=== PATIENT | male | born 1965 | race Caucasian/White ===

== ENCOUNTER → 2017-04-03 09:29 | Outpatient (CLI) | payer OTHER, SELFPAY ==
--- NOTE | 2017-04-03 12:00 | CT_ITS ---
CT abdomen pelvis wo con CLINICAL INDICATION: ITS.REASON: LLQ PAIN ORDERING PHYSICIAN: Antonio Cantu MD PATIENT AGE: 51 years COMPARISON: None TECHNIQUE: Axial images obtained with sagittal and coronal reformats. PROCEDURE: Oral Contrast: Redicat IV Contrast: None . FINDINGS: The nodular opacities are present in the right lower lobe anteriorly nonspecific and may be inflammatory/infectious. Less likely neoplastic but not totally excluded. Follow-up recommended to confirm stability. The liver, gallbladder, spleen, pancreas, adrenal glands, and kidneys have an unremarkable appearance. There is increased soft tissue density along the lateral aspect of the body the stomach with some interspersed contrast in this area. This may likely be related to some adherent food or secretions. A focal mass or focal soft tissue thickening is also considered. Upper endoscopy or air contrast upper GI may be of further value clinically warranted. There is a tiny umbilical hernia containing fat. Unremarkable appendix. No intestinal obstruction or free air. Sparse diverticula are present:. No definite diverticulitis. There is a small area of stranding of the fat in the left lower quadrant anterior to the descending colon. This is without thickening of the adjacent bowel is not associated with a diverticulum and could be due to small area of epiploic appendagitis. No pelvic mass or abnormal fluid collection.. No acute bony anomalies IMPRESSION: 1. Small area of stranding of the fat in the left lower quadrant nonspecific and may be due to small area of epiploic appendagitis. 2. Nodular thickening of the lateral wall of the body the stomach which may be related to retained food or secretions versus true mucosal thickening/soft tissue mass. Air contrast upper GI or upper endoscopy may be of further value. 3. Faint nodular opacities right lower lobe which may be inflammatory/infectious. Follow-up may confirm stability
== END ==
PROVIDERS: Family Provider Family Medicine; PCP Family Medicine; Visit Provider Family Medicine
DX: R10.32 Left lower quadrant pain (principal)
CPT/HCPCS: 74176

== ENCOUNTER → 2017-05-05 15:01 | Outpatient (POV) | payer OTHER, SELFPAY | PROVIDERS: Visit Provider Nurse Practitioner Acute Care | DX: Z00.00 Encounter for general adult medical examination without abnormal findings (principal) ==

== ENCOUNTER 2017-06-16 07:18 | Day surgery (SDC) | payer OTHER, SELFPAY ==
[2017-06-10 13:09] VITALS: BMI 36.8
[2017-06-16] VITALS (7 sets, daily range): BP systolic 111–141; BP diastolic 71–86; PULSE 51–69; RESP 18–20; TEMP 37; O2SAT 97–99
[2017-06-16 07:59] LABS: POC Glucose,Bedside 127 mg/dL (70-110)
--- NOTE | 2017-06-16 09:02 | P.PCN_ITS ---
[facility] Procedure Note Procedure Note:: Upper Endoscopy Procedure Report: Esophagogastroduodenoscopy with cold biopsies and TTS balloon dilation Endoscopost: Guillermo Torres II, MD Referring Physician: Antonio Cantu MD Date of Procedure: June 16, 2017 Equipment: Olympus GIF 180 standard upper endoscope Sedation: MAC sedation Indications: Mr. Ortega is a 52-year-old gentleman who is here for diagnostic panendoscopy. The patient does have some left lower quadrant abdominal pain. He reports occasional heartburn and moderate dysphagia to solids (meats). He had a CAT scan of the abdomen which showed some stranding in the left lower quadrant and possible epiploic appendagitis. There was also some nodular thickening of the lateral wall of the body of the stomach possibly related to some retained food. He reports some bloating and belching. He has had a 20-30 pound intentional weight loss because of diabetes. He has some irregular bowel function and may not have a bowel movement for 3-4 days. He reports no melena or hematochezia. He has no family history of colon cancer. Procedure: Prior to the procedure, a history and physical exam was performed, and patient' s medications and allergies were reviewed. The risks, benefits and alternatives of the sedation and procedure were discussed with the patient. All questions were answered and informed consent was obtained. The patient was brought to the procedure room. Patient identification and proposed procedure were verified by the physician and the nurse. The patient was placed in a left lateral decubitus position and the scope was passed under direct vision. Throughout the procedure, the patient's blood pressure, pulse, and oxygen saturations were monitored continuously. The upper GI endoscopy was accomplished without difficulty. The patient tolerated the procedure well. Findings: The scope was passed directly into the upper esophagus and advanced to the third portion of the duodenum. The post bulbar duodenum and duodenal bulb were normal with normal mucosa and conniventes. The scope was withdrawn through a normal duodenal bulb and pylorus into the stomach. There was some mild linear erythema of the antrum. There was some erosive gastritis of the body and fundus. Upon retroflexion there was no hiatal hernia. 2 biopsies were taken in the antrum and along the lesser curvature for histology to rule out gastritis and/or H pylori. The scope was then withdrawn into the esophagus. There was a Schatzki's ring this dilated and fractured by esophageal dilation to 60 Italian/20 mm with a TTS hydrostatic balloon. There was no evidence of reflux esophagitis or Adams's. The remainder of the esophageal mucosa was normal. Impression: 1. Schatzki's ring dilated to 20 mm 2. Linear reactive gastritis/erosive gastritis Plan: The patient should have some clinical improvement with dilation. I will place the patient on omeprazole for 3 months. I will proceed with colonoscopy. I will follow up the biopsies.
--- NOTE | 2017-06-16 09:19 | HMH.PROC ---
[facility] Procedure Note Procedure Note:: Colonoscopy Procedure Report: Colonoscopy with cold snare polypectomy Endoscopist: Guillermo Torres II, MD Referring physician: Antonio Cantu MD Date of Procedure: June 16, 2017 Equipment: Olympus 180 variable stiffness pediatric colonoscope Sedation: MAC sedation Indication: Mr. Ortega is a 52-year-old gentleman who is here for diagnostic panendoscopy. The patient does have some left lower quadrant abdominal pain. He reports occasional heartburn and moderate dysphagia to solids (meats). He had a CAT scan of the abdomen which showed some stranding in the left lower quadrant and possible epiploic appendagitis. There was also some nodular thickening of the lateral wall of the body of the stomach possibly related to some retained food. He reports some bloating and belching. He has had a 20-30 pound intentional weight loss because of diabetes. He has some irregular bowel function and may not have a bowel movement for 3-4 days. He reports no melena or hematochezia. He has no family history of colon cancer. Procedure: Prior to the procedure, a history and physical exam was performed, and patient's medications and allergies were reviewed. The risks, benefits and alternatives of the sedation and procedure were discussed with the patient. All questions were answered and informed consent was obtained. The patient was brought to the procedure room. Patient identification and proposed procedure were verified by the physician and the nurse. The patient was placed in a left lateral decubitus position and the scope was passed under direct vision. Throughout the procedure, the patient's blood pressure, pulse, and oxygen saturations were monitored continuously. The colonoscopy was accomplished without difficulty. The patient tolerated the procedure well. Findings: On digital rectal examination there was normal rectal tone. There were no external hemorrhoids. There was mild to moderate prostate firmness with some increased firmness in the left lower lateral lobe of the prostate. The colonoscope was introduced through the anal canal to the rectum and advanced to the cecum. The ileocecal valve and appendiceal orifice were identified. The scope was advanced a short distance into the ileum which appeared grossly normal. The scope was then withdrawn into the colon. The cecum, ascending and transverse colon and mucosa were grossly normal. There were scattered diverticuli throughout the descending and sigmoid colon (LEFT colon). There was a 6 mm polyp in the descending colon removed via cold snare polypectomy. The remaining sigmoid and rectum were normal. Upon retroflexion within the rectum there were grade 1 internal hemorrhoids. Impression: 1. Descending colon polyp 2. Left-sided diverticulosis 3. Grade 1 internal hemorrhoids 4. Firm prostate with mild asymmetry left lobe Plan: I will recommend fiber bowel regimen on a maintenance basis. I will follow up the polyp histology and recommend repeat screening/surveillance colonoscopy in 5 years if the polyp is adenomatous. I do feel that the patient recently had spastic diverticular disease versus diverticulitis and possibly epiploic appendagitis. We will discuss additional dietary measures and treatment.
--- NOTE | 2017-06-16 09:22 | P.PCN_ITS ---
[facility] Procedure Note Procedure Note:: Colonoscopy Procedure Report: Colonoscopy with cold snare polypectomy Endoscopist: Guillermo Torres II, MD Referring physician: Antonio Cantu MD Date of Procedure: June 16, 2017 Equipment: Olympus 180 variable stiffness pediatric colonoscope Sedation: MAC sedation Indication: Mr. Ortega is a 52-year-old gentleman who is here for diagnostic panendoscopy. The patient does have some left lower quadrant abdominal pain. He reports occasional heartburn and moderate dysphagia to solids (meats). He had a CAT scan of the abdomen which showed some stranding in the left lower quadrant and possible epiploic appendagitis. There was also some nodular thickening of the lateral wall of the body of the stomach possibly related to some retained food. He reports some bloating and belching. He has had a 20-30 pound intentional weight loss because of diabetes. He has some irregular bowel function and may not have a bowel movement for 3-4 days. He reports no melena or hematochezia. He has no family history of colon cancer. Procedure: Prior to the procedure, a history and physical exam was performed, and patient' s medications and allergies were reviewed. The risks, benefits and alternatives of the sedation and procedure were discussed with the patient. All questions were answered and informed consent was obtained. The patient was brought to the procedure room. Patient identification and proposed procedure were verified by the physician and the nurse. The patient was placed in a left lateral decubitus position and the scope was passed under direct vision. Throughout the procedure, the patient's blood pressure, pulse, and oxygen saturations were monitored continuously. The colonoscopy was accomplished without difficulty. The patient tolerated the procedure well. Findings: On digital rectal examination there was normal rectal tone. There were no external hemorrhoids. There was mild to moderate prostate firmness with some increased firmness in the left lower lateral lobe of the prostate. The colonoscope was introduced through the anal canal to the rectum and advanced to the cecum. The ileocecal valve and appendiceal orifice were identified. The scope was advanced a short distance into the ileum which appeared grossly normal. The scope was then withdrawn into the colon. The cecum , ascending and transverse colon and mucosa were grossly normal. There were scattered diverticuli throughout the descending and sigmoid colon (LEFT colon). There was a 6 mm polyp in the descending colon removed via cold snare polypectomy. The remaining sigmoid and rectum were normal. Upon retroflexion within the rectum there were grade 1 internal hemorrhoids. Impression: 1. Descending colon polyp 2. Left-sided diverticulosis 3. Grade 1 internal hemorrhoids 4. Firm prostate with mild asymmetry left lobe Plan: I will recommend fiber bowel regimen on a maintenance basis. I will follow up the polyp histology and recommend repeat screening/ surveillance colonoscopy in 5 years if the polyp is adenomatous. I do feel that the patient recently had spastic diverticular disease versus diverticulitis and possibly epiploic appendagitis. We will discuss additional dietary measures and treatment.
--- NOTE | 2017-06-16 15:34 | HMH.ANESCL ---
[facility] Anesthesia Checklist - Patient Identification Patient Identification: Arm Band - Structural Data Admitted From: Home Planned Operative Procedure/s: egd/colonoscopy Consent for Planned Operative Procedure(s) Verified: Yes Verified Documents: Surgical Consent, History and Physical - NPO Status Verified Time NPO: 00:00 - Additional verifications Anesthesia Reactions: No - Airway Assessment C-Spine Mobility Assessed: Yes (mp2) TMJ Mobility Assessed: Yes Dentition: Dentures-good fit - Neurological Assessment Level of Consciousness: Awake, Alert - Anesthesia Plan Anesthesia Risk discussed: Yes Anesthesia Plan: Verified ASA Class: II Anesthesia Type: MAC [facility] Anesthesia HX I have reviewed the patient's past medical history: Yes Medical History: Reports:: Diabetes Mellitus Type 2 (on med), Hypertension Denies:: Diabetes Mellitus Type 1, Internal Pacemaker, Lung Disease, Seizures Other Surgeries: Yes: Thyroidectomy. No: Pacemaker
== END 2017-06-16 10:22 | disposition home or self-care (01) ==
LOC: OUTP 07:19
PROVIDERS: Family Provider Family Medicine; PCP Family Medicine; Visit Provider Internal Medicine Gastroenterology
PROC: 0DJ08ZZ Inspection of Upper Intestinal Tract, Via Natural or Artificial Opening Endoscopic (ICD-10-PCS; CPT 43235; principal; 2017-06-16 08:30)
DX: K22.2 Esophageal obstruction (principal); K29.60 Other gastritis without bleeding; K63.5 Polyp of colon; K57.30 Diverticulosis of large intestine without perforation or abscess without bleeding; K64.0 First degree hemorrhoids
CPT/HCPCS: 43239; 43249; 45385; 82962; C1726

== ENCOUNTER → 2017-11-01 07:52 | Outpatient (CLI) | payer OTHER, SELFPAY ==
[2017-11-01 08:59] LABS: Hemoglobin A1C 6.8 % (0.0-7.0)
[2017-11-01 12:18] LABS: Alanine Aminotransferase 33 U/L (12-78); Albumin Level 4.2 gm/dL (3.4-5.0); Albumin/Globulin Ratio 1.3 (1.1-1.8); Alkaline Phosphatase 75 U/L (46-116); Anion Gap 5.8 mEq/L (5-15); Aspartate Amino Transferase 15 U/L (15-37); Bilirubin,Total 0.6 mg/dL (0.2-1.0); Blood Urea Nitrogen 12 mg/dL (7-18); Calcium 9.7 mg/dL (8.5-10.1); Carbon Dioxide 35 mmol/L (21.0-32.0); Chloride 101 mmol/L (98-107); Chol/HDL Ratio 5.5 (1-3.5); Cholesterol 153 mg/dL (140-200); Creatinine,Serum 1.04 mg/dL (0.70-1.30); Estimated Glomerular Filt Rate 75 ml/min (>60); GFR (African American) 90 ML/MIN (>60); Globulin 3.2 gm/dl (1.3-3.2); Glucose 175 mg/dL (74-106); HDL Cholesterol 28 mg/dL (27-67); LDL Cholesterol 70 mg/dL (0-130); Potassium 4.8 mmoL/L (3.5-5.1); Prostate Specific Ag Screen 0.6 ng/mL (0.0-4.0); Sodium 137 mmol/L (136-145); Thyroid Stimulating Hormone 2.35 uIU/ml (0.358-3.740); Total Protein,Serum 7.4 gm/dL (6.4-8.2); Triglycerides 274 mg/dL (30-200); VLDL Cholesterol 55 mg/dL (0-40)
[2017-11-03 05:31] LABS: Vitamin B12 309 pg/mL (232-1245)
[2017-11-04 16:04] LABS: Vitamin D 25 Hydroxy 27.9 ng/mL (30.0-100.0)
== END ==
PROVIDERS: Visit Provider Physician Assistant
DX: E53.8 Deficiency of other specified B group vitamins (principal); E78.5 Hyperlipidemia, unspecified; E03.9 Hypothyroidism, unspecified; E11.65 Type 2 diabetes mellitus with hyperglycemia; E55.9 Vitamin D deficiency, unspecified; I10 Essential (primary) hypertension; Z12.5 Encounter for screening for malignant neoplasm of prostate
CPT/HCPCS: 36415; 80053; 80061; 82607; 82652; 83036; 84443; G0103

== ENCOUNTER 2018-06-03 11:50 | Inpatient (IN) ==
[2018-06-03 13:43] LABS: Basophils % 0.2 % (0.1-2.0); Eosinophils # 0.2 K/mm3 (0.0-0.4); Eosinophils % 0.7 % (0.1-12.0); Hematocrit 50.2 % (42.0-52.0); Hemoglobin 17.1 g/dL (14.1-18.0); Lymphocytes # 0.4 K/mm3 (0.7-4.5); Lymphocytes % 1.5 % (10-50); Mean Corpuscular HGB Conc 34.1 g/dL (31.8-35.4); Mean Corpuscular Hemoglobin 30.9 pg (27.0-31.2); Mean Corpuscular Volume 90.6 fl (80-94); Monocytes % 3.9 % (1.7-9.3); Neutrophils # 23.9 K/mm3 (1.8-7.8); Neutrophils % 93.7 % (37.0-80.0); Platelet Count 332 K/mm3 (142-424); Red Blood Count 5.54 M/mm3 (4.60-6.20); Red Cell Distribution Width 12.8 % (11.5-17.5); White Blood Count 25.5 K/mm3 (4.8-10.8)
[2018-06-03 14:02] LABS: Albumin Level 4.1 gm/dL (3.4-5.0); Albumin/Globulin Ratio 1.1 (1.1-1.8); Anion Gap 21.2 mEq/L (5-15); Bilirubin,Total 0.9 mg/dL (0.2-1.0); Calcium 8.9 mg/dL (8.5-10.1); Globulin 3.8 gm/dl (1.3-3.2); Potassium 3.2 mmoL/L (3.5-5.1); Total Protein,Serum 7.9 gm/dL (6.4-8.2)
[2018-06-03 14:21] LABS: Lymphocytes % 2 % (10-50); Monocytes % 2 % (2-9); Neutrophils % 93 % (42-76); RBC Morphology Normal; Total Cells Counted 100
--- NOTE | 2018-06-03 15:56 | Progress Note ---
Internal Medicine - PN: Subj *Date: 06/03/18 *Time: 15:53 Interval history: Mr. Ortega is a 52-year-old male who presented to the office [facility] today after week of not feeling well. He states he has been fatigued and had body aches and chills for the past week but no documented fever. He states last night he ate dinner and this morning he began having vomiting and diarrhea. He denies any abdominal pain but states he has had 6 episodes of both vomiting and diarrhea today. He has been unable to keep down solids or liquids. He was evaluated in the office and his white blood cell count was 34,000. He was therefore admitted to the hospital for further evaluation and treatment. Exam Vital signs and Labs for Last 24 Hours: Temp Pulse Resp BP Pulse Ox 97.9 F 120 H 18 143/104 H 99 06/03/18 12:22 06/03/18 12:22 06/03/18 12:22 06/03/18 12:22 06/03/18 12:22 Laboratory Results - last 24 hr 06/03/18 13:20: WBC 25.5 H*, RBC 5.54, Hgb 17.1, Hct 50.2, MCV 90.6, MCH 30.9, MCHC 34.1, RDW 12.8, Plt Count 332, Neut % (Auto) 93.7 H, Lymph % (Auto) 1.5 L, Orange % (Auto) 3.9, Eos % (Auto) 0.7, Baso % (Auto) 0.2, Neut # (Auto) 23.9 H, Lymph # (Auto) 0.4 L, Orange # (Auto) 1.0, Eos # (Auto) 0.2, Baso # (Auto) 0.0, Total Counted 100, Neutrophils % (Manual) 93 H, Band Neutrophils % 3.0, Lymphocytes % (Manual) 2 L, Monocytes % (Manual) 2, Platelet Estimate Normal, RBC Morphology Normal 06/03/18 13:20: Sodium 137, Potassium 3.2 L, Chloride 94 L, Carbon Dioxide 25, Anion Gap 21.2 H, BUN 20 H, Creatinine 1.22, Estimated Creat Clear 83, Estimated GFR 62, Est GFR ( Amer) 75, Glucose 298 H, Calcium 8.9, Total Bilirubin 0.9, AST 35, ALT 52, Alkaline Phosphatase 89, Total Protein 7.9, Albumin 4.1, Globulin 3.8 H, Albumin/Globulin Ratio 1.1 06/03/18 13:20: Hemoglobin A1c 8.6 H I & O for Last 24 hours: Intake & Output 06/01/18 06/02/18 06/03/18 06/04/18 11:59 11:59 11:59 11:59 Intake Total 0 / 0 Balance 0 / 0 Weight 184 lb 1 oz - Constitutional Comments: Does not appear to feel well - *Routine HEENT Exam Head: Present: normocephalic, atraumatic Eye: Present: EOMI, PERRL ENT: Present: mucous membranes dry - *Routine Neck Exam Present: supple. Absent: lymphadenopathy - *Routine Respiratory Exam Present: CTA bilaterally - *Routine Cardiovascular Exam Present: RRR - *Routine Abdominal Exam Present: soft, normoactive bowel sounds. Absent: tenderness - *Routine Extremities Exam Absent: cyanosis, clubbing, edema - *Routine Skin Exam Present: warm. Absent: rash - *Routine Neurological Exam Present: alert, oriented X3 Assessment and Plan (1) Gastroenteritis Current visit: Yes Status: Acute Category: Medical Code(s): K52.9 - Noninfective gastroenteritis and colitis, unspecified (2) Leukocytosis Current visit: Yes Status: Acute Category: Medical Code(s): D72.829 - Elevated white blood cell count, unspecified (3) Dehydration Current visit: Yes Status: Acute Category: Medical Code(s): E86.0 - Dehydration (4) Hypokalemia Current visit: Yes Status: Acute Category: Medical Code(s): E87.6 - Hypokalemia (5) Type 2 diabetes mellitus Current visit: Yes Status: Chronic Category: Medical Code(s): E11.9 - Type 2 diabetes mellitus without complications (6) Hypertension Current visit: Yes Status: Chronic Category: Medical Code(s): I10 - Essential (primary) hypertension - Assessment and plan all Dx Assessment and Plan for all problems:: Patient was admitted and started on IV fluids, Invanz, and anti-medics. A CBC with manual differential was ordered. His white blood cell count was slightly lower than it was in the office and the differential look normal. A PCR diarrhea panel was ordered as was a KUB. The KUB was normal. Still awaiting PCR panel as well as blood cultures. His potassium was low and he was started on potassium supplementation. See H&P sent from the office.
--- NOTE | 2018-06-03 18:34 | Progress Note ---
Internal Medicine - PN: Subj *Date: 06/03/18 *Time: 18:32 Interval history: He feels much better already. He has been able to keep liquids down. He has not vomited nor has he had diarrhea since he was admitted. KUB and upright abdomen was basically negative negative, possible enteritis. Exam Vital signs and Labs for Last 24 Hours: Temp Pulse Resp BP Pulse Ox 98.8 F 112 H 16 117/78 98 06/03/18 16:00 06/03/18 16:00 06/03/18 16:00 06/03/18 16:00 06/03/18 16:00 Laboratory Results - last 24 hr 06/03/18 13:20: WBC 25.5 H*, RBC 5.54, Hgb 17.1, Hct 50.2, MCV 90.6, MCH 30.9, MCHC 34.1, RDW 12.8, Plt Count 332, Neut % (Auto) 93.7 H, Lymph % (Auto) 1.5 L, D[place] % (Auto) 3.9, Eos % (Auto) 0.7, Baso % (Auto) 0.2, Neut # (Auto) 23.9 H, Lymph # (Auto) 0.4 L, [place] # (Auto) 1.0, Eos # (Auto) 0.2, Baso # (Auto) 0.0, Total Counted 100, Neutrophils % (Manual) 93 H, Band Neutrophils % 3.0, Lymphocytes % (Manual) 2 L, Monocytes % (Manual) 2, Platelet Estimate Normal, RBC Morphology Normal 06/03/18 13:20: Sodium 137, Potassium 3.2 L, Chloride 94 L, Carbon Dioxide 25, Anion Gap 21.2 H, BUN 20 H, Creatinine 1.22, Estimated Creat Clear 83, Estimated GFR 62, Est GFR ( Amer) 75, Glucose 298 H, Calcium 8.9, Total Bilirubin 0.9, AST 35, ALT 52, Alkaline Phosphatase 89, Total Protein 7.9, Albumin 4.1, Globulin 3.8 H, Albumin/Globulin Ratio 1.1 06/03/18 13:20: Hemoglobin A1c 8.6 H 06/03/18 13:20: TSH 0.74 D I & O for Last 24 hours: Intake & Output 06/01/18 06/02/18 06/03/18 06/04/18 11:59 11:59 11:59 11:59 Intake Total 0 / 0 Balance 0 / 0 Weight 184 lb 1 oz - Constitutional no acute distress Comments: He looks much better. His color is better. His skin turgor has improved already. - *Routine Cardiovascular Exam Present: RRR - *Routine Abdominal Exam Present: soft. Absent: tenderness Assessment and Plan (1) Gastroenteritis Current visit: Yes Status: Acute Category: Medical Code(s): K52.9 - Noninfective gastroenteritis and colitis, unspecified (2) Leukocytosis Current visit: Yes Status: Acute Category: Medical Code(s): D72.829 - Elevated white blood cell count, unspecified (3) Dehydration Current visit: Yes Status: Acute Category: Medical Code(s): E86.0 - Dehydration (4) Hypokalemia Current visit: Yes Status: Acute Category: Medical Code(s): E87.6 - Hypokalemia (5) Type 2 diabetes mellitus Current visit: Yes Status: Chronic Category: Medical Code(s): E11.9 - Type 2 diabetes mellitus without complications (6) Hypertension Current visit: Yes Status: Chronic Category: Medical Code(s): I10 - Essent ial (primary) hypertension - Assessment and plan all Dx Assessment and Plan for all problems:: Continue present regimen.
[2018-06-04 07:37] LABS: Basophils % 0.3 % (0.1-2.0); Eosinophils % 0.5 % (0.1-12.0); Lymphocytes % 11.8 % (10-50); Mean Corpuscular HGB Conc 34.3 g/dL (31.8-35.4); Mean Corpuscular Hemoglobin 31.2 pg (27.0-31.2); Mean Corpuscular Volume 90.8 fl (80-94); Mean Platelet Volume 7.2 fl (7.4-10.4); Monocytes # 0.6 K/mm3 (0.1-1.0); Neutrophils # 7.1 K/mm3 (1.8-7.8); Neutrophils % 80.4 % (37.0-80.0); Platelet Count 243 K/mm3 (142-424); Red Blood Count 4.51 M/mm3 (4.60-6.20); Red Cell Distribution Width 12.8 % (11.5-17.5); White Blood Count 8.8 K/mm3 (4.8-10.8)
--- NOTE | 2018-06-04 07:40 | Pharmacy Consult Notes ---
[facility] Pharmacy VTE Monitoring - Patient Demographics Admission date: 06/03/18 Report Date: 06/04/18 Time: 07:40 Allergies/Adverse Reactions: Patient Allergies No Known Allergies Allergy (Verified 06/10/17 13:03) Height: 1.85 m Weight: 83.489 kg Patient Problems: Current Active Problems Gastroenteritis (Acute) Leukocytosis (Acute) Dehydration (Acute) Hypokalemia (Acute) Type 2 diabetes mellitus (Chronic) Hypertension (Chronic) - VTE Risk Labs: VTE Related Lab Results Hgb 17.1 g/dL (14.1-18.0) 06/03/18 13:20 Hct 50.2 % (42.0-52.0) 06/03/18 13:20 Plt Count 332 K/mm3 (142-424) 06/03/18 13:20 BUN 20 mg/dL (7-18) H 06/03/18 13:20 Creatinine 1.22 mg/dL (0.70-1.30) 06/03/18 13:20 Estimated Creat Clear 83 mL/min (50-200) 06/03/18 13:20 Was VTE Risk Assessment Performed: Yes VTE Score: 1 VTE Risk Level: Very Low Risk - Prophylaxis VTE Prophylaxis Ordered?: Yes Types of VTE Prophylaxis: TEDS Knee High Location of Applied Device: Bilateral Lower Extremeties - VTE Diagnosis Confirmed Treatment or plan recommended: Continue Current Treatment
[2018-06-04 07:51] LABS: Albumin Level 2.9 gm/dL (3.4-5.0); Anion Gap 12.7 mEq/L (5-15); Bilirubin,Total 0.7 mg/dL (0.2-1.0); Total Protein,Serum 5.9 gm/dL (6.4-8.2)
[2018-06-04 07:58] LABS: Hemoglobin 14.2 g/dL (14.1-18.0)
[2018-06-04 08:04] LABS: Potassium 2.7 mmoL/L (3.5-5.1)
--- NOTE | 2018-06-04 08:37 | Progress Note ---
Internal Medicine - PN: Subj *Date: 06/04/18 *Time: 08:36 Interval history: Patient states he is feeling a little bit better today. His nausea, vomiting, and diarrhea have resolved. He denies any pain. His only complaint is of being tired. His potassium is low this morning but his white blood cell count has normalized. Exam Vital signs and Labs for Last 24 Hours: Temp Pulse Resp BP Pulse Ox 98.4 F 90 18 112/81 100 06/04/18 08:00 06/04/18 08:00 06/04/18 08:00 06/04/18 08:00 06/04/18 08:00 Laboratory Results - last 24 hr 06/03/18 13:20: WBC 25.5 H*, RBC 5.54, Hgb 17.1, Hct 50.2, MCV 90.6, MCH 30.9, MCHC 34.1, RDW 12.8, Plt Count 332, Neut % (Auto) 93.7 H, Lymph % (Auto) 1.5 L, Hardy % (Auto) 3.9, Eos % (Auto) 0.7, Baso % (Auto) 0.2, Neut # (Auto) 23.9 H, Lymph # (Auto) 0.4 L, Hardy # (Auto) 1.0, Eos # (Auto) 0.2, Baso # (Auto) 0.0, Total Counted 100, Neutrophils % (Manual) 93 H, Band Neutrophils % 3.0, Lymphocytes % (Manual) 2 L, Monocytes % (Manual) 2, Platelet Estimate Normal, RBC Morphology Normal 06/03/18 13:20: Sodium 137, Potassium 3.2 L, Chloride 94 L, Carbon Dioxide 25, Anion Gap 21.2 H, BUN 20 H, Creatinine 1.22, Estimated Creat Clear 83, Estimated GFR 62, Est GFR ( Amer) 75, Glucose 298 H, Calcium 8.9, Total Bilirubin 0.9, AST 35, ALT 52, Alkaline Phosphatase 89, Total Protein 7.9, Albumin 4.1, Globulin 3.8 H, Albumin/Globulin Ratio 1.1 06/03/18 13:20: Hemoglobin A1c 8.6 H 06/03/18 13:20: TSH 0.74 D 06/03/18 20:09: POC Glucose 253 H 06/04/18 05:54: POC Glucose 209 H 06/04/18 06:43: WBC 8.8 D, RBC 4.51 L, Hgb 14.2 D, Hct 41.0 L, MCV 90.8, MCH 31.2, MCHC 34.3, RDW 12.8, Plt Count 243 D, MPV 7.2 L, Neut % (Auto) 80.4 H, Lymph % (Auto) 11.8, Hardy % (Auto) 7.0, Eos % (Auto) 0.5, Baso % (Auto) 0.3, Neut # (Auto) 7.1, Lymph # (Auto) 1.0, Hardy # (Auto) 0.6, Eos # (Auto) 0.0, Baso # (Auto) 0.0 06/04/18 06:43: Sodium 135 L, Potassium 2.7 L*, Chloride 97 L, Carbon Dioxide 28, Anion Gap 12.7, BUN 15, Creatinine 0.84 D, Estimated Creat Clear 120, Estimated GFR 96, Est GFR ( Amer) 116 D, Glucose 211 H D, Total Bilirubin 0.7, AST 26 D, ALT 40, Alkaline Phosphatase 58, Total Protein 5.9 L D , Albumin 2.9 L D, Globulin 3.0, Albumin/Globulin Ratio 1.0 L I & O for Last 24 hours: Intake & Output 06/01/18 06/02/18 06/03/18 06/04/18 11:59 11:59 11:59 11:59 Intake Total 1410 / 1410 Balance 1410 / 1410 Weight 184 lb 1 oz - Constitutional no acute distress - *Routine Respiratory Exam Present: CTA bilaterally - *Routine Cardiovascular Exam Present: RRR - *Routine Abdominal Exam Present: soft, normoactive bowel sounds. Absent: tenderness - *Routine Extremities Exam Absent: cyanosis, clubbing, edema Assessment and Plan (1) Gastroenteritis Current visit: Yes Status: Acute Category: Medical Code(s): K52.9 - Noninfective gastroenteritis and colitis, unspecified (2) Leukocytosis Current visit: Yes Status: Acute Category: Medical Code(s): D72.829 - Elevated white blood cell count, unspecified (3) Dehydration Current visit: Yes Status: Acute Category: Medical Code(s): E86.0 - Dehydration (4) Hypokalemia Current visit: Yes Status: Acute Category: Medical Code(s): E87.6 - Hypokalemia (5) Type 2 diabetes mellitus Current visit: Yes Status: Chronic Category: Medical Code(s): E11.9 - Type 2 diabetes mellitus without complications (6) Hypertension Current visit: Yes Status: Chronic Category: Medical Code(s): I10 - Essential (primary) hypertension - Assessment and plan all Dx Assessment and Plan for all problems:: Potassium is low this morning. We will continue oral supplementation and give a run of 20 mEq of potassium today.
[2018-06-04 08:44] LABS: Calcium 7.3 mg/dL (8.5-10.1)
[2018-06-04 14:25] LABS: Anion Gap 12.2 mEq/L (5-15); Calcium 7.2 mg/dL (8.5-10.1); Potassium 3.2 mmoL/L (3.5-5.1)
[2018-06-05 07:32] LABS: Basophils % 0.4 % (0.1-2.0); Eosinophils # 0.1 K/mm3 (0.0-0.4); Eosinophils % 1.7 % (0.1-12.0); Hematocrit 39.1 % (42.0-52.0); Hemoglobin 13.2 g/dL (14.1-18.0); Lymphocytes # 1.3 K/mm3 (0.7-4.5); Lymphocytes % 19.6 % (10-50); Mean Corpuscular HGB Conc 33.7 g/dL (31.8-35.4); Mean Corpuscular Hemoglobin 31.6 pg (27.0-31.2); Mean Corpuscular Volume 93.7 fl (80-94); Mean Platelet Volume 7.2 fl (7.4-10.4); Monocytes # 0.6 K/mm3 (0.1-1.0); Neutrophils # 4.8 K/mm3 (1.8-7.8); Neutrophils % 70.3 % (37.0-80.0); Platelet Count 227 K/mm3 (142-424); Red Blood Count 4.17 M/mm3 (4.60-6.20); White Blood Count 6.8 K/mm3 (4.8-10.8)
[2018-06-05 07:38] LABS: Anion Gap 12.4 mEq/L (5-15); Calcium 7.4 mg/dL (8.5-10.1); Potassium 3.4 mmoL/L (3.5-5.1)
--- NOTE | 2018-06-05 08:24 | Progress Note ---
<Starr Fulton - Last Filed: 06/05/18 08:23> Internal Medicine - PN: Subj *Date: 06/05/18 *Time: 08:23 Interval history: Patient states he is feeling better today. He is tolerating a diet. He has had no further vomiting but continues with some diarrhea. He was able to rest last night and wants to go home today. Exam Vital signs and Labs for Last 24 Hours: Temp Pulse Resp BP Pulse Ox 97.7 F 60 17 136/80 97 06/05/18 04:00 06/05/18 04:00 06/05/18 04:00 06/05/18 04:00 06/05/18 07:45 Laboratory Results - last 24 hr 06/04/18 06:43: Calcium 7.3 L D 06/04/18 11:06: POC Glucose 202 H 06/04/18 13:40: Stl Aeromonas (PCR) Not detected, Stl C. cayetanensis PCR Not detected, Stool Rotavirus (PCR) Not detected, Stl Adenov F 40/41 PCR Not detected, Stool Astrovirus (PCR) Not detected, Stool Campylobacter PCR Not detected, Stl C.difficile Tox PCR Not detected, Stool Cryptosporidium PCR Not detected, Stl E.coli Shiga Tox PCR Not detected, Stool E coli O157 PCR Not detected, Stl Enterotoxigenic E PCR Not detected, Stool EPEC (PCR) Not detected, Stool EAEC (PCR) Not detected, Stl E. histolytica PCR Not detected, Stool Giardia Lamblia PCR Not detected, Stool Salmonella PCR Not detected, Stool Sapovirus (PCR) Not detected, Stl P. shigelloides PCR Not detected, Stl Shigella/EIEC PCR Not detected, St Y.enterocolitica PCR Not detected, Stool Vibrio (PCR) Not detected, Stl Vibrio cholerae PCR Not detected, Stl Norovirus GI/GII PCR Detected A 06/04/18 14:05: Sodium 138, Potassium 3.2 L, Chloride 101, Carbon Dioxide 28, Anion Gap 12.2, BUN 11 D, Creatinine 0.94, Estimated Creat Clear 107, Estimated GFR 84, Est GFR ( Amer) 102, Glucose 179 H, Calcium 7.2 L 06/04/18 17:11: POC Glucose 155 H 06/04/18 20:31: POC Glucose 187 H 06/05/18 05:44: POC Glucose 173 H 06/05/18 06:46: WBC 6.8, RBC 4.17 L, Hgb 13.2 L, Hct 39.1 L, MCV 93.7, MCH 31.6 H, MCHC 33.7, RDW 13.0, Plt Count 227, MPV 7.2 L, Neut % (Auto) 70.3, Lymph % (Auto) 19.6, Haywood % (Auto) 8.0, Eos % (Auto) 1.7, Baso % (Auto) 0.4, Neut # (Auto) 4.8, Lymph # (Auto) 1.3, Haywood # (Auto) 0.6, Eos # (Auto) 0.1, Baso # (Auto) 0.0 06/05/18 06:46: Sodium 139, Potassium 3.4 L, Chloride 105, Carbon Dioxide 25, Anion Gap 12.4, BUN 9, Creatinine 0.76, Estimated Creat Clear 133, Estimated GFR 107, Est GFR ( Amer) 130 D, Glucose 164 H, Calcium 7.4 L I & O for Last 24 hours: Intake & Output 06/02/18 06/03/18 06/04/18 06/05/18 11:59 11:59 11:59 11:59 Intake Total 1410 / 1410 840 / 840 Output Total 200 / 200 Balance 1410 / 1410 640 / 640 Weight 184 lb 1 oz - Constitutional no acute distress - *Routine Respiratory Exam Present: CTA bilaterally - *Routine Cardiovascular Exam Present: RRR - *Routine Abdominal Exam Present: soft, normoactive bowel sounds. Absent: tenderness - *Routine Extremities Exam Absent: cyanosis, clubbing, edema Assessment and Plan (1) Norovirus Current visit: Yes Status: Acute Category: Medical Code(s): A08.11 - Acute gastroenteropathy due to [place] agent (2) Gastroenteritis Current visit: Yes Status: Acute Category: Medical Code(s): K52.9 - Noninfective gastroenteritis and colitis, unspecified (3) Leukocytosis Current visit: Yes Status: Acute Category: Medical Code(s): D72.829 - Elevated white blood cell count, unspecified (4) Dehydration Current visit: Yes Status: Acute Category: Medical Code(s): E86.0 - Dehydration (5) Hypokalemia Current visit: Yes Status: Acute Category: Medical Code(s): E87.6 - Hypokalemia (6) Type 2 diabetes mellitus Current visit: Yes Status: Chronic Category: Medical Code(s): E11.9 - Type 2 diabetes mellitus without complications (7) Hypertension Current visit: Yes Status: Chronic Category: Medical Code(s): I10 - Essential (primary) hypertension - Assessment and plan all Dx Assessment and Plan for all problems:: Patient's diarrhea panel came back positive for nororvirus. His symptoms have improved as has his potassium. He stable to be discharged home today. <Modesto Catalan - Last Filed: 06/05/18 08:37> Exam Vital signs and Labs for Last 24 Hours: Temp Pulse Resp BP Pulse Ox 98.1 F 74 16 123/84 97 06/05/18 08:00 06/05/18 08:00 06/05/18 08:00 06/05/18 08:00 06/05/18 08:00 Laboratory Results - last 24 hr 06/04/18 06:43: Calcium 7.3 L D 06/04/18 11:06: POC Glucose 202 H 06/04/18 13:40: Stl Aeromonas (PCR) Not detected, Stl C. cayetanensis PCR Not detected, Stool Rotavirus (PCR) Not detected, Stl Adenov F 40/41 PCR Not detected, Stool Astrovirus (PCR) Not detected, Stool Campylobacter PCR Not detected, Stl C.difficile Tox PCR Not detected, Stool Cryptosporidium PCR Not detected, Stl E.coli Shiga Tox PCR Not detected, Stool E coli O157 PCR Not detected, Stl Enterotoxigenic E PCR Not detected, Stool EPEC (PCR) Not detected, Stool EAEC (PCR) Not detected, Stl E. histolytica PCR Not detected, Stool Gi ardia Lamblia PCR Not detected, Stool Salmonella PCR Not detected, Stool Sapovirus (PCR) Not detected, Stl P. shigelloides PCR Not detected, Stl Shigella/EIEC PCR Not detected, St Y.enterocolitica PCR Not detected, Stool Vibrio (PCR) Not detected, Stl Vibrio cholerae PCR Not detected, Stl Norovirus GI/GII PCR Detected A 06/04/18 14:05: Sodium 138, Potassium 3.2 L, Chloride 101, Carbon Dioxide 28, Anion Gap 12.2, BUN 11 D, Creatinine 0.94, Estimated Creat Clear 107, Estimated GFR 84, Est GFR ( Amer) 102, Glucose 179 H, Calcium 7.2 L 06/04/18 17:11: POC Glucose 155 H 06/04/18 20:31: POC Glucose 187 H 06/05/18 05:44: POC Glucose 173 H 06/05/18 06:46: WBC 6.8, RBC 4.17 L, Hgb 13.2 L, Hct 39.1 L, MCV 93.7, MCH 31.6 H, MCHC 33.7, RDW 13.0, Plt Count 227, MPV 7.2 L, Neut % (Auto) 70.3, Lymph % (Auto) 19.6, Haywood % (Auto) 8.0, Eos % (Auto) 1.7, Baso % (Auto) 0.4, Neut # (Auto) 4.8, Lymph # (Auto) 1.3, Haywood # (Auto) 0.6, Eos # (Auto) 0.1, Baso # (Auto) 0.0 06/05/18 06:46: Sodium 139, Potassium 3.4 L, Chloride 105, Carbon Dioxide 25, Anion Gap 12.4, BUN 9, Creatinine 0.76, Estimated Creat Clear 133, Estimated GFR 107, Est GFR ( Amer) 130 D, Glucose 164 H, Calcium 7.4 L I & O for Last 24 hours: Intake & Output 06/02/18 06/03/18 06/04/18 06/05/18 11:59 11:59 11:59 11:59 Intake Total 1410 / 1410 1560 / 1560 Output Total 200 / 200 Balance 1410 / 1410 1360 / 1360 Weight 184 lb 1 oz Assessment and Plan (1) Norovirus Current visit: Yes Status: Acute Category: Medical Code(s): A08.11 - Acute gastroenteropathy due to [place] agent (2) Gastroenteritis Current visit: Yes Status: Acute Category: Medical Code(s): K52.9 - Noninfective gastroenteritis and colitis, unspecified (3) Leukocytosis Current visit: Yes Status: Acute Category: Medical Code(s): D72.829 - Elevated white blood cell count, unspecified (4) Dehydration Current visit: Yes Status: Acute Category: Medical Code(s): E86.0 - Dehydration (5) Hypokalemia Current visit: Yes Status: Acute Category: Medical Code(s): E87.6 - Hypokalemia (6) Type 2 diabetes mellitus Current visit: Yes Status: Chronic Category: Medical Code(s): E11.9 - Type 2 diabetes mellitus without complications (7) Hypertension Current visit: Yes Status: Chronic Category: Medical Code(s): I10 - Essential (primary) hypertension - Assessment and plan all Dx Assessment and Plan for all problems:: Saw patient, agree with above note.
--- NOTE | 2018-06-07 22:30 | Discharge Summary ---
General - General Admission date:: 06/03/18 Discharge date: 06/05/18 HPI HPI: Mr. Ortega is a 52-year-old male who presented to the [facility] today after week of not feeling well. He states he has been fatigued and had body aches and chills for the past week but no documented fever. He states last night he ate dinner and this morning he began having vomiting and diarrhea. He denies any abdominal pain but states he has had 6 episodes of both vomiting and diarrhea today. He has been unable to keep down solids or liquids. He was evaluated in the office and his white blood cell count was 34,000. He was therefore admitted to the hospital for further evaluation and treatment. Hospital Course Hospital Course: The patient was admitted and started on IV fluids, Invanz, and anti-emetics. A CBC with manual differential was ordered as was a PCR diarrhea panel and a KUB. The patient's KUB was normal. His potassium was low, therefore he was started on potassium supplementation. The patient's vomiting subsided and his white blood cell count normalized. His potassium remained low, therefore he was given a run of potassium. His diarrhea panel came back positive for Norovirus. He began feeling much better and was able to tolerate a diet. He had no further vomiting but did continue with some diarrhea. He was able to rest and was anxious to go home. His potassium improved and he was stable to be discharged home and will follow-up in the office. Objective Vital signs: Temp Pulse Resp BP Pulse Ox 98.1 F 74 16 123/84 97 06/05/18 08:00 06/05/18 08:00 06/05/18 08:00 06/05/18 08:00 06/05/18 08:00 Narrative: - Constitutional Comments: Does not appear to feel well - *Routine HEENT Exam Head: Present: normocephalic, atraumatic Eye: Present: EOMI, PERRL ENT: Present: mucous membranes dry - *Routine Neck Exam Present: supple. Absent: lymphadenopathy - *Routine Respiratory Exam Present: CTA bilaterally - *Routine Cardiovascular Exam Present: RRR - *Routine Abdominal Exam Present: soft, normoactive bowel sounds. Absent: tenderness - *Routine Extremities Exam Absent: cyanosis, clubbing, edema - *Routine Skin Exam Present: warm. Absent: rash - *Routine Neurological Exam Present: alert, oriented X3 Results Labs on day of discharge: Preliminary micro results at discharge 06/03/18 13:20 Blood Culture - Preliminary Blood NO GROWTH AFTER 48 HOURS 06/03/18 13:20 Blood Culture - Preliminary Blood NO GROWTH AFTER 48 HOURS DS: Diagnosis - Discharge Diagnosis (1) Norovirus Status: Acute (2) Gastroenteritis Status: Acute (3) Leukocytosis Status: Acute (4) Dehydration Status: Acute (5) Hypokalemia Status: Acute (6) Type 2 diabetes mellitus Status: Chronic (7) Hypertension Status: Chronic Discharge Plan - Patient Discharge Instructions ACTIVITY: Continue current activity (RTW on 06/08/18) DIET: continue same diet Patient Instructions: Norovirus Infection, DI for Dehydration -- Adult, DI for Hypokalemia - Follow up Plan Follow up with: Starr Fulton PA [Physician Behavioral Medical Director] - 06/11/18 Disposition: Home, Self-Usp Medications: Home Medications Medication Instructions Recorded Confirmed Type Aspirin [Aspirin 81mg EC Tab] 81 mg PO DAILY 06/10/17 06/03/18 History Chlorthalidone 25 mg PO DAILY 06/10/17 06/04/18 History Levothyroxine Sodium 75 mcg PO DAILY 06/10/17 06/04/18 History [Levothyroxine 75mcg (0.075mg) Tab] Lisinopril [Lisinopril 5mg Tablet] 5 mg PO DAILY 06/10/17 06/04/18 History Metformin HCl [Glucophage 500mg 500 mg PO DAILY 06/10/17 06/04/18 History Tablet] Potassium Chloride [Klor-con 20 20 meq PO DAILY 06/10/17 06/04/18 History mEq tablet] Icosapent Ethyl [Vascepa] 2 g PO BID 06/04/18 06/04/18 History Prescriptions/Medication Reconciliation: Continue Levothyroxine Sodium [Levothyroxine 75mcg (0.075mg) Tab] 75 mcg PO DAILY Metformin HCl [Glucophage 500mg Tablet] 500 mg PO DAILY Lisinopril [Lisinopril 5mg Tablet] 5 mg PO DAILY Chlorthalidone 25 mg PO DAILY Icosapent Ethyl [Vascepa] 2 g PO BID Potassium Chloride [Klor-con 20 mEq tablet] 20 meq PO DAILY Aspirin [Aspirin 81mg EC Tab] 81 mg PO DAILY
== END 2018-06-05 10:01 | disposition home or self-care (01) | DRG 392 ==
LOC: 2ND → OBSVTOIN 12:09
PROVIDERS: ADMIT Family Medicine; ATTEND Family Medicine
CPT/HCPCS: 36415; 74000; 74018; 74019; 74020; 80048; 80053; 82962; 83036; 84443; 85007; 85014; 85018; 85025; 85048; 85049; 87040; 87507; J1335

== ENCOUNTER → 2019-10-09 08:14 | Outpatient (CLI) | payer OTHER, SELFPAY ==
[2019-10-09 08:48] LABS: Hemoglobin A1C 7.9 % (4.0-6.0)
[2019-10-09 08:50] LABS: Creatinine,Urine Random 240 mg/dL (Not Estab.)
[2019-10-09 08:52] LABS: Microalbumin/Creatinine Ratio 4.1
[2019-10-09 09:06] LABS: Chloride 100 mmol/L (98-107); Potassium 3.7 mmoL/L (3.5-5.1); Sodium 138 mmol/L (136-145)
[2019-10-09 09:08] LABS: Alanine Aminotransferase 38 U/L (12-78); Aspartate Amino Transferase 34 U/L (17-59); Blood Urea Nitrogen 12 mg/dl (9-20); Estimated Glomerular Filt Rate 100 ml/min (>60); GFR (African American) 121 ML/MIN (>60)
[2019-10-09 09:09] LABS: Albumin Level 4.5 g/dl (3.5-5.0); Albumin/Globulin Ratio 1.8 (1.1-1.8); Alkaline Phosphatase 67 U/L (38-126); Anion Gap 11.7 mEq/L (5-15); Bilirubin,Total 0.6 mg/dl (0.2-1.3); Calcium 9.4 mg/dl (8.4-10.2); Carbon Dioxide 30 mmol/L (22.0-30.0); Cholesterol 157 mg/dl (140-200); Globulin 2.5 g/dL (1.3-3.2); Glucose 199 mg/dl (74-100); Triglycerides 230 mg/dl (30-150); VLDL Cholesterol 46 mg/dL (0-40)
[2019-10-09 09:10] LABS: Chol/HDL Ratio 4.9 (1-3.5); HDL Cholesterol 32 mg/dl (40-60)
[2019-10-09 09:20] LABS: Direct LDL Cholesterol 88.41 mg/dL (100-129)
[2019-10-09 09:39] LABS: Thyroid Stimulating Hormone 1.37 uIU/mL (0.465-4.68)
[2019-10-09 12:50] LABS: 25-OH Vitamin D, Total 43.9 ng/mL (30-100)
[2019-10-11 19:38] LABS: Vitamin B12 667 pg/mL (232-1245)
== END ==
PROVIDERS: Visit Provider Physician Assistant
DX: E03.9 Hypothyroidism, unspecified (principal); E11.9 Type 2 diabetes mellitus without complications; E53.8 Deficiency of other specified B group vitamins; E55.9 Vitamin D deficiency, unspecified; I10 Essential (primary) hypertension; E78.5 Hyperlipidemia, unspecified; Z79.84 Long term (current) use of oral hypoglycemic drugs
CPT/HCPCS: 36415; 80053; 80061; 82043; 82306; 82570; 82607; 83036; 84439; 84443

== ENCOUNTER 2020-04-14 19:38 | Emergency (ER) | payer OTHER, SELFPAY ==
[2020-04-14 19:45] VITALS: BP 129/82; PULSE 83; RESP 19; TEMP 36.6; O2SAT 98; BMI 25.7
--- NOTE | 2020-04-14 19:56 | HMH.EDUTC ---
[facility] [place] Disposition Clinical Impression: Exposure to COVID-19 virus Disposition: Home, Self-Care Condition on Discharge: Good Instructions: Preventing the Spread of Coronavirus Discharge Instructions Additional Instructions: You have been tested for COVID19. Please isolate yourself as if you are positive until test results received. Referrals: Brent Cantu MD [Primary Care Provider] - Time of Disposition: 19:58 Medical Decision Making - Adi Inquiry Pt receiving controlled substance: No Vital Signs: 04/14/20 19:45 Temperature 97.8 F Temperature Source Oral Pulse Rate [Right Brachial] 83 Respiratory Rate 19 Blood Pressure [Right Arm] 129/82 Blood Pressure Mean [Right Arm] 97 Blood Pressure Source [Right Arm] Automatic Cuff Blood Pressure Position [Right Arm] Sitting 02 Sat by Pulse Oximetry 98 Oxygen Delivery Method Room Air Orders (Tests/Meds): ORDERS Category Date Time Status Covid-19 Nasal PCR ([facility]) Routine Lab 04/14/20 19:48 Received [facility] [place] HPI - General Stated complaint: Wants Covid test,H/A weakness Time Seen by Provider: 04/14/20 19:56 Mode of Arrival: Ambulatory Source of Information: Patient Limitations: No Limitations Description of Symptoms (Recalled from Triage Doc. by RN): COVID TEST D/T EXPOSURE. DENIES SYMPTOMS HEENT Symptoms (Recalled from RN notes): No Resp Symptoms (Recalled from RN notes): No Skin Symptoms (Recalled from RN notes): No MS Symptoms (Recalled from RN notes): No Functional Status (Recalled from RN notes): WNL - History of Present Illness Provider Complaint: Headache, malaise X 2 days. Possible work exposure to COVID19. No fever. No loss of taste or smell. Onset (ago): day(s) (2) Location: head Relieving factors: none Exacerbating factors: none Associated symptoms: denies other symptoms Treatments prior to arrival: none - Related Data Home Medications Medication Instructions Recorded Confirmed Aspirin [Aspirin 81mg EC Tab] 81 mg PO DAILY 06/10/17 06/03/18 Chlorthalidone 25 mg PO DAILY 06/10/17 06/04/18 Levothyroxine Sodium 75 mcg PO DAILY 06/10/17 06/04/18 [Levothyroxine 75mcg (0.075mg) Tab] Metformin HCl [Glucophage 500mg 500 mg PO DAILY 06/10/17 06/04/18 Tablet] Potassium Chloride [Klor-con 20 20 meq PO DAILY 06/10/17 06/04/18 mEq tablet] lisinopriL [Lisinopril 5mg 5 mg PO DAILY 06/10/17 06/04/18 Tablet] Icosapent Ethyl [Vascepa] 2 g PO BID 06/04/18 06/04/18 Allergies Allergy/AdvReac Type Severity Reaction Status Date / Time No Known Allergies Allergy Verified 06/10/17 13:03 - Worker's Comp Is this a Worker's Comp case?: No [facility] History - Hepatitis A Screen Drug use history?: No High risk sexual behaviors?: No History of sexually transmitted infection?: No Currently employed?: No Childcare worker?: No Do you have indoor plumbing?: Yes Do you have electricity?: Yes Attestation statement:: This patient has been screened for Hepatitis A risk factors. I have reviewed the patient's past medical history: Yes Medical History: Reports:: Diabetes Mellitus Type 2 (on med), Hypertension Denies:: Cancer, Diabetes Mellitus Type 1, Internal Pacemaker, Lung Disease, MRSA, Seizures Other Surgeries: Yes: Thyroidectomy. No: Pacemaker Amputation: No Fractures: No - Social History Smoking Status: Current every day smoker Tobacco Type: cigarettes # Packs/Day (cigarettes): 1 Alcohol Intake: never Occupational Status: employed Housing: house Household Members: spouse, children Family Hx:: Unable to obtain ROS Obtained: Yes All systems reviewed & no additional complaints - Constitutional Constitutional: Reports headache(s), Reports malaise Physical Exam - General General appearance: alert, in no apparent distress - Head Head exam: atraumatic, normocephalic, normal inspection - Eye Eye exam: Present: normal appearance, PERRL, EOMI - ENT ENT exam: Present: normal exam, normal oropharynx, m
[2020-04-14 20:02] VITALS: BP 129/82; PULSE 83; RESP 19; TEMP 36.6; O2SAT 98
== END 2020-04-14 20:05 | disposition home or self-care (01) ==
PROVIDERS: Emergency Provider Physician Assistant; PCP Family Medicine
DX: Z20.822 Contact with and (suspected) exposure to COVID-19 (principal); R51.9 Headache, unspecified; I10 Essential (primary) hypertension; E11.9 Type 2 diabetes mellitus without complications; Z79.899 Other long term (current) drug therapy; F17.210 Nicotine dependence, cigarettes, uncomplicated
CPT/HCPCS: 99202; G0463; U0003

== ENCOUNTER 2021-02-19 16:41 | Emergency (ER) | payer OTHER, SELFPAY ==
--- NOTE | 2021-02-19 17:25 | XR_ITS ---
PROCEDURE INFORMATION: Exam: XR Left Foot Exam date and time: 02/19/2021 5:25 PM Age: 55 years old Clinical indication: Injury or trauma; Other: Crush; Blunt trauma; Left; Injury date: 02/19/21; Injury details: Log fell on foot TECHNIQUE: Imaging protocol: XR Left foot. Views: 3 or more views. COMPARISON: No relevant prior studies available. FINDINGS: Bones/joints: No fracture. No malalignment. Soft tissues: Normal. IMPRESSION: No acute findings.
[2021-02-19 17:26] VITALS: BP 179/116; PULSE 75; RESP 18; TEMP 36.7; O2SAT 99; BMI 25.0
--- NOTE | 2021-02-19 18:02 | HMH.EDUTC ---
[facility] [place] Clinical Impression: Contusion of left foot Qualifiers: Encounter type: initial encounter Qualified Code(s): S90.32XA - Contusion of left foot, initial encounter Crushing injury of left foot Qualifiers: Encounter type: initial encounter Qualified Code(s): S97.82XA - Crushing injury of left foot, initial encounter Disposition: Home, Self-Care Condition on Discharge: Good Instructions: DI for Foot Pain, DI for Crush Injury Additional Instructions: Rest the extremity, apply ice for 15 minutes as tolerated three or four times per day, Wear the nithin wrap for compression, Elevate the extremity as tolerated while you are resting. Take ibuprofen for pain. Follow up with Dr. Llanes (podiatry). Sometimes there can be fractures that don't show up well on the first set of x-rays. So, you should follow up if you continue to have symptoms. I put in a referral but you need to call her office and schedule an appointment. Follow up with your regular doctor. GO TO THE ER FOR ANY WORSENING SYMPTOMS Referrals: Brent Cantu MD [Primary Care Provider] - Juliette Llanes DPM [Staff Physician] - Forms: Work/School Release Time of Disposition: 18:22 Medical Decision Making - Medical Records Medical records reviewed: No: I reviewed the patient's medical records. - Adi Inquiry Pt receiving controlled substance: No Vital Signs: 02/19/21 17:26 02/19/21 18:27 Temperature 98.1 F 98.1 F Temperature Source Oral Pulse Rate 77 Pulse Rate [Left] 75 Respiratory Rate 18 18 Blood Pressure 154/97 H Blood Pressure [Right Arm] 179/116 H Blood Pressure Mean [Right Arm] 137 02 Sat by Pulse Oximetry 99 [facility] [place] - General Stated complaint: AO 02/19@1000 dropped log on L foot Time Seen by Provider: 02/19/21 18:02 Mode of Arrival: Ambulatory Source of Information: Patient Limitations: No Limitations Description of Symptoms (Recalled from Triage Doc. by RN): pt dropped a log on his L foot around 1000. c/o L foot pain. HEENT Symptoms (Recalled from RN notes): No Resp Symptoms (Recalled from RN notes): No Skin Symptoms (Recalled from RN notes): No MS Symptoms (Recalled from RN notes): Yes (L foot pain) Functional Status (Recalled from RN notes): wnl - History of Present Illness Provider Complaint: He states that at around 1000 this morning he dropped a large piece of a log that he was chopping for fire wood on his left foot. He states that since then he has had had left pain. His pain is worse with walking and bearing weight on the foot. He is a diabetic. - Related Data Home Medications Medication Instructions Recorded Confirmed Aspirin [Aspirin 81mg EC Tab] 81 mg PO DAILY 06/10/17 06/03/18 Chlorthalidone 25 mg PO DAILY 06/10/17 06/04/18 Levothyroxine Sodium 75 mcg PO DAILY 06/10/17 06/04/18 [Levothyroxine 75mcg (0.075mg) Tab] Metformin HCl [Glucophage 500mg 500 mg PO DAILY 06/10/17 06/04/18 Tablet] Potassium Chloride [Klor-con 20 20 meq PO DAILY 06/10/17 06/04/18 mEq tablet] lisinopriL [Lisinopril 5mg 5 mg PO DAILY 06/10/17 06/04/18 Tablet] Icosapent Ethyl [Vascepa] 2 g PO BID 06/04/18 06/04/18 Allergies Allergy/AdvReac Type Severity Reaction Status Date / Time No Known Allergies Allergy Verified 06/10/17 13:03 - Worker's Comp Is this a Worker's Comp case?: No [facility] History - Hepatitis A Screen Drug use history?: No High risk sexual behaviors?: No History of sexually transmitted infection?: No Currently employed?: No Childcare worker?: No Do you have indoor plumbing?: Yes Do you have electricity?: Yes Attestation statement:: This patient has been screened for Hepatitis A risk factors. I have reviewed the patient's past medical history: Yes Medical History: Reports:: Diabetes Mellitus Type 2 (on med), Hypertension Denies:: Cancer, Diabetes Mellitus Type 1, Internal Pacemaker, Lung Disease, MRSA, Seizures Other Surgeries: Yes: Thyroidectomy. No:
[2021-02-19 18:27] VITALS: BP 154/97; PULSE 77; RESP 18; TEMP 36.7
== END 2021-02-19 18:30 | disposition home or self-care (01) ==
PROVIDERS: Emergency Provider Nurse Practitioner Family; PCP Family Medicine
DX: S90.32XA Contusion of left foot, initial encounter (principal); S97.82XA Crushing injury of left foot, initial encounter; W22.8XXA Striking against or struck by other objects, initial encounter; Y92.017 Garden or yard in single-family (private) house as the place of occurrence of the external cause; E11.9 Type 2 diabetes mellitus without complications; I10 Essential (primary) hypertension; F17.210 Nicotine dependence, cigarettes, uncomplicated
CPT/HCPCS: 73630; 99202; G0463

== ENCOUNTER → 2021-02-23 08:34 | Outpatient (CLI) | payer OTHER, SELFPAY ==
[2021-02-23 09:30] LABS: Hemoglobin A1C 8.1 % (4.0-6.0)
[2021-02-23 10:37] LABS: Alanine Aminotransferase 16 U/L (12-78); Albumin Level 4.3 g/dl (3.5-5.0); Albumin/Globulin Ratio 1.8 (1.1-1.8); Alkaline Phosphatase 67 U/L (38-126); Anion Gap 8.5 mEq/L (5-15); Aspartate Amino Transferase 28 U/L (17-59); Bilirubin,Total 0.6 mg/dl (0.2-1.3); Blood Urea Nitrogen 9 mg/dl (9-20); Calcium 9.4 mg/dl (8.4-10.2); Carbon Dioxide 30 mmol/L (22.0-30.0); Chloride 104 mmol/L (98-107); Chol/HDL Ratio 4.6 (1-3.5); Cholesterol 142 mg/dl (140-200); Estimated Glomerular Filt Rate 100 ml/min (>60); GFR (African American) 121 ML/MIN (>60); Globulin 2.4 g/dL (1.3-3.2); Glucose 176 mg/dl (74-100); HDL Cholesterol 31 mg/dl (40-60); Potassium 4.5 mmoL/L (3.5-5.1); Sodium 138 mmol/L (136-145); Total Protein,Serum 6.7 g/dl (6.3-8.2); Triglycerides 220 mg/dl (30-150); VLDL Cholesterol 44 mg/dL (0-40)
[2021-02-23 10:48] LABS: Direct LDL Cholesterol 81.16 mg/dL (100-129)
[2021-02-23 10:49] LABS: Free T4 (Free Thyroxine) 1.21 ng/dl (0.78-2.19)
[2021-02-23 10:53] LABS: 25-OH Vitamin D, Total 42.5 ng/mL (30-100)
[2021-02-23 11:09] LABS: Thyroid Stimulating Hormone 2.95 uIU/mL (0.465-4.68)
[2021-02-23 11:28] LABS: Vitamin B12 659 pg/mL (239-931)
== END ==
PROVIDERS: Visit Provider Physician Assistant
DX: I10 Essential (primary) hypertension (principal); E78.5 Hyperlipidemia, unspecified; E53.8 Deficiency of other specified B group vitamins; E55.9 Vitamin D deficiency, unspecified; E03.9 Hypothyroidism, unspecified; E11.65 Type 2 diabetes mellitus with hyperglycemia; Z79.84 Long term (current) use of oral hypoglycemic drugs
CPT/HCPCS: 36415; 80053; 80061; 82306; 82607; 83036; 84439; 84443

== ENCOUNTER → 2021-06-09 09:05 | Outpatient (CLI) | payer OTHER, SELFPAY ==
[2021-06-09 10:33] LABS: Hemoglobin A1C 7.1 % (4.0-6.0)
[2021-06-09 11:18] LABS: Alanine Aminotransferase 42 U/L (12-78); Albumin Level 4.7 g/dl (3.5-5.0); Albumin/Globulin Ratio 1.8 (1.1-1.8); Alkaline Phosphatase 78 U/L (38-126); Anion Gap 13.3 mEq/L (5-15); Aspartate Amino Transferase 37 U/L (17-59); Bilirubin,Total 0.6 mg/dl (0.2-1.3); Blood Urea Nitrogen 10 mg/dl (9-20); Calcium 9.7 mg/dl (8.4-10.2); Carbon Dioxide 31 mmol/L (22.0-30.0); Chloride 99 mmol/L (98-107); Chol/HDL Ratio 5.4 (1-3.5); Cholesterol 190 mg/dl (140-200); Estimated Glomerular Filt Rate 87 ml/min (>60); GFR (African American) 106 ML/MIN (>60); Globulin 2.6 g/dL (1.3-3.2); Glucose 150 mg/dl (74-100); HDL Cholesterol 35 mg/dl (40-60); Potassium 4.3 mmoL/L (3.5-5.1); Sodium 139 mmol/L (136-145); Total Protein,Serum 7.3 g/dl (6.3-8.2); Triglycerides 271 mg/dl (30-150); VLDL Cholesterol 54 mg/dL (0-40)
[2021-06-09 11:34] LABS: Free T4 (Free Thyroxine) 1.28 ng/dl (0.78-2.19)
[2021-06-09 11:48] LABS: Thyroid Stimulating Hormone 1.22 uIU/mL (0.465-4.68)
== END ==
PROVIDERS: PCP Family Medicine; Referring Provider Physician Assistant; Visit Provider Family Medicine
DX: E11.65 Type 2 diabetes mellitus with hyperglycemia (principal); E78.5 Hyperlipidemia, unspecified; E03.9 Hypothyroidism, unspecified; E55.9 Vitamin D deficiency, unspecified
CPT/HCPCS: 36415; 80053; 80061; 82306; 83036; 84439; 84443

== ENCOUNTER → 2021-10-17 08:51 | Outpatient (CLI) | payer OTHER, SELFPAY ==
[2021-10-17 09:57] LABS: Alanine Aminotransferase 31 U/L (12-78); Albumin Level 4.2 g/dl (3.5-5.0); Albumin/Globulin Ratio 1.8 (1.1-1.8); Alkaline Phosphatase 79 U/L (38-126); Anion Gap 8.7 mEq/L (5-15); Aspartate Amino Transferase 33 U/L (17-59); Bilirubin,Total 0.3 mg/dl (0.2-1.3); Blood Urea Nitrogen 11 mg/dl (9-20); Calcium 9.4 mg/dl (8.4-10.2); Carbon Dioxide 28 mmol/L (22.0-30.0); Chloride 104 mmol/L (98-107); Chol/HDL Ratio 5.4 (1-3.5); Cholesterol 166 mg/dl (140-200); Estimated Glomerular Filt Rate 116 ml/min (>60); GFR (African American) 141 ML/MIN (>60); Globulin 2.3 g/dL (1.3-3.2); Glucose 203 mg/dl (74-100); HDL Cholesterol 31 mg/dl (40-60); Potassium 3.7 mmoL/L (3.5-5.1); Sodium 137 mmol/L (136-145); Total Protein,Serum 6.5 g/dl (6.3-8.2); Triglycerides 175 mg/dl (30-150); VLDL Cholesterol 35 mg/dL (0-40)
[2021-10-17 10:09] LABS: Direct LDL Cholesterol 96.44 mg/dL (100-129)
[2021-10-17 15:51] LABS: Hemoglobin A1C 7.2 % (4.0-6.0)
== END ==
PROVIDERS: PCP Physician Assistant; Visit Provider Physician Assistant
DX: I10 Essential (primary) hypertension (principal); E78.5 Hyperlipidemia, unspecified; E11.65 Type 2 diabetes mellitus with hyperglycemia; Z79.84 Long term (current) use of oral hypoglycemic drugs
CPT/HCPCS: 36415; 80053; 80061; 83036

== ENCOUNTER → 2022-03-30 08:14 | Outpatient (CLI) | payer OTHER, SELFPAY ==
[2022-03-30 09:00] LABS: Erythrocyte Sedimentation Rate 5 mm/hr (0-20)
[2022-03-30 09:51] LABS: Alanine Aminotransferase 29 U/L (12-78); Albumin Level 4.7 g/dl (3.5-5.0); Albumin/Globulin Ratio 1.9 (1.1-1.8); Alkaline Phosphatase 89 U/L (38-126); Anion Gap 11.9 mEq/L (5-15); Aspartate Amino Transferase 30 U/L (17-59); Bilirubin,Total 0.6 mg/dl (0.2-1.3); Blood Urea Nitrogen 10 mg/dl (9-20); Calcium 9.3 mg/dl (8.4-10.2); Carbon Dioxide 29 mmol/L (22.0-30.0); Chloride 102 mmol/L (98-107); Chol/HDL Ratio 5.4 (1-3.5); Cholesterol 172 mg/dl (140-200); Estimated Glomerular Filt Rate 87 ml/min (>60); GFR (African American) 105 ML/MIN (>60); Globulin 2.5 g/dL (1.3-3.2); Glucose 175 mg/dl (74-100); HDL Cholesterol 32 mg/dl (40-60); Potassium 3.9 mmoL/L (3.5-5.1); Sodium 139 mmol/L (136-145); Total Protein,Serum 7.2 g/dl (6.3-8.2); Triglycerides 273 mg/dl (30-150); Uric Acid 5.6 mg/dl (3.5-8.5); VLDL Cholesterol 55 mg/dL (0-40)
[2022-03-30 10:02] LABS: Direct LDL Cholesterol 91.31 mg/dL (100-129)
[2022-03-30 10:09] LABS: Free T4 (Free Thyroxine) 1.31 ng/dl (0.78-2.19)
[2022-03-30 10:23] LABS: Prostate Specific Ag Screen 0.8 ng/ml (0.0-4.0); Thyroid Stimulating Hormone 1.43 uIU/mL (0.465-4.68)
[2022-03-30 10:36] LABS: Creatinine,Urine Random 134 mg/dL (Not Estab.); Microalbumin/Creatinine Ratio 4.5
[2022-03-30 10:42] LABS: Vitamin B12 857 pg/mL (239-931)
[2022-03-30 11:05] LABS: Hemoglobin A1C 7.9 % (4.0-6.0)
[2022-03-31 11:33] LABS: RA Latex Turbid. <10.0 IU/mL (<14.0)
[2022-04-03 23:46] LABS: Antinuclear Antibodies, IFA POSITIVE
== END ==
LOC: LAB 08:14
PROVIDERS: PCP Family Medicine; Visit Provider Physician Assistant
DX: E11.65 Type 2 diabetes mellitus with hyperglycemia (principal); E53.8 Deficiency of other specified B group vitamins; E55.9 Vitamin D deficiency, unspecified; E03.9 Hypothyroidism, unspecified; E78.5 Hyperlipidemia, unspecified; M25.50 Pain in unspecified joint; Z12.5 Encounter for screening for malignant neoplasm of prostate; Z79.84 Long term (current) use of oral hypoglycemic drugs
CPT/HCPCS: 36415; 80053; 80061; 82043; 82306; 82570; 82607; 83036; 84439; 84443; 84550; 85651; 86038; 86431; G0103

== ENCOUNTER 2022-05-05 07:57 | Emergency (ER) | payer OTHER, SELFPAY ==
[2022-05-05 08:06] VITALS: BP 135/101; PULSE 87; RESP 18; TEMP 36.8; O2SAT 99; BMI 24.4
[2022-05-05 08:13] LABS: Influenza A, PCR Not Detected (NotDetected); Influenza B, PCR Not Detected (NotDetected)
--- NOTE | 2022-05-05 08:20 | HMH.EDGENADL ---
Discharge Plan Disposition Patient Disposition: Home, Self-Care Condition: Good Prescriptions Prescriptions: New Paxlovid (EUA) 300 mg (150 mg x 2)-100 mg tablets,dose pack See Rx Instructions .Route .COMPLEX Qty: 30 0RF Rx Instructions: take TWO 150 mg tablets of nirmatrelvir with ONE 100 mg tablet of ritonavir twice daily for 5 days No Action metformin 500 MG tablet 500 mg PO DAILY Label Comments: chlorthalidone 50 MG tablet 25 mg PO DAILY Label Comments: levothyroxine 75 MCG tablet 75 mcg PO DAILY potassium chloride 20 MEQ tablet,ER particles/crystals 20 meq PO DAILY lisinopril 5 MG tablet 5 mg PO DAILY Label Comments: aspirin 81 MG tablet,delayed release (DR/EC) 81 mg PO DAILY icosapent ethyl [Vascepa] 1 G capsule 2 g PO BID Rx Instructions: needs a refill Referrals Follow up/Referrals: Brent Cantu MD [Primary Care Provider] - See instructions Activity Restrictions/Add. Instructions Additional Instructions/Restrictions: Paxlovid as prescribed. Tylenol or ibuprofen for pain and fever. ADDITIONAL INSTRUCTIONS FOR COVID-19: Rest, drink plenty of fluids. Tylenol or Ibuprofen for fever and/or aches and pains. Monitor your symptoms. IF YOU HAVE AN EMERGENCY WARNING SIGN (INCLUDING TROUBLE BREATHING), SEEK EMERGENCY MEDICAL CARE IMMEDIATELY. COVID-19 Isolation: People with COVID-19 should isolate for 5 days. Then if they are asymptomatic (no symptoms) or their symptoms are resolving (without fever for 24 hours), follow that by 5 days of wearing a mask when around others to minimize the risk of infecting people you encounter. If you test positive for COVID-19 and never develop symptoms, day 0 is the day of your positive viral test (based on the date you were tested) and day 1 is the first full day after your positive test. If you develop symptoms after testing positive, your 5-day isolation period must start over. Day 0 is your first day of symptoms. Day 1 is the first full day after your symptoms developed. What to do: Stay in a separate room from other household members, if possible. Use a separate bathroom, if possible. Avoid contact with other members of the household and pets. Don?t share personal household items, like cups, towels, and utensils. Wear a mask when around other people if able. Clinical Impressions Clinical Impression: COVID-19 virus infection Stand Alone Forms Stand Alone Forms: Work/School Release Instructions Patient Instructions: DI for COVID-19 (Suspected or Confirmed ) Discharge ED Provider: Ortiz Yañez General Adult HPI General Chief complaint: Fever Stated complaint: Fever,Headache,Congestion, Wants covid tested Time Seen by Provider: 05/05/22 08:14 Mode of Arrival: Ambulatory Source of Information: Patient Limitations: No Limitations Description of Symptoms (Recalled from ER Triage Doc. by RN): Presents with fever (100.2 yesterday) and low-grade this morning with general malaise and body aches. History of Present Illness HPI narrative: Patient states that yesterday he began running a fever and having headache and body aches. Slight sinus congestion. No significant cough. Throat feels a little scratchy, but not sore. No earache. He says his had a fever 2 days ago and came to the hospital here and had a COVID test that was inconclusive, therefore he wants to be tested. His had a negative flu test. He says he has had COVID once before a couple of years ago and this feels similar. Related Data Home Medications Medication Instructions Recorded Confirmed aspirin 81 mg tablet,delayed 81 mg PO DAILY [facility] 06/10/17 06/03/18 release chlorthalidone 50 mg tablet 25 mg PO DAILY Fluid 06/10/17 06/04/18 levothyroxine 75 mcg tablet 75 mcg PO DAILY thyroid 06/10/17 06/04/18 lisinopril 5 mg tablet 5 mg PO DAILY Hypertension 06/10/17 06/04/18 manuela
[2022-05-05 08:52] LABS: Coronavirus 19, PCR Detected (NotDetected)
[2022-05-05 09:06] VITALS: BP 128/85; PULSE 76; RESP 16; TEMP 36.8; O2SAT 98
== END 2022-05-05 09:09 | disposition home or self-care (01) ==
PROVIDERS: Emergency Provider Emergency Medicine; PCP Family Medicine
DX: U07.1 COVID-19 (principal); F17.210 Nicotine dependence, cigarettes, uncomplicated
CPT/HCPCS: 99283; 99284; C9803; U0003; U0005

== ENCOUNTER → 2022-09-21 08:13 | Outpatient (CLI) | payer OTHER, SELFPAY ==
[2022-09-21 08:55] LABS: Hemoglobin A1C 6.2 % (4.0-6.0)
[2022-09-21 08:56] LABS: Alanine Aminotransferase 29 U/L (12-78); Albumin Level 4.4 g/dl (3.5-5.0); Albumin/Globulin Ratio 1.8 (1.1-1.8); Alkaline Phosphatase 86 U/L (38-126); Anion Gap 13.7 mEq/L (5-15); Aspartate Amino Transferase 31 U/L (17-59); Bilirubin,Total 0.5 mg/dl (0.2-1.3); Blood Urea Nitrogen 15 mg/dl (9-20); Carbon Dioxide 31 mmol/L (22.0-30.0); Chloride 98 mmol/L (98-107); Chol/HDL Ratio 3.7 (1-3.5); Cholesterol 119 mg/dl (140-200); Estimated Glomerular Filt Rate 99 ml/min (>60); GFR (African American) 120 ML/MIN (>60); Globulin 2.4 g/dL (1.3-3.2); Glucose 159 mg/dl (74-100); HDL Cholesterol 32 mg/dl (40-60); Potassium 3.7 mmoL/L (3.5-5.1); Sodium 139 mmol/L (136-145); Total Protein,Serum 6.8 g/dl (6.3-8.2); Triglycerides 112 mg/dl (30-150); VLDL Cholesterol 22 mg/dL (0-40)
[2022-09-21 09:07] LABS: Direct LDL Cholesterol 74.04 mg/dL (100-129)
[2022-09-21 09:12] LABS: Free T4 (Free Thyroxine) 1.15 ng/dl (0.78-2.19)
[2022-09-21 09:13] LABS: 25-OH Vitamin D, Total 72.3 ng/mL (30-100)
[2022-09-21 09:27] LABS: Thyroid Stimulating Hormone 1.06 uIU/mL (0.465-4.68)
[2022-09-21 09:46] LABS: Vitamin B12 847 pg/mL (239-931)
== END ==
PROVIDERS: PCP Physician Assistant; Visit Provider Family Medicine
DX: E11.65 Type 2 diabetes mellitus with hyperglycemia (principal); E78.5 Hyperlipidemia, unspecified; E53.8 Deficiency of other specified B group vitamins; E55.9 Vitamin D deficiency, unspecified; E03.9 Hypothyroidism, unspecified
CPT/HCPCS: 36415; 80053; 80061; 82306; 82607; 83036; 84439; 84443

== ENCOUNTER → 2022-12-14 09:23 | Outpatient (CLI) | payer OTHER, SELFPAY ==
[2022-12-14 10:54] LABS: Hemoglobin A1C 6.3 % (4.0-6.0)
[2022-12-14 10:56] LABS: Alanine Aminotransferase 26 U/L (12-78); Albumin Level 4.6 g/dl (3.5-5.0); Albumin/Globulin Ratio 1.7 (1.1-1.8); Alkaline Phosphatase 72 U/L (38-126); Anion Gap 11.7 mEq/L (5-15); Aspartate Amino Transferase 29 U/L (17-59); Bilirubin,Total 1.1 mg/dl (0.2-1.3); Blood Urea Nitrogen 13 mg/dl (9-20); Calcium 9.8 mg/dl (8.4-10.2); Carbon Dioxide 33 mmol/L (22.0-30.0); Chloride 98 mmol/L (98-107); Chol/HDL Ratio 5.6 (1-3.5); Cholesterol 158 mg/dl (140-200); Estimated Glomerular Filt Rate 87 ml/min (>60); GFR (African American) 105 ML/MIN (>60); Globulin 2.7 g/dL (1.3-3.2); Glucose 133 mg/dl (74-100); HDL Cholesterol 28 mg/dl (40-60); Potassium 3.7 mmoL/L (3.5-5.1); Sodium 139 mmol/L (136-145); Total Protein,Serum 7.3 g/dl (6.3-8.2); Triglycerides 146 mg/dl (30-150); VLDL Cholesterol 29 mg/dL (0-40)
[2022-12-14 11:13] LABS: Free T4 (Free Thyroxine) 1.49 ng/dl (0.78-2.19)
[2022-12-14 11:15] LABS: 25-OH Vitamin D, Total 73.1 ng/mL (30-100)
[2022-12-14 11:27] LABS: Thyroid Stimulating Hormone 0.72 uIU/mL (0.465-4.68)
[2022-12-14 11:46] LABS: Vitamin B12 975 pg/mL (239-931)
== END ==
PROVIDERS: Family Medicine; PCP Physician Assistant; Visit Provider Physician Assistant
DX: E03.9 Hypothyroidism, unspecified (principal); E55.9 Vitamin D deficiency, unspecified; E53.8 Deficiency of other specified B group vitamins; E78.5 Hyperlipidemia, unspecified; E11.65 Type 2 diabetes mellitus with hyperglycemia; Z79.84 Long term (current) use of oral hypoglycemic drugs
CPT/HCPCS: 36415; 80053; 80061; 82306; 82607; 83036; 84439; 84443

== ENCOUNTER 2023-05-12 08:00 | Emergency (ER) | payer BC, OTHER, SELFPAY ==
[2023-05-12 08:10] VITALS: BP 148/96; PULSE 72; RESP 21; TEMP 37.1; O2SAT 99; BMI 26.1
--- NOTE | 2023-05-12 08:20 | ED_ITS ---
Discharge Plan Disposition Patient Disposition: Home, Self-Care Condition: Good Prescriptions Prescriptions: New azithromycin [Zithromax] 250 mg tablet 250 mg PO UD DOSE PK Qty: 6 0RF Rx Instructions: Take two (2) tablets today, then one (1) tablet days #2 thru #5 benzonatate [benzonatate] 100 mg capsule 100 mg PO TIDP PRN (Reason: Cough) Qty: 30 0RF ondansetron 4 mg Tablet,Disintegrating 4 mg PO Q8H PRN (Reason: Nausea) Qty: 8 0RF No Action chlorthalidone 50 mg tablet 50 mg PO DAILY levothyroxine 75 mcg tablet 75 mcg PO DAILY lisinopril 5 mg tablet 5 mg PO DAILY Trulicity 1.5 mg/0.5 mL pen injector 1.5 mg SQ WEEKLY Referrals Follow up/Referrals: Starr Fulton PA [Primary Care Provider] - See instructions Activity Restrictions/Add. Instructions Additional Instructions/Restrictions: Drink plenty of fluids. Take tylenol or ibuprofen for pain or fever. Take the medications as directed. Follow up with your regular doctor. GO TO THE ER FOR ANY WORSENING SYMPTOMS Clinical Impressions Clinical Impression: Acute viral syndrome, Bronchitis Stand Alone Forms Stand Alone Forms: Work/School Release Instructions Patient Instructions: DI for Viral Syndrome Discharge ED Provider: Teodoro Curran [facility] General Stated complaint: fever, cough, [place], body aches, chest congestion Mode of Arrival: Ambulatory Source of Information: Patient Limitations: No Limitations Time Seen by Provider: 05/12/23 08:20 Description of Symptoms (Recalled from Triage Doc. by RN): PATIENT C/O FEVER, CHILLS, DRY COUGH AND BODY ACHES THAT STARTED YESTERDAY HEENT Symptoms (Recalled from RN notes): No Resp Symptoms (Recalled from RN notes): Yes Skin Symptoms (Recalled from RN notes): No MS Symptoms (Recalled from RN notes): No Functional Status (Recalled from RN notes): WNL History of Present Illness Provider Complaint: He states that since yesterday he has had fever, chills, chest congestion, malaise, and nausea. Related Data Home Medications Medication Instructions Recorded Confirmed chlorthalidone 50 mg tablet 50 mg PO DAILY 05/12/23 05/12/23 dulaglutide 1.5 mg/0.5 mL 1.5 mg SQ WEEKLY 05/12/23 05/12/23 subcutaneous pen injector (Trulicity) levothyroxine 75 mcg tablet 75 mcg PO DAILY 05/12/23 05/12/23 lisinopril 5 mg tablet 5 mg PO DAILY 05/12/23 05/12/23 Previous Rx's Medication Instructions Recorded azithromycin 250 mg tablet 250 mg PO UD DOSE PK #6 tabs 05/12/23 (Zithromax) benzonatate 100 mg capsule 100 mg PO TIDP PRN Cough #30 caps 05/12/23 ondansetron 4 mg disintegrating 4 mg PO Q8H PRN Nausea #8 tabs 05/12/23 tablet Allergies Allergy/AdvReac Type Severity Reaction Status Date / Time No Known Allergies Allergy Verified 06/10/17 13:03 Worker's Comp Is this a Worker's Comp case?: [facility] Disclaimer: The information contained in this section may have been updated after the patient was seen, as this information can be updated by other users. Medical History (Updated 05/12/23 @ 08:48 by Teodoro Curran APRN) Diabetes mellitus, type 2 Hypertension Social History Smoking Status: Current every day smoker tobacco type: cigarettes packs per day: 1 second hand exposure: Yes alcohol intake: never current occupational status: employed Travel in the last 8 weeks: None household members: spouse and children housing: house current occupational exposures/hazards: No caffeine: Yes ROS Obtained: Yes All systems reviewed & no additional complaints except as documented Constitutional Constitutional: Reports chills and Reports fever(s) Eyes Eyes: Denies eye discharge ENT Ears, Nose, Mouth, and Throat: Reports as per HPI Cardiovascular Cardiovascular: Denies chest pain Respiratory Respiratory: Denies chest congestion and Reports cough Gastrointestinal Gastrointestingal: Reports nausea; Denies abdominal pain, constipation, cramping, diarrhea or vomiting Musculoskeletal Musculoskeletal: Denies arthralgias Integumentary/Breasts Skin/Breast: Denies rash Neurologic Neurologic: Denies paresthesias Physical Exam General General appearance: alert and in no apparent distress Eye Eye exam: Present normal appearance, PERRL and EOMI ENT ENT exam: Present mucous membranes moist and normal external ear exam Expanded ENT Exam External ear exam: Present normal external inspection TM/Canal exam: Bilateral TM: erythema and bulging Nose exam: Absent sinus tenderness Nasal speculum exam: Bilateral: normal Mouth exam: Present normal external inspection; Absent drooling Teeth exam: Present normal inspection Throat exam: Present tonsillar erythema and tonsillomegaly Neck Neck exam: Present normal inspection, full ROM and trachea midline; Absent tenderness, lymphadenopathy or thyromegaly Chest Chest inspection: Present normal inspection and symmetric chest wall rise; Absent tenderness or rash Respiratory Respiratory exam: Present normal lung sounds bilaterally; Absent respiratory distress, wheezes, stridor or accessory muscle use Cardiovascular Cardiovascular exam: Present regular rate, normal rhythm and normal heart sounds Abdominal Exam Abdominal exam: Present soft; Absent distention, tenderness, guarding, rebound or rigidity Extremities Exam Extremities exam: Present normal inspection, full ROM and normal capillary refill; Absent tenderness or calf tenderness Back Exam Back exam: Present normal inspection and full ROM; Absent tenderness Neurological Exam Neurological exam: Present alert and oriented X3 Psychiatric Psychiatric exam: Present normal affect and normal mood Skin Skin exam: Present warm, dry, intact and normal color Lymphatic Lymphatic Findings: no adenopathy Medical Decision Making Medical Records Medical records reviewed: No I reviewed the patient's medical records. Adi Inquiry Pt receiving controlled substance: No Vital Signs: 05/12/23 08:10 Temperature 98.8 F Temperature Source Oral Pulse Rate [Left Brachial] 72 Respiratory Rate 21 Blood Pressure [Left Arm] 148/96 H Blood Pressure Mean [Left Arm] 113 Blood Pressure Source [Left Arm] Automatic Cuff Blood Pressure Position [Left Arm] Sitting 02 Sat by Pulse Oximetry 99 Lab Data Lab results reviewed: Yes I reviewed the patient's lab results.
[2023-05-12 08:30] LABS: UTC Influenza A Antigen Negative (Negative)
[2023-05-12 08:31] LABS: UTC Influenza B Antigen Negative (Negative)
[2023-05-12 08:45] VITALS: BP 148/96; PULSE 72; RESP 21; TEMP 37.1; O2SAT 99
[2023-05-12 11:58] LABS: Coronavirus 19, PCR Not Detected (NotDetected); Influenza B, PCR Not Detected (NotDetected)
[2023-05-12 13:06] LABS: Influenza A, PCR Detected (NotDetected)
== END 2023-05-12 08:55 | disposition home or self-care (01) ==
PROVIDERS: Emergency Provider Nurse Practitioner Family; PCP Physician Assistant
DX: J10.1 Influenza due to other identified influenza virus with other respiratory manifestations (principal); R50.9 Fever, unspecified; J20.9 Acute bronchitis, unspecified; R11.0 Nausea; R05.9 Cough, unspecified; F17.210 Nicotine dependence, cigarettes, uncomplicated; E11.9 Type 2 diabetes mellitus without complications; I10 Essential (primary) hypertension; Z79.85 Long-term (current) use of injectable non-insulin antidiabetic drugs
CPT/HCPCS: 87636; 87804; 99212; 99214; G0463

== ENCOUNTER 2023-05-14 06:19 | Outpatient (CLI) | payer BC, OTHER, SELFPAY ==
--- NOTE | 2023-05-14 | CT_ITS ---
FINAL REPORT TECHNIQUE: Thin section axial CT images with coronal and sagittal reformats were performed through the neck. This study was performed with techniques to keep radiation doses as low as reasonably achievable (ALARA). Individualized dose reduction techniques using automated exposure control or adjustment of mA and/or kV according to the patient''s size were employed. 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 There are small scattered lymph nodes throughout the cervical regions bilaterally. Salivary glands are normal. Larynx is unremarkable. Moderate vascular calcifications are seen at the carotid bifurcations bilaterally. There is moderate disc space narrowing at C5-6. There is endplate hypertrophy. There is high-grade bilateral neuroforaminal narrowing at C5-6. Remaining levels are unremarkable. IMPRESSION: No acute process. Degenerative changes most pronounced at C5-6. Reviewed, Interpreted and Dictated by Tony Byrd MD Transcribed by Radha Lancaster Authenticated and [facility]
== END 2023-05-14 23:59 ==
LOC: RAD 06:19
PROVIDERS: PCP Physician Assistant; Visit Provider Physician Assistant
DX: R22.1 Localized swelling, mass and lump, neck (principal)
CPT/HCPCS: 70490

== ENCOUNTER 2023-05-29 16:06 | Outpatient (CLI) | payer BC, OTHER, SELFPAY ==
--- NOTE | 2023-05-29 16:12 | XR_ITS ---
PROCEDURE INFORMATION: Exam: XR Lumbosacral Spine Exam date and time: 05/29/2023 4:18 PM Age: 57 years old Clinical indication: Pain; Lumbago with sciatica; Right; Additional info: [place] sciatica, RT side TECHNIQUE: Imaging protocol: Radiologic exam of the lumbosacral spine. Views: 4 or 5 views. COMPARISON: 1. TALLOW PUMPER/O MRI-L-SPINE W/O 06/13/2016 2:[address] abdomen pelvis wo con 04/03/2017 12:31 PM FINDINGS: Bones/joints: No acute fracture. Normal alignment. Lumbar vertebral body heights are maintained. Mild chronic anterior wedging of T11 which does not appear significantly changed. Mild multilevel disc space narrowing. Facet arthropathy at L5-S1. Soft tissues: Unremarkable. Vasculature: Calcified aortic atherosclerosis. IMPRESSION: Degenerative changes as above with no acute abnormality.
== END 2023-05-29 23:59 ==
LOC: RAD 16:08
PROVIDERS: PCP Physician Assistant; Visit Provider Physician Assistant
DX: M54.41 Lumbago with sciatica, right side (principal)
CPT/HCPCS: 72110

== ENCOUNTER 2023-06-20 17:09 | Outpatient (CLI) | payer BC, OTHER, SELFPAY ==
--- NOTE | 2023-06-20 17:11 | MR_ITS ---
PROCEDURE INFORMATION: Exam: MR Lumbar Spine Without Contrast Exam date and time: 06/20/2023 5:03 PM Age: 58 years old Clinical indication: Low back pain; Additional info: Lumbago with sciatica TECHNIQUE: Imaging protocol: Magnetic resonance imaging of the lumbar spine without contrast. COMPARISON: CR XR LUMBAR SPINE MIN 4V 05/29/2023 4:18 PM FINDINGS: Bones/joints: There is preservation of vertebral alignment. There is preservation of vertebral body heights. No marrow replacing process. Spinal cord: Conus medullaris and cauda equina nerve roots are unremarkable L1-L2: No significant disc bulge or herniation. No severe spinal canal stenosis. No significant neural foraminal narrowing. L2-L3: No significant disc bulge or herniation. No severe spinal canal stenosis. No significant neural foraminal narrowing. L3-L4: No significant disc bulge or herniation. No severe spinal canal stenosis. No significant neural foraminal narrowing. L4-L5: No significant disc bulge or herniation. No severe spinal canal stenosis. No significant neural foraminal narrowing. L5-S1: No significant disc bulge or herniation. No severe spinal canal stenosis. No significant neural foraminal narrowing. Soft tissues: Unremarkable. IMPRESSION: No evidence of significant spinal canal stenosis or neural foraminal narrowing at any level.
== END 2023-06-20 23:59 ==
LOC: RAD 17:09
PROVIDERS: PCP Physician Assistant; Visit Provider Physician Assistant
DX: M54.41 Lumbago with sciatica, right side (principal); R29.898 Other symptoms and signs involving the musculoskeletal system
CPT/HCPCS: 72148; 76376

== ENCOUNTER 2023-06-25 15:45 | Outpatient (CLI) | payer BC, OTHER, SELFPAY ==
--- NOTE | 2023-06-25 15:50 | XR_ITS ---
PROCEDURE INFORMATION: Exam: XR Thoracic Spine Exam date and time: 06/25/2023 4:08 PM Age: 58 years old Clinical indication: Pain in thoracic spine; Patient HX: Chronic back pain; Additional info: Mid back pain TECHNIQUE: Imaging protocol: Radiologic exam of the thoracic spine. Views: 3 views. COMPARISON: MR LUMBAR SPINE WO CON 06/20/2023 5:03 PM FINDINGS: Bones/joints: Thoracic spondylosis with multilevel disc degeneration. Soft tissues: Unremarkable. IMPRESSION: No evidence of acute osseous injury.
== END 2023-06-25 23:59 ==
LOC: RAD 15:46
PROVIDERS: PCP Physician Assistant; Visit Provider Physician Assistant
DX: M54.6 Pain in thoracic spine (principal)
CPT/HCPCS: 72072

== ENCOUNTER 2023-07-05 08:17 | Outpatient (CLI) | payer BC, OTHER, SELFPAY ==
[2023-07-05 10:08] LABS: Alanine Aminotransferase 28 U/L (12-78); Albumin Level 4.3 g/dl (3.5-5.0); Albumin/Globulin Ratio 1.9 (1.1-1.8); Alkaline Phosphatase 78 U/L (38-126); Anion Gap 9.9 mEq/L (5-15); Aspartate Amino Transferase 29 U/L (17-59); Bilirubin,Total 0.6 mg/dl (0.2-1.3); Blood Urea Nitrogen 16 mg/dl (9-20); Calcium 9.7 mg/dl (8.4-10.2); Carbon Dioxide 30 mmol/L (22.0-30.0); Chloride 103 mmol/L (98-107); Chol/HDL Ratio 5.7 (1-3.5); Cholesterol 160 mg/dl (140-200); Estimated Glomerular Filt Rate 86 ml/min (>60); GFR (African American) 105 ML/MIN (>60); Globulin 2.3 g/dL (1.3-3.2); Glucose 173 mg/dl (74-100); HDL Cholesterol 28 mg/dl (40-60); Potassium 3.9 mmoL/L (3.5-5.1); Sodium 139 mmol/L (136-145); Total Protein,Serum 6.6 g/dl (6.3-8.2); Triglycerides 186 mg/dl (30-150); VLDL Cholesterol 37 mg/dL (0-40)
[2023-07-05 10:19] LABS: Direct LDL Cholesterol 87.33 mg/dL (100-129)
[2023-07-05 10:27] LABS: 25-OH Vitamin D, Total 35.4 ng/mL (30-100)
[2023-07-05 10:39] LABS: Prostate Specific Ag Screen 0.7 ng/ml (0.0-4.0)
[2023-07-05 10:58] LABS: Vitamin B12 860 pg/mL (239-931)
== END 2023-07-05 23:59 | disposition home or self-care (01) ==
LOC: LAB 08:18
PROVIDERS: PCP Physician Assistant; Visit Provider Family Medicine
DX: E78.5 Hyperlipidemia, unspecified (principal); Z12.5 Encounter for screening for malignant neoplasm of prostate; E11.65 Type 2 diabetes mellitus with hyperglycemia; E53.8 Deficiency of other specified B group vitamins; E55.9 Vitamin D deficiency, unspecified; E03.9 Hypothyroidism, unspecified; Z79.899 Other long term (current) drug therapy
CPT/HCPCS: 36415; 80053; 80061; 82306; 82607; 83036; 84439; 84443; G0103

== ENCOUNTER 2023-08-13 13:54 | Emergency (ER) | payer BC, OTHER, SELFPAY ==
[2023-08-13 14:05] VITALS: BP 128/89; PULSE 75; RESP 18; TEMP 36.9; O2SAT 100; BMI 24.4
--- NOTE | 2023-08-13 14:06 | EXP.UTC ---
Discharge Plan Disposition Patient Disposition: Home, Self-Care Condition: Good Prescriptions Prescriptions: New azithromycin [Zithromax] 250 mg tablet 250 mg PO UD DOSE PK Qty: 6 0RF Rx Instructions: Take two (2) tablets today, then one (1) tablet days #2 thru #5 prednisone 20 mg tablet 20 mg PO BID 3 Days Qty: 6 0RF benzonatate 100 mg capsule 100 mg PO TIDP PRN (Reason: Cough) Qty: 30 0RF No Action chlorthalidone 50 mg tablet 50 mg PO DAILY levothyroxine 75 mcg tablet 75 mcg PO DAILY lisinopril 5 mg tablet 5 mg PO DAILY Trulicity 1.5 mg/0.5 mL pen injector 1.5 mg SQ WEEKLY Referrals Follow up/Referrals: Starr Fulton PA [Primary Care Provider] - See instructions Activity Restrictions/Add. Instructions Additional Instructions/Restrictions: Drink plenty of fluids. Take tylenol or ibuprofen for pain or fever. Take the medications as directed. Follow up with your regular doctor. GO TO THE ER FOR ANY WORSENING SYMPTOMS Clinical Impressions Clinical Impression: Acute viral syndrome, Pharyngitis Stand Alone Forms Stand Alone Forms: Work/School Release Instructions Patient Instructions: Sore Throat, DI for Pharyngitis/Tonsillopharyngitis -- Adult Discharge ED Provider: Teodoro Curran [facility] General Stated complaint: body aches, cough, sore throat, headache Time Seen by Provider: 08/13/23 14:05 History of Present Illness Provider Complaint: He states that since yesterday he has had low grade fever, chills, malaise, sinus congestion, and fatigue. Related Data Home Medications Medication Instructions Recorded Confirmed chlorthalidone 50 mg tablet 50 mg PO DAILY 05/12/23 08/13/23 dulaglutide 1.5 mg/0.5 mL 1.5 mg SQ WEEKLY 05/12/23 08/13/23 subcutaneous pen injector (Trulicity) levothyroxine 75 mcg tablet 75 mcg PO DAILY 05/12/23 08/13/23 lisinopril 5 mg tablet 5 mg PO DAILY 05/12/23 08/13/23 Previous Rx's Medication Instructions Recorded azithromycin 250 mg tablet 250 mg PO UD DOSE PK #6 tabs 08/13/23 (Zithromax) benzonatate 100 mg capsule 100 mg PO TIDP PRN Cough #30 caps 08/13/23 prednisone 20 mg tablet 20 mg PO BID 3 days #6 tabs 08/13/23 Allergies Allergy/AdvReac Type Severity Reaction Status Date / Time No Known Allergies Allergy Verified 06/10/17 13:03 [facility] Disclaimer: The information contained in this section may have been updated after the patient was seen, as this information can be updated by other users. Medical History (Updated 08/13/23 @ 14:47 by Teodoro Curran APRN) Diabetes mellitus, type 2 Hypertension Social History Smoking Status: Current every day smoker tobacco type: cigarettes packs per day: 1 second hand exposure: Yes alcohol intake: never current occupational status: employed Travel in the last 8 weeks: None household members: spouse and children housing: house current occupational exposures/hazards: No caffeine: Yes ROS Obtained: Yes All systems reviewed & no additional complaints except as documented Constitutional Constitutional: Reports chills and Reports fever(s) Eyes Eyes: Denies eye discharge ENT Ears, Nose, Mouth, and Throat: Reports as per HPI Cardiovascular Cardiovascular: Denies chest pain Respiratory Respiratory: Denies chest congestion and Reports cough Gastrointestinal Gastrointestingal: Reports nausea; Denies abdominal pain, constipation, cramping, diarrhea or vomiting Musculoskeletal Musculoskeletal: Denies arthralgias Integumentary/Breasts Skin/Breast: Denies rash Neurologic Neurologic: Denies paresthesias Physical Exam General General appearance: alert and in no apparent distress Eye Eye exam: Present normal appearance, PERRL and EOMI ENT ENT exam: Present mucous membranes moist and normal external ear exam Expanded ENT Exam External ear exam: Present normal external inspection TM/Canal exam: Bilateral TM: erythema and bulging Nose exam: Absent sinus tenderness Nasal speculum exam: Bilateral: normal Mouth exam: Present normal external inspection; Absent drooling Teeth exam: Present normal inspection Throat exam: Present tonsillar erythema and tonsillomegaly Neck Neck exam: Present normal inspection, full ROM and trachea midline; Absent tenderness, lymphadenopathy or thyromegaly Chest Chest inspection: Present normal inspection and symmetric chest wall rise; Absent tenderness or rash Respiratory Respiratory exam: Present normal lung sounds bilaterally; Absent respiratory distress, wheezes, stridor or accessory muscle use Cardiovascular Cardiovascular exam: Present regular rate, normal rhythm and normal heart sounds Abdominal Exam Abdominal exam: Present soft; Absent distention, tenderness, guarding, rebound or rigidity Extremities Exam Extremities exam: Present normal inspection, full ROM and normal capillary refill; Absent tenderness or calf tenderness Back Exam Back exam: Present normal inspection and full ROM; Absent tenderness Neurological Exam Neurological exam: Present alert and oriented X3 Psychiatric Psychiatric exam: Present normal affect and normal mood Skin Skin exam: Present warm, dry, intact and normal color Lymphatic Lymphatic Findings: no adenopathy Medical Decision Making Medical Records Medical records reviewed: No I reviewed the patient's medical records. Adi Inquiry Pt receiving controlled substance: No Lab Data Lab results reviewed: Yes I reviewed the patient's lab results.
[2023-08-13 14:23] LABS: UTC Strep Screen (Rapid) Negative (Negative)
[2023-08-13 14:24] LABS: UTC Influenza A Antigen Negative (Negative); UTC Influenza B Antigen Negative (Negative)
[2023-08-13 14:52] VITALS: BP 128/89; PULSE 75; RESP 18; TEMP 36.9; O2SAT 100
[2023-08-13 14:56] LABS: Influenza A, PCR Not Detected (NotDetected); Influenza B, PCR Not Detected (NotDetected)
[2023-08-13 15:24] LABS: Coronavirus 19, PCR Detected (NotDetected)
== END 2023-08-13 14:52 | disposition home or self-care (01) ==
PROVIDERS: Emergency Provider Nurse Practitioner Family; PCP Physician Assistant
DX: B34.9 Viral infection, unspecified (principal); J02.9 Acute pharyngitis, unspecified; R51.9 Headache, unspecified; R05.9 Cough, unspecified; R50.9 Fever, unspecified; R53.81 Other malaise; R09.81 Nasal congestion; R53.83 Other fatigue; E11.9 Type 2 diabetes mellitus without complications; I10 Essential (primary) hypertension; F17.210 Nicotine dependence, cigarettes, uncomplicated
CPT/HCPCS: 87636; 87804; 87880; 99212; 99214; G0463

== ENCOUNTER 2023-12-13 09:25 | Outpatient (CLI) | payer BC, OTHER, SELFPAY ==
[2023-12-13 10:11] LABS: Basophils # 0.1 K/mm3 (0-0.2); Basophils % 0.6 % (0.1-2.0); Eosinophils # 0.2 K/mm3 (0.0-0.4); Eosinophils % 2.3 % (0.1-12.0); Hematocrit 49.7 % (42.0-52.0); Hemoglobin 16.2 g/dL (14.1-18.0); Lymphocytes # 1.9 K/mm3 (0.7-4.5); Lymphocytes % 20.7 % (10-50); Mean Corpuscular HGB Conc 32.7 g/dL (31.8-35.4); Mean Corpuscular Hemoglobin 32.1 pg (27.0-31.2); Mean Corpuscular Volume 98.2 fl (80-94); Mean Platelet Volume 6.9 fl (7.4-10.4); Monocytes # 0.6 K/mm3 (0.1-1.0); Monocytes % 6.5 % (1.7-9.3); Neutrophils # 6.3 K/mm3 (1.8-7.8); Neutrophils % 69.8 % (37.0-80.0); Platelet Count 319 K/mm3 (142-424); Red Blood Count 5.06 M/mm3 (4.60-6.20); Red Cell Distribution Width 12.8 % (11.5-17.5)
[2023-12-13 10:38] LABS: Alanine Aminotransferase 29 U/L (12-78); Albumin Level 4.6 g/dl (3.5-5.0); Albumin/Globulin Ratio 1.9 (1.1-1.8); Alkaline Phosphatase 59 U/L (38-126); Anion Gap 6.6 mEq/L (5-15); Aspartate Amino Transferase 37 U/L (17-59); Bilirubin,Total 0.9 mg/dl (0.2-1.3); Blood Urea Nitrogen 15 mg/dl (9-20); Calcium 9.7 mg/dl (8.4-10.2); Carbon Dioxide 33 mmol/L (22.0-30.0); Chloride 102 mmol/L (98-107); Chol/HDL Ratio 4.8 (1-3.5); Cholesterol 160 mg/dl (140-200); Estimated Glomerular Filt Rate 86 ml/min (>60); GFR (African American) 105 ML/MIN (>60); Globulin 2.4 g/dL (1.3-3.2); Glucose 118 mg/dl (74-100); HDL Cholesterol 33 mg/dl (40-60); Potassium 3.6 mmoL/L (3.5-5.1); Sodium 138 mmol/L (136-145); Triglycerides 159 mg/dl (30-150); VLDL Cholesterol 32 mg/dL (0-40)
[2023-12-13 10:49] LABS: Direct LDL Cholesterol 94.03 mg/dL (100-129)
[2023-12-13 10:52] LABS: Free T4 (Free Thyroxine) 1.16 ng/dl (0.78-2.19)
[2023-12-13 11:28] LABS: Vitamin B12 586 pg/mL (239-931)
[2023-12-13 13:12] LABS: Hemoglobin A1C 6.3 % (4.0-6.0)
== END 2023-12-13 23:59 | disposition home or self-care (01) ==
LOC: LAB 09:27
PROVIDERS: PCP Physician Assistant; Visit Provider Physician Assistant
DX: E78.5 Hyperlipidemia, unspecified (principal); E53.8 Deficiency of other specified B group vitamins; I10 Essential (primary) hypertension; E11.65 Type 2 diabetes mellitus with hyperglycemia; E55.9 Vitamin D deficiency, unspecified; E03.9 Hypothyroidism, unspecified
CPT/HCPCS: 36415; 80050; 80053; 80061; 82306; 82607; 83036; 84439; 84443; 85025

== ENCOUNTER 2023-12-24 13:22 | Outpatient (CLI) | payer BC, OTHER, SELFPAY ==
--- NOTE | 2023-12-24 13:24 | CT_ITS ---
FINAL REPORT TECHNIQUE: Axial images were obtained from the lung apex to the mid abdomen by computed tomography. This study was performed with techniques to keep radiation doses as low as reasonably achievable (ALARA). Individualized dose reduction techniques using automated exposure control or adjustment of mA and/or kV according to the patient's size were employed. CLINICAL HISTORY: SCREENING 1.5 ppd x 45 years FINDINGS: CHEST CT LOW DOSE CTDI vol (mGy): 2.90 DLP (mGy-cm): 101.34 There is no axillary adenopathy. There is no hilar or mediastinal adenopathy. The heart is normal in size. There is no pericardial or pleural effusion. Lung window images demonstrate no suspicious infiltrate or nodule. There is a calcified granuloma in the posterior right upper lobe. Limited images of the upper abdomen are unremarkable. IMPRESSION: Lung RADS category 1. Recommend 12 month follow-up low-dose chest CT. Reviewed, Interpreted and Dictated by Tony Byrd MD Transcribed by Elisabeth Floyd Authenticated and [facility]
== END 2023-12-24 23:59 | disposition home or self-care (01) ==
LOC: RAD 13:22
PROVIDERS: PCP Physician Assistant; Visit Provider Physician Assistant
DX: F17.210 Nicotine dependence, cigarettes, uncomplicated (principal)
CPT/HCPCS: 71271

== ENCOUNTER 2024-07-24 08:27 | Outpatient (CLI) | payer BC, OTHER, SELFPAY ==
[2024-07-24 09:24] LABS: Basophils # 0.1 K/mm3 (0-0.2); Basophils % 0.6 % (0.1-2.0); Eosinophils # 0.3 Kmm3 (0.0-0.4); Eosinophils % 3.1 % (0.1-12.0); Hematocrit 43.7 % (42.0-52.0); Lymphocytes # 1.7 K/mm3 (0.7-4.5); Lymphocytes % 19.6 % (10-50); Mean Corpuscular HGB Conc 34.3 g/dL (31.8-35.4); Mean Corpuscular Hemoglobin 32.1 pg (27.0-31.2); Mean Corpuscular Volume 93.6 fl (80-94); Mean Platelet Volume 9.1 fl (7.4-10.4); Monocytes # 0.7 K/mm3 (0.1-1.0); Monocytes % 7.8 % (1.7-9.3); Neutrophils # 5.8 K/mm3 (1.8-7.8); Neutrophils % 68.7 % (37.0-80.0); Nucleated Red Blood Cells # 0 10^3/uL; Nucleated Red Blood Cells % 0 %; Platelet Count 273 K/mm3 (142-424); Red Blood Count 4.67 M/mm3 (4.60-6.20); Red Cell Distribution Width 12.7 % (11.5-17.5); Red Cell Distribution Width-SD 43.8 fL; White Blood Count 8.5 K/mm3 (4.8-10.8)
[2024-07-24 09:50] LABS: Albumin Level 4.3 g/dl (3.5-5.0); Chloride 106 mmol/L (98-107); Potassium 3.8 mmoL/L (3.5-5.1); Sodium 139 mmol/L (136-145)
[2024-07-24 09:53] LABS: Alanine Aminotransferase 22 U/L (12-78); Albumin/Globulin Ratio 2.2 (1.1-1.8); Alkaline Phosphatase 61 U/L (38-126); Anion Gap 8.8 mEq/L (5-15); Aspartate Amino Transferase 26 U/L (17-59); Bilirubin,Total 0.6 mg/dl (0.2-1.3); Blood Urea Nitrogen 17 mg/dl (9-20); Calcium 9.1 mg/dl (8.4-10.2); Carbon Dioxide 28 mmol/L (22.0-30.0); Cholesterol 140 mg/dl (140-200); Estimated Glomerular Filt Rate 86 ml/min (>60); GFR (African American) 104 ML/MIN (>60); Glucose 108 mg/dl (74-100); Total Protein,Serum 6.3 g/dl (6.3-8.2); Triglycerides 57 mg/dl (30-150); VLDL Cholesterol 11 mg/dL (0-40)
[2024-07-24 09:54] LABS: HDL Cholesterol 47 mg/dl (40-60)
[2024-07-24 10:05] LABS: Direct LDL Cholesterol 68.85 mg/dL (100-129)
[2024-07-24 10:06] LABS: 25-OH Vitamin D, Total 50.5 ng/mL (30-100)
[2024-07-24 10:19] LABS: Thyroid Stimulating Hormone 0.96 uIU/mL (0.465-4.68)
[2024-07-24 10:38] LABS: Hemoglobin A1C 5.2 % (4.0-6.0)
== END 2024-07-24 23:59 | disposition home or self-care (01) ==
LOC: LAB 08:28
PROVIDERS: PCP Physician Assistant; Visit Provider Physician Assistant
DX: E78.5 Hyperlipidemia, unspecified (principal); I10 Essential (primary) hypertension; E55.9 Vitamin D deficiency, unspecified; E03.9 Hypothyroidism, unspecified; E11.65 Type 2 diabetes mellitus with hyperglycemia; F17.210 Nicotine dependence, cigarettes, uncomplicated
CPT/HCPCS: 36415; 80053; 80061; 82306; 83036; 84443; 85025

== ENCOUNTER 2024-09-17 07:02 | Outpatient (CLI) | payer BC, OTHER, SELFPAY ==
--- OUTSIDE RECORDS SUMMARY | 2024-03-03 09:15 | XMS_ITS ---
Author Organization [facility] Address [address] [facility] 36 [facility] [address] [place] [id number] Care Team Providers Care High Lift Driver Name Role Phone Geoffrey Cantu Primary Care Provider Starr Fulton Unavailable [phone] Allergies No Known Allergies REASON FOR VISIT [...] Provider Diagnosis [facility] [address] [facility] [address] [place] [phone] 03/03/2024 Starr Coxrich Essential hypertensi on I10 and Symptomatic hypotension [...] * ELVIA WHEELER TOMDOB:1965 (59 yo M)Acc No.[id number]:03/03/2024 Progress Notes Patient: ELVIA REYNOLDS Provider: STEFFANY Little :1965 A ge:58 Y S ex:Male Date:03/03/2024 Address:[address] [place] [address] OF [place], [id number] Pcp:Geoffrey Cantu Subjective: * Chief Complaints: * [...] * Hospitalization/Major Diagno stic Procedure: H ypertension, Dizziness-[facility] 08/27/08-08/31/08, Shoulder- [facility] ER 10/2014, RT Shoulder Pain/Low Potassium Level- [facility] 09/19/2016, Norovirus- [facility] 05/2018. * Family History: F ather: [...] * Images: Billing Information: * Visit Code: 99709 Office Visit, Est Pt., Level 3. * Procedure Codes: * Electronic signature of STEFFANY Conklin on 09/17/2024 at 07:05 AM EDT Sign off status: Pending * Provider: STEFFANY Little Date: 1 05/04/2023 Generated for Printi ng/Fawillyg/eTransmitting on: 0 09/17/2024 07:05 AM EDT History and Physical Notes * [...]
--- OUTSIDE RECORDS SUMMARY | 2024-08-18 11:15 | XMS_ITS ---
Author Organization [facility] Address [address] [place] [id number] Care Team Providers Care Tax Accounting Manager Name Role Phone Geoffrey Cantu Primary Care Provider KennyStarr villanueva Unavailable [phone] Allergies No Known Allergies REASON FOR VISIT BP checkup Medications Medication SIG (Take, Route, Frequency, Duration) Notes Start Date End Date Status Mounjaro 2.5 MG/0.5ML 2.5 mg Subcutaneou s once a week Active Dexcom G7 Sensor - as directed E11.65 05/03/2024 Active Dexcom G7 Shellfish Shucker - USE DIRECTED Active Chlorthalidone 25 MG [...] 08/18/2024 Encounters Encounter Location Date Provider Diagnosis [facility] [address] [facility] [address] [place] [phone] 08/18/2024 Starr Fulton Essential hypertensi on I10 [...] left as well. Will get another CT. Pending Test Test Name Order Date CT Scan : Neck, soft tissue, without con trast 08/18/2024 Next Appt Details Follow Up: via phone to repo rt test results, Reason: Progress Notes * ELVIA WHEELER TOMDOB:1965 (59 yo M)Acc No.[id number]:08/18/2024 Progress Notes Patient: ELVIA REYNOLDS Provider: STEFFANY Little :1965 A ge:59 Y S ex:Male Date:08/18/2024 Address:[address] [place] [address] [place], [id number] Pcp:Geoffrey Cantu Subjective: * Chief Complaints: * [...] * Hospitalization/Major Diagno stic Procedure: H ypertension, Dizziness-[facility] 08/27/08-08/31/08, Shoulder- [facility] ER 10/2014, RT Shoulder Pain/Low Potassium Level- [facility] 09/19/2016, Norovirus- [facility] 05/2018. * Family History: F [...] Notes to Pharmacist: , Taking Dexcom G7 Shellfish Shucker - Device USE DIRECTED , Taking Levothyroxine [...] Temp: 97.6, BP: 124/80, HR: 77, Nurse: mmiraj, Ht: 73, BMI:19.81. * Examination: G eneral [...] Scan : Neck, soft tissue, without contrast Notes: Pt had an enlarged node on [...] * Images: Billing Information: * Visit Code: 03136 Office Visit, Est Pt., Level 4. * Procedure Codes: G8950 PREHTN/HTN BP DOC INDCD F/U DOC. G8752 MOST RECENT SYSTOLIC BP < 140MM HG. G8754 MOST RECENT DIASTOLIC BP < 90MM HG. 3044F HG A1C LEVEL LT 7.0%. * Electronic signature of STEFFANY Conklin on 09/17/2024 at 07:05 AM EDT Sign off status: Pending * Provider: STEFFANY Little Date: 0 08/18/2024 Generated for Selena barone/Jarod/eTransmitting on: 0 09/17/2024 07:05 AM EDT History [...]
--- OUTSIDE RECORDS SUMMARY | 2024-09-17 07:05 | XMS_ITS | Patient Health Record ---
Author Organization [facility] Address [address] [place] [id number] Care Team Providers Care Wastewater Manager Name Role Phone Geoffrey Cantu Primary Care Provider [phone] KennyStarr villanueva Unavailable [phone] Allergies No Known Allergies Results Component Value Reference Range Notes H-CBC Reviewed date:12/17/2023 09:04:19 AM Interpretation:mcv 98, [...] 0.2 0.0-0.4 K/mm3 BA# 0.1 0-0.2 K/mm3 H-Lipid Panel Reviewed date:12/17/2023 09:04:19 AM Interpretation:trigs [...] AGRATIO 1.9 1.1-1.8 ALP 59 38-126 U/L H-VITAMIN B12 Reviewed date:12/17/2023 09:04:20 AM Interpretation:Normal Performing Lab: Notes/Report: VITB12 586 239-931 pg/mL H-CBC Reviewed date:08/05/2024 09:43:55 AM Interpretation: Normal Performing Lab: Notes/Report: WBC 8.5 4.8-10.8 K/mm3 RBC 4.67 4.60-6.20 M/mm3 HGB 15.0 14.1-18.0 g/dL HCT 43.7 42.0-52.0 % MCV 93.6 80-94 fl MCH 32.1 27.0-31.2 pg MCHC 34.3 31.8-35.4 g/dL RDW-SD 43.8 RDW 12.7 11.5-17.5 % PLT 273 142-424 K/mm3 MPV 9.1 7.4-10.4 fl NE% 68.7 37.0-80.0 % LY% 19.6 10-50 % MO% 7.8 1.7-9.3 % EO% 3.1 0.1-12.0 % BA% 0.6 0.1-2.0 % NRBC% 0 NE# 5.8 1.8-7.8 K/mm3 LY# 1.7 0.7-4.5 K/mm3 MO# 0.7 0.1-1.0 K/mm3 EO# 0.3 0.0-0.4 Kmm3 BA# 0.1 0-0.2 K/mm3 NRBC# 0 H-TSH Reviewed date:12/17/2023 09:04:19 AM Interpretation:Normal Performing Lab: Notes/Report: TSH 1.40 0.465-4.68 uIU/mL H-VITAMIN D Reviewed date:12/17/2023 09:04:19 AM Interpretation:49 Performing Lab: Notes/Report: TVITD 49.0 30-100 ng/mL Deficient <20 ng/mL Insufficient 20-30 ng/mL Sufficient 30-100 ng/mL Potential Toxicity >100 ng/mL H-Glycohemoglobin A1C Reviewed date:12/17/2023 09:04:20 AM Interpretation:6.3 Performing Lab: Notes/Report: HGBA1C 6.3 4.0-6.0 % < 6% Non-Diabetic Level < 7% Controlled Diabetic Level > 8% Poorly Controlled Diabetic Level H-T4 free Reviewed date:12/17/2023 09:04:20 AM Interpretation:Normal Performing Lab: Notes/Report: T4F 1.16 0.78-2.19 ng/dl H-TSH Reviewed date:08/05/2024 09:43:55 AM Interpretation:0.96 Performing Lab: Notes/Report: TSH 0.96 0.465-4.68 uIU/mL H-CMP Reviewed date:08/05/2024 09:43:55 AM Interpretation:Glu 108, A/G 2.2 Performing Lab: Notes/Report: NA 139 136-145 mmol/L K 3.8 3.5-5.1 mmoL/L CL 106 98-107 mmol/L CO2 28 22.0-30.0 mmol/L GAP 8.8 5-15 mEq/L BUN 17 9-20 mg/dl CREATT 0.90 0.66-1.25 mg/dl GFRAA 104 >60 ML/MIN EGFR 86 >60 ml/min GLU 108 74-100 mg/dl CA 9.1 8.4-10.2 mg/dl BILIT 0.6 0.2-1.3 mg/dl AST 26 17-59 U/L ALT 22 12-78 U/L TP 6.3 6.3-8.2 g/dl ALB 4.3 3.5-5.0 g/dl GLOB 2.0 1.3-3.2 g/dL AGRATIO 2.2 1.1-1.8 ALP 61 38-126 U/L H-Glycohemoglobin A1C Reviewed date:08/05/2024 09:43:55 AM Interpretation:5.2 Performing Lab: Notes/Report: HGBA1C 5.2 4.0-6.0 % < 6% Non-Diabetic Level < 7% Controlled Diabetic Level > 8% Poorly Controlled Diabetic Level H-TSH Reviewed date:08/26/2024 11:25:44 AM Interpretation:see duplicate order Performing Lab: Notes/Report: see duplicate order H-CBC Reviewed date:08/26/2024 11:25:56 AM Interpretation:see duplicate order Performing Lab: Notes/Report: see duplicate order H-Lipid Panel Reviewed date:08/26/2024 11:26:09 AM Interpretation:see duplicate order Performing Lab: Notes/Report: see duplicate order H-CMP Reviewed date:08/26/2024 11:26:23 AM Interpretation:see duplicate order Performing Lab: Notes/Report: see duplicate order H-Lipid Panel Reviewed date:08/05/2024 09:43:55 AM Interpretation:DLDL 68.85 Performing Lab: Notes/Report: Patient Fasting? Y TRIG 57 30-150 mg/dl CHOL 140 140-200 mg/dl DLDL 68.85 100-129 mg/dL VLDL 11 0-40 mg/dL HDL 47 40-60 mg/dl CHLHDL 3.0 1-3.5 H-VITAMIN D Reviewed date:08/05/2024 09:43:55 AM Interpretation: Normal Performing Lab: Notes/Report: TVITD 50.5 30-100 ng/mL Deficient <20 ng/mL Insufficient 20-30 ng/mL Sufficient 30-100 ng/mL Potential Toxicity >100 ng/mL H-Glycohemoglobin A1C Reviewed date:08/26/2024 11:26:35 AM Interpretation:see duplicate order Performing Lab: Notes/Report: see duplicate order H-Vitamin D 1,25 Reviewed date:08/26/2024 11:26:49 AM Interpretation:see duplicate order Performing Lab: Notes/Report: see duplicate order CT SCAN : CHEST, LUNG CANCER SCREENING LOW DOSE Reviewed date:12/25/2023 08:21:42 AM Interpretation: Performing Lab: Notes/Report: Medications Medication SIG (Take, Route, Frequency, Duration) Notes Start Date End Date Status Mounjaro 2.5 MG/0.5ML 2.5 mg Subcutaneou s once a week Active Dexcom G7 Sensor - as directed E11.65 05/03/2024 Active Dexcom G7 Kettle Operator Head - USE DIRECTED Active Levothyroxine Sodium 75 MCG 1 tablet in the morning on an empty stomach Orally Once a day; Duration: 90 days Active Vitamin D3 50 MCG (1999 UT) 1 tab(s) ora lly once a day 12/03/2018 Active Chlorthalidone 25 MG 1 tablet in the mor pippa with food Orally once daily; Duration: 90 days Active Cephalexin 500 MG 1 tablet Orally Two times a day; Duration: 10 day(s) 01/22/2024 Active Lisinopril 5 MG 1 tablet Orally Once a day; Duration: 90 days Active Meloxicam 15 MG 1 tablet Orally Once a day; Duration: 90 days Active Immunizations Vaccine Route Administration Date Status Comme nts Tetanus Tdap-Adacel (over 7yrs) IM Intramuscular 05/24/2020 Administered COVID 19 Moderna Unknown 03/31/2020 Administered COVID 19 Moderna Unknown 05/02/2020 Administered Problems Problem Type SNOMED Code ICD Code Onset Dates Problem Status W/U Status Risk Notes Problem Essential hypertension (22032580) Essential (primary) hypertension (I10) Active confirmed Problem Vitamin D deficiency (40767481) Vitamin D deficiency (E55.9) Active confirmed Problem Essential hypertension (12138442) Essential hypertension (I10) Active confirmed Problem Vitamin B12 deficiency (non anemic) (32982440) Vitamin B 12 deficiency (E53.8) Active confirmed Problem Sciatica (89574458) Lumbago with sciatica, right side (M54.41) Active confirmed Problem Chronic pain (89498983) Other chronic pain (G89.29) Active confirmed Problem Disorder of prostate (99176056) Benign prostatic disease (N42.9) Active confirmed Problem Acquired hypothyroidism (864608189) Acquired hypothyroidism (E03.9) Active confirmed Problem Hyperlipidaemia (04305072) Hyperlipidemia, unspecified hyperlipidemia type (E78.5) Active confirmed Problem Hyperglycemia due to type 2 diabetes mellitus (187359794397953) Type 2 diabetes mellitus with hyperglycemia, without long-term current use of insulin (E11.65) Active confirmed Problem Tobacco use (999899390) Tobacco use disorder (F17.200) Active confirmed Vital Signs Heart Rate 77 /min 08/18/2024 Blood pressure diastolic 80 mm Hg 08/18/2024 Height 73 in 08/18/2024 Blood pressure systolic 124 mm Hg 08/18/2024 Weight 150.2 lbs 08/18/2024 BMI 19.81 kg/m2 08/18/2024 Encounters Encounter Location Date Provider [facility] [address] [place] [id number] 12/10/2023 Starr Fulton Type 2 diabetes ericka itus with hyperglycemia, without long-term current use of insulin E11.65 ; Essential hypertension I10 ; Hyperlipidemia, unspecified hyperlipidemia type E78.5 ; Acquired hypothyroidism E03.9 ; Vitamin D deficiency E55.9 ; Vitamin B 12 deficiency E53.8 and Tobacco use disorder F17.200 [facility] 36 [facility] [address] [place], [place] [id number] 01/22/2024 Starr Fulton Infection of toenail L03.039 [facility] [address] [place], [place] [id number] 03/03/2024 Starr Fulton Essential hypertensi on I10 and Symptomatic hypotension I95.9 [facility] [address] [place], [place] [id number] 08/18/2024 Starr Fulton Essential hypertensi on I10 ; Type 2 diabetes mellitus with hyperglycemia, without long-term current use of insulin E11.65 ; Vitamin D deficiency E55.9 ; Vitamin B 12 deficiency E53.8 ; Hyperlipidemia, unspecified hyperlipidemia type E78.5 ; Acquired hypothyroidism E03.9 ; Polyarthralgia M25.50 ; Cervical lymphadenopathy R59.0 and Body mass index (BMI) of 19.0 to 19.9 in adult Z68.1 [facility] [address] [place], [place] [id number] 12/17/2023 Starr Fulton [facility] [address] [facility] [address] [place], [place] [id number] 12/18/2023 Geoffrey Cantu [facility] [address] [facility] [address] [place], [place] [id number] 12/25/2023 Starrjessenia Fulton [facility] [address] [facility] [address] [place], [place] [id number] 01/27/2024 Geoffrey Cantu Type 2 diabetes ericka itus with hyperglycemia, without long-term current use of insulin E11.65 [facility] [address] [facility] [address] [place], [place] [id number] 01/28/2024 Geoffrey Cantu [facility] [address] [facility] [address] [place], [place] [id number] 03/12/2024 Geoffrey Cantu [facility] [address] [facility] [address] [place], [place] [id number] 04/23/2024 Geoffrey Cantu Type 2 diabetes ericka itus with hyperglycemia, without long-term current use of insulin E11.65 [facility] [address] [facility] [address] [place], [place] [id number] 06/30/2024 Starr Fulton Essential hypertensi on I10 ; Type 2 diabetes mellitus with hyperglycemia, without long-term current use of insulin E11.65 ; Hyperlipidemia, unspecified hyperlipidemia type E78.5 ; Vitamin B 12 deficiency E53.8 ; Vitamin D deficiency E55.9 and Acquired hypothyroidism E03.9 [facility] [address] [facility] [address] [place], [place] [id number] 07/02/2024 Geoffrey Cantu [facility] [address] [place], [place] [id number] 08/05/2024 Starr Fulton [facility] [address] [facility] [address] [place], [place] [id number] 08/11/2024 Geoffrey Cantu Assessments Encounter Date Diagnosis (ICD Code) Assessment Notes Treatment Notes Treatment Clinical Notes Section Notes 03/03/2024 Essential hypertension (ICD-10 - I10) Patient has lost weight. Will stop the chlorthalidone and monitor BP for the next week and call with readings. 03/03/2024 Symptomatic hypotension (ICD-10 - I95.9) 01/27/2024 Type 2 diabetes mellitus with hyperglycemia, without long-term current use of insulin (ICD-10 - E11.65) 01/22/2024 Infection of toenail (ICD-10 - L03.039) Will keep clean and covered when out. Can leave dressing off when at home. 12/10/2023 Essential hypertension (ICD-10 - I10) 12/10/2023 Type 2 diabetes mellitus with hyperglycemia, without long-term current use of insulin (ICD-10 - E11.65) He will get his labs done at the hospital lab. May be able to switch to mounjaro as he is not tolerating the trulicity very well. 08/18/2024 Essential hypertension (ICD-10 - I10) 06/30/2024 Essential hypertension (ICD-10 - I10) 04/23/2024 Type 2 diabetes mellitus with hyperglycemia, without long-term current use of insulin (ICD-10 - E11.65) 06/30/2024 Type 2 diabetes mellitus with hyperglycemia, without long-term current use of insulin (ICD-10 - E11.65) 08/18/2024 Type 2 diabetes mellitus with hyperglycemia, without long-term current use of insulin (ICD-10 - E11.65) 12/10/2023 Hyperlipidemia, unspecified hyperlipidemia type (ICD-10 - E78.5) 12/10/2023 Acquired hypothyroidism (ICD-10 - E03.9) 08/18/2024 Vitamin D deficiency (ICD-10 - E55.9) 06/30/2024 Hyperlipidemia, unspecified hyperlipidemia type (ICD-10 - E78.5) 06/30/2024 Vitamin B 12 deficiency (ICD-10 - E53.8) 08/18/2024 Vitamin B 12 deficiency (ICD-10 - E53.8) 12/10/2023 Vitamin D deficiency (ICD-10 - E55.9) 12/10/2023 Vitamin B 12 deficiency (ICD-10 - E53.8) 08/18/2024 Hyperlipidemia, unspecified hyperlipidemia type (ICD-10 - E78.5) 06/30/2024 Vitamin D deficiency (ICD-10 - E55.9) 06/30/2024 Acquired hypothyroidism (ICD-10 - E03.9) 08/18/2024 Acquired hypothyroidism (ICD-10 - E03.9) 12/10/2023 Tobacco use disorder (ICD-10 - F17.200) 08/18/2024 Polyarthralgia (ICD-10 - M25.50) 08/18/2024 Cervical lymphadenopathy (ICD-10 - R59.0) Pt had an enlarged node on the right previously and had a CT soft tissue of the neck done. He now has an enlarged node on the left as well. Will get another CT. 08/18/2024 Body mass index (BMI) of 19.0 to 19.9 in adult (ICD-10 - Z68.1) 12/10/2023 Other Plan Of Treatment Pending Test Test Name Order Date CT Scan : Neck, soft tissue, without con trast 08/18/2024 H-TSH 05/09/2023 H-VITAMIN D 05/09/2023 H-VITB12 05/09/2023 H-Lipid Panel 05/09/2023 H-CMP 05/09/2023 H-Glycohemoglobin A1C 05/09/2023 H-T4 free 05/09/2023 H-PSA 05/09/2023 Insurance Providers Payer Name Payer Address Payer Phone Subscriber Number Group Number Insured Name Patient Relationship to Insured Coverage Start Date Coverage End Date [employer] [address] [place] [address] [id number] ELVIA WHEELER Self - patient is the insured [facility] [address] [address] [place] [address] [phone] [id number] ELVIA WHEELER Self - patient is the insured Medical (General) History Medical History History ICD Code Hypothyroidism Hypertension Staph aureus external otitis, Rx Septra Normal CT abdomen including adrenals and kidneys, 08/24/2008 Surgical History Surgery Date(Month/Year) Partial Thyroidectomy 1989 LT Ear Hospitalization History Reason Date(Month/Year) Norovirus- [facility] 05/2018 RT Shoulder Pain/Low Potassium [facility]- [facility] 09/19/2016 Shoulder- [facility] ER 10/2014 Hypertension, Dizziness-[facility] 08/27/08-12/30
--- NOTE | 2024-09-17 07:09 | CT_ITS ---
FINAL REPORT TECHNIQUE: Thin section axial CT images with coronal and sagittal reformats were performed through the neck. This study was performed with techniques to keep radiation doses as low as reasonably achievable (ALARA). Individualized dose reduction techniques using automated exposure control or adjustment of mA and/or kV according to the patient's size were employed. CLINICAL HISTORY: CERVICAL LYMPHADENOPATHY COMPARISON: 05/14/2023 FINDINGS: CT NECK SOFT TISSUES WITHOUT CONTRAST: The overall examination without the use of intravenous contrast. The parotid glands are normal in appearance. There is asymmetry in the size of the submandibular glands, the right larger than the left, also seen on the prior CT examination. No discrete mass is noted in the submandibular glands. This may be a developmental variant or potentially atrophy of the left submandibular gland. No abnormal adenopathy is identified. 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 The left thyroid gland is small and somewhat inhomogeneous, also unchanged. IMPRESSION: 1. No enlarged lymph nodes are identified. 2. Asymmetric size of the submandibular glands as described above, the right larger than the left, stable since the prior exam, considered benign. Reviewed, Interpreted and Dictated by Brent Swift MD Transcribed by Adriana Wood Authenticated and [facility]
== END 2024-09-17 23:59 | disposition home or self-care (01) ==
LOC: RAD 07:03
PROVIDERS: PCP Physician Assistant; Visit Provider Physician Assistant
DX: R93.89 Abnormal findings on diagnostic imaging of other specified body structures (principal); R59.0 Localized enlarged lymph nodes
CPT/HCPCS: 70490

== ENCOUNTER 2024-12-09 14:19 | Emergency (ER) | payer BC, OTHER, SELFPAY ==
--- NOTE | 2024-12-09 14:16 | XR_ITS ---
FINAL REPORT CLINICAL HISTORY: Fall trauma, right arm pain COMPARISON: None FINDINGS: 3 views of the right shoulder show no evidence of acute displaced fracture or dislocation of the visualized bony architecture. The joint spaces appear normal. IMPRESSION: Unremarkable exam. Reviewed, Interpreted and Dictated by Brent Swift MD Transcribed by Kianna Khan Authenticated and [facility]
--- NOTE | 2024-12-09 14:17 | XR_ITS ---
FINAL REPORT CLINICAL HISTORY: Trauma, fall COMPARISON: None FINDINGS: A single frontal view of the chest was obtained. No acute pulmonary opacity is present. There is no evidence of effusion. Known right sided pneumothorax seen on recent chest CT is not evident due to supine positioning. Mediastinum is unremarkable. Heart size is normal. IMPRESSION: Right sided pneumothorax as seen on recent CT chest. Reviewed, Interpreted and Dictated by Brent Swift MD Transcribed by Kianna Khan Authenticated and [facility]
--- NOTE | 2024-12-09 14:17 | CT_ITS ---
FINAL REPORT TECHNIQUE: Axial CT with contrast with 3-D MIP reconstruction This study was performed with techniques to keep radiation doses as low as reasonably achievable, (ALARA). Individualized dose reduction techniques using automated exposure control or adjustment of mA and/or kV according to the patient''s size were employed. CLINICAL HISTORY: rt sided chest wall pain; fall COMPARISON: CT low-dose 12/24/2023 FINDINGS: There are multiple right proximal rib fractures, approximately 6 through 12. There is a moderate, approximately 25%, right pneumothorax without a tension component. No sternal fracture seen. No evidence of mediastinal hemorrhage. No evidence of acute aortic injury. Mild dependent atelectasis is seen in the right lower lobe. The left lung is clear. There is no significant pleural effusion. There is no significant pericardial effusion. No mediastinal or hilar adenopathy is present. IMPRESSION: Moderate, approximately 25% right pneumothorax without tension component. Multiple proximal right rib fractures. Reviewed, Interpreted and Dictated by Brent Swift MD Transcribed by Kianna Khan Authenticated and [facility]
--- NOTE | 2024-12-09 14:17 | XR_ITS ---
FINAL REPORT CLINICAL HISTORY: Trauma, fall COMPARISON: None FINDINGS: SINGLE VIEW PELVIS: A single view of the pelvis was obtained. There is no acute fracture or dislocation. There are mild degenerative changes of the SI and hip joints. IMPRESSION: No acute bony abnormality. Reviewed, Interpreted and Dictated by Brent Swift MD Transcribed by Kianna Khan Authenticated and [facility]
--- NOTE | 2024-12-09 14:17 | CT_ITS ---
FINAL REPORT TECHNIQUE: Thin section axial CT with sagittal reconstruction without contrast This study was performed with techniques to keep radiation doses as low as reasonably achievable, (ALARA). Individualized dose reduction techniques using automated exposure control or adjustment of mA and/or kV according to the patient's size were employed. CLINICAL HISTORY: fall from ladder, trauma COMPARISON: None FINDINGS: CT CERVICAL SPINE: No fracture is seen. Alignment is normal. No obvious bony spinal canal stenosis is present. Moderate diffuse degenerative changes are present. IMPRESSION: 1. Moderate diffuse degenerative changes present. 2. No acute bony abnormality is identified. Reviewed, Interpreted and Dictated by Brent Swift MD Transcribed by Adriana Wood Authenticated and [facility]
--- NOTE | 2024-12-09 14:18 | CT_ITS ---
FINAL REPORT TECHNIQUE: Noncontrast exam This study was performed with techniques to keep radiation doses as low as reasonably achievable, (ALARA). Individualized dose reduction techniques using automated exposure control or adjustment of mA and/or kV according to the patient's size were employed. CLINICAL HISTORY: fall, head trauma COMPARISON: None FINDINGS: CT HEAD: No abnormal density is seen. Ventricles are normal. There is no hemorrhage. No mass effect is seen. Bone windows show no evidence of fracture. IMPRESSION: No acute findings Reviewed, Interpreted and Dictated by Brent Swift MD Transcribed by Adriana Wood Authenticated and . [facility]
--- NOTE | 2024-12-09 14:18 | CT_ITS ---
FINAL REPORT CLINICAL HISTORY: 10 foot fall trauma COMPARISON: None FINDINGS: CT LUMBAR SPINE TECHNIQUE: Thin section axial CT with sagittal and coronal reconstructions This study was performed with techniques to keep radiation doses as low as reasonably achievable, (ALARA). Individualized dose reduction techniques using automated exposure control or adjustment of mA and/or kV according to the patient''s size were employed. FINDINGS: No fracture is present. Alignment is normal. No bony canal stenosis is seen. Mild diffuse degenerative changes are present. IMPRESSION: Negative CT evaluation of the lumbar spine for acute bony injury. This study was performed using automated techniques to achieve radiation exposure as low as reasonably achievable Reviewed, Interpreted and Dictated by Brent Swift MD Transcribed by Adriana Wood Authenticated and [facility]
--- NOTE | 2024-12-09 14:18 | CT_ITS ---
FINAL REPORT CLINICAL HISTORY: 10 foot fall off ladder COMPARISON: None FINDINGS: CT THORACIC SPINE TECHNIQUE: Thin section axial CT with sagittal and coronal reconstructions This study was performed with techniques to keep radiation doses as low as reasonably achievable, (ALARA). Individualized dose reduction techniques using automated exposure control or adjustment of mA and/or kV according to the patient's size were employed. FINDINGS: There are multiple right proximal rib fractures, involving approximately the 6th through 12th ribs. There is a right transverse process fracture at the T9 level. Alignment is normal. No bony canal stenosis is seen. No significant disc abnormalities. IMPRESSION: 1. Multiple right proximal rib fractures, involving approximately T6-T12 ribs. 2. There is a fracture of the transverse process of T9 on the right side. 3. No thoracic compression fractures are noted. Reviewed, Interpreted and Dictated by Brent Swift MD Transcribed by Adriana Wood Authenticated and [facility]
[2024-12-09 14:19] VITALS: BP 122/78; PULSE 84; RESP 20; TEMP 37.1; O2SAT 96
--- NOTE | 2024-12-09 14:19 | XR_ITS ---
FINAL REPORT CLINICAL HISTORY: Fall/trauma COMPARISON: None FINDINGS: Two views of the right humerus show no evidence of an acute, displaced fracture or dislocation of the visualized bony architecture. The joint spaces appear normal. IMPRESSION: Unremarkable exam. Reviewed, Interpreted and Dictated by Brent Swift MD Transcribed by Kianna Khan Authenticated and [facility]
--- NOTE | 2024-12-09 14:19 | CT_ITS ---
FINAL REPORT TECHNIQUE: IV contrast enhanced exam This study was performed with techniques to keep radiation doses as low as reasonably achievable, (ALARA). Individualized dose reduction techniques using automated exposure control or adjustment of mA and/or kV according to the patient''s size were employed. CLINICAL HISTORY: Fall/trauma COMPARISON: None FINDINGS: Abdomen: The gallbladder is moderately distended. Solid abdominal organs are unremarkable. No bowel obstruction is present. There is no free air. No fluid collection is seen. There is no adenopathy. Pelvis: The appendix is not visualized. No bowel wall thickening is present. There is no free fluid. No pelvic mass is seen. IMPRESSION: No acute findings. Reviewed, Interpreted and Dictated by Brent Swift MD Transcribed by Kianna Khan Authenticated and [facility]
--- NOTE | 2024-12-09 14:21 | HMH.EDGENADL ---
Discharge Plan Disposition Patient Disposition: Xfer Other Condition: Fair Prescriptions Prescriptions: No Action azithromycin [Zithromax] 250 mg tablet 250 mg PO UD DOSE PK Qty: 6 0RF Rx Instructions: Take two (2) tablets today, then one (1) tablet days #2 thru #5 prednisone 20 mg tablet 20 mg PO BID 3 Days Qty: 6 0RF benzonatate 100 mg capsule 100 mg PO TIDP PRN (Reason: Cough) Qty: 30 0RF chlorthalidone 50 mg tablet 50 mg PO DAILY levothyroxine 75 mcg tablet 75 mcg PO DAILY lisinopril 5 mg tablet 5 mg PO DAILY Trulicity 1.5 mg/0.5 mL pen injector 1.5 mg SQ WEEKLY Referrals Follow up/Referrals: Starr Fulton PA [Primary Care Provider, Medical] - See instructions Clinical Impressions Clinical Impression: Traumatic fracture of ribs of right side with pneumothorax, Fall Stand Alone Forms Stand Alone Forms: Transfer Record - ED Print Language Print Language: [place] Discharge ED Provider: Brando Moulton General Adult HPI <STEFFANY Salas - Last Filed: 12/09/24 15:21> General Stated complaint: fall Time Seen by Provider: 12/09/24 14:21 Mode of Arrival: EMS Source of Information: Patient, EMS and Medical Record Limitations: No Limitations History of Present Illness HPI narrative: 59-year-old male presents to the emergency department via EMS as an advanced trauma alert, obtained from patient, he does have some retrograde amnesia about the event, and EMS, per EMS report, patient was found down by , unknown time down, around a 2-hour timeframe of patient being considered down, patient was apparently working on around a 9 to 10 foot ladder, he does not member following up, found him on the ground, he complains of right sided pain especially in the chest wall right arm/shoulder pain, admits to LOC, again does not remember the event, currently at this time GCS of 15, he denies any fever or chills, denies any shortness of breath, denies any abdominal pain, denies any neck pain, mid back pain, or lower back pain, denies any other upper or lower extremity injury, does have several abrasions noted over his right shoulder, posterior scalp, as well as bilateral lower extremities, patient moves extremities command, no numbness or tingling, no saddle anesthesia, no urinary bladder or bowel dysfunction, patient has any nausea or vomiting, has no other acute complaints, other past medical history upon chart review shows no anticoagulant use, T2DM, hypothyroidism, hypertension. Initial triage vitals are unremarkable, patient was given 50 mcg of IV fentanyl prior to arrival, as well as IV NS. Please note that above description of symptoms, in this electronic medical record under categorization of recalled from ER triage doctor by RN are reflective of an initial nursing assessment, however, is not reflective of my full history and physical exam that was personally taken and clarified. Consequentially, this preceding description of symptoms, which may include the patient's categorized chief complaint in the EMR, do not reflect my personal clinical impression, and the ultimate description of history of present illness and patient stated complaints should be deferred to this section of the note. Unless stated otherwise or congruent with this section of the note, additional signs, symptoms, or incongruence should be interpreted as inaccurate with my clinical impression. Onset (ago): hour(s) Related Data Home Medications ?Medication ?Instructions ?Recorded ?Confirmed chlorthalidone 50 mg tablet 50 mg PO DAILY 05/12/23 08/13/23 dulaglutide 1.5 mg/0.5 mL 1.5 mg SQ WEEKLY 05/12/23 08/13/23 subcutaneous pen injector (Trulicity) levothyroxine 75 mcg tablet 75 mcg PO DAILY 05/12/23 08/13/23 lisinopril 5 mg tablet 5 mg PO DAILY 05/12/23 08/13/23 Previous Rx's ?Medication ?Instructions ?Recorded azithromycin 250 mg tablet 250 mg PO UD DOSE PK #6 tabs 08/13/23 (Zithromax) benzonatate 100 mg capsule 100 mg PO TIDP PRN Cough #30 caps 08/13/23 prednisone 20 mg tablet 20 mg PO BID 3 days #6 tabs 08/13/23 Allergies Allergy/AdvReac Type Severity Reaction Status Date / Time No Known Allergies Allergy Verified 06/10/17 13:03 [facility] <STEFFANY Salas - Last Filed: 12/09/24 15:21> [facility] Disclaimer: The information contained in this section may have been updated after the patient was seen, as this information can be updated by other users. Medical History (Updated 12/09/24 @ 15:21 by STEFFANY Salas) Diabetes mellitus, type 2 Hypertension Social History Smoking Status: Current every day smoker tobacco type: cigarettes packs per day: 1 second hand exposure: Yes alcohol intake: never current occupational status: employed Travel in the last 8 weeks?: None household members: spouse and children housing: house current occupational exposures/hazards: No caffeine: Yes Have you lived/traveled outside [place] in past 30 days?: No Contact w/someone who lives/traveled outside US past 30 days?: No Exposure to someone with infectious disease in past 14 days?: No Do you have a fever (greater than 100.4 F or 38 C)?: No Have you tested positive for COVID-19?: No Exposed to someone with COVID-19 in past 14 days?: No Do you have a sore throat?: No Do you have a cough?: No Do you have any weakness?: No Do you have any diarrhea?: No Are you experiencing any unusual bleeding?: No Do you have any muscle aches/pain?: No Do you have any abdominal pain?: No Are you experiencing loss of taste or smell?: No Other Medical History Have you received the Flu Vaccine for this season: No Have you received the Pneumonia Vaccine: No <STEFFANY Salas - Last Filed: 12/09/24 15:21> ROS Obtained: Yes All systems reviewed & no additional complaints except as documented Physical Exam <STEFFANY Salas - Last Filed: 12/09/24 15:21> General General appearance: alert and in no apparent distress Head Head exam: atraumatic, normocephalic and other (Superficial abrasions noted to the patient's posterior scalp, no active bleeding,) Eye Eye exam: Present PERRL and EOMI ENT ENT exam: Present mucous membranes moist Neck Neck exam: Present normal inspection Chest Chest inspection: Present normal inspection, symmetric chest wall rise, tenderness and other (There is moderate pain palpation over the chest wall on the right side, no obvious hematoma, no obvious acute deformity of the chest wall) Respiratory Respiratory exam: Present normal lung sounds bilaterally and other (Minimal diminished lung sounds on the right, otherwise no rales no rhonchi no wheezing); Absent respiratory distress Cardiovascular Cardiovascular exam: Present regular rate and normal rhythm Abdominal Exam Abdominal exam: Present soft; Absent tenderness, guarding, rebound, rigidity or trauma Extremities Exam Extremities exam: Present normal inspection, full ROM, tenderness and other (Minimal tenderness to palpation over the right shoulder, and right chest wall, otherwise neurovascular intact pelvis is stable to AP lateral compression) Back Exam Back exam: Present normal inspection and full ROM; Absent tenderness, muscle spasm, paraspinal tenderness or vertebral tenderness Neurological Exam Neurological exam: Present alert, oriented X3 and other (Moves extremities to command, no gross sensation deficit,) Psychiatric Psychiatric exam: Present normal affect Skin Skin exam: Present warm, dry and other (Abrasions noted on the bilateral lower extremities, abrasio noted over the right shoulder. ) Medical Decision Making <STEFFANY Salas - Last Filed: 12/09/24 15:21> Medical Records Medical records reviewed: Yes I reviewed the patient's medical records. Screening: Per USPSTF and CDC recommendations, given the prevalence of disease in our region, it is our hospital?s policy to screen for HIV and viral Hepatitis for all patients aged 18 and over and those with ongoing risk factors. Adi Inquiry Pt receiving controlled substance: Yes Adi was queried for this patient: No Reason not queried -: Emergent pt cond-no time Risks and benefits of using a controlled substance: were discussed with pt by me Vital Signs: 12/09/24 14:19 12/09/24 14:49 Temperature 98.7 F Temperature Source Oral Pulse Rate 75 Pulse Rate [Left Radial] 84 Respiratory Rate 20 Blood Pressure 129/80 Blood Pressure [Right Arm] 122/78 Blood Pressure Mean [Right Arm] 92 02 Sat by Pulse Oximetry 96 96 Oxygen Delivery Method Room Air Lab Data Lab results reviewed: Yes I reviewed the patient's lab results. Lab Results 12/09/24 14:54: WBC 21.3 H*, RBC 3.99 L, Hgb 13.0 L, Hct 37.6 L, MCV 94.2 H, MCH 32.6 H, MCHC 34.6, RDW 12.7, Plt Count 251, MPV 9.3, Neut % (Auto) 87.9 H, Lymph % (Auto) 4.2 L, Love % (Auto) 6.7, Eos % (Auto) 0.1, Baso % (Auto) 0.2, Neut # (Auto) 18.7 H, Lymph # (Auto) 0.9, Love # (Auto) 1.4 H, Eos # (Auto) 0.0, Baso # (Auto) 0.1, PT 11.9, INR 1.08 12/09/24 14:54 Orders (Tests/Meds): ED MEDICATIONS Discontinued Medications Generic Name Dose Route Start Last Admin Trade Name Andre PRN Reason Stop Dose Admin Iopamidol 75 ml 12/09/24 14:34 12/09/24 14:35 Iopamidol-370 (76%);100ml Bottle IV 12/09/24 14:35 75 ml ONCE ONE Administration Sodium Chloride 50 ml 12/09/24 14:34 12/09/24 14:35 0.9 % Sodium Chloride 50 Ml Vial IV 12/09/24 14:35 50 ml ONCE ONE Administration Sodium Chloride 10 ml 12/09/24 14:34 12/09/24 14:35 Sodium Chloride 0.9% 10ml Syr (Rad Only) IV 12/09/24 14:35 10 ml ONCE ONE Administration ORDERS Category Date Time Status Type and Screen Stat BBK 12/09/24 14:[address] abdomen pelvis w con Stat Cat Scan 12/09/24 14:[address] cervical spine wo con Stat Cat Scan 12/09/24 14:[address] chest w con Stat Cat Scan 12/09/24 14:[address] head/brain wo con Stat Cat Scan 12/09/24 14:[address] lumbar spine wo con Stat Cat Scan 12/09/24 14:[address] thoracic spine wo con Stat Cat Scan 12/09/24 14:18 Taken POCUS Point of Care (ER Only) Stat Exams 12/09/24 14:19 Completed Pelvis XR 1-2 views [XR pelvis 1-2V] Stat Exams 12/09/24 14:17 Taken XR chest portable Stat Exams 12/09/24 14:17 Taken XR humerus RT Stat Exams 12/09/24 14:19 Taken XR shoulder RT min 2V Stat Exams 12/09/24 14:16 Taken CK [Creatine Kinase] Stat Lab 12/09/24 14:54 Received Complete Blood Count Auto Diff Stat Lab 12/09/24 14:54 Completed Comprehensive Metabolic Panel Stat Lab 12/09/24 14:54 Received Drug Screen,Urine Stat Lab 12/09/24 14:24 Ordered Ethanol [Ethyl Alcohol] Stat Lab 12/09/24 14:54 Received NT Pro Brain Natriuretic Pep. Stat Lab 12/09/24 14:54 Received PT INR [Prothrombin Time INR] Stat Lab 12/09/24 14:54 Completed Troponin I Q3H Lab 12/09/24 17:30 Ordered Troponin I Q3H Lab 12/09/24 20:30 Ordered Troponin I Stat Lab 12/09/24 14:54 Received Uric Acid Stat Lab 12/09/24 14:54 Received Urinalysis and Microscopic Stat Lab 12/09/24 14:24 Ordered Medical Decision Narrative: 59-year-old male presents to the emergency department as a trauma from a fall from a 9 to 10 foot ladder, positive LOC, unknown time down approximately window, differential diagnose include but not limited to, cardiac arrhythmia, electrolyte disturbance, acute SDH, traumatic SAH, cervical spine fracture, soft tissue contusion, abrasion, rib fractures, pneumothorax, other intrathoracic trauma, intra-abdominal trauma, T-spine fracture, L-spine fracture, back sprain/strain, rhabdomyolysis among others. I discussed this patient's case with the attending physician Dr. Moulton he along with myself perform bedside FAST exam. Will obtain basic laboratory studies, EKG, type and screen, chest x-ray, pelvic x-ray, right shoulder x-ray right humerus x-ray, will obtain CT without contrast of the CTL spine, CT chest with contrast, CT head without contrast, CT abdomen pelvis with contrast for further evaluation/characterization. Obtain coags troponin and proBNP, CK level, ethyl alcohol, UA, uric acid level, UDS. Limited EFAST ultrasound Indication: [Blunt trauma Views: [LUQ, RUQ, Pelvis, Limited Cardiac, Limited Thoracic] Interpretation: Peritoneal Free Fluid: [absent] Pericardial effusion: [absent] Right thoracic free Fluid: [absent] Left thoracic Free Fluid: [absent] Right lung pneumothorax: [absent] Left Lung pneumothorax: [absent] Impression: [negative] EFAST ultrasound Images [were saved] to permanent archive The study [was] technically adequate CPT 21864-53 (limited cardiac) 71277-55 (limited abdominal) 15812-31 (chest) This study was performed by me, and I personally interpreted all images/videos. Based on my clinical judgement, these images were [adequate/inadequate] and [did/did not] necessitate further imaging. CBC is notable for leukocytosis of 21.3, hemoglobin hematocrit are stable at 13/37.6 effectively MCV is 94.2, otherwise unremarkable CBC leukocytosis could be reactive in the setting of trauma. I discussed this patient's case with Shilpa Crowley APRN transfer clinician at [facility] at approximately 3:13 PM, she is in agreement with the current treatment plan/transfer plan for pneumothorax polytrauma, with multiple rib fractures posteriorly on the right side, Dr. Baires is the transferring physician. Patient stable for transfer at this time. I discussed need for transfer with the patient family the bedside patient and family are in agreement with current treatment plan/transfer plan. <Brando Moulton MD - Last Filed: 12/09/24 15:36> Vital Signs: 12/09/24 14:19 12/09/24 14:49 Temperature 98.7 F Temperature Source Oral Pulse Rate 75 Pulse Rate [Left Radial] 84 Respiratory Rate 20 Blood Pressure 129/80 Blood Pressure [Right Arm] 122/78 Blood Pressure Mean [Right Arm] 92 02 Sat by Pulse Oximetry 96 96 Oxygen Delivery Method Room Air Lab Data Lab Results 12/09/24 14:54: WBC 21.3 H*, RBC 3.99 L, Hgb 13.0 L, Hct 37.6 L, MCV 94.2 H, MCH 32.6 H, MCHC 34.6, RDW 12.7, Plt Count 251, MPV 9.3, Neut % (Auto) 87.9 H, Lymph % (Auto) 4.2 L, Love % (Auto) 6.7, Eos % (Auto) 0.1, Baso % (Auto) 0.2, Neut # (Auto) 18.7 H, Lymph # (Auto) 0.9, Love # (Auto) 1.4 H, Eos # (Auto) 0.0, Baso # (Auto) 0.1, PT 11.9, INR 1.08 Orders (Tests/Meds): ED MEDICATIONS Discontinued Medications Generic Name Dose Route Start Last Admin Trade Name Freq PRN Reason Stop Dose Admin Iopamidol 75 ml 12/09/24 14:34 12/09/24 14:35 Iopamidol-370 (76%);100ml Bottle IV 12/09/24 14:35 75 ml ONCE ONE Administration Sodium Chloride 50 ml 12/09/24 14:34 12/09/24 14:35 0.9 % Sodium Chloride 50 Ml Vial IV 12/09/24 14:35 50 ml ONCE ONE Administration Sodium Chloride 10 ml 12/09/24 14:34 12/09/24 14:35 Sodium Chloride 0.9% 10ml Syr (Rad Only) IV 12/09/24 14:35 10 ml ONCE ONE Administration ORDERS Category Date Time Status Type and Screen Stat BBK 12/09/24 14:[address] abdomen pelvis w con Stat Cat Scan 12/09/24 14:[address] cervical spine wo con Stat Cat Scan 12/09/24 14:[address] chest w con Stat Cat Scan 12/09/24 14:[address] head/brain wo con Stat Cat Scan 12/09/24 14:[address] lumbar spine wo con Stat Cat Scan 12/09/24 14:[address] thoracic spine wo con Stat Cat Scan 12/09/24 14:18 Taken POCUS Point of Care (ER Only) Stat Exams 12/09/24 14:19 Completed Pelvis XR 1-2 views [XR pelvis 1-2V] Stat Exams 12/09/24 14:17 Taken XR chest portable Stat Exams 12/09/24 14:17 Taken XR humerus RT Stat Exams 12/09/24 14:19 Taken XR shoulder RT min 2V Stat Exams 12/09/24 14:16 Taken CK [Creatine Kinase] Stat Lab 12/09/24 14:54 Received Complete Blood Count Auto Diff Stat Lab 12/09/24 14:54 Completed Comprehensive Metabolic Panel Stat Lab 12/09/24 14:54 Received Drug Screen,Urine Stat Lab 12/09/24 14:24 Ordered Ethanol [Ethyl Alcohol] Stat Lab 12/09/24 14:54 Received NT Pro Brain Natriuretic Pep. Stat Lab 12/09/24 14:54 Received PT INR [Prothrombin Time INR] Stat Lab 12/09/24 14:54 Completed Troponin I Q3H Lab 12/09/24 17:30 Ordered Troponin I Q3H Lab 12/09/24 20:30 Ordered Troponin I Stat Lab 12/09/24 14:54 Received Uric Acid Stat Lab 12/09/24 14:54 Received Urinalysis and Microscopic Stat Lab 12/09/24 14:24 Ordered ECG Data Tracing #1: Independently interpreted by me rate is 69, rhythm is regular, axis normal, no ST elevation in anatomical contiguous leads, QTc 414 Medical Decision Narrative: 59-year-old male presents to the emergency department as a trauma from a fall from a 9 to 10 foot ladder, positive LOC, unknown time down approximately window, differential diagnose include but not limited to, cardiac arrhythmia, electrolyte disturbance, acute SDH, traumatic SAH, cervical spine fracture, soft tissue contusion, abrasion, rib fractures, pneumothorax, other intrathoracic trauma, intra-abdominal trauma, T-spine fracture, L-spine fracture, back sprain/strain, rhabdomyolysis among others. I discussed this patient's case with the attending physician Dr. Moulton he along with myself perform bedside FAST exam. Will obtain basic laboratory studies, EKG, type and screen, chest x-ray, pelvic x-ray, right shoulder x-ray right humerus x-ray, will obtain CT without contrast of the CTL spine, CT chest with contrast, CT head without contrast, CT abdomen pelvis with contrast for further evaluation/characterization. Obtain coags troponin and proBNP, CK level, ethyl alcohol, UA, uric acid level, UDS. Limited EFAST ultrasound Indication: [Blunt trauma Views: [LUQ, RUQ, Pelvis, Limited Cardiac, Limited Thoracic] Interpretation: Peritoneal Free Fluid: [absent] Pericardial effusion: [absent] Right thoracic free Fluid: [absent] Left thoracic Free Fluid: [absent] Right lung pneumothorax: [absent] Left Lung pneumothorax: [absent] Impression: [negative] EFAST ultrasound Images [were saved] to permanent archive The study [was] technically adequate CPT 18913-19 (limited cardiac) 37721-02 (limited abdominal) 16127-56 (chest) This study was performed by me, and I personally interpreted all images/videos. Based on my clinical judgement, these images were [adequate/inadequate] and [did/did not] necessitate further imaging. CBC is notable for leukocytosis of 21.3, hemoglobin hematocrit are stable at 13/37.6 effectively MCV is 94.2, otherwise unremarkable CBC leukocytosis could be reactive in the setting of trauma. I discussed this patient's case with Shilpa Crowley APRN transfer clinician at [facility] at approximately 3:13 PM, she is in agreement with the current treatment plan/transfer plan for pneumothorax polytrauma, with multiple rib fractures posteriorly on the right side, Dr. Baires is the transferring physician. Patient stable for transfer at this time. I discussed need for transfer with the patient family the bedside patient and family are in agreement with current treatment plan/transfer plan. Brando Moulton: I was consulted by the KIRSTEN, and we discussed the complexity of the problems being addressed. I approved the treatment and management plan for this patient's care in the emergency department, thus performing a substantive portion of the medical decision making. Patient has small to moderate pneumothorax on the right with posterior rib fractures on my informal interpretation. Patient's hemodynamics are acceptable and no increasing oxygen requirement no large pneumothorax that would require emergent decompression at this time we will defer. Interestingly E-FAST was negative upon arrival it may be that the right lung views were obtained with the pleural space was not interrupted with pneumothorax. Patient may transfer to higher level care at this time for continued evaluation. Critical Care <STEFFANY Salas - Last Filed: 12/09/24 15:21> Critical Care Time Critical Care Time: Yes Attestation: On 12/09/24, the high probability of a clinically significant, sudden or life threatening deterioration of the following system(s) required my full and direct attention, intervention and personal management. The time I documented below is in addition to time spent performing reported procedures but includes the following listed in this critical care notation. Total Time Total Critical Care Time: 30
[2024-12-09] MEDS: SODIUM CHLORIDE 0.9% 10ML SYR (RAD ONLY) 10 ML IV (14:35)
[2024-12-09] MEDS: 0.9 % SODIUM CHLORIDE 50 ML VIAL IV (14:35)
[2024-12-09] MEDS: IOPAMIDOL-370 (76%);100ML BOTTLE 75 ML IV (14:35)
[2024-12-09 14:49] VITALS: BP 129/80; PULSE 75; O2SAT 96
--- NOTE | 2024-12-09 14:54 | ECG_ITS ---
APPROVED REPORT Exam: Resting ECG HR:69 bpm ECG Measurements Heart Rate 69 AXES MS 169 P 74 QRSd 93 QRS 66 QT 395 T 72 QTc 414 Conclusion SINUS RHYTHM NORMAL ECG Electronically signed by : FABIO ALEXANDRA, 12/12/2024 08:35:23
--- NOTE | 2024-12-09 14:54 | PC.NURSE ---
called [facility] for transfer, [facility] will call back to speak with Herminio when they have provider available
[2024-12-09 14:57] VITALS: BMI 23.7
[2024-12-09 14:59] VITALS: BP 129/81; PULSE 75; RESP 21; O2SAT 99
[2024-12-09 15:00] VITALS: BP 127/77; PULSE 68; RESP 21; O2SAT 99
[2024-12-09 15:06] LABS: Hematocrit 37.6 % (42.0-52.0); Hemoglobin 13.0 g/dL (14.1-18.0); Immature Granulocytes % 0.9 %; Mean Corpuscular HGB Conc 34.6 g/dL (31.8-35.4); Mean Corpuscular Hemoglobin 32.6 pg (27.0-31.2); Mean Corpuscular Volume 94.2 fl (80-94); Nucleated Red Blood Cells % 0 %; Platelet Count 251 K/mm3 (142-424); Red Blood Count 3.99 M/mm3 (4.60-6.20); Red Cell Distribution Width-SD 44.1 fL; White Blood Count 21.3 K/mm3 (4.8-10.8)
--- NOTE | 2024-12-09 15:13 | PC.NURSE ---
Contacted [employer] for a transfer flight to for poly-trauma, the closest was [id number] of 33 mins ETA, we then had them check [employer] for an ETA of 28 min and they are on pad standby.
--- NOTE | 2024-12-09 15:14 | PC.NURSE ---
ajit sommers on phone with
--- NOTE | 2024-12-09 15:16 | PC.NURSE ---
[facility] ED to ED transfer Dr. Baires the accepting.
[2024-12-09 15:23] LABS: INR 1.08 (0.9-1.1); Prothrombin Time 11.9 seconds (10.1-12.5)
--- NOTE | 2024-12-09 15:26 | PC.NURSE ---
report called to brigid at ER
[2024-12-09 15:30] VITALS: BP 131/89; PULSE 68; RESP 21; O2SAT 99
[2024-12-09 15:30] LABS: Alanine Aminotransferase 32 U/L (12-78); Albumin Level 4.0 g/dl (3.5-5.0); Albumin/Globulin Ratio 1.8 (1.1-1.8); Alkaline Phosphatase 57 U/L (38-126); Anion Gap 9.1 mEq/L (5-15); Aspartate Amino Transferase 48 U/L (17-59); Bilirubin,Total 0.6 mg/dl (0.2-1.3); Blood Urea Nitrogen 17 mg/dl (9-20); Calcium 8.7 mg/dl (8.4-10.2); Carbon Dioxide 28 mmol/L (22.0-30.0); Chloride 100 mmol/L (98-107); Creatine Kinase 232 U/L (55-170); Creatinine Clearance Estimated 110 mL/min (50-200); Creatinine,Serum 0.80 mg/dl (0.66-1.25); Estimated Glomerular Filt Rate 99 ml/min (>60); GFR (African American) 119 ML/MIN (>60); Globulin 2.2 g/dL (1.3-3.2); Glucose 111 mg/dl (74-100); Potassium 3.1 mmoL/L (3.5-5.1); Sodium 134 mmol/L (136-145); Total Protein,Serum 6.2 g/dl (6.3-8.2)
[2024-12-09 15:31] LABS: Uric Acid 5.0 mg/dl (3.5-8.5)
[2024-12-09 15:39] LABS: NT Pro Brain Natriuretic Pep. 37.8 pg/mL (0-125)
[2024-12-09 15:43] LABS: Troponin I < 0.01 ng/ml (0.00-0.034)
[2024-12-09] MEDS: ONDANSETRON 4MG/2ML VIAL 4 MG IV (15:55)
[2024-12-09] MEDS: FENTANYL 100MCG/2ML VIAL 50 MCG IV (15:55)
[2024-12-09 16:20] VITALS: BP 131/89; PULSE 68; RESP 19; TEMP 36.7; O2SAT 99
== END 2024-12-09 16:21 | disposition other institution (70) ==
PROVIDERS: Physician Assistant; Emergency Provider Emergency Medicine; PCP Physician Assistant
DX: S27.0XXA Traumatic pneumothorax, initial encounter (principal); S22.41XA Multiple fractures of ribs, right side, initial encounter for closed fracture; S06.0X9A Concussion with loss of consciousness of unspecified duration, initial encounter; E87.6 Hypokalemia; D72.829 Elevated white blood cell count, unspecified; R07.89 Other chest pain; I10 Essential (primary) hypertension; E11.9 Type 2 diabetes mellitus without complications; W11.XXXA Fall on and from ladder, initial encounter; F17.210 Nicotine dependence, cigarettes, uncomplicated
CPT/HCPCS: 70450; 71045; 71260; 72125; 72128; 72131; 72170; 73030; 73060; 74177; 80053; 80320; 82550; 83880; 84484; 84550; 85025; 85610; 86850; 93005; 96374; 96375; 99285; 99291; G0390; J2405; J3010; Q9967

== ENCOUNTER 2025-01-07 08:51 | Outpatient (CLI) | payer BC, OTHER, SELFPAY ==
--- OUTSIDE RECORDS SUMMARY | 2023-12-10 12:30 | XMS_ITS ---
Author Organization [facility] Address [address] [place] [id number] Care Team Providers Care Soup Mixer Name Role Phone Geoffrey Cantu Primary Care Provider Starr Fulton Unavailable [phone] Allergies No Known Allergies Results Component Value Reference Range Notes H-TSH Reviewed date:12/17/2023 09:04:19 AM Interpretation:Normal Performing Lab: Notes/Report: TSH 1.40 0.465-4.68 uIU/mL H-CBC Reviewed date:12/17/2023 09:04:19 AM Interpretation:mcv 98, mch 32, mpv 6.9 Performing Lab: Notes/Report: WBC 9.0 4.8-10.8 K/mm3 RBC 5.06 4.60-6.20 M/mm3 HGB 16.2 14.1-18.0 g/dL HCT 49.7 42.0-52.0 % MCV 98.2 80-94 fl MCH 32.1 27.0-31.2 pg MCHC 32.7 31.8-35.4 g/dL RDW 12.8 11.5-17.5 % PLT 319 142-424 K/mm3 MPV 6.9 7.4-10.4 fl NE% 69.8 37.0-80.0 % LY% 20.7 10-50 % MO% 6.5 1.7-9.3 % EO% 2.3 0.1-12.0 % BA% 0.6 0.1-2.0 % NE# 6.3 1.8-7.8 K/mm3 LY# 1.9 0.7-4.5 K/mm3 MO# 0.6 0.1-1.0 K/mm3 EO# 0.2 0.0-0.4 K/mm3 BA# 0.1 0-0.2 K/mm3 H-VITAMIN D Reviewed date:12/17/2023 09:04:19 AM Interpretation:49 Performing Lab: Notes/Report: TVITD 49.0 30-100 ng/mL Deficient <20 ng/mL Insufficient 20-30 ng/mL Sufficient 30-100 ng/mL Potential Toxicity >100 ng/mL H-Lipid Panel Reviewed date:12/17/2023 09:04:19 AM Interpretation:trigs 159, dldl 94, hdl 33, chol/hdl 4.8 Performing Lab: Notes/Report: Patient Fasting? Y TRIG 159 30-150 mg/dl CHOL 160 140-200 mg/dl DLDL 94.03 100-129 mg/dL VLDL 32 0-40 mg/dL HDL 33 40-60 mg/dl CHLHDL 4.8 1-3.5 H-CMP Reviewed date:12/17/2023 09:04:20 AM Interpretation:co2- 33, gluc 118, a/g 1.9 Performing Lab: Notes/Report: NA 138 136-145 mmol/L K 3.6 3.5-5.1 mmoL/L CL 102 98-107 mmol/L CO2 33 22.0-30.0 mmol/L GAP 6.6 5-15 mEq/L BUN 15 9-20 mg/dl CREATT 0.90 0.66-1.25 mg/dl GFRAA 105 >60 ML/MIN EGFR 86 >60 ml/min GLU 118 74-100 mg/dl CA 9.7 8.4-10.2 mg/dl BILIT 0.9 0.2-1.3 mg/dl AST 37 17-59 U/L ALT 29 12-78 U/L TP 7.0 6.3-8.2 g/dl ALB 4.6 3.5-5.0 g/dl GLOB 2.4 1.3-3.2 g/dL AGRATIO 1.9 1.1-1.8 ALP 59 38-126 U/L H-Glycohemoglobin A1C Reviewed date:12/17/2023 09:04:20 AM Interpretation:6.3 Performing Lab: Notes/Report: HGBA1C 6.3 4.0-6.0 % < 6% Non-Diabetic Level < 7% Controlled Diabetic Level > 8% Poorly Controlled Diabetic Level H-VITAMIN B12 Reviewed date:12/17/2023 09:04:20 AM Interpretation:Normal Performing Lab: Notes/Report: VITB12 586 239-931 pg/mL H-T4 free Reviewed date:12/17/2023 09:04:20 AM Interpretation:Normal Performing Lab: Notes/Report: T4F 1.16 0.78-2.19 ng/dl CT SCAN : CHEST, LUNG CANCER SCREENING LOW DOSE Reviewed date:12/25/2023 08:21:42 AM Interpretation: Performing Lab: Notes/Report: REASON FOR VISIT wants referrals Medications Medication SIG (Take, Route, Frequency, Duration) Notes Start Date End Date Status Chlorthalidone 50 MG 1/2 tab orally once a day; Duration: 90 days Active Levothyroxine Sodium 75 MCG 1 tablet in the morning on an empty stomach Orally Once a day; Duration: 90 days Active Trulicity 3 MG/0.5ML 3mg Subcutaneous on ce a week Active Meloxicam 15 MG TAKE ONE TABLET BY M OUTH ONCE A DAY Active FreeStyle Monica 3 Plus Sensor - as directed 12/10/2023 Active Lisinopril 5 MG 1 tablet Orally Once a day; Duration: 90 days Active Vitamin D3 50 MCG (1999) 1 tab(s) ora lly once a day 12/03/2018 Active Problems Problem Type SNOMED Code ICD Code Onset Dates Problem Status W/U Status Risk Notes Problem Tobacco use (156309402) Tobacco use disorder (F17.200) Active confirmed Vital Signs Blood pressure systolic 150 mm Hg 12/10/19 24 Blood pressure diastolic 86 mm Hg 024 Heart Rate 74 /min 12/10/2023 Height 73 in 12/10/2023 Weight 178.8 lbs 12/10/2023 BMI 23.59 kg/m2 12/10/2023 Encounters Encounter Location Date Provider Diagnosis [facility] [address] [place], [place] [address], [place] [id number] 12/10/2023 Starr Fulton Type 2 diabetes ericka itus with hyperglycemia, without long-term current use of insulin E11.65 ; Essential hypertension I10 ; Hyperlipidemia, unspecified hyperlipidemia type E78.5 ; Acquired hypothyroidism E03.9 ; Vitamin D deficiency E55.9 ; Vitamin B 12 deficiency E53.8 and Tobacco use disorder F17.200 Assessments Encounter Date Diagnosis (ICD Code) Assessment Notes Treatment Notes Treatment Clinical Notes Section Notes 12/10/2023 Type 2 diabetes mellitus with hyperglycemia, without long-term current use of insulin (ICD-10 - E11.65) He will get his labs done at the hospital lab. May be able to switch to mounjaro as he is not tolerating the trulicity very well. 12/10/2023 Essential hypertension (ICD-10 - I10) 12/10/2023 Hyperlipidemia, unspecified hyperlipidemia type (ICD-10 - E78.5) 12/10/2023 Acquired hypothyroidism (ICD-10 - E03.9) 12/10/2023 Vitamin D deficiency (ICD-10 - E55.9) 12/10/2023 Vitamin B 12 deficiency (ICD-10 - E53.8) 12/10/2023 Tobacco use disorder (ICD-10 - F17.200) 12/10/2023 Other Plan Of Treatment Medication Medication Name Sig Start Date Stop Date Notes FreeStyle Monica 3 Plus Sensor - as directed 12/10/2023 Treatment Notes Assessment Notes Type 2 diabetes mellitus wit h hyperglycemia, without long-term current use of insulin He will get his labs done at the [facility] lab. May be able to switch to mounjaro as he is not tolerating the trulicity very well. Next Appt Details Follow Up: via phone to repo rt test results, Reason: Provider Name:Starr lockhart, 01/21/2025 09:15:00 AM, [address] [facility], [address], [place], [place], [id number], Progress Notes * ELVIA WHEELER TOMDOB:1965 (59 yo M)Acc No.[id number]:12/10/2023 Progress Notes Patient: Lindsey OWENS ELVIA ELIZABETH Provider: STEFFANY Little :1965 A ge:58 Y S ex:Male Date:12/10/2023 Address:[address] [place] [address] [place], [id number] Pcp:Geoffrey Cantu Subjective: * Chief Complaints: * 1 . Wants referrals. * HPI: C ardiology: 58 year old male presents with c/o Blood Pressure Elevated P t here to f/u on hypertension, states he is doing well and does not have any concerns. E ndocrinology: c/o Recent Blood Sugars P t here to f/u on DM 2, states that he would like to talk about taking Trulicity due to it making him sick. H PI: c/o Patient is here today for P t requesting order for lung scan due to never having one. * ROS: D ERMATOLOGY: no R justen. n o H юлия. G ASTROENTEROLOGY: no N ausea. n o V omiting. n o D iarrhea.? U ROLOGY: no D ifficulty urinating. n o B lood in urine. * Medical History: H ypothyroidism, Hypertension, Staph aureus external otitis, Rx Septra, Normal CT abdomen including adrenals and kidneys, 08/24/2008. * Surgical History: P artial Thyroidectomy 1989, LT Ear . * Hospitalization/Major Diagno stic Procedure: H ypertension, Dizziness-[facility] 08/27/08-08/31/08, Shoulder- [facility] ER 10/2014, RT Shoulder Pain/Low Potassium Level- [facility] 09/19/2016, Norovirus- [facility] 05/2018. * Family History: F ather: alive, rheumatoid arthritis, hypertension, diabetes. M other: alive. 2 son(s) - healthy. . * Social History: C URRENT TOBACCO USE S moking Status: Patient does smoke, packs per day: 1.5. C affeine: yes, frequency:. Marital Status: . Past smoking status: yes, PPD: 1.5 , years: since age of 13 yrs.,determination:. Alcohol: Type: , Frequency: ,Years: , Determination:. * Medications: T aking Vitamin D3 50 MCG (2000 UT) Tablet 1 tab(s) orally once a day , Taking Lisinopril 5 MG Tablet 1 tablet Orally Once a day , Taking Chlorthalidone 50 MG Tablet 1/2 tab orally once a day , Taking Levothyroxine Sodium 75 MCG Tablet 1 tablet in the morning on an empty stomach Orally Once a day , Taking Trulicity 3 MG/0.5ML Solution Pen-injector 3mg Subcutaneous once a week , Taking Meloxicam 15 MG Tablet TAKE ONE TABLET BY MOUTH ONCE A DAY , Discontinued Medrol 4 MG Tablet Therapy Pack as directed orally daily , Medication List reviewed and reconciled with the patient * Allergies: N .K.D.A. Objective: * Vitals: W t:178.8, Temp:98.0, BP:150/86, HR:74, Nurse:megha, Ht: 73, Repeat BP:138/80, BMI:23.59. * Examination: G eneral Examination: General Appearance: N AD. H EENT: u nremarkable.?Oral cavity: n o lesions, mucosa moist and WNL, no erythema. N lawrence: s upple, no lymphadenopathy. C hest: n ormal shape and expansion. H eart: R SR. L ungs: c lear to auscultation. A bdomen: bowel sounds present, soft and nontender, no organomegaly or masses, no guarding or rigidity. N eurologic Exam: I ntact, gait normal. S kin: n ormal, no rash. P eripheral pulses: n ormal (2+) bilaterally. E xtremities: n o leg edema. Assessment: * Assessment: 1. T ype 2 diabetes mellitus with hyperglycemia, without long-term current use of insulin - E11.65 (Primary) 2 . E ssential hypertension - I10 3 . H yperlipidemia, unspecified hyperlipidemia type - E78.5 4 . A cquired hypothyroidism - E03.9 5 . V itamin D deficiency - E55.9 6 . V itamin B 12 deficiency - E53.8 7 . T obacco use disorder - F17.200 Plan: * Treatment: Value Reference Range N A 138 136-145 - mmol/L * K 3.6 3.5-5.1 - mmoL/L * C L 102 98-107 - mmol/L * C O2 33 H 22.0-30.0 - mmol/L * G AP 6.6 5-15 - mEq/L * B UN 15 9-20 - mg/dl * C REATT 0.90 0.66-1.25 - mg/dl * G FRAA 105 >60 - ML/MIN * E GFR 86 >60 - ml/min * G SUNITA 118 H 74-100 - mg/dl * C A 9.7 8.4-10.2 - mg/dl * B ILIT 0.9 0.2-1.3 - mg/dl * A ST 37 17-59 - U/L * A LT 29 12-78 - U/L * T P 7.0 6.3-8.2 - g/dl * A LB 4.6 3.5-5.0 - g/dl * G LOB 2.4 1.3-3.2 - g/dL * A GRATIO 1.9 H 1.1-1.8 - * A LP 59 38-126 - U/L * Starr Fulton 12/17/2023 9: 04:02 AM > see TE ?LAB: H-Glycohemoglobin A1C (Collection Date & Time - 12/13/2023 09:31 AM)? 6.3* Value Reference Range H GBA1C 6.3 H 4.0-6.0 - % * Starr Fulton 12/17/2023 9: 04:02 AM > see TE Notes: He will get his labs done at the hospital lab. May be able to switch to mounjaro as he is not tolerating the trulicity very well.??2.?Essential hypertension?LAB: H-CBC (Collection Date & Time - 12/13/2023 09:31 AM)?mcv 98, mch 32, mpv 6.9* Value Reference Range W BC 9.0 4.8-10.8 - K/mm3 * R BC 5.06 4.60-6.20 - M/mm3 * H GB 16.2 14.1-18.0 - g/dL * H CT 49.7 42.0-52.0 - % * M CV 98.2 H 80-94 - fl * M CH 32.1 H 27.0-31.2 - pg * M CHC 32.7 31.8-35.4 - g/dL * R DW 12.8 11.5-17.5 - % * P LT 319 142-424 - K/mm3 * M PV 6.9 L 7.4-10.4 - fl * N E% 69.8 37.0-80.0 - % * L Y% 20.7 10-50 - % * M O% 6.5 1.7-9.3 - % * E O% 2.3 0.1-12.0 - % * B A% 0.6 0.1-2.0 - % * N E# 6.3 1.8-7.8 - K/mm3 * L Y# 1.9 0.7-4.5 - K/mm3 * M O# 0.6 0.1-1.0 - K/mm3 * E O# 0.2 0.0-0.4 - K/mm3 * B A# 0.1 0-0.2 - K/mm3 * Starr Fulton 12/17/2023 9: 04:02 AM > see TE 3.?Hyperlipidemia, unspecified hyperlipidemia type?LAB: H-Lipid Panel (Collection Date & Time - 12/13/2023 09:31 AM)?trigs 159, dldl 94, hdl 33, chol/hdl 4.8* Value Reference Range T RIG 159 H 30-150 - mg/dl * C HOL 160 140-200 - mg/dl * D LDL 94.03 L 100-129 - mg/dL * V LDL 32 0-40 - mg/dL * H DL 33 L 40-60 - mg/dl * C HLHDL 4.8 H 1-3.5 - * Starr Fulton 12/17/2023 9: 04:02 AM > see TE 4.?Acquired hypothyroidism?LAB: H-TSH (Collection Date & Time - 12/13/2023 09:31 AM)?Normal* Value Reference Range T SH 1.40 0.465-4.68 - uIU/mL * Starr Fulton 12/17/2023 9: 04:02 AM > see TE ?LAB: H-T4 free (Collection Date & Time - 12/13/2023 09:31 AM)?Normal* Value Reference Range T 4F 1.16 0.78-2.19 - ng/dl * Starr Fulton 12/17/2023 9: 04:02 AM > see TE 5.?Vitamin D deficiency?LAB: H-VITAMIN D (Collection Date & Time - 12/13/2023 09:31 AM)?49* Value Reference Range T VITD 49.0 30-100 - ng/mL * DonaldoStarr Maame 12/17/2023 9: 04:02 AM > see TE 6.?Vitamin B 12 deficiency?LAB: H-VITAMIN B12 (Collection Date & Time - 12/13/2023 09:31 AM)?Normal* Value Reference Range V ITB12 586 239-931 - pg/mL * DonaldoStarr Isabel 12/17/2023 9: 04:02 AM > see TE 7.?Tobacco use disorder?Imaging: CT SCAN : CHEST, LUNG CANCER SCREENING LOW DOSE (Performed Date - 12/24/2023)* Karie Tariq 12/11/2023 9:02: 42 AM > auth#[id number]; valid 12/11/2023-01/09/2024; CPT code 26432; faxed to KyraKitjessenia Isabel 12/25/2023 8:21:37 AM > see TE * Follow Up: v ia phone to report test results * Images: Billing Information: * Visit Code: 24501 Office Visit, Est Pt., Level 4. * Procedure Codes: * Electronic signature of STEFFANY Conklin on 01/07/2025 at 08:55 AM EDT Sign off status: Pending * Provider: STEFFANY Little Date: 0 12/10/2023 Generated for Selena barone/Jarod/eTransmitting on: 1 08:55 AM EDT History and Physical Notes * HPI (History of Present Illness) Category Sub-Category Detail Notes Category Not es Endocrinology Recent Blood Sugars Pt here to f /u on DM 2, states that he would like to talk about taking Trulicity due to it making him sick Cardiology Blood Pressure Elevated Pt here to f/u on hypertension, states he is doing well and does not have any concerns HPI Patient is here today for Pt req uesting order for lung scan due to never having one Examination Category Sub-Category Detail Notes Category Not es General Examination HEENT: unremarkable Heart: RSR Lungs: clear to auscultatio n Abdomen: bowel sounds present , soft and nontender, no organomegaly or masses, no guarding or rigidity Extremities: no leg edema General Appearance: NAD Skin: normal, no rash Neurologic Exam: Intact, gait normal Neck: supple, no lymphaden opathy Oral cavity: no lesions, mucosa m oist and WNL, no erythema Peripheral pulses: normal (2+) bilatera lly Chest: normal shape and exp ansion
--- OUTSIDE RECORDS SUMMARY | 2024-01-22 06:00 | XMS_ITS ---
Author Organization [facility] Address [address] [place] [id number] Care Team Providers Care Hair Clipper Power Name Role Phone Geoffrey Cantu Primary Care Provider Starr Fulton Unavailable [phone] Allergies No Known Allergies REASON FOR VISIT issues with right foot, toe nail has came off Medications Medication SIG (Take, Route, Frequency, Duration) Notes Start Date End Date Status Levothyroxine Sodium 75 MCG 1 tablet in the morning on an empty stomach Orally Once a day; Duration: 90 days Active Mounjaro 2.5 MG/0.5ML 2.5 mg Subcutaneou s once a week 12/17/2023 Active Cephalexin 500 MG 1 tablet Orally Two times a day; Duration: 10 day(s) 01/22/2024 Active FreeStyle Monica 3 Plus Sensor - as directed 12/10/2023 Active Meloxicam 15 MG TAKE ONE TABLET BY M OUTH ONCE A DAY Active Vitamin D3 50 MCG (1999) 1 tab(s) ora lly once a day 12/03/2018 Active Chlorthalidone 50 MG 1/2 tab orally once a day; Duration: 90 days Active Lisinopril 5 MG 1 tablet Orally Once a day; Duration: 90 days Active Vital Signs Blood pressure systolic 120 mm Hg 01/22/20 24 Blood pressure diastolic 70 mm Hg 024 Heart Rate 60 /min 01/22/2024 Height 73 in 01/22/2024 Weight 168.8 lbs 01/22/2024 BMI 22.27 kg/m2 01/22/2024 Encounters Encounter Location Date Provider Diagnosis [facility] [address] [facility] [address] [facility] [address] [place] [phone] 01/22/2024 Starrjessenia Fulton Infection of toenail L03.039 Assessments Encounter Date Diagnosis (ICD Code) Assessment Notes Treatment Notes Treatment Clinical Notes Section Notes 01/22/2024 Infection of toenail (ICD-10 - L03.039) Will keep clean and covered when out. Can leave dressing off when at home. Plan Of Treatment Medication Medication Name Sig Start Date Stop Date Notes Cephalexin 500 MG 1 tablet Orally Two times a day; Duration: 10 day(s) 01/22/2024 Treatment Notes Assessment Notes Infection of toenail Will keep clean and covered when out. Can leave dressing off when at home. Next Appt Details Follow Up: prn, Reason: Provider Name:Starr do, 01/21/2025 09:15:00 AM, [address] [facility] [address] [facility], [address], [place], [phone], Progress Notes * ELVIA WHEELER TOMDOB:1965 (59 yo M)Acc No.[id number]:01/22/2024 Progress Notes Patient: Lindsey GUZMANLEONEL ELVIA ELIZABETH Provider: STEFFANY Little :1965 A ge:58 Y S ex:Male Date:01/22/2024 Address:[address] [place] [address] [place], [id number] Pcp:Geoffrey Cantu Subjective: * Chief Complaints: * 1 . Issues with right foot, toe nail has came off. * HPI: A nkle/Foot: Denies : Pain. D enies : Swelling. Pt is here today with c/o issues with the right foot, and sts that his right toenail fell off. He is diabetic so he would like it checked out. * ROS: D ERMATOLOGY: no R justen. [...] * Hospitalization/Major Diagno stic Procedure: H ypertension, Dizziness-[facility] 08/27/08-08/31/08, Shoulder- [facility] ER 10/2014, RT Shoulder Pain/Low Potassium Level- [facility] 09/19/2016, Norovirus- [facility] 05/2018. * Family History: F ather: [...] stomach Orally Once a day , Taking FreeStyle Monica 3 Plus Sensor - Miscellaneous as directed , Taking Mounjaro 2.5 MG/0.5ML Solution Pen-injector 2.5 mg Subcutaneous once a week , Taking Meloxicam 15 MG Tablet TAKE ONE TABLET BY MOUTH ONCE A DAY , Medication List reviewed and reconciled with the patient * Allergies: N .K.D.A. Objective: * Vitals: W t:168.8, Temp:98.6, BP:120/70, HR:60, O2 Sat:99% on RA, Nurse:ROMY, Ht: 73, BMI:22.27. * Examination: G eneral Examination: General Appearance: N AD. C hest: n ormal shape and expansion. H eart: R SR. L ungs: c lear to auscultation. S kin: right 2nd toenail has come off and there is some erythema along the nail bed, it is mildly tender, the skin was cleaned with peroxide and antibiotic ointment and a bandaid were applied. Assessment: * Assessment: 1. I nfection of toenail - L03.039 (Primary) Plan: * Treatment: * Procedure Codes: 9 4760 PULSE OX * Follow Up: p rn * Images: Billing Information: * Visit Code: 39728 Office Visit, Est Pt., Level 3. * Procedure Codes: 94122 PULSE OX. * Electronic signature of STEFFANY Conklin on 01/07/2025 at 08:56 AM EDT Sign off status: Pending * Provider: STEFFANY Little Date: Generated for Selena barone/Jarod/Mik on: 08:56 AM EDT History and Physical Notes * HPI (History of Present Illness) Category Sub-Category Detail Notes Category Not es Ankle/Foot Pain Pt is here toda y with c/o issues with the right foot, and sts that his right toenail fell off. He is diabetic so he would like it checked out. Swelling Examination Category Sub-Category Detail Notes Category Not es General Examination Heart: RSR Lungs: clear to auscultatio n General Appearance: NAD Skin: right 2nd toenail don s come off and there is some erythema along the nail bed, it is mildly tender, the skin was cleaned with peroxide and antibiotic ointment and a bandaid were applied Chest: normal shape and exp ansion
--- OUTSIDE RECORDS SUMMARY | 2024-03-03 09:15 | XMS_ITS ---
Author Organization [facility] Address [address] [facility] [address] [place] [id number] Care Team Providers Care Storm Sash Maker Name Role Phone Geoffrey Cantu Primary Care Provider Starr Fulton Unavailable [phone] Allergies No Known Allergies REASON FOR VISIT [...] a day Active Vitamin D3 50 MCG (1999) 1 tab(s) orally once a day 12/03/2018 A ctive Vital Signs Blood pressure systolic 132 mm Hg 03/03/20 24 Blood pressure diastolic 78 mm Hg 024 Heart Rate 47 /min 03/03/2024 Height 73 in 03/03/2024 Weight 164.4 lbs 03/03/2024 BMI 21.69 kg/m2 03/03/2024 Encounters Encounter Location Date Provider Diagnosis [facility] [address] [facility] [address] [place] [phone] 03/03/2024 Starr Fulton Essential hypertensi on I10 [...] via phone to repo rt progress, Reason: Provider Name:Starr Maame Kennymary do, 01/21/2025 09:15:00 AM, [address] [facility] [address] [facility], [address] , [place], [place], [phone], Progress Notes * ELVIA WHEELER TOMDOB:1965 (59 yo M)Acc No.[id number]:03/03/2024 Progress Notes Patient: Lindsey ELVIA OWENS ELIZABETH Provider: STEFFANY Little :1965 A ge:58 Y S ex:Male Date:03/03/2024 Address:[address] [place] [address] [place], [id number] Pcp:Geoffrey Cantu Subjective: * Chief Complaints: * [...] * Hospitalization/Major Diagno stic Procedure: H ypertension, Dizziness-[facility] 08/27/08-08/31/08, Shoulder- [facility] ER 10/2014, RT Shoulder [facility]- [facility] 09/19/2016, Norovirus- [facility] 05/2018. * Family History: F ather: [...] * Images: Billing Information: * Visit Code: 30288 Office Visit, Est Pt., Level 3. * Procedure Codes: * Electronic signature of STEFFANY Conklin on 01/07/2025 at 08:56 AM EDT Sign off status: Pending * Provider: STEFFANY Little Date: 05/04/2023 Generated for Selena barone/Jarod/eTransmitting on: 1 08:56 AM EDT History and Physical Notes [...]
--- OUTSIDE RECORDS SUMMARY | 2024-08-18 11:15 | XMS_ITS ---
Author Organization [facility] Address [address] [place] [id number] Care Team Providers Care Crane Crew Supervisor Name Role Phone Geoffrey Cantu Primary Care Provider Starr Fulton Unavailable [phone] Allergies No Known Allergies Results Component Value [...] as directed E11.65 05/03/2024 Active Dexcom G7 Complex Care Nurse - USE DIRECTED Active Chlorthalidone 25 MG [...] days Active Vital Signs Blood pressure systolic 124 mm Hg 08/19/19 25 Blood pressure diastolic 80 mm Hg 025 Heart Rate 77 /min 08/18/2024 Height 73 in 08/18/2024 Weight 150.2 lbs 08/18/2024 BMI 19.81 kg/m2 08/18/2024 Encounters Encounter Location Date Provider Diagnosis [facility] [address] [facility] [address] [place] [phone] 08/18/2024 Starr Fulton Essential hypertensi on I10 [...] repo rt test results, Reason: Provider Name:Starr do, 01/21/2025 09:15:00 AM, [address], [place], [place], [id number], Progress Notes * BARChantelle ELVIA TOMDOB:1965 (59 yo M)Acc No.[id number]:08/18/2024 Progress Notes Patient: ELVIA REYNOLDS Provider: STEFFANY Little :1965 A ge:59 Y S ex:Male Date:08/18/2024 Address:[address] [place] [address] [place], [id number] Pcp:Geoffrey Cantu Subjective: * Chief Complaints: * [...] * Hospitalization/Major Diagno stic Procedure: H ypertension, Dizziness-[facility] 08/27/08-08/31/08, Shoulder- [facility] ER 10/2014, RT Shoulder Pain/Low Potassium Level- [facility] 09/19/2016, [facility] 05/2018. * Family History: F ather: alive, [...] Miscellaneous as directed , Notes to Pharmacist: E11.65, Taking Dexcom G7 Complex Care Nurse - Device USE DIRECTED , Taking Levothyroxine [...] * Images: Billing Information: * Visit Code: 95560 Office Visit, Est Pt., Level 4. * Procedure Codes: G8950 PREHTN/HTN BP DOC INDCD F/U DOC. G8752 MOST RECENT SYSTOLIC BP < 140MM HG. G8754 MOST RECENT DIASTOLIC BP < 90MM HG. 3044F HG A1C LEVEL LT 7.0%. * Electronic signature of STEFFANY Conklin on 01/07/2025 at 08:57 AM EDT Sign off status: Pending * Provider: STEFFANY Little Date: 0 08/18/2024 Generated for Printi ng/Faxing/eTransmitting on: 1 08:57 AM EDT History and Physical Notes * [...]
--- OUTSIDE RECORDS SUMMARY | 2024-12-09 06:53 | XMS_ITS ---
Author Organization [facility] Address [facility] 36 [facility] [address] [place] [id number] Care Team Providers Care Rock Cutter Name Role Phone Geoffrey Cantu Primary Care Provider Starr Fulton [phone] REASON FOR VISIT Lab Order Encounters Encounter Location Date Provider Diagnosis [place] [facility] 36 [facility] [address] [place] [id number] 12/09/2024 Starr Fulton Essential hypertensi on I10 ; Type 2 diabetes mellitus with hyperglycemia, without long-term current use of insulin E11.65 ; Hyperlipidemia, unspecified hyperlipidemia type E78.5 and Vitamin D deficiency E55.9 Assessments Encounter Date Diagnosis (ICD Code) Assessment Notes Treatment Notes Treatment Clinical Notes Section Notes 12/09/2024 Essential hypertension (ICD-10 - I10) 12/09/2024 Type 2 diabetes mellitus with hyperglycemia, without long-term current use of insulin (ICD-10 - E11.65) 12/09/2024 Hyperlipidemia, unspecified hyperlipidemia type (ICD-10 - E78.5) 12/09/2024 Vitamin D deficiency (ICD-10 - E55.9) Plan Of Treatment Pending Test Test Name Order Date H-CBC 12/09/2024 H-VITAMIN D 12/09/2024 H-Lipid Panel 12/09/2024 H-CMP 12/09/2024 H-Glycohemoglobin A1C 12/09/2024 Next Appt Details Provider Name:Starr do, 01/21/2025 09:15:00 AM, [address] [facility], [address], [place], [phone], Progress Notes * ELVIA WHEELER TOMDOB:1965 (59 yo M)Acc No.[id number]:12/09/2024 Patient: ELVIA REYNOLDS :1965 A ge:59 Y S ex:Male Address:[address] [place] [address] [place] [address] Subjective: * Chief Complaints: * L ab Order * Medical History: * Surgical History: * Hospitalization/Major Diagno stic Procedure: * Medications: Objective: * Vitals: * Physical Examination: Assessment: * Assessment: 1. E ssential hypertension - I10 2 . T ype 2 diabetes mellitus with hyperglycemia, without long-term current use of insulin - E11.65 3 . H yperlipidemia, unspecified hyperlipidemia type - E78.5 4 . V itamin D deficiency - E55.9 ? Plan: * Treatment: 2. T ype 2 diabetes mellitus with hyperglycemia, without long-term current use of insulin L AB: H-Glycohemoglobin A1C 3. H yperlipidemia, unspecified hyperlipidemia type L AB: H-Lipid Panel 4. V itamin D deficiency L AB: H-VITAMIN D * Procedure Codes: * true * Date: Generated for Selena barone/Jarod/eTangelicasmitting on: 1 08:57 AM EDT
--- OUTSIDE RECORDS SUMMARY | 2024-12-09 16:40 | XMS_ITS | Encounter Summary ---
Author Organization [facility] Address [address] [id number] Care Team Providers Care Sas Analyst Name Role Phone Starr Fulton Primary Care Provider [phone] Reason for Referral * Consultation (Routine) - Closed Specialty Diagnoses / Procedures Referred By Shiv queen Referred To Contact Trauma Surgery / General Surgery Diagnoses Traumatic pneumothorax, initial encounter Closed fracture of multiple ribs of right side, initial encounter Bridgette Jamison PA [address] [address] Phone: tel: fax: [facility] [address], [address] [place] [address] Phone: tel: fax: Referral ID Status Reason Start Date Expiration Date V isits Requested Visits Authorized [id number] Closed Specialty Services Required 12/15/2024 06/16/2026 1 1 Scheduling Instructions CXR to evaluate post-pneumothorax, CT, and R 6-12 ribs Reason for Visit * Reason Comments Fall * Auth/Cert (Routine) Specialty Diagnoses / Procedures Referred By Contac t Referred To Contact Diagnoses Fall from ladder, initial encounter 10ft Fall: Rib Fx and Pneumo Lara Stewart MD [id number] [place] [address] Phone: tel: fax: [facility] [address] [place] [address] Phone: tel: Referral ID Status Reason Start Date Expiration Date Visits Re quested Visits Authorized [id number] 1 1 Encounter Details Date Type Department Care Team (Latest Contact Info) Description 12/09/2024 4:40 PM EDT - 12/15/2024 3:06 PM EDT Hospital Encounter MG MEYER 9 T2 UNI [address] [place] [address] Rea Ludwig MD [address] [place] [address] Jesse Cervantes DO [address] [place] [address] Lara Stewart MD [address] [address] Karina Rodriguez MD [address] [address] Hayden Brown MD [address] [address] Mynor Crews MD [address] [address] Fall, initial encounter (Primary Dx); [...] any time in the past 12 m [facility], were you homeless or living in a senior care (including now)? No 12/14/2024 [facility] Utilities Answer Date Recorded In the past [...] post-pneumothorax, CT, and R 6-12 ribs; [address] [place] [place] [facility] First Floor, Wing [address] [address], #[phone]. Questions or Concerns and Appointments If there are questions or concerns after discharge from the hospital, please call [phone] and ask for Blue Surgery Nurse. Working hours are Friday - Friday 8:00 AM to 4:00 PM. After hours, weekends and holidays please call [phone] and ask for the resident recreation therapy aides teacher for Blue Surgery. For appointments please call [phone]. Medication requests should be made between the hours of 9:00 AM to 3:00 PM Friday thru Friday. Please note that based upon recent changes to [place] law related to prescribing opioid pain medications, [...] tablet by mouth daily before breakfast. lidocaine (Lidoderm) 5 % patch Apply 2 patches topically 1 (one) time each day at the same time over 12 hours. Remove & discard patch within 12 hours or as directed by . 60 patch 12/16/2024 lisinopril 5 MG tablet Take 1 tablet [...] for 7 days. 28 tablet 12/15/2024 5 meclizine (Antivert) 25 MG tablet Take [...] note were not included. 798 Narcan Nasal Bim: Rescue Guide for Opioid Overdose Step 1 [...] for use in the nose. * Emma [facility] - Laura Tierney - 12/15/2024 2:18 PM [...] controlled substances: ? Drug Enforcement Agency (IGNACIO): http://www.deadiversion.Yotomooj.gov/drug_disposal/takeback/index.htm ? National Association of Drug Diversion Investigators (NADDI): http://rxdrugdropbox.org/ ? [place] Office of Drug Control Policy: http://odcp.ne.gov/Prescription+Drug+Drop+Box+Sites.htm Are there concerns about or ? ? [...] or purple What is a CARRI report? [employer] is a system that tracks prescriptions of controlled substances in [place]. The CARRI report tells your doctor if you have been prescribed controlled substances in the past. Doctors must get a CARRI report before prescribing controlled substances. What can I do if the information in my CARRI report is wrong? You or your doctor may contact the dispenser who reported the information to [employer]. If the dispenser agrees that the information should be changed, he or she can fix the CARRI report. However, the dispenser may certify that the report is correct. If that is the case, you or your doctor may then call the [place] Drug Enforcement and Professional Practices Branch at .This will start an investigation of the error. * Emma [facility] - Laura Tierney - 12/15/2024 2:17 PM EDT Images from the original note were not included. 14804 Back Fracture (Compression Fracture) Your spine stretches [...] cancer Last Reviewed Date: 2023 00:00:00 ?? 6207-5023 [employer]. All rights reserved. This information is not intended as a substitute for professional medical care. Always follow your healthcare professional's instructions. * [facility] - Laura Tierney - 12/15/2024 2:11 PM EDT Images from the original note were not included. 46593 Rib Fracture (Broken Rib) Your ribs are [...] blood Last Reviewed Date: 2023 00:00:00 ?? 7403-1819 [employer]. All rights reserved. This information is not intended as a substitute for professional medical care. Always follow your healthcare professional's instructions. * [facility] - 12/15/2024 2:11 PM EDT Images from the original note were not included. [id number] Traumatic (Blunt Trauma) Pneumothorax Pneumothorax occurs when [...] to do so. ? You may use tiba-zrq-jgowzbm pain medicine to control pain, unless another [...] cough Last Reviewed Date: 2024 00:00:00 ?? 2769-8768 [employer]. All rights reserved. This information is not intended as a substitute for professional medical care. Always follow your healthcare professional's instructions. * Emma [facility] - Laura Tierney - 12/15/2024 2:10 PM EDT Images from the original note were not included. 34221 Preventing Falls: Staying Active Staying active is [...] visit a senior center. ? Go to muslim services. ? Plan a potSwipeGoodk or game of cards. ? Garden with [...] clubs, or even at a place of spiritism. This may work best if you' ve never exercised in the past or if you need company to get motivated. But you can exercise on your own if you prefer. Try an exercise video or walk in the park. Last Reviewed Date: 2024 00:00:00 ?? 4019-3892 [employer]. All rights reserved. This information is not intended as a substitute for professional medical care. Always follow your healthcare professional's instructions. * Emma [facility] - Laura Tierney - 12/15/2024 2:10 PM EDT Images from the original note were not included. 206706ov After a Fall You have had a [...] red.) Last Reviewed Date: 2024 00:00:00 ?? 4567-4234 [employer]. All rights reserved. This information is not intended as a substitute for professional medical care. Always follow your healthcare professional's instructions. * Emma [facility] - Laura Tierney - 12/15/2024 2:09 PM EDT Images from the original note were not included. 48066 Ladder Safety on the Job Falls happen [...] out. Last Reviewed Date: 2023 00:00:00 ?? 0499-6000 [employer]. All rights reserved. This information is not [...] [place] [address] / [place] [address] Referring provider name and address: Richard Yang PA [address] [place] [address] Chief Concern, Brief History of Present Illness, [...] No further questions or concerns per patient director blood bank. At the time of discharge the patient [...] post-pneumothorax, CT, and R 6-12 ribs; [address] [place] [place] [facility] First Floor, Wing [address] [address], #[phone]. Questions or Concerns and Appointments If there are questions or concerns after discharge from the hospital, please call [phone] and ask for Blue Surgery Nurse. Working hours are Friday - Friday 8:00 AM to 4:00 PM. After hours, weekends and holidays please call [phone] and ask for the resident recreation therapy aides teacher for Blue Surgery. For appointments please call [phone]. Medication requests should be made between the hours of 9:00 AM to 3:00 PM Friday thru Friday. Please note that based upon recent changes to [place] law related to prescribing opioid pain medications, [...] Your Medications These medications were sent to [facility] - [place], [place] - [address]. [address] SportsPLA[facility]ENTER[facility] A., [address] [id number] acetaminophen 500 MG tablet gabapentin 100 MG [...] 12/24/2024 9:30 AM GENERAL SURGERY KIRSTEN TRAUMA [facility] Pertinent Physical Exam At Time of [...] or Manage Pain Flowsheets (Taken 12/10/20242343 by Alexandria, Krizzana C, RN) Sensory Stimulation Regulation: quiet [...] Prevent or Manage Pain Flowsheets (Taken 12/10/2024 3344 by Nyasia Mcgraw RN) Sensory Stimulation Regulation: [...] Note Yossi Riddle 59 y.o. male CSN: [id number] Admission: 12/09/2024 4:40 PM Primary Problem: Fall from ladder, initial encounter Welding Machine Operator Arc reviewed chart and spoke with patient to complete this Initial Case Management Assessment. PCP: Starr Fulton PA in [place], [place] Preferred pharmacy is [facility] in [place] Emergency Contact: Extended Emergency Contact Information Primary Emergency Contact: brandan riddle Mobile Relation: Spouse Preferred language: Mauritian Stores Laborer needed? No Insurance: Primary Visit Coverage Payer Plan Sponsor Code Group Number Group Name GEOVANNA DWYER [facility] [id number] Primary Visit Coverage Subscriber Subscriber ID Subscriber Name Subscriber SSN Subscriber Address [id number] Yossi Riddle Jr [phone] [facility] [place] [address] Patient information: Primary Caregiver: Self Support System: Immediate family (Patient lives with spouse Brandan who can assist patient if needed and with transportation, but patient was independent in ADLs SENIOR ACCOUNTING MANAGER and drives self.) Daily Living Activities: Living Arrangements: Family (Patient lives with spouse Brandan who can assist patient if needed andwith transportation, but patient was independent in ADLs SENIOR ACCOUNTING MANAGER and drives self.) Type of Residence: Private residence, Multi Level (Back: 2 ARTURO Front: 5 ARTURO) [address] [facility] [address] [place] [facility] [address] Current DME: Equipment Currently Used at Home: none Anticipated Discharge Date: tbd Patient's Discharge Goal: Assistance Available at Discharge: Family Discharge Transport: Family Follow Up Transport: Family Home Health / Home Infusion / Outpatient Dialysis Services: None Living Will/Advance Directive/Power of Store Cashier /Guardian: None Advance Directive: Patient does not have advance directive Information Provided on Healthcare Directives: No Pre-existing DNR/DNI Order: No Patient Requests Assistance: No Additional Comments: Patient lives with spouse Brandan who can assist patient if needed and with transportation, but patient was independent in ADLs SENIOR ACCOUNTING MANAGER and drives self. Patient currently has a [...] on file Utilities: Not At Risk (12/14/2024) [facility] Utilities Threatened with loss of utilities: No [...] - 12/13/2024 2:32 PM EDT 12/13/24 Yossi Ryakathleen HPI Yossi Riddle is a 59 y/o [...] ladder, initial encounter Present on Admission: Yes [facility] Tertiary 12/11 Traumatic pneumothorax Present on [...] in Care Family/Caregiver Present: Yes Family/Caregiver: Spouse Stores Laborer: Not Applicable Presentation Oxygen Therapy: None (Room [...] admission Level of Mobility: Ambulatory- community Mobility [place]: Independent gait without device History of Falls: [...] movement. Bed Mobility Exam: Rolling/Turning Level of [place]: Contact guard Physical/Nonphysical Assist: Verbal Cues, Nonverbal cues (demo/gestures), Moderate cues, Additionalassist utilized for safety Assistive Device: Bed rails Bed Mobility Exam: Scooting/Bridging Level of [place]: Contact guard Physical/Nonphysical Assist: Verbal Cues, Nonverbal cues (demo/gestures) Bed Mobility Exam: Supine to Sit Level of [place]: Contact guard Physical/Nonphysical Assist: HOB elevated, Verbal Cues, Nonverbal cues (demo/gestures), Additional assist utilized for safety Transfers Transfer Interventions: Pt completed sit <> stand transfers with CGA and cues for RW management during transfer. Pt paused at 50% upright during sit to stand transfer and required cues to finish movement. Transfer Exam: Sit to stand Level of [place]: Contact guard Physical/Nonphysical Assist: Verbal Cues, Nonverbal cues (demo/gestures), 1 person + 1 person to manage equipment Assistive Device: Walker, rolling Transfer Exam: Stand to Sit Level of [place]: Contact guard Physical/Nonphysical Assist: Verbal Cues, Nonverbal [...] Please see specific sectionsfor details. Standardized Assessments [facility] 6-Clicks Mobility Assessment Difficulty patient has [...] 3-5 steps with a railing?: A little [facility] 6-Clicks Mobility Assessment Total : 18 [...] in Care Family/Caregiver Present: Yes Family/Caregiver: Spouse Stores Laborer: Not Applicable Presentation Oxygen Therapy: None (Room [...] admission Level of Mobility: Ambulatory- community Mobility [place]: Independent gait without device History of Falls: [...] Mobility Bed Mobility Exam: Rolling/Turning Level of [place]: Contact guard Physical/Nonphysical Assist: Verbal Cues, Nonverbal cues (demo/gestures), Moderate cues, Additionalassist utilized for safety Bed Mobility Exam: Scooting/Bridging Level of [place]: Contact guard Physical/Nonphysical Assist: Verbal Cues, Nonverbal cues (demo/gestures) Bed Mobility Exam: Supine to Sit Level of [place]: Contact guard Physical/Nonphysical Assist: HOB elevated, Verbal Cues, Nonverbal cues (demo/gestures), Additional assist utilized for safety Transfers Transfer Exam: Sit to stand Level of [place]: Contact guard Physical/Nonphysical Assist: Verbal Cues, Nonverbal cues (demo/gestures), 1 person + 1 person to manage equipment Assistive Device: Walker, rolling Transfer Exam: Stand to Sit Level of [place]: Contact guard Physical/Nonphysical Assist: Verbal Cues, Nonverbal [...] during functional mobility, but self-corrected. Standardized Assessments [facility] 6-Click Daily Activities Help from Other: Don/Doff Regular Lower Body Clothings: Little Help From Other: Bathing: None Help From Other: Toileting: Little Help From Other: Don/Doff Upper Body Clothings: None Help From Other: Grooming: None Help From Other: Eating Meals: None [facility] 6 Click - Daily Activities Score: [...] PO diet, noN/V, abd pain. Last BM SENIOR ACCOUNTING MANAGER. Mobilizing as able. Pain well controlled. Chest [...] damage and pain Alternatives discussed: No treatment [place] protocol: Immediately prior to procedure, a time [...] No further questions or concerns per patient director blood bank. At the time of discharge the patient [...] post-pneumothorax, CT, and R 6-12 ribs; [address] [place] [place] [facility] First Floor, [address] [address], #[phone]. Questions or Concerns and Appointments If there are questions or concerns after discharge from the hospital, please call [phone] and ask for Blue Surgery Nurse. Working hours are Friday - Friday 8:00 AM to 4:00 PM. After hours, weekends and holidays please call [phone] and ask for the resident recreation therapy aides teacher for Blue Surgery. For appointments please call [phone]. Medication requests should be made between the hours of 9:00 AM to 3:00 PM Friday thru Friday. Please note that based upon recent changes to [place] law related to prescribing opioid pain medications, [...] PO diet, noN/V, abd pain. Last BM SENIOR ACCOUNTING MANAGER. Mobilizing as able. Pain well controlled. Full [...] Past Medical History: Diagnosis Date Diabetes mellitus ([facility]) Hypertension Hypothyroid Past Surgical History: Surgical History[1] [...] Consult to Trauma Mental Health Professional or Supply Specialist 6-9 = Psychiatry Consult Relevant review of [...] 12/10/20242343) Pain Management Interventions: medication (see MAR) ywmvib-vmf-[id number] dosing utilized Intervention: Provide Person-Centered Care Flowsheets [...] 2344) Pain Management Interventions: medication (see MAR) jnlqlq-vso-mnrqn dosing utilized Intervention: Prevent or Manage Pain [...] 1138) Pain Management Interventions: medication (see MAR) jougmx-ztn-uvpmn dosing utilized Intervention: Provide Person-Centered Care Flowsheets [...] 1138) Pain Management Interventions: medication (see MAR) zuepvv-uoa-qkvpp dosing utilized Intervention: Prevent or Manage Pain [...] Date: 12/09/24 Arrival Time: 4:40pm Referring Hospital: [facility] Injury Date: 12/09/24 Injury Time: 2pm Transport [...] Basic Metabolic Panel Once Final result YUNIMONIEOLElmer [facility] 12/10/24 034 Phosphorus Once Final result YUNIGRUPO [facility] 12/10/24 034 Magnesium Once Final result ARVIN [facility] 12/10/24345 Protime-INR Once Final result ARVIN [facility] 12/10/24345 Do Not Give Nicotine Replacement Until discontinued Acknowledged [facility]IN [facility] 12/10/24345 XR Chest 1 View One time imaging Final result AR[facility]IN [facility] 12/10/24 034 Notify Provider Until discontinued Acknowledged ARVIN [facility] 12/10/24 034 Vital Signs Until discontinued Comments: Every 1Hr x4, Then Every 4hrs Thereafter. Acknowledged ARVIN [facility] 12/10/24345 Intake and Output - Strict Per unit protocol Acknowledged ARVIN [facility] 12/10/24345 Insert peripheral IV Once Placed in And Linked Group Completed [facility]IN [facility] 12/10/24345 Saline lock IV Once Placed in And Linked Group Completed [facility]IN [facility] 12/10/24 034 Admit to inpatient Once Completed ARVIN [facility] 12/10/24345 Full code Continuous Acknowledged ARVIN [facility] 12/10/24345 Adult diet Diet texture: Regular; Carbohydrate restriction: Consistent Carb 2 (80 gm max/meal) Diet effective now Acknowledged AR[facility]IN [facility] 12/10/24 034 Mobility Orders Until discontinued Acknowledged ARVIN [facility] 12/10/24 034 Continuous Pulse Oximetry Until discontinued [...] None Disposition Admit Admitting/Attending Physician: LARA STEWART [[id number]] Provider Care Team: SGT FLOOR 2 [[id number]] [...] None Disposition Admit Admitting/Attending Physician: LARA STEWART [[id number]] Provider Care Team: SGT FLOOR 2 [213] [...] 10:10 PM EDT Traumatic pneumothorax, initial encounter [place] PERQ DRAINAGE PLEURA INSERT CATH W/O IMAGING [...] 12/14/2024 5:28 PM EDT [facility] Helicopter Officer ID Ivy Beard 025 5:28 PM EDT [facility] Device ID [id number] 12/14/2024 5:28 PM EDT [facility] Specimen Type POC Capillary 12/14/2024 5:28 PM EDT [facility] Blood Capillary blood specimen / Unknown 12/14/2024 5:26 PM EDT 12/14/2024 5:28 PM EDT Mynor Crews MD LAB POINT OF CARE TEST DOCKED DEVICE UNSOLICITED RESULTS Final Result [facility] [address] [place] [address] * (ABNORMAL) POCT glucose meter (12/14/2024 11:34 AM EDT) [facility] POCT Glucose 231(H) 74 - 99 mg/dL [...] 12/14/2024 11:35 AM EDT [facility] Helicopter Officer ID Ivy Beard 025 11:35 AM EDT [facility] Device ID [id number] 12/14/2024 11:35 AM EDT [facility] Specimen Type POC Capillary 12/14/2024 11:35 AM EDT [facility] Blood Capillary blood specimen / Unknown 12/14/2024 11:34 AM EDT 12/14/2024 11:35 AM EDT Mynor Crews MD LAB POINT OF CARE TEST DOCKED DEVICE UNSOLICITED RESULTS Final Result Performing Organization Address [facility] de Phone Number HEALTHCARE LAB [address] [place] [address] * POCT glucose meter (12/14/2024 8:11 AM EDT) [facility] Signature POCT Glucose 97 74 - 99 [...] Comment 12/14/2024 8:13 AM EDT [facility] Helicopter Officer ID Alejandra Reynolds 025 8:13 AM EDT [facility]ARE [facility] Device ID [id number] 12/14/2024 8:13 AM EDT [facility] Specimen Type POC Capillary 12/14/2024 8:13 AM EDT [facility] Blood Capillary blood specimen / Unknown 12/14/2024 8:11 AM EDT 12/14/2024 8:13 AM EDT Mynor Crews MD LAB POINT OF CARE TEST DOCKED DEVICE UNSOLICITED RESULTS Final Result Performing Organization Address City/[facility] Co de Phone Number [facility] [address] [place] [address] * XR Chest 1 View (12/14/2024 3:21 [...] Denys Graham MD on 12/14/2024 9:08 AM [facility] XR PROCEDURES Final Resul t * (ABNORMAL) POCT glucose meter (12/13/2024 8:56 PM EDT) POCT Glucose 109(H) 74 - 99 mg/dL 12/13/2024 8:58 PM EDT [facility] Comment:Accuracy of a glucos e result [...] 12/13/2024 8:58 PM EDT [facility] Helicopter Officer ID Amor Stewart 025 8:58 PM EDT [facility]ALTH[facility]ARE [facility] Device ID [id number] 12/13/2024 8:58 PM EDT [facility] Specimen Type POC Capillary 12/13/2024 8:58 PM EDT [facility] Blood Capillary blood specimen / Unknown 12/13/2024 8:56 PM EDT 12/13/2024 8:58 PM EDT us Mynor Crews MD LAB POINT OF CARE TEST DOCKED DEVICE UNSOLICITED RESULTS Final Result Performing Organization Address City/[facility] Co de Phone Number [facility] [address] [place] [address] * (ABNORMAL) POCT glucose meter (12/13/2024 5:35 PM EDT) [facility] POCT Glucose 104(H) 74 - 99 mg/dL [...] Comment 12/13/2024 5:37 PM EDT [facility] Helicopter Officer ID Mirian Garrett 12/13/2024 5:37 PM EDT [facility]ALTH[facility]ARE LAB Device ID [id number] 12/13/2024 5:37 PM EDT [facility] Specimen Type POC Capillary 12/13/2024 5:37 PM EDT [facility] Blood Capillary blood specimen / Unknown 12/13/2024 5:35 PM EDT 12/13/2024 5:37 PM EDT us Hayden Brown MD LAB POINT OF CARE TEST DOCKED DEVICE UNSOLICITED RESULTS Final Result Performing Organization Address City/[facility]/ZIP Co de Phone Number [facility] [address] [place] [address] * XR Chest 1 View (12/13/2024 4:11 [...] - 99 mg/dL 12/13/2024 11:50 AM EDT [facility] Comment:Accuracy of a glucos e result [...] Comment 12/13/2024 11:50 AM EDT [facility] Helicopter Officer ID Mirian Garrett 12/13/2024 11:50 AM EDT [facility] Device ID [id number] 12/13/2024 11:50 AM EDT [facility] Specimen Type POC Capillary 12/13/2024 11:50 AM EDT [facility] Blood Capillary blood specimen / Unknown 12/13/2024 11:48 AM EDT 12/13/2024 11:50 AM EDT us Hayden Brown MD LAB POINT OF CARE TEST DOCKED DEVICE UNSOLICITED RESULTS Final Result Performing Organization Address [facility] de Phone Number [facility]ARE [facility] [address] [place] [address] * POCT glucose meter (12/13/2024 8:48 AM EDT) [facility] POCT Glucose 99 74 - 99 mg/dL [...] Comment 12/13/2024 8:50 AM EDT [facility] Helicopter Officer ID Mirian Garrett 12/13/2024 8:50 AM EDT [facility] Device ID [id number] 12/13/2024 8:50 AM EDT [facility] Specimen Type POC Capillary 12/13/2024 8:50 AM EDT [facility] Blood Capillary blood specimen / Unknown 12/13/2024 8:48 AM EDT 12/13/2024 8:50 AM EDT us Hayden Brown MD LAB POINT OF CARE TEST DOCKED DEVICE UNSOLICITED RESULTS Final Result Performing Organization Address City/[facility]/ZIP Co de Phone Number [facility] [address] [place] [address] * Hemoglobin A1c (12/13/2024 3:02 AM EDT) Hemoglobin A1c 5.5 <5.7 % 12/13/2024 9:35 PM EDT [facility] Blood Venous blood specimen / Unknown Venipuncture / Unknown 12/13/2024 3:02 AM EDT 12/13/2024 3:10 AM EDT Narrative [facility] - 12/13/2024 9:35 PM EDT HA1C Interpretive Data: Diagnosis of Diabetes: Diabetic > or = 6.5% Pre-diabetic 5.7 to 6.4% Non-diabetic < or = 5.6% Glycemic Targets for Type I and Type II Diabetics: Non- Adults <7.0% Adults <6.0% Children and Adolescents <7.5% Source: [place] [employer]. Standards of medical care in diabetes,2017. Diabetes Care.2017:40 (suppl 1):S1-S135. us Maddison JETER LAB BLOOD ORDERABLES Final Re sult [facility] [address] [place] [address] * Light Green Top (12/13/2024 3:02 AM EDT) Pathologist [facility] Extra Hold for add-ons 12/13/2024 8:02 AM EDT [facility] Comment:Auto resulted. Blood Venous blood specimen / Unknown 12/13/2024 3:02 AM EDT 12/13/2024 5:02 AM EDT us Karina Rodriguez MD LAB BLOOD ORDERABLES Final Result [facility] [address] [place] [address] * (ABNORMAL) CBC W/O Differential (12/13/2024 3:02 AM EDT) WBC Count 12.54(H) 3.70 - 10.30 10*3/uL LAB HEMATOLOGY METHOD 12/13/2024 3:19 AM EDT [facility] RBC Count 3.87(L) 4.60 - 6.10 10*6/uL LAB HEMATOLOGY METHOD 12/13/2024 3:19 AM EDT [facility] HGB 12.7(L) 13.7 - 17.5 g/dL LAB HEMATOLOGY METHOD 12/13/2024 3:19 AM EDT [facility] HCT 37.0(L) 40.0 - 51.0 % LAB HEMATOLOGY METHOD 12/13/2024 3:19 AM EDT [facility] Platelet Count 221 155 - 369 10*3/uL LAB HEMATOLOGY METHOD 12/13/2024 3:19 AM EDT [facility] MCV 96 79 - 98 fL LAB HEMATOLOGY METHOD 12/13/2024 3:19 AM EDT [facility] MCH 32.8(H) 26.0 - 32.0 pg LAB HEMATOLOGY METHOD 12/13/2024 3:19 AM EDT [facility] MCHC 34.3 30.7 - 35.5 g/dL LAB HEMATOLOGY METHOD 12/13/2024 3:19 AM EDT [facility] RDW 12.6 11.5 - 14.5 % LAB HEMATOLOGY METHOD 12/13/2024 3:19 AM EDT [facility] MPV 9.4 8.8 - 12.5 fL LAB HEMATOLOGY METHOD 12/13/2024 3:19 AM EDT [facility] nRBC 0.0 <=0.0 per 100 WBCs LAB HEMATOLOGY METHOD 12/13/2024 3:19 AM EDT [facility] Blood Venous blood specimen / Unknown Venipuncture / Unknown 12/13/2024 3:02 AM EDT 12/13/2024 3:10 AM EDT us Ruben Goldberg APRN LAB BLOOD ORDERABLES Final Result [facility] [address] [place] [address] * XR Chest 1 View (12/13/2024 2:25 [...] on 12/13/2024 11:09 AM us Ruben Goldberg CUSTOMER CARE MANAGER IMG XR PROCEDURES Final Re sult * (ABNORMAL) POCT glucose meter (12/12/2024 8:32 PM EDT) [facility] POCT Glucose 143(H) 74 - 99 mg/dL [...] Comment 12/12/2024 8:34 PM EDT [facility]ALTH[facility]ARE LAB Helicopter Officer ID Cecilia Zazueta 12/12/2024 8:34 PM EDT HEALTHCARE LAB Device ID [id number] 12/12/2024 8:34 PM EDT [facility]ARE [facility] Specimen Type POC Capillary 12/12/2024 8:34 PM EDT [facility] Blood Capillary blood specimen / Unknown 12/12/2024 8:32 PM EDT 12/12/2024 8:34 PM EDT Karina Rodriguez MD LAB POINT OF CARE TEST DOCKED DEVICE UNSOLICITED RESULTS Final Result Performing Organization Address City/State/[facility] Co de Phone Number [facility] [address] [place] [address] * (ABNORMAL) POCT glucose meter (12/12/2024 5:15 PM EDT) [facility] POCT Glucose 128(H) 74 - 99 mg/dL [...] 12/12/2024 5:17 PM EDT [facility] Helicopter Officer ID Alejandra Odonnell 12/12/2024 5:17 PM EDT [facility] Device ID [id number] 12/12/2024 5:17 PM EDT [facility] Specimen Type POC Capillary 12/12/2024 5:17 PM EDT [facility] Blood Capillary blood specimen / Unknown 12/12/2024 5:15 PM EDT 12/12/2024 5:17 PM EDT Karina Rodriguez MD LAB POINT OF CARE TEST DOCKED DEVICE UNSOLICITED RESULTS Final Result Performing Organization Address City/[facility] Co de Phone Number [facility] [address] [place] [address] * POCT glucose meter (12/12/2024 11:32 AM [...] Comment 12/12/2024 11:50 AM EDT [facility]ALTH[facility]ARE LAB Helicopter Officer ID Kenyetta Johnson 11:50 AM EDT HEALTHCARE LAB Device ID [id number] 12/12/2024 11:50 AM EDT [facility] Specimen Type POC Capillary 12/12/2024 11:50 AM EDT [facility] Blood Capillary blood specimen / Unknown 12/12/2024 11:32 AM EDT 12/12/2024 11:50 AM EDT Karina Rodriguez MD LAB POINT OF CARE TEST DOCKED DEVICE UNSOLICITED RESULTS Final Result Performing Organization Address City/[facility] Co de Phone Number [facility] [address] [place] [address] * (ABNORMAL) POCT glucose meter (12/12/2024 8:13 [...] Comment 12/12/2024 8:15 AM EDT [facility]ARE LAB Helicopter Officer ID Kenyetta Johnson 8:15 AM EDT HEALTHCARE LAB Device ID [id number] 12/12/2024 8:15 AM EDT [facility]ALTH[facility]ARE LAB Specimen Type POC Capillary 12/12/2024 8:15 AM EDT [facility] Blood Capillary blood specimen / Unknown 12/12/2024 8:13 AM EDT 12/12/2024 8:15 AM EDT Karina Rodriguez MD LAB POINT OF CARE TEST DOCKED DEVICE UNSOLICITED RESULTS Final Result Performing Organization Address City/State/[facility] de Phone Number [facility] [address] [place] [address] * XR Chest 1 View (12/11/2024 10:27 [...] JETER IMG XR PROCEDURES Final Result * [place] PERQ DRAINAGE PLEURA INSERT CATH W/O IMAGING, [...] damage and pain Alternatives discussed: No treatment [place] protocol: Immediately prior to procedure, a time [...] Comment 12/11/2024 5:15 PM EDT [facility]ALTHCARE LAB Helicopter Officer ID Kenyetta Johnson 5:15 PM EDT HEALTHCARE LAB Device ID [id number] 12/11/2024 5:15 PM EDT [facility]ALTH[facility]ARE LAB Specimen Type POC Capillary 12/11/2024 5:15 PM EDT [facility] Blood Capillary blood specimen / Unknown 12/11/2024 5:13 PM EDT 12/11/2024 5:15 PM EDT Karina Rodriguez MD LAB POINT OF CARE TEST DOCKED DEVICE UNSOLICITED RESULTS Final Result [facility] [address] [place] [address] * CT Chest wo IV Contrast (12/11/2024 [...] on 12/11/2024 4:06 PM us Ruben Goldberg CUSTOMER CARE MANAGER IMG CT PROCEDURES Final Re sult * [...] Comment 12/11/2024 12:01 PM EDT [facility]ALTH[facility]ARE LAB Helicopter Officer ID Kenyetta Johnson 12:01 PM EDT HEALTHCARE LAB Device ID [id number] 12/11/2024 12:01 PM EDT [facility] Specimen Type POC Capillary 12/11/2024 12:01 PM EDT [facility] Blood Capillary blood specimen / Unknown 12/11/2024 11:35 AM EDT 12/11/2024 12:01 PM EDT Karina Rodriguez MD LAB POINT OF CARE TEST DOCKED DEVICE UNSOLICITED RESULTS Final Result [facility] [address] [place] [address] * POCT glucose meter (12/11/2024 7:44 AM EDT) [facility] POCT Glucose 93 74 - 99 mg/dL [...] Comment 12/11/2024 7:51 AM EDT HEALTHCARE LAB Helicopter Officer ID Kenyetta Johnson 7:51 AM EDT HEALTHCARE LAB Device ID [id number] 12/11/2024 7:51 AM EDT [facility] Specimen Type POC Capillary 12/11/2024 7:51 AM EDT [facility] Blood Capillary blood specimen / Unknown 12/11/2024 7:44 AM EDT 12/11/2024 7:51 AM EDT Karina Rodriguez MD LAB POINT OF CARE TEST DOCKED DEVICE UNSOLICITED RESULTS Final Result Performing Organization Address City/[facility]/ZIP Co de Phone Number [facility] [address] [place] [address] * Magnesium, Plasma (12/11/2024 1:59 AM EDT) [facility] Magnesium, Plasma 2.2 1.9 - 2.4 mg/dL 12/11/2024 4:20 AM EDT [facility] Blood Venous blood specimen / Unknown Venipuncture / Unknown 12/11/2024 1:59 AM EDT 12/11/2024 2:06 AM EDT us Ruben Goldberg APRN LAB BLOOD ORDERABLES Final Result [facility] [address] [place] [address] * Phosphorus, Plasma (12/11/2024 1:59 AM EDT) [facility] Phosphorus, Plasma 2.9 2.5 - 4.5 mg/dL 12/11/2024 4:20 AM EDT [facility] Blood Venous blood specimen / Unknown Venipuncture / Unknown 12/11/2024 1:59 AM EDT 12/11/2024 2:06 AM EDT us Ruben Rosa Goldberg CUSTOMER CARE MANAGER LAB BLOOD ORDERABLES Final Result [facility] [address] [place] [address] * (ABNORMAL) CBC W/O Differential (12/11/2024 1:59 AM EDT) WBC Count 9.57 3.70 - 10.30 10*3/uL LAB HEMATOLOGY METHOD 12/11/2024 2:14 AM EDT [facility] RBC Count 3.59(L) 4.60 - 6.10 10*6/uL LAB HEMATOLOGY METHOD 12/11/2024 2:14 AM EDT [facility] HGB 11.9(L) 13.7 - 17.5 g/dL LAB HEMATOLOGY METHOD 12/11/2024 2:14 AM EDT [facility] HCT 34.5(L) 40.0 - 51.0 % LAB HEMATOLOGY METHOD 12/11/2024 2:14 AM EDT [facility] Platelet Count 195 155 - 369 10*3/uL LAB HEMATOLOGY METHOD 12/11/2024 2:14 AM EDT [facility] MCV 96 79 - 98 fL LAB HEMATOLOGY METHOD 12/11/2024 2:14 AM EDT [facility] MCH 33.1(H) 26.0 - 32.0 pg LAB HEMATOLOGY METHOD 12/11/2024 2:14 AM EDT [facility] MCHC 34.5 30.7 - 35.5 g/dL LAB HEMATOLOGY METHOD 12/11/2024 2:14 AM EDT [facility] RDW 12.9 11.5 - 14.5 % LAB HEMATOLOGY METHOD 12/11/2024 2:14 AM EDT [facility] MPV 9.3 8.8 - 12.5 fL LAB HEMATOLOGY METHOD 12/11/2024 2:14 AM EDT [facility] nRBC 0.0 <=0.0 per 100 WBCs LAB HEMATOLOGY METHOD 12/11/2024 2:14 AM EDT [facility] Blood Venous blood specimen / Unknown Venipuncture / Unknown 12/11/2024 1:59 AM EDT 12/11/2024 2:06 AM EDT us Ruben Goldberg APRN LAB BLOOD ORDERABLES Final Result [facility] [address] [place] [address] * (ABNORMAL) Basic Metabolic Panel, Plasma (12/11/2024 1:59 AM EDT) Glucose, Plasma 90 74 - 99 mg/dL 12/11/2024 4:20 AM EDT [facility] BUN, Plasma 19 8 - 23 mg/dL 12/11/2024 4:20 AM EDT [facility] Creatinine, Plasma 0.80 0.70 - 1.20 mg/dL 12/11/2024 4:20 AM EDT [facility] BUN/Creatinine Ratio 24 12/11/2024 4:20 AM EDT [facility] Sodium, Plasma 142 136 - 145 mmol/L 12/11/2024 4:20 AM EDT [facility] Potassium, Plasma 3.7 3.6 - 4.9 mmol/L 12/11/2024 4:20 AM EDT [facility] Chloride, Plasma 106 97 - 107 mmol/L 12/11/2024 4:20 AM EDT [facility] CO2, Plasma 25 22 - 29 mmol/L 12/11/2024 4:20 AM EDT [facility] Anion Gap 11 6 - 16 mmol/L 12/11/2024 4:20 AM EDT [facility] Total Calcium, Plasma 8.6(L) 8.9 - 10.2 mg/dL 12/11/2024 4:20 AM EDT [facility] eGFRcr 101.3 mL/min/1.7 3m*2 12/11/2024 4:20 AM EDT [facility] Comment:Reported eGFRcr in m L/min/1.73m2 is based the CKD-EPI 2020 equation that does not use a race coefficient. Blood Venous blood specimen / Unknown Venipuncture / Unknown 12/11/2024 1:59 AM EDT 12/11/2024 2:06 AM EDT Ruben Goldberg APRN LAB BLOOD ORDERABLES Final Result [facility] [address] [place] [address] * XR Chest 1 View (12/11/2024 12:45 [...] POCT glucose meter (12/10/2024 8:01 PM EDT) [facility] POCT Glucose 137(H) 74 - 99 mg/dL [...] Comment 12/10/2024 8:03 PM EDT HEALTHCARE LAB Helicopter Officer ID Yoanna Greenfield 12/10/2024 8:03 PM EDT HEALTHCARE LAB Device ID [id number] 12/10/2024 8:03 PM EDT [facility]ARE LAB Specimen Type POC Capillary 12/10/2024 8:03 PM EDT [facility] Blood Capillary blood specimen / Unknown 12/10/2024 8:01 PM EDT 12/10/2024 8:03 PM EDT Lara Stewart MD LAB POINT OF CARE TE ST DOCKED DEVICE UNSOLICITED RESULTS Final Result Performing Organization Address City/State/[facility] Co de Phone Number [facility]ALTHCARE LAB [address] [place] [address] * (ABNORMAL) POCT glucose meter (12/10/2024 5:01 PM EDT) [facility] POCT Glucose 115(H) 74 - 99 mg/dL [...] 12/10/2024 5:03 PM EDT [facility] Helicopter Officer ID Viral Sampson 12/10/2024 5:03 PM EDT HEALTHCARE LAB Device ID [id number] 12/10/2024 5:03 PM EDT [facility]ALTH[facility]ARE LAB Specimen Type POC Capillary 12/10/2024 5:03 PM EDT [facility] Blood Capillary blood specimen / Unknown 12/10/2024 5:01 PM EDT 12/10/2024 5:03 PM EDT Lara Stewart MD LAB POINT OF CARE TE ST DOCKED DEVICE UNSOLICITED RESULTS Final Result [facility] [address] [place] [address] * (ABNORMAL) POCT glucose meter (12/10/2024 12:19 [...] Comment 12/10/2024 12:20 PM EDT HEALTHCARE LAB Helicopter Officer ID Viral Sampson 12/10/2024 12:20 PM EDT [facility] Device ID [id number] 12/10/2024 12:20 PM EDT [facility]ALTH[facility]ARE LAB Specimen Type POC Capillary 12/10/2024 12:20 PM EDT [facility] Blood Capillary blood specimen / Unknown 12/10/2024 12:19 PM EDT 12/10/2024 12:20 PM EDT us Lara Stewart MD LAB POINT OF CARE TE ST DOCKED DEVICE UNSOLICITED RESULTS Final Result [facility] [address] [place] [address] * (ABNORMAL) POCT glucose meter (12/10/2024 8:32 [...] Comment 12/10/2024 8:33 AM EDT [facility]ALTH[facility]ARE LAB Helicopter Officer ID Viral Sampson 12/10/2024 8:33 AM EDT HEALTHCARE LAB Device ID [id number] 12/10/2024 8:33 AM EDT [facility]ALTH[facility]ARE LAB Specimen Type POC Capillary 12/10/2024 8:33 AM EDT [facility] Blood Capillary blood specimen / Unknown 12/10/2024 8:32 AM EDT 12/10/2024 8:33 AM EDT Lara Stewart MD LAB POINT OF CARE TE ST DOCKED DEVICE UNSOLICITED RESULTS Final Result Performing Organization Address City/State/[facility] Co de Phone Number [facility]ARE LAB [address] [place] [address] * XR Chest 1 View (12/10/2024 5:34 [...] - 14.3 sec 12/10/2024 4:30 AM EDT [facility] INR 1.1 0.9 - 1.1 12/10/2024 4:30 AM EDT [facility] Blood Venous blood specimen / Unknown Venipuncture / Unknown 12/10/2024 4:12 AM EDT 12/10/2024 4:17 AM EDT Narrative [facility] - 12/10/2024 4:30 AM EDT OPTIMAL INR RANGES FOR PATIENT ON ORAL ANTICOAGULANT THERAPY Prevention of venous thromboembolism INR 2.0 to 3.0 In patients with heart disease: Atrial fibrillation INR 2.0 to 3.0 Valvular heart disease INR 2.0 to 3.0 Tissue heart valves INR 2.0 to 3.0 Mechanical prosthetic valves INR 2.5 to 3.5 Prevention of recurrent OR INR 2.5 to 3.5 us Lara Stewart MD LAB BLOOD ORDERABLES Final Resul t Performing Organization Address [facility] Co de Phone Number [facility] [address] [place] [address] * (ABNORMAL) Magnesium (12/10/2024 4:12 AM EDT) Magnesium, Plasma 1.8(L) 1.9 - 2.4 mg/dL 12/10/2024 5:06 AM EDT [facility] Blood Venous blood specimen / Unknown Venipuncture / Unknown 12/10/2024 4:12 AM EDT 12/10/2024 4:37 AM EDT us Lara Stewart MD LAB BLOOD ORDERABLES Final Resul t Performing Organization Address [facility] de Phone Number [facility] [address] [place] [address] * Phosphorus (12/10/2024 4:12 AM EDT) Phosphorus, Plasma 3.4 2.5 - 4.5 mg/dL 12/10/2024 5:06 AM EDT [facility] Blood Venous blood specimen / Unknown Venipuncture / Unknown 12/10/2024 4:12 AM EDT 12/10/2024 4:37 AM EDT us Lara Stewart MD LAB BLOOD ORDERABLES Final Resul t Performing Organization Address City/[facility] Co de Phone Number [facility] [address] [place] [address] * (ABNORMAL) Basic Metabolic Panel (12/10/2024 4:12 AM EDT) Glucose, Plasma 110(H) 74 - 99 mg/dL 12/10/2024 5:06 AM EDT [facility] BUN, Plasma 15 8 - 23 mg/dL 12/10/2024 5:06 AM EDT [facility] Creatinine, Plasma 0.74 0.70 - 1.20 mg/dL 12/10/2024 5:06 AM EDT [facility] BUN/Creatinine Ratio 20 12/10/2024 5:06 AM EDT [facility] Sodium, Plasma 138 136 - 145 mmol/L 12/10/2024 5:06 AM EDT [facility] Potassium, Plasma 3.4(L) 3.6 - 4.9 mmol/L 12/10/2024 5:06 AM EDT [facility] Chloride, Plasma 101 97 - 107 mmol/L 12/10/2024 5:06 AM EDT [facility] CO2, Plasma 25 22 - 29 mmol/L 12/10/2024 5:06 AM EDT [facility] Anion Gap 12 6 - 16 mmol/L 12/10/2024 5:06 AM EDT [facility] Total Calcium, Plasma 8.6(L) 8.9 - 10.2 mg/dL 12/10/2024 5:06 AM EDT [facility] eGFRcr 103.7 mL/min/1.7 3m*2 12/10/2024 5:06 AM EDT [facility] Comment:Reported eGFRcr in m L/min/1.73m2 is based the CKD-EPI 2020 equation that does not use a race coefficient. Blood Venous blood specimen / Unknown Venipuncture / Unknown 12/10/2024 4:12 AM EDT 12/10/2024 4:37 AM EDT us Lara Stewart MD LAB BLOOD ORDERABLES Final Resul t [facility] [address] [place] [address] * (ABNORMAL) CBC (12/10/2024 4:12 AM EDT) WBC Count 11.06(H) 3.70 - 10.30 10*3/uL LAB HEMATOLOGY METHOD 12/10/2024 4:19 AM EDT [facility] RBC Count 3.92(L) 4.60 - 6.10 10*6/uL LAB HEMATOLOGY METHOD 12/10/2024 4:19 AM EDT [facility] HGB 12.9(L) 13.7 - 17.5 g/dL LAB HEMATOLOGY METHOD 12/10/2024 4:19 AM EDT [facility] HCT 36.2(L) 40.0 - 51.0 % LAB HEMATOLOGY METHOD 12/10/2024 4:19 AM EDT [facility] Platelet Count 233 155 - 369 10*3/uL LAB HEMATOLOGY METHOD 12/10/2024 4:19 AM EDT [facility] MCV 92 79 - 98 fL LAB HEMATOLOGY METHOD 12/10/2024 4:19 AM EDT [facility] MCH 32.9(H) 26.0 - 32.0 pg LAB HEMATOLOGY METHOD 12/10/2024 4:19 AM EDT [facility] MCHC 35.6(H) 30.7 - 35.5 g/dL LAB HEMATOLOGY METHOD 12/10/2024 4:19 AM EDT [facility] RDW 12.9 11.5 - 14.5 % LAB HEMATOLOGY METHOD 12/10/2024 4:19 AM EDT [facility] MPV 8.8 8.8 - 12.5 fL LAB HEMATOLOGY METHOD 12/10/2024 4:19 AM EDT [facility] nRBC 0.0 <=0.0 per 100 WBCs LAB HEMATOLOGY METHOD 12/10/2024 4:19 AM EDT [facility] Blood Venous blood specimen / Unknown Venipuncture / Unknown 12/10/2024 4:12 AM EDT 12/10/2024 4:17 AM EDT us Lara Stewart MD LAB BLOOD ORDERABLES Final Resul t [facility] [address] [place] [address] * POCT glucose meter (12/09/2024 10:37 PM EDT) [facility] POCT Glucose 84 74 - 99 mg/dL 12/09/2024 10:39 PM EDT [facility] Comment:Accuracy of a glucos e result [...] Comment 12/09/2024 10:39 PM EDT HEALTHCARE LAB Helicopter Officer ID Alfredo Jaeger 12/10/19 10:39 PM EDT HEALTHCARE LAB Device ID [id number] 12/09/2024 10:39 PM EDT [facility]ALTH[facility]ARE LAB Specimen Type POC Capillary 12/09/2024 10:39 PM EDT [facility] Blood Capillary blood specimen / Unknown 12/09/2024 10:37 PM EDT 12/09/2024 10:39 PM EDT Rea Ludwig MD LAB POINT OF CARE TE ST DOCKED DEVICE UNSOLICITED RESULTS Final Result Performing Organization Address City/[facility] Co de Phone Number [facility] [address] [place] [address] * Troponin T, High Sensitivity, 2 Hour, Plasma (12/09/2024 8:25 PM EDT) Troponin T, High Sensitivity, 2 Hour 13 <19 ng/L 12/09/2024 8:48 PM EDT [facility] Blood Venous blood specimen / Unknown Venipuncture / Unknown 12/09/2024 8:25 PM EDT 12/09/2024 8:27 PM EDT Rea Ludwig MD LAB BLOOD ORDERABLES Final Res ult Performing Organization Address City/[facility]/ZIP Co de Phone Number [facility] [address] [place] [address] * XR Chest 1 View (12/09/2024 8:02 [...] 1/2 Differentiation (12/09/2024 6:12 PM EDT) Pathologist [facility] HIV 1 & 2 Antibody/Antigen Screen Non Reactive Non Reactive 12/09/2024 7:08 PM EDT [facility] Comment:Screening for HIV 1 & 2 antibodies, and P24 antigen is NONREACTIVE. No confirmatory testing is required. Blood Venous blood specimen / Unknown Venipuncture / Unknown 12/09/2024 6:12 PM EDT 12/09/2024 6:25 PM EDT Rea Ludwig MD LAB BLOOD ORDERABLES Final Res ult Performing Organization Address City/[facility] Co de Phone Number [facility] [address] [place] [address] * Hepatitis C Antibody - ED (12/09/2024 6:12 PM EDT) Hepatitis C Antibody Negative Negative 12/09/2024 7:05 PM EDT [facility] Blood Venous blood specimen / Unknown Venipuncture / Unknown 12/09/2024 6:12 PM EDT 12/09/2024 6:25 PM EDT Rea Ludwig MD LAB BLOOD ORDERABLES Final Res ult Performing Organization Address [facility] Co de Phone Number [facility] [address] [place] [address] * Troponin now and 120 min (12/09/2024 6:12 PM EDT) Troponin T, High Sensitivity, 0 Hour 14 <19 ng/L 12/09/2024 6:41 PM EDT [facility] Blood Venous blood specimen / Unknown Venipuncture / Unknown 12/09/2024 6:12 PM EDT 12/09/2024 6:15 PM EDT Rea Ludwig MD LAB BLOOD ORDERABLES Final Res ult Performing Organization Address City/[facility] Co de Phone Number [facility] [address] [place] [address] * Anti Xa Level Unfractionated Heparin (12/09/2024 6:12 PM EDT) Anti Xa Level Unfractionated Heparin <0.11 <1.00 IU/mL 12/09/2024 6:50 PM EDT [facility] Blood Venous blood specimen / Unknown Venipuncture / Unknown 12/09/2024 6:12 PM EDT 12/09/2024 6:15 PM EDT Narrative [facility] - 12/09/2024 6:50 PM EDT Therapeutic Range: UFH Full Dose and ACS/OR protocols*: 0.30 - 0.70 IU/mL UFH Low Dose protocol*: 0.25 - 0.50 IU/mL UFH prophylaxis: Not established us Rea Ludwig MD LAB BLOOD ORDERABLES Final Res ult Performing Organization Address [facility]/ZIP Co de Phone Number [facility] [address] [place] [address] * (ABNORMAL) PT-INR (12/09/2024 6:12 PM EDT) Prothrombin Time 14.4(H) 12.0 - 14.3 sec 12/09/2024 6:49 PM EDT [facility] INR 1.1 0.9 - 1.1 12/09/2024 6:49 PM EDT [facility] Blood Venous blood specimen / Unknown Venipuncture / Unknown 12/09/2024 6:12 PM EDT 12/09/2024 6:15 PM EDT Narrative [facility] - 12/09/2024 6:49 PM EDT OPTIMAL INR RANGES FOR PATIENT ON ORAL ANTICOAGULANT THERAPY Prevention of venous thromboembolism INR 2.0 to 3.0 In patients with heart disease: Atrial fibrillation INR 2.0 to 3.0 Valvular heart disease INR 2.0 to 3.0 Tissue heart valves INR 2.0 to 3.0 Mechanical prosthetic valves INR 2.5 to 3.5 Prevention of recurrent OR INR 2.5 to 3.5 us Rea Ludwig MD LAB BLOOD ORDERABLES [place] [address] * (ABNORMAL) CBC w/diff (12/09/2024 6:12 PM EDT) WBC Count 20.12(H) 3.70 - 10.30 10*3/uL LAB HEMATOLOGY METHOD 12/09/2024 6:17 PM EDT [facility] RBC Count 4.15(L) 4.60 - 6.10 10*6/uL LAB HEMATOLOGY METHOD 12/09/2024 6:17 PM EDT [facility] HGB 13.7 13.7 - 17.5 g/dL LAB HEMATOLOGY METHOD 12/09/2024 6:17 PM EDT [facility] HCT 38.3(L) 40.0 - 51.0 % LAB HEMATOLOGY METHOD 12/09/2024 6:17 PM EDT [facility] Platelet Count 235 155 - 369 10*3/uL LAB HEMATOLOGY METHOD 12/09/2024 6:17 PM EDT [facility] MCV 92 79 - 98 fL LAB HEMATOLOGY METHOD 12/09/2024 6:17 PM EDT [facility] MCH 33.0(H) 26.0 - 32.0 pg LAB HEMATOLOGY METHOD 12/09/2024 6:17 PM EDT [facility] MCHC 35.8(H) 30.7 - 35.5 g/dL LAB HEMATOLOGY METHOD 12/09/2024 6:17 PM EDT [facility] RDW 12.8 11.5 - 14.5 % LAB HEMATOLOGY METHOD 12/09/2024 6:17 PM EDT [facility] MPV 9.1 8.8 - 12.5 fL LAB HEMATOLOGY METHOD 12/09/2024 6:17 PM EDT [facility] nRBC 0.0 <=0.0 per 100 WBCs LAB HEMATOLOGY METHOD 12/09/2024 6:17 PM EDT [facility] LAB Differential Type Automated LAB HEMATOLOGY METHOD 12/09/2024 6:17 PM EDT [facility] Neutrophils % 87 % LAB HEMATOLOGY METHOD 12/09/2024 6:17 PM EDT [facility] Lymphocytes % 6 % LAB HEMATOLOGY METHOD 12/09/2024 6:17 PM EDT [facility] Monocytes % 6 % LAB HEMATOLOGY METHOD 12/09/2024 6:17 PM EDT [facility] Eosinophils % 0 % LAB HEMATOLOGY METHOD 12/09/2024 6:17 PM EDT [facility] Basophils % 0 % LAB HEMATOLOGY METHOD 12/09/2024 6:17 PM EDT [facility] Immature Granulocytes % 1 % LAB HEMATOLOGY METHOD 12/09/2024 6:17 PM EDT [facility] Neutrophils Absolute 17.62(H) 1.60 - 6.10 10*3/uL LAB HEMATOLOGY METHOD 12/09/2024 6:17 PM EDT [facility] Lymphocytes Absolute 1.15(L) 1.20 - 3.90 10*3/uL LAB HEMATOLOGY METHOD 12/09/2024 6:17 PM EDT [facility] Monocytes Absolute 1.20(H) 0.30 - 0.90 10*3/uL LAB HEMATOLOGY METHOD 12/09/2024 6:17 PM EDT [facility] Eosinophils Absolute 0.01 0.00 - 0.50 10*3/uL LAB HEMATOLOGY METHOD 12/09/2024 6:17 PM EDT [facility] Basophils Absolute 0.04 0.00 - 0.10 10*3/uL LAB HEMATOLOGY METHOD 12/09/2024 6:17 PM EDT [facility] Immature Granulocytes Absolute 0.10(H) 0.00 - 0.06 10*3/uL LAB HEMATOLOGY METHOD 12/09/2024 6:17 PM EDT [facility] Blood Venous blood specimen / Unknown Venipuncture / Unknown 12/09/2024 6:12 PM EDT 12/09/2024 6:15 PM EDT Narrative [facility] - 12/09/2024 6:17 PM EDT Therapeutic decision making should be based on absolute values, rather than percentages. us Rea Ludwig MD LAB BLOOD ORDERABLES Final Res ult [facility] [address] [place] [address] * CMP (12/09/2024 6:12 PM EDT) Glucose, Plasma 80 74 - 99 mg/dL 12/09/2024 6:41 PM EDT [facility] BUN, Plasma 16 8 - 23 mg/dL 12/09/2024 6:41 PM EDT [facility] Creatinine, Plasma 0.81 0.70 - 1.20 mg/dL 12/09/2024 6:41 PM EDT [facility] BUN/Creatinine Ratio 20 12/09/2024 6:41 PM EDT [facility] Sodium, Plasma 139 136 - 145 mmol/L 12/09/2024 6:41 PM EDT [facility] Potassium, Plasma 3.7 3.6 - 4.9 mmol/L 12/09/2024 6:41 PM EDT [facility] Chloride, Plasma 102 97 - 107 mmol/L 12/09/2024 6:41 PM EDT [facility] CO2, Plasma 23 22 - 29 mmol/L 12/09/2024 6:41 PM EDT [facility] Anion Gap 14 6 - 16 mmol/L 12/09/2024 6:41 PM EDT [facility] Total Calcium, Plasma 9.1 8.9 - 10.2 mg/dL 12/09/2024 6:41 PM EDT [facility] Total Protein 6.4 6.3 - 7.9 g/dL 12/09/2024 6:41 PM EDT [facility] Albumin, Plasma 4.4 3.5 - 5.2 g/dL 12/09/2024 6:41 PM EDT [facility] AST, Plasma 36 10 - 50 U/L 12/09/2024 6:41 PM EDT [facility] ALT, Plasma 30 10 - 50 U/L 12/09/2024 6:41 PM EDT [facility] Alkaline Phosphatase, Plasma 61 40 - 115 U/L 12/09/2024 6:41 PM EDT [facility] Total Bilirubin, Plasma 0.6 0.2 - 1.1 mg/dL 12/09/2024 6:41 PM EDT [facility] eGFRcr 100.9 mL/min/1.7 3m*2 12/09/2024 6:41 PM EDT [facility] Comment:Reported eGFRcr in m L/min/1.73m2 is based the CKD-EPI 2020 equation that does not use a race coefficient. Blood Venous blood specimen / Unknown Venipuncture / Unknown 12/09/2024 6:12 PM EDT 12/09/2024 6:15 PM EDT us Rea Ludwig MD LAB BLOOD ORDERABLES Final Res ult [facility] [address] [place] [address] documented in this encounter Visit Diagnoses Diagnosis [...] Order parameters not met)1213 (Given - Provider: Siomara Licona RN)1754 (Not Given - Provider: Siomara [...] 0350 (Canceled Entry - Provider: Dorota Faust, HALEIGH)1721 (Given - Provider: Adonay Padgett RN) 0341 [...] documented as of this encounter Care Teams Sas Analyst Relationship Specialty Start Date End Date Starr Fulton PA [address] [place] [address] [address] [place] [address] PCP - General 12/09/24 documented as of this encounter
--- OUTSIDE RECORDS SUMMARY | 2024-12-24 08:35 | XMS_ITS | Encounter Summary ---
Author Organization Healthcare Address [address] [place] [address] Care Team Providers Care Computer Networker Name Role Phone Starr Fulton Primary Care Provider Encounter Details Date Type Department Care Team (Latest Contact Info) Description 12/24/2024 8:35 AM EDT - 12/24/2024 11:59 PM EDT Hospital Encounter [facility] Rad[facility] [address], [address] [place] [address] Traumatic pneumothorax, initial encounter; Closed fracture of [...] any time in the past 12 m [facility], were you homeless or living in a care home (including now)? No 12/14/2024 [facility] Utilities Answer Date Recorded In [...] does not drink 12/24/2024 9:00 AM EDT [place], Kim R Q3: How often do you [...] as directed by MD. 60 patch 12/16/2024 lisinopril 5 MG tablet Take 1 tablet by mouth daily. meloxicam (Mobic) 15 MG tablet Take 1 tablet by mouth daily. methocarbamol (Robaxin) 500 MG tablet Take 1 tablet by mouth every 8 hours. 42 tablet 12/15/2024 Mounjaro 2.5 MG/0.5ML solution auto-injector solution pen-injector Inject 0.5 mL under the skin 1 time per week. meclizine (Antivert) 25 MG tablet Take 1 tablet by mouth 3 times a day as needed for dizziness for up to 14 days. 42 tablet 12/15/2024 5 documented as of this encounter Plan of [...] documented as of this encounter Care Teams Computer Networker Relationship Specialty Start Date End Date Starr Fulton PA [facility] [address] [place] [address] PCP - General 12/09/24 documented as of this encounter
--- OUTSIDE RECORDS SUMMARY | 2024-12-24 09:30 | XMS_ITS | Encounter Summary ---
Author Organization [facility] Address [address] [place] [address] Care Team Providers Care Health And Safety Representative Name Role Phone Starr Fulton Primary Care Provider [phone] Reason for Visit * Reason Comments Follow-up * Consultation (Routine) - Closed Specialty Diagnoses / Procedures Referred By Contac t Referred To Contact Trauma Surgery / General Surgery Diagnoses Traumatic pneumothorax, initial encounter Closed fracture of multiple ribs of right side, initial encounter Bridgette Jamison PA [address] [address] Phone: tel: fax: [facility] General Surgery [address], [address] [place] [address] Phone: tel: fax: Referral ID Status Reason Start Date Expiration Date V isits Requested Visits Authorized [id number] Closed Specialty Services Required 12/15/2024 06/16/2026 1 1 Encounter Details Date Type Department Care Team (Latest Contact Info) Description 12/24/2024 9:30 AM EDT Office Visit [facility] General Surgery [address], [address] [place] [address] Lisette Mo PA [address] [facility] [place] [address] Fall from ladder, subsequent encounter (Primary Dx); Traumatic pneumothorax, subsequent encounter; Closed fracture of multiple ribs with routine healing, unspecified laterality, subsequent encounter; Closed fracture of spinous process of thoracic vertebra with routine healing, subsequent encounter; Concussion with unknown loss of consciousness status, subsequent encounter Social History Tobacco Use Types Packs/Day Years Used Date Smoking Tobacco: Former Cigarettes Passive Smoke Exposure: Never Smokeless Tobacco: Never Tobacco Cessation:Counseling Given: Not Answered Alcohol Use Standard Drinks/Week Comments Never 0 [...] a care home (including now)? No 12/14/2024 [facility] Utilities Answer Date Recorded In the past 12 months has [employer] electric, gas, oil, or water company threatened to shut off services in your home? No 12/14/2024 Sex and Gender Information Value Date Recorded Sex Assigned at Not on file Legal Sex Male 2:49 PM EDT Gender Identity Not on file Sexual Orientation Not on file documented as of this encounter Last Filed Vital Signs Vital Sign Reading Time Taken Comments Blood Pressure 126/77 12/24/2024 9:00 AM EDT Pulse 54 12/24/2024 9:00 AM EDT Temperature 36.4 C (97.5 F) 12/24/2024 9:00 AM EDT Respiratory Rate 16 12/24/2024 9:00 AM EDT Oxygen Saturation 98% 12/24/2024 9:00 AM EDT Inhaled Oxygen Concentration - - Weight 67.9 kg (149 lb 9.6 oz) 12/24/2024 9:00 A M EDT Height 185.4 cm (6' 1 ) 12/24/2024 9:00 AM EDT Body Mass Index 19.74 12/24/2024 9:00 AM EDT documented in this encounter Functional Status * AUDIT-C Score Answer Date of Assessment Author 0 12/24/2024 9:00 AM EDT Kim Montelongo * Question Answer Date of Assessment Author Q1: How often do you have a drink containing alcohol? Never 12/24/2024 9:00 AM EDT Chloe Brewster Q2: How many drinks containing alcohol do you have on a typical day when you are drinking? Patient does not drink 12/24/2024 9:00 AM EDT Kim Brewster Q3: How often do you have six or more drinks on one occasion? Never 12/24/2024 9:00 AM EDT Chloe Brewster documented as of this encounter Miscellaneous Notes * Progress Notes - Lisette Mo PA - 12/24/2024 9:30 AM EDT 12/24/24 Yossi Ortega Dear Starr Fulton PA, HPI Yossi Ortega is a 59 y.o. year old male who presents today for follow up post hospitalization; he was discharged form the trauma service on 12/15. Patient suffered a fall from a 10ft ladder on 12/10, sustaining the following injuries: R rib 6-12 fxs, T9 tp fx, R pneumothorax, multiple abrasions. Chest tube was placed on 12/11 and subsequently pulled 12/14 with a stable post pull CXR and appropriate O2 sats on RA. During today's visit patient expressed that he is overall doing well, states he has no rib pain, cough, chest pain or shortness of breath. Patient admits to mild intermittent back pain,discussed with patient the location of his rib fractures and T9 fracture which could be contributing to this pain. Reports he is pulling 2500 daily on IS, encouraged to maintain daily use of IS. Patient states that he has occasional drainage from CT site, denies fevers, chills, tenderness, erythemaor warmth. CT site looks bruised but healing well, one suture removed during clinic visit. Discussed with patient his discharge precautions, no lifting >10lbs for 2 more weeks, and avoid altitude c hanges for 4 more weeks, patient and family in understanding. Review of Systems Relevant review of systems was obtained as able and is negative unless stated above in HPI. Past Medical History Past Medical History[1] Reviewed as documented above Past Surgical History Surgical History[2] Reviewed and not pertinent Social History reports that he has quit smoking. His smoking use included cigarettes. He has never been exposed totobacco smoke. He has never used smokeless tobacco. He reports that he does not drink alcohol and does not use drugs. Reviewed and not pertinent Family History Family History[3] Reviewed and not pertinent Current Medications Current Medications[4] Vitals Vitals: 12/24/24 0900 BP: 126/77 Pulse: 54 Resp: 16 Temp: 36.4 ??C (97.5 ??F) SpO2: 98% Physical Exam Physical Exam Constitutional: General: He is not in acute distress. Appearance: Normal appearance. He is not ill-appearing. Cardiovascular: Rate and Rhythm: Normal rate and regular rhythm. Pulses: Normal pulses. Heart sounds: Normal heart sounds. No murmur heard. No gallop. Pulmonary: Effort: Pulmonary effort is normal. No respiratory distress. Breath sounds: Normal breath sounds. No wheezing. Chest: Chest wall: No tenderness. Abdominal: General: Abdomen is flat. There is no distension. Palpations: Abdomen is soft. Tenderness: There is no abdominal tenderness. There is no guarding. Musculoskeletal: General: Normal range of motion. Cervical back: Normal range of motion. Skin: General: Skin is warm and dry. Findings: Bruising present. Comments: Bruising over CT site. Neurological: Mental Status: He is alert and oriented to person, place, and time. Mental status is at baseline. Psychiatric: Mood and Affect: Mood normal. Behavior: Behavior normal. Thought Content: Thought content normal. BMI: Body mass index is 19.74 kg/m??. Imaging I personally and independently reviewed the Diagnostic XR images available at today's visit which showed: Interval resolution of small right apical pneumothorax, a small right pleural effusion, and interval improvement of right basilar atelectasis. Assessment and Plan 1. Fall from ladder, subsequent encounter 2. Traumatic pneumothorax, subsequent encounter 3. Closed fracture of multiple ribs with routine healing, unspecified laterality, subsequent encounter 4. Closed fracture of spinous process of thoracic vertebra with routine healing, subsequent encounter 5. Concussion with unknown loss of consciousness status, subsequent encounter - No lifting >10lbs or lifting overhead for 2 more weeks. Avoid plane travel and scuba diving x 2-4 weeks. - Concussion signs and symptoms: headache, confusion, lack of coordination, memory loss, n/v, dizziness, ringing in ears, sleepiness and excessive fatigue. Decrease visual stimuli and allow brain to rest. Avoid contact activities for the next month. Do not drive if having symptoms of concussion - No follow up with trauma service needed - Do not hesitate to return to emergency department if concerns for severe/sudden headache, vision loss, severe dizziness or feelings of passing out, focal deficits, altered mental status, shortness of breath, chest pain. No follow-ups on file. STEFFANY Trivedi [1] Past Medical History: Diagnosis Date Diabetes mellitus Hypertension Hypothyroid [2] Past Surgical History: Procedure Laterality Date THYROIDECTOMY [3] History reviewed. No pertinent family history. [4] Current Outpatient Medications Medication Sig Dispense Refill acetaminophen (Tylenol) 500 MG tablet Take 2 tablets by mouth every 6 hours for 7 days. 56 tablet 0 chlorthalidone (Hygroton) 25 MG tablet Take 1 tablet by mouth daily. gabapentin (Neurontin) 100 MG capsule Take 2 capsules by mouth 3 times a day for 3 days, THEN 1 capsule 3 times a day for 3 days, THEN 1 capsule 2 times a day for 3 days. 33 capsule 0 levothyroxine (Synthroid, Levoxyl) 75 MCG tablet Take 1 tablet by mouth daily before breakfast. lisinopril 5 MG tablet Take 1 tablet by mouth daily. meclizine (Antivert) 25 MG tablet Take 1 tablet by mouth 3 times a day as needed for dizziness for up to 14 days. 42 tablet 0 meloxicam (Mobic) 15 MG tablet Take 1 tablet by mouth daily. Mounjaro 2.5 MG/0.5ML solution auto-injector solution pen-injector Inject 0.5 mL under the skin 1 time per week. oxyCODONE (Roxicodone) 5 MG immediate release tablet Take 1 tablet by mouth every 6 hours as neededfor severe pain for up to 3 days. 12 tablet 0 lidocaine (Lidoderm) 5 % patch Apply 2 patches topically 1 (one) time each day at the same time over 12 hours. Remove & discard patch within 12 hours or as directed by MD. (Patient not taking: Reported on 12/24/2024) 60 patch 0 methocarbamol (Robaxin) 500 MG tablet Take 1 tablet by mouth every 8 hours. (Patient not taking: Reported on 12/24/2024) 42 tablet 0 No current facility-administered medications for this visit. documented in this encounter Plan of Treatment Not on file documented as of this encounter Visit Diagnoses Diagnosis Fall from ladder, subsequent encounter- Primary Traumatic pneumothorax, subsequent encounter Closed fracture of multiple ribs with routine healing, unspecified laterality, subsequent encounter Closed fracture of spinous process of thoracic vertebra with routine healing, subsequent encounter Concussion with unknown loss of consciousness status, subsequent encounter documented in this encounter Additional Health Concerns Assessment Noted Time A Body Mass Index follow-up plan has been documented for the patient 12/24/2024 9:42 AM EDT documented as of this encounter Care Teams Health And Safety Representative Relationship Specialty Start Date End Date Starr Fulton PA [address] [place] [address] PCP - General 12/09/24 documented as of this encounter
--- OUTSIDE RECORDS SUMMARY | 2024-12-31 12:00 | XMS_ITS ---
Author Organization [facility] Address [address] [place] [id number] Care Team Providers Care Credit Risk Review Officer Name Role Phone Geoffrey Cantu Primary Care Provider Starr Fulton Unavailable [phone] Allergies No Known Allergies REASON FOR VISIT [...] as directed E11.65 05/03/2024 Active Dexcom G7 Production Supv - USE DIRECTED Active Chlorthalidone 25 MG [...] W/U Status Risk Notes Problem Postconcussion syndrome (94379472) Post concussive syndrome (F07.81) Active confirmed Vital Signs Blood pressure systolic 130 mm Hg 01/01/20 Blood pressure diastolic 80 mm Hg 025 Heart Rate 66 /min 12/31/2024 Height 73 in 12/31/2024 Weight 153.8 lbs 12/31/2024 BMI 20.29 kg/m2 12/31/2024 Encounters Encounter Location Date Provider Diagnosis [facility] [address] [place] [id number] 12/31/2024 Starr Fulton Pneumothorax, right J93.9 ; [...] week ago. He was released by . 12/31/2024 Post concussive syndrome (ICD-10 - F07.81) [...] Appt Details Follow Up: 3 Weeks, Reason: Provider Name:Starr Maame Cal ernestina, 01/21/2025 09:15:00 AM, [address], [place], [id number], Progress Notes * ELVIA WHEELER TOMDOB:1965 (59 yo M)Acc No.[id number]:12/31/2024 Progress Notes Patient: Lindsey ELVIA OWENS Provider: STEFFANY Little :1965 A ge:59 Y S ex:Male Date:12/31/2024 Address:[address] [place] [address] [id number] Pcp:Geoffrey Cantu Subjective: * Chief Complaints: * 1 . [facility] f/u. * HPI: H PI: 59 year old male presents with c/o Here for follow up on: P t is here today to f/u from . Pt states he was at on 12/09. See pts docs. Pt states he was there because he fell off a ladder. H e broke 6 ribs, one vertebrae, and ended [...] * Hospitalization/Major Diagno stic Procedure: H ypertension, Dizziness-[facility] 08/27/08-08/31/08, Shoulder- [facility] ER 10/2014, RT Shoulder Pain/Low Potassium Level- [facility] 09/19/2016, Norovirus- [facility] 05/2018. * Family History: F [...] Notes to Pharmacist: E11.65, Taking Dexcom G7 Production Supv - Device USE DIRECTED , Taking Chlorthalidone [...] rest until dizziness and headaches resolve. * Follow Up: 3 Weeks * Images: Billing Information: * Visit Code: 87836 Office Visit, Est Pt., Level 4. * Procedure Codes: * Electronic signature of STEFFANY Conklin on 01/07/2025 at 08:54 AM EDT Sign off status: Pending * Provider: STEFFANY Little Date: Generated for Jci lizabeth/Jarod/eTransmitting on: 08:54 AM EDT History and Physical Notes * [...]
--- OUTSIDE RECORDS SUMMARY | 2025-01-07 08:55 | XMS_ITS | Encounter Summary ---
Author Organization Healthcare Address [address] [place] [address] Care Team Providers Care Weight Reducing Technician Name Role Phone Starr Fulton Primary Care Provider [phone] Encounter Details Date Type Department Care Team (Late st Contact Info) Description 12/09/2024 Orders Only External Location [address] [place] [address] Richard Yang PA [address] [place] [address] Social History Tobacco Use Types Packs/Day Years Used Date Smoking Tobacco: Never Assessed Humiliation, Afraid, Rape, and Kick questionnair e [...] by your partner or ex-partner? No 12/14/2024 Hunger Vital Sign Answer Date Recorded Within [...] any time in the past 12 m [facility], were you homeless or living in a assisted (including now)? No 12/14/2024 [facility] Utilities Answer Date Recorded In the [...] as of this encounter Functional Status * Calculated C-SSRS Risk Score (Lifetime/Recent) Answer Date of Assessment Author No Risk Indicated 12/13/2024 8:00 AM EDSiomara Morris RN * Question Answer Date of Assessment Author 1. Wish to be (Past 1 Month) No 025 8:00 AM EDT Siomara Licona RN 2. Non-Specific Active Suici mendy Thoughts (Past 1 Month) No 12/13/2024 8:00 AM EDAlice Morris RN 6. Suicidal Behavior (Lifetime) No 8:00 AM EDSiomara Morris RN documented as of this encounter Plan of Treatment Not on file documented as of this encounter Procedures Procedure Name Priority Date/Time Associated Diagnosis Comments CT NEURO OUTSIDE IMAGES 12/09/2024 2:24 PM EDT documented in this encounter Results * CT NEURO OUTSIDE IMAGES (12/09/2024 2:24 PM EDT) Anatomical Region Laterality Modality Computed Tomogra phy 12/09/2024 2:24 PM EDT Richard JETER IMCharmaine CT PROCEDURES Edited Resul t - Final documented in this encounter Visit Diagnoses Not on filedocumented in this encounter Additional Health Concerns Assessment Noted Time A Body Mass Index follow-up plan has been documented for the patient 12/15/2024 2:19 PM EDT documented as of this encounter Care Teams Weight Reducing Technician Relationship Specialty Start Date End Date Starr Fulton PA [address] [place] [address] [address] [place] [address] PCP - General 12/09/24 documented as of this encounter
--- OUTSIDE RECORDS SUMMARY | 2025-01-07 08:55 | XMS_ITS | Encounter Summary ---
Author Organization Healthcare Address [address] [place] [address] Care Team Providers Care Motor Checker Name Role Phone Starr Fulton Primary Care Provider [phone] Encounter Details Date Type Department Care Team (Late st Contact Info) Description 12/09/2024 Orders Only External Location [address] [place] [address] Richard Yang PA [address] [place] [address] Social History Tobacco Use Types [...] any time in the past 12 m [facility], were you homeless or living in a custodial (including now)? No 12/14/2024 [facility] Utilities Answer Date Recorded In the [...] (Past 1 Month) No 12/13/2024 8:00 AM Alice Wolfe RN 6. Suicidal Behavior (Lifetime) No 8:00 AM EDSiomara Morris RN documented as of this encounter Plan of Treatment Not on file documented as of this encounter Procedures Procedure Name Priority Date/Time Associated Diagnosis Comments CT NEURO OUTSIDE IMAGES 12/09/2024 2:26 PM EDT documented in this encounter Results * CT NEURO OUTSIDE IMAGES (12/09/2024 2:26 PM EDT) Anatomical Region Laterality Modality Computed Tomogra phy 12/09/2024 2:26 PM EDT Richard JETER IMCharmaine CT PROCEDURES Edited Resul t - Final documented in this encounter Visit Diagnoses Not on filedocumented in this encounter Additional Health Concerns Assessment Noted Time A Body Mass Index follow-up plan has been documented for the patient 12/15/2024 2:19 PM EDT documented as of this encounter Care Teams Motor Checker Relationship Specialty Start Date End Date Starr Fulton PA [address] [place] [address] [address] [place] [address] PCP - General 12/09/24 documented as of this encounter
--- OUTSIDE RECORDS SUMMARY | 2025-01-07 08:55 | XMS_ITS | Encounter Summary ---
Author Organization Healthcare Address [address] [place] [address] Care Team Providers Care Bait Digger Name Role Phone Starr Fulton Primary Care Provider [phone] Encounter Details Date Type Department Care Team (Latest Contact Info) Description 12/10/2024 Travel Social History Tobacco Use Types Packs/Day Years Used Date Smoking Tobacco: Never Assessed Sex and Gender Information Value Date Recorded Sex Assigned at Not on file Legal Sex Male 2:49 PM EDT Gender Identity Not on file Sexual Orientation Not on file documented as of this encounter Plan of Treatment Not on file documented as of this encounter Visit Diagnoses Not on filedocumented in this encounter Additional Health Concerns Assessment Noted Time A Body Mass Index follow-up plan has been documented for the patient 12/15/2024 2:19 PM EDT documented as of this encounter Care Teams Bait Digger Relationship Specialty Start Date End Date Starr Fulton PA [facility] [address] [place] [address] PCP - General 12/09/24 documented as of this encounter
--- OUTSIDE RECORDS SUMMARY | 2025-01-07 08:55 | XMS_ITS | Encounter Summary ---
Author Organization [facility] Address [address] [place] [address] Care Team Providers Care Carpenter Helper Name Role Phone Starr Fulton Primary Care Provider [phone] Encounter Details Date Type Department Care Team (Latest Contact Info) Description 12/13/2024 Travel Social History Tobacco Use Types Packs/Day Years Used Date Smoking Tobacco: Every Day Cigarettes Alcohol Use Standard Drinks/Week Comments Never 0 [...] any time in the past 12 m [facility], were you homeless or living in a [place] [facility] facility (including now)? No 12/14/2024 [facility] Utilities Answer Date Recorded In the [...] (Past 1 Month) No 025 8:00 AM Siomara Wolfe RN 2. Non-Specific Active Suici mendy Thoughts (Past 1 Month) No 12/13/2024 8:00 AM Alice Wolfe RN 6. Suicidal Behavior (Lifetime) No 8:00 AM Siomara Wolfe RN documented as of this encounter Plan of Treatment Not on file documented as of this encounter Visit Diagnoses Not on filedocumented in this encounter Additional Health Concerns Assessment Noted Time A Body Mass Index follow-up plan has been documented for the patient 12/15/2024 2:19 PM EDT documented as of this encounter Care Teams Carpenter Helper Relationship Specialty Start Date End Date Starr Fulton PA [address] [place] [address] PCP - General 12/09/24 documented as of this encounter
--- OUTSIDE RECORDS SUMMARY | 2025-01-07 08:55 | XMS_ITS | Encounter Summary ---
Author Organization [facility] Address [address] [place] [address] Care Team Providers Care Clerk Cashier Name Role Phone Starr Fulton Primary Care Provider [phone] Encounter Details Date Type Department Care Team (Latest Contact Info) Description 12/11/2024 Travel Social History Tobacco Use Types Packs/Day Years Used Date Smoking Tobacco: Every Day Cigarettes Alcohol Use Standard Drinks/Week Comments Never 0 (1 standard drink = 0.6 oz pur e alcohol) Sex and Gender Information Value Date Recorded Sex Assigned at Not on file Legal Sex Male 2:49 PM EDT Gender Identity Not on file Sexual Orientation Not on file documented as of this encounter Functional Status * Calculated C-SSRS Risk Score (Lifetime/Recent) Answer Date of Assessment Author No Risk Indicated 12/11/2024 8:00 PM EDT Estella Salinas RN * Question Answer Date of Assessment Author 1. Wish to be (Past 1 Month) No 025 8:00 PM EDT Estella Tomas RN 2. Non-Specific Active Suici mendy Thoughts (Past 1 Month) No 12/11/2024 8:00 PM EDT Srikanth Tomas RN 6. Suicidal Behavior (Lifetime) No 8:00 PM EDT Estella Tomas RN documented as of this encounter Plan of Treatment Not on file documented as of this encounter Visit Diagnoses Not on filedocumented in this encounter Additional Health Concerns Assessment Noted Time A Body Mass Index follow-up plan has been documented for the patient 12/15/2024 2:19 PM EDT documented as of this encounter Care Teams Clerk Cashier Relationship Specialty Start Date End Date Starr Fulton PA [address] [place] [address] [place] [address] PCP - General 12/09/24 documented as of this encounter
--- OUTSIDE RECORDS SUMMARY | 2025-01-07 08:55 | XMS_ITS | Encounter Summary ---
Author Organization Healthcare Address [address] [place] [address] Care Team Providers Care Continuous Pickling Line Pickler Helper Name Role Phone Starr Fulton Primary Care Provider [phone] Encounter Details Date Type Department Care Team (Latest Contact Info) Description 12/09/2024 Travel Social History Tobacco Use Types Packs/Day [...] Date of Assessment Author No Risk Indicated 12/09/2024 7:10 PM EDT Isabel Zapata RN * Question Answer Date of Assessment Author 1. Wish to be (Past 1 Month) No 025 7:10 PM EDT Isabel Zapata RN 2. Non-Specific Active Suici mendy Thoughts (Past 1 Month) No 12/09/2024 7:10 PM EDT Анна Zapata RN 6. Suicidal Behavior (Lifetime) No 7:10 PM EDT Isabel Zapata RN documented as of this encounter Plan of Treatment Not on file documented as of this encounter Visit Diagnoses Not on filedocumented in this encounter Additional Health Concerns Assessment Noted Time A Body Mass Index follow-up plan has been documented for the patient 12/15/2024 2:19 PM EDT documented as of this encounter Care Teams Continuous Pickling Line Pickler Helper Relationship Specialty Start Date End Date Starr Fulton PA [address] [place] [address] [place] [address] PCP - General 12/09/24 documented as of this encounter
--- OUTSIDE RECORDS SUMMARY | 2025-01-07 08:55 | XMS_ITS | Patient Health Record ---
Author Organization [facility] Address [address] [place] [id number] Care Team Providers Care Lunch Truck Operator Name Role Phone Geoffrey Cantu Primary Care Provider KennyStarr villanueva Unavailable [phone] Allergies No Known Allergies Results Component Value Reference Range Notes H-Glycohemoglobin A1C Reviewed date:08/05/2024 09:43:55 AM Interpretation:5.2 Performing Lab: Notes/Report: HGBA1C 5.2 4.0-6.0 % < 6% Non-Diabetic Level < 7% Controlled Diabetic Level > 8% Poorly Controlled Diabetic Level H-CMP Reviewed date:08/05/2024 09:43:55 AM Interpretation:Glu 108, [...] AGRATIO 2.2 1.1-1.8 ALP 61 38-126 U/L H-Lipid Panel Reviewed date:08/05/2024 09:43:55 AM Interpretation:DLDL [...] Sufficient 30-100 ng/mL Potential Toxicity >100 ng/mL H-CBC Reviewed date:08/05/2024 09:43:55 AM Interpretation: Normal [...] 0.1 0-0.2 K/mm3 NRBC# 0 H-TSH Reviewed date:08/05/2024 09:43:55 AM Interpretation:0.96 Performing Lab: Notes/Report: TSH 0.96 0.465-4.68 uIU/mL H-TSH Reviewed date:08/26/2024 11:25:44 AM Interpretation:see duplicate order Performing Lab: Notes/Report: see duplicate order H-CBC Reviewed date:08/26/2024 11:25:56 AM Interpretation:see duplicate order Performing Lab: Notes/Report: see duplicate order H-Lipid Panel Reviewed date:08/26/2024 11:26:09 AM Interpretation:see duplicate order Performing Lab: Notes/Report: see duplicate order H-CMP Reviewed date:08/26/2024 11:26:23 AM Interpretation:see duplicate order Performing Lab: Notes/Report: see duplicate order H-Glycohemoglobin A1C Reviewed date:08/26/2024 11:26:35 AM Interpretation:see duplicate order Performing Lab: Notes/Report: see duplicate order H-Vitamin D 1,25 Reviewed date:08/26/2024 11:26:49 AM Interpretation:see duplicate order Performing Lab: Notes/Report: see duplicate order CT Scan : Neck, soft tissue, without contrast Reviewed date:09/20/2024 11:32:54 PM Interpretation: Performing Lab: Notes/Report: Medications Medication SIG [...] 3 Sensor - as directed 12/22/2024 Active Dexcom G7 Sensor - as directed E11.65 05/03/2024 Active Dexcom G7 Insurance Account Specialist - USE DIRECTED Active Chlorthalidone 25 MG 1 tablet in the mor pippa with food Orally once daily; Duration: 90 days Active Lisinopril 5 MG 1 tablet Orally Once a day; Duration: 90 days Active Meclizine HCl 25 MG 1 tab Orally 3 times a day, prn Active Vitamin D3 50 MCG (2000 UT) 1 tab(s) ora lly once a day 12/03/2018 Active Cephalexin 500 MG 1 tablet Orally Two times a day; Duration: 10 day(s) 01/22/2024 Active Immunizations Vaccine Route Administration Date Status Comme nts Tetanus Tdap-Adacel (over 7yrs) IM Intramuscular 05/24/2020 Administered COVID 19 Moderna Unknown 03/31/2020 Administered COVID 19 Moderna Unknown 05/02/2020 Administered Problems Problem Type SNOMED Code ICD Code Onset Dates Problem Status W/U Status Risk Notes Problem Essential hypertension (86889616) Essential (primary) hypertension (I10) Active confirmed Problem Vitamin D deficiency (99553817) Vitamin D deficiency (E55.9) Active confirmed Problem Essential hypertension (38209910) Essential hypertension (I10) Active confirmed Problem Vitamin B12 deficiency (non anemic) (79136589) Vitamin B 12 deficiency (E53.8) Active confirmed Problem Sciatica (75422486) Lumbago with sciatica, right side (M54.41) Active confirmed Problem Chronic pain (42308274) Other chronic pain (G89.29) Active confirmed Problem Disorder of prostate (13980062) Benign prostatic disease (N42.9) Active confirmed Problem Acquired hypothyroidism (989991545) Acquired hypothyroidism (E03.9) Active confirmed Problem Hyperlipidaemia (92635219) Hyperlipidemia, unspecified hyperlipidemia type (E78.5) Active confirmed Problem Hyperglycemia due to type 2 diabetes mellitus (689111014027415) Type 2 diabetes mellitus with hyperglycemia, without long-term current use of insulin (E11.65) Active confirmed Problem Tobacco use (830578227) Tobacco use disorder (F17.200) Active confirmed Problem Postconcussion syndrome (99603188) Post concussive syndrome (F07.81) Active confirmed Vital Signs Heart Rate 66 /min 12/31/2024 Blood pressure diastolic 80 mm Hg 12/31/2024 Height 73 in 12/31/2024 Blood pressure systolic 130 mm Hg 12/31/2024 Weight 153.8 lbs 12/31/2024 BMI 20.29 kg/m2 12/31/2024 Encounters Encounter Location Date Provider Diagnosis [facility] [address] [place], [place] [id number] 01/22/2024 Starr Crowdy Infection of toenail L03.039 [facility] [address] [place], [place] [id number] 03/03/2024 Starr Crowdy Essential hypertensi on I10 and Symptomatic hypotension I95.9 [facility] [address] [place] [id number] 08/18/2024 Starr Crowdy Essential hypertensi on I10 ; Type 2 diabetes mellitus with hyperglycemia, without long-term current use of insulin E11.65 ; Vitamin D deficiency E55.9 ; Vitamin B 12 deficiency E53.8 ; Hyperlipidemia, unspecified hyperlipidemia type E78.5 ; Acquired hypothyroidism E03.9 ; Polyarthralgia M25.50 ; Cervical lymphadenopathy R59.0 and Body mass index (BMI) of 19.0 to 19.9 in adult Z68.1 [facility] [address] [place], [place] [id number] 12/31/2024 Starr Donaldo Pneumothorax, right J93.9 ; Closed fracture of multiple ribs of right side with routine healing, subsequent encounter S22.41XD ; Post concussive syndrome F07.81 and Dizziness R42 [facility] [address] [id number] 01/27/2024 Geoffrey Cantu Type 2 diabetes ericka itus with hyperglycemia, without long-term current use of insulin E11.65 [facility] [address] [id number] 01/28/2024 Geoffrey Cantu [facility] [address] [id number] 03/12/2024 Geoffrey Cantu [facility] [address] [id number] 04/23/2024 Geoffrey Cantu Type 2 diabetes ericka itus with hyperglycemia, without long-term current use of insulin E11.65 [facility] [address] [id number] 06/30/2024 Starr Kennydy Essential hypertensi on I10 ; Type 2 diabetes mellitus with hyperglycemia, without long-term current use of insulin E11.65 ; Hyperlipidemia, unspecified hyperlipidemia type E78.5 ; Vitamin B 12 deficiency E53.8 ; Vitamin D deficiency E55.9 and Acquired hypothyroidism E03.9 [facility] [address] [place], [place] [id number] 07/02/2024 Geoffrey Cantu [facility] [address] [place], [place] [id number] 08/05/2024 Strar Fulton [facility] [address] [place], [place] [id number] 08/11/2024 Geoffrey Cantu [facility] [address] [place], [place] [id number] 09/20/2024 Starr Fulton [facility] [address] [place], [place] [id number] 12/09/2024 Starr Fulton Essential hypertensi on I10 ; Type 2 diabetes mellitus with hyperglycemia, without long-term current use of insulin E11.65 ; Hyperlipidemia, unspecified hyperlipidemia type E78.5 and Vitamin D deficiency E55.9 [facility] [address] [facility] [address] [place], [place] [id number] 12/20/2024 Starr Fulton [facility] [address] [facility] [address] [place], [place] [id number] 12/22/2024 Geoffrey Cantu Assessments Encounter Date Diagnosis (ICD Code) Assessment Notes Treatment Notes Treatment Clinical Notes Section Notes 01/22/2024 Infection of toenail (ICD-10 - L03.039) Will keep clean and covered when out. Can leave dressing off when at home. 01/27/2024 Type 2 diabetes mellitus with hyperglycemia, without long-term current use of insulin (ICD-10 - E11.65) 03/03/2024 Essential hypertension (ICD-10 - I10) Patient has lost weight. Will stop the chlorthalidone and monitor BP for the next week and call with readings. 03/03/2024 Symptomatic hypotension (ICD-10 - I95.9) 04/23/2024 Type 2 diabetes mellitus with hyperglycemia, without long-term current use of insulin (ICD-10 - E11.65) 06/30/2024 Essential hypertension (ICD-10 - I10) 08/18/2024 Essential hypertension (ICD-10 - I10) 12/09/2024 Essential hypertension (ICD-10 - I10) 12/31/2024 Closed fracture of multiple ribs of right side with routine healing, subsequent encounter (ICD-10 - S22.41XD) Will repeat images of the spine and ribs in 3 weeks. His last imaging was 1 week ago. He was released by . 12/31/2024 Pneumothorax, right (ICD-10 - J93.9) 12/31/2024 Post concussive syndrome (ICD-10 - F07.81) Continue mental and physical rest until dizziness and headaches resolve. 12/09/2024 Type 2 diabetes mellitus with hyperglycemia, without long-term current use of insulin (ICD-10 - E11.65) 06/30/2024 Type 2 diabetes mellitus with hyperglycemia, without long-term current use of insulin (ICD-10 - E11.65) 08/18/2024 Type 2 diabetes mellitus with hyperglycemia, without long-term current use of insulin (ICD-10 - E11.65) 06/30/2024 Hyperlipidemia, unspecified hyperlipidemia type (ICD-10 - E78.5) 08/18/2024 Vitamin D deficiency (ICD-10 - E55.9) 12/09/2024 Hyperlipidemia, unspecified hyperlipidemia type (ICD-10 - E78.5) 12/31/2024 Dizziness (ICD-10 - R42) 06/30/2024 Vitamin B 12 deficiency (ICD-10 - E53.8) 12/09/2024 Vitamin D deficiency (ICD-10 - E55.9) 08/18/2024 Vitamin B 12 deficiency (ICD-10 - E53.8) 06/30/2024 Vitamin D deficiency (ICD-10 - E55.9) 08/18/2024 Hyperlipidemia, unspecified hyperlipidemia type (ICD-10 - E78.5) 08/18/2024 Acquired hypothyroidism (ICD-10 - E03.9) 06/30/2024 Acquired hypothyroidism (ICD-10 - E03.9) 08/18/2024 Polyarthralgia [...] adult (ICD-10 - Z68.1) Plan Of Treatment Pending Test Test Name Order Date H-TSH 05/09/2023 H-CBC 12/09/2024 H-VITAMIN D 12/09/2024 H-VITAMIN D 05/09/2023 H-VITB12 05/09/2023 H-Lipid Panel 05/09/2023 H-Lipid Panel 12/09/2024 H-CMP 12/09/2024 H-CMP 05/09/2023 H-Glycohemoglobin A1C 05/09/2023 H-Glycohemoglobin A1C 12/09/2024 H-T4 free 05/09/2023 H-PSA 05/09/2023 Next Appt Details Provider Name:Starr Isabel Kennymary ernestina, 01/21/2025 09:15:00 AM, [address] [facility] [address], [place], [place], [id number], Insurance Providers Payer Name Payer Address Payer Phone Subscriber Number Group Number Insured Name Patient Relationship to Insured Coverage Start Date Coverage End Date [employer] [address] [place] [address] [id number] ELVIA WHEELER Self - patient is the insured [facility] [address] [address] [place] [address] [id number] ELVIA WHEELER Self - patient is the insured Medical (General) History Medical History History ICD Code Hypothyroidism Hypertension Staph aureus external otitis, Rx Septra Normal CT abdomen including adrenals and kidneys, 08/24/2008 Surgical History Surgery Date(Month/Year) Partial Thyroidectomy 1989 LT Ear Hospitalization History Reason Date(Month/Year) Norovirus- [facility] 05/2018 RT Shoulder Pain/Low Potassium Level- [facility] 09/19/2016 Shoulder- [facility] ER 10/2014 Hypertension, Dizziness-[facility] 08/27/08-12/30
--- OUTSIDE RECORDS SUMMARY | 2025-01-07 08:55 | XMS_ITS | Encounter Summary ---
Author Organization Healthcare Address [address] [place] [address] Care Team Providers Care Material Handling Warehouse Supervisor Name Role Phone Starr Fulton Primary Care Provider [phone] Encounter Details Date Type Department Care Team (Late st Contact Info) Description 12/09/2024 Orders Only External Location [address] [place] [address] Richard Yang PA [address] [place] [address] Social History Tobacco Use Types [...] any time in the past 12 m [facility], were you homeless or living in a mcfp (including now)? No 12/14/2024 [facility] Utilities Answer Date Recorded In the [...] Diagnosis Comments CT NEURO OUTSIDE IMAGES 12/09/2024 2:22 PM EDT documented in this encounter Results * CT NEURO OUTSIDE IMAGES (12/09/2024 2:22 PM EDT) Anatomical Region Laterality Modality Computed Tomogra phy 12/09/2024 2:22 PM EDT Richard JETER IMCharmaine CT PROCEDURES Edited Resul t - Final documented in this encounter Visit Diagnoses Not on filedocumented in this encounter Additional Health Concerns Assessment Noted Time A Body Mass Index follow-up plan has been documented for the patient 12/15/2024 2:19 PM EDT documented as of this encounter Care Teams Material Handling Warehouse Supervisor Relationship Specialty Start Date End Date Starr Fulton PA [address] [place] [address] [address] [place] [address] PCP - General 12/09/24 documented as of this encounter
--- OUTSIDE RECORDS SUMMARY | 2025-01-07 08:55 | XMS_ITS | Encounter Summary ---
Author Organization [facility] Address [address] [place] [address] Care Team Providers Care Toy Painter Name Role Phone Starr Fulton Primary Care Provider [phone] Encounter Details Date Type Department Care Team (Latest Contact Info) Description 12/14/2024 Travel Social History Tobacco Use Types Packs/Day [...] any time in the past 12 m [facility], were you homeless or living in a fci (including now)? No 12/14/2024 [facility] Utilities Answer Date Recorded In the past [...] Mi RN documented as of this encounter Plan of Treatment Not on file documented as of this encounter Visit Diagnoses Not on filedocumented in this encounter Additional Health Concerns Assessment Noted Time A Body Mass Index follow-up plan has been documented for the patient 12/15/2024 2:19 PM EDT documented as of this encounter Care Teams Toy Painter Relationship Specialty Start Date End Date Starr Fulton PA [address] [place] [address] PCP - General 12/09/24 documented as of this encounter
--- OUTSIDE RECORDS SUMMARY | 2025-01-07 08:56 | XMS_ITS | Encounter Summary ---
Author Organization Healthcare Address [address] [place] [address] Care Team Providers Care Accounts Payable Lead Name Role Phone Starr Fulton Primary Care Provider [phone] Encounter Details Date Type Department Care Team (Late st Contact Info) Description 12/09/2024 Orders Only External Location [address] [place] [address] Richard Yang PA [address] [place] [address] Social History Tobacco Use Types [...] time in the past 12 m [facility], were you homeless or living in a snf (including now)? No 12/14/2024 [facility] Utilities Answer Date Recorded In the [...] Author No Risk Indicated 12/13/2024 8:00 AM Siomara Wolfe RN * Question Answer Date of Assessment [...] Diagnosis Comments CT NEURO OUTSIDE IMAGES 12/09/2024 2:29 PM EDT documented in this encounter Results * CT NEURO OUTSIDE IMAGES (12/09/2024 2:29 PM EDT) Anatomical Region Laterality Modality Computed Tomogra phy 12/09/2024 2:29 PM EDT Richard JETER IMCharmaine CT PROCEDURES Edited Resul t - Final documented in this encounter Visit Diagnoses Not on filedocumented in this encounter Additional Health Concerns Assessment Noted Time A Body Mass Index follow-up plan has been documented for the patient 12/15/2024 2:19 PM EDT documented as of this encounter Care Teams Accounts Payable Lead Relationship Specialty Start Date End Date Starr Fulton PA [address] [place] [address] [address] [place] [address] PCP - General 12/09/24 documented as of this encounter
--- OUTSIDE RECORDS SUMMARY | 2025-01-07 08:56 | XMS_ITS | Encounter Summary ---
Author Organization Healthcare Address [address] [place] [address] Care Team Providers Care Residential Real Estate Agent Name Role Phone Starr Fulton Primary Care Provider [phone] Encounter Details Date Type Department Care Team (Late st Contact Info) Description 12/09/2024 Orders Only External Location [address] [place] [address] Richard Yang PA [address] [place] [address] Social History Tobacco Use Types [...] any time in the past [address] [facility], were you homeless or living in a penitentiary (including now)? No 12/14/2024 [facility] Utilities [...] Name Priority Date/Time Associated Diagnosis Comments CT THORACIC OUTSIDE IMAGES 12/09/2024 2:33 PM EDT documented in this encounter Results * CT THORACIC OUTSIDE IMAGES (12/09/2024 2:33 PM EDT) Anatomical Region Laterality Modality Computed Tomogra phy 12/09/2024 2:33 PM EDT Richard JETER IMCharmaine CT PROCEDURES Edited Resul t - Final documented in this encounter Visit Diagnoses Not on filedocumented in this encounter Additional Health Concerns Assessment Noted Time A Body Mass Index follow-up plan has been documented for the patient 12/15/2024 2:19 PM EDT documented as of this encounter Care Teams Residential Real Estate Agent Relationship Specialty Start Date End Date Starr Fulton PA [address] [place] [address] [address] [place] [address] PCP - General 12/09/24 documented as of this encounter
--- OUTSIDE RECORDS SUMMARY | 2025-01-07 08:57 | XMS_ITS | Encounter Summary ---
Author Organization Healthcare Address [address] [place] [address] Care Team Providers Care Crepe Sole Scourer Name Role Phone Starr Fulton Primary Care Provider [phone] Encounter Details Date Type Department Care Team (Late st Contact Info) Description 12/09/2024 Orders Only External Location [address] [place] [address] Richard Yang PA [address] [place] [address] Social History Tobacco Use Types [...] any time in the past 12 m [facility], were you homeless or living in a skilled nursing (including now)? No 12/14/2024 [facility] Utilities Answer Date Recorded In the [...] documented as of this encounter Care Teams Crepe Sole Scourer Relationship Specialty Start Date End Date Starr Fulton PA [address] [place] [address] [address] [place] [address] PCP - General 12/09/24 documented as of this encounter
--- OUTSIDE RECORDS SUMMARY | 2025-01-07 08:57 | XMS_ITS | Encounter Summary ---
Author Organization Healthcare Address [address] [place] [address] Care Team Providers Care Store Administrator Name Role Phone Starr Fulton Primary Care Provider [phone] Encounter Details Date Type Department Care Team (Late st Contact Info) Description 12/21/2024 Telephone [facility] [address] [place] [address] Kam Santiago MD [address] [place] [address] Social History Tobacco Use Types Packs/Day Years [...] any time in the past 12 m [facility], were you homeless or living in a half-way (including now)? No 12/14/2024 [facility] Utilities Answer Date Recorded In [...] on file documented as of this encounter Miscellaneous Notes * Telephone Encounter - Miguel Darby - 12/21/2024 9:50 AM EDT REASON FOR CALL: Appt details for 12/24 w/Gen Surg KIRSTEN RESULT: Appt details/remind X-Ray prior to appt - confirmed appt documented in this encounter Plan of Treatment Not on file documented as of this encounter Visit Diagnoses Not on filedocumented in this encounter Additional Health Concerns Assessment Noted Time A Body Mass Index follow-up plan has been documented for the patient 12/15/2024 2:19 PM EDT documented as of this encounter Care Teams Store Administrator Relationship Specialty Start Date End Date Starr Fulton PA [facility] [address] [place] [address] PCP - General 12/09/24 documented as of this encounter
--- OUTSIDE RECORDS SUMMARY | 2025-01-07 08:57 | XMS_ITS | Encounter Summary ---
Author Organization Healthcare Address [address] [place] [address] Care Team Providers Care Mining Captain Name Role Phone Starr Fulton Primary Care Provider [phone] Encounter Details Date Type Department Care Team (Late st Contact Info) Description 12/09/2024 Orders Only External Location [address] [place] [address] Richard Yang PA [address] [place] [place] [address] Social History Tobacco Use Types [...] any time in the past 12 m [facility], were you homeless or living in a fpc (including now)? No 12/14/2024 [facility] Utilities Answer Date Recorded In the past [...] Name Priority Date/Time Associated Diagnosis Comments XR OUTSIDE IMAGES 12/09/2024 2:38 PM EDT documented in this encounter Results * XR OUTSIDE IMAGES (12/09/2024 2:38 PM EDT) Anatomical Region Laterality Modality Radiographic Edith ging 12/09/2024 2:38 PM EDT Richard Trey PA IMG XR PROCEDURES Edited Resul t - Final documented in this encounter Visit Diagnoses Not on filedocumented in this encounter Additional Health Concerns Assessment Noted Time A Body Mass Index follow-up plan has been documented for the patient 12/15/2024 2:19 PM EDT documented as of this encounter Care Teams Mining Captain Relationship Specialty Start Date End Date Starr Fulton PA [facility] [address] [place] [address] PCP - General 12/09/24 documented as of this encounter
--- OUTSIDE RECORDS SUMMARY | 2025-01-07 08:57 | XMS_ITS | Encounter Summary ---
Author Organization Healthcare Address [address] [place] [address] Care Team Providers Care Document Management Technician Name Role Phone Starr Fulton Primary Care Provider [phone] Encounter Details Date Type Department Care Team (Late st Contact Info) Description 12/09/2024 Orders Only External Location [address] [place] [address] Richard Yang PA [address] [place] [address] Social History Tobacco Use Types [...] any time in the past 12 m [facility], were you homeless or living in a prison (including now)? No 12/14/2024 [facility] Utilities Answer Date Recorded In the past [...] Author No Risk Indicated 12/13/2024 8:00 AM EDT Siomara Licona RN * Question Answer Date of Assessment Author 1. Wish to be (Past 1 Month) No 025 8:00 AM EDT Siomara Licona RN 2. Non-Specific Active Suici mendy Thoughts (Past 1 Month) No 12/13/2024 8:00 AM EDAlice Morris RN 6. Suicidal Behavior (Lifetime) No 8:00 AM EDT Siomara Licona RN documented as of this encounter Plan of Treatment Not on file documented as of this encounter Procedures Procedure Name Priority Date/Time Associated Diagnosis Comments XR MSK OUTSIDE IMAGES 12/09/2024 2:38 PM EDT documented in this encounter Results * XR MSK OUTSIDE IMAGES (12/09/2024 2:38 PM EDT) Anatomical Region Laterality Modality Radiographic Edith ging 12/09/2024 2:38 PM EDT Richard JETER IMCharmaine XR PROCEDURES Edited Resul t - Final documented in this encounter Visit Diagnoses Not on filedocumented in this encounter Additional Health Concerns Assessment Noted Time A Body Mass Index follow-up plan has been documented for the patient 12/15/2024 2:19 PM EDT documented as of this encounter Care Teams Document Management Technician Relationship Specialty Start Date End Date Starr Fulton PA [address] [place] [address] [address] [place] [address] PCP - General 12/09/24 documented as of this encounter
--- OUTSIDE RECORDS SUMMARY | 2025-01-07 08:57 | XMS_ITS | Encounter Summary ---
Author Organization Healthcare Address [address] [place] [address] Care Team Providers Care Parts Counter Salesperson Name Role Phone Starr Fulton Primary Care Provider [phone] Encounter Details Date Type Department Care Team (Late st Contact Info) Description 12/09/2024 Orders Only External Location [address] [place] [address] Richard Yang PA [address] [place] [address] Social History Tobacco Use Types [...] any time in the past 12 m [facility], were you homeless or living in a longterm (including now)? No 12/14/2024 [facility] Utilities Answer Date Recorded In the past [...] documented as of this encounter Care Teams Parts Counter Salesperson Relationship Specialty Start Date End Date Starr Fulton PA [address] [place] [address] [address] [place] [address] PCP - General 12/09/24 documented as of this encounter
--- OUTSIDE RECORDS SUMMARY | 2025-01-07 08:57 | XMS_ITS | Encounter Summary ---
Author Organization Healthcare Address [address] [place] [address] Care Team Providers Care Machine Sand Mixer Name Role Phone Starr Fulton Primary Care Provider [phone] Encounter Details Date Type Department Care Team (Late st Contact Info) Description 12/09/2024 Orders Only External Location [address] [place] [address] Richard Yang PA [address] [place] [place] [address] Social History Tobacco Use Types [...] in the past 12 m [facility], were you homeless or living in a fpc (including now)? No 12/14/2024 [facility] Utilities Answer Date Recorded In the [...] documented as of this encounter Care Teams Machine Sand Mixer Relationship Specialty Start Date End Date Starr Fulton PA [address] [place] [address] [address] [place] [address] PCP - General 12/09/24 documented as of this encounter
--- OUTSIDE RECORDS SUMMARY | 2025-01-07 08:57 | XMS_ITS | Encounter Summary ---
Author Organization Healthcare Address [address] [place] [address] Care Team Providers Care Bench Carpenter Name Role Phone Starr Fulton Primary Care Provider [phone] Encounter Details Date Type Department Care Team (Late st Contact Info) Description 12/21/2024 Telephone [facility] [address], [address] [place] [address] Stephy Souza Social History Tobacco Use Types Packs/Day Years [...] any time in the past 12 m [facility], were you homeless or living in a chcf (including now)? No 12/14/2024 [facility] Utilities Answer Date Recorded In the [...] encounter Miscellaneous Notes * Telephone Encounter - Stephy Souza - 12/21/2024 10:38 AM EDT Called and talked with to give her directions to [place]. Clinic parking structure. Requested arrival time of 9 or 9:15, to obtain CXR. verbalized agreement to the plan; documented in this encounter Plan of Treatment Not on file documented as of this encounter Visit Diagnoses Not on filedocumented in this encounter Additional Health Concerns Assessment Noted Time A Body Mass Index follow-up plan has been documented for the patient 12/15/2024 2:19 PM EDT documented as of this encounter Care Teams Bench Carpenter Relationship Specialty Start Date End Date Starr Fulton PA [address] [place] [address] PCP - General 12/09/24 documented as of this encounter
--- OUTSIDE RECORDS SUMMARY | 2025-01-07 08:58 | XMS_ITS | Encounter Summary ---
Author Organization [facility] Address [address] [place] [address] Care Team Providers Care Frame Stylist Name Role Phone Starr Fulton Primary Care Provider [phone] Encounter Details Date Type Department Care Team (Latest Contact Info) Description 12/24/2024 Travel Social History Tobacco Use Types Packs/Day [...] any time in the past 12 m [facility], were you homeless or living in a custodial (including now)? No 12/14/2024 [facility] Utilities Answer Date Recorded In the [...] of Assessment Author 0 12/24/2024 9:00 AM KISHAT Kim Montelongo * Question Answer Date of Assessment Author Q1: How often do you have a drink containing alcohol? Never 12/24/2024 9:00 AM Chloe Ambrosio Q2: How many drinks containing alcohol do you have on a typical day when you are drinking? Patient does not drink 12/24/2024 9:00 AM Kim Ambrosio Q3: How often do you have six or more drinks on one occasion? Never 12/24/2024 9:00 AM Chloe Ambrosio documented as of this encounter Plan of Treatment Not on file documented as of this encounter Visit Diagnoses Not on filedocumented in this encounter Additional Health Concerns Assessment Noted Time A Body Mass Index follow-up plan has been documented for the patient 12/24/2024 9:42 AM EDT documented as of this encounter Care Teams Frame Stylist Relationship Specialty Start Date End Date Starr Fulton PA [address] [place] [address] PCP - General 12/09/24 documented as of this encounter
--- OUTSIDE RECORDS SUMMARY | 2025-01-07 08:58 | XMS_ITS | Encounter Summary ---
Author Organization [facility] Address [address] [place] [address] Care Team Providers Care Jewel Stripper Name Role Phone Starr Fulton Primary Care Provider Encounter Details Date Type Department Care Team (Latest Contact Info) Description 12/15/2024 Travel Social History Tobacco Use Types Packs/Day [...] time in the past 12 m [facility], were you homeless or living in a long term (including now)? No 12/14/2024 [facility] Utilities Answer Date Recorded In the [...] documented as of this encounter Care Teams Jewel Stripper Relationship Specialty Start Date End Date Starr Fulton PA [address] [place] [address] [address] [place] [address] PCP - General 12/09/24 documented as of this encounter
--- OUTSIDE RECORDS SUMMARY | 2025-01-07 08:58 | XMS_ITS | Clinical Summary ---
Author Organization [facility] Address [address] [place] [address] Care Team Providers Care Spool Sander Name Role Phone Starr Fulton Primary Care Provider [phone] Allergies No known active allergies Medications chlorthalidone (Hygroton) 25 MG tablet Take 1 tablet by mouth daily. Active levothyroxine (Synthroid, Levoxyl) 75 MCG tablet Take 1 tablet by mouth daily before breakfast. Active lisinopril 5 MG tablet Take 1 tablet by mouth daily. Active meloxicam (Mobic) 15 MG tablet Take 1 tablet by mouth daily. Active Mounjaro 2.5 MG/0.5ML solution auto-injector solution pen-injector Inject 0.5 mL under the skin 1 time per week. Active lidocaine (Lidoderm) 5 % patch Apply 2 patches topically 1 (one) time each day at the same time over 12 hours. Remove & discard patch within 12 hours or as directed by . 60 patch 12/17/19 25 025 Active Additional Information Patient not taking.Reported on 12/24/2024 methocarbamol (Robaxin) 500 MG tablet Take 1 tablet by mouth every 8 hours. 42 tablet 12/16/19 25 Active Additional Information Patient not taking.Reported on 12/24/2024 gabapentin (Neurontin) 100 MG capsule Take 2 capsules by mouth 3 times a day for 3 days, THEN 1 capsule 3 times a day for 3 days, THEN 1 capsule 2 times a day for 3 days. 33 capsule 12/16/19 25 Active acetaminophen (Tylenol) 500 MG tablet Take 2 tablets by mouth every 6 hours for 7 days. 56 tablet 12/16/19 25 025 ibuprofen 600 MG tablet Take 1 tablet by mouth every 6 hours for 7 days. 28 tablet 12/16/19 25 025 Additional Information Patient not taking.Reported on 12/24/2024 meclizine (Antivert) 25 MG tablet Take 1 tablet by mouth 3 times a day as needed for dizziness for up to 14 days. 42 tablet 12/16/19 25 025 ondansetron ODT (Zofran-ODT) 4 MG disintegrating tablet Dissolve 1 tablet on the tongue every 6 hours as needed for nausea or vomiting for up to 5 days. 20 tablet 12/16/19 25 025 Additional Information Patient not taking.Reported on 12/24/2024 polyethylene glycol (Miralax) 17 g packet Take 17 g by mouth daily for 5 days. 5 packet 12/17/19 25 025 Additional Information Patient not taking.Reported on 12/24/2024 senna-docusate (Rose-Colace) 8.6-50 MG tablet Take 1 tablet by mouth 2 times a day for 5 days. 10 tablet 12/16/19 25 025 Additional Information Patient not taking.Reported on 12/24/2024 oxyCODONE (Roxicodone) 5 MG immediate release tablet Take 1 tablet by mouth every 6 hours as needed for severe pain for up to 3 days. 12 tablet 12/16/19 25 025 Active Problems Problem Noted Date Diagnosed Date Fall from [facility], initial encounter 12/10/2024 Assessment & Plan (12/14/2024 2:43 PM EDT): t2 Tertiary 12/11 Assessment & Plan (12/13/2024 2:33 PM EDT): Sgt2 Tertiary 12/11 Assessment & Plan (12/12/2024 4:31 PM EDT): Sgt2 Tertiary 12/11 Assessment & Plan (12/11/2024 12:21 PM EDT): Sgt2 Tertiary 12/11 Assessment & Plan (12/10/2024 10:58 AM EDT): Sgt admit tertiary Traumatic pneumothorax 12/10/2024 Assessment & Plan (12/14/2024 2:43 PM EDT): Currently stable, no chest tube at this time O2 as needed, pulmonary hygiene, IS, PAP/PEP therapy/ breathing treatments as needed 12/11: Right anterior chest tube placed by SGT 12/13: Water seal trial 12/14: R chest tube removed Assessment & Plan (12/13/2024 2:33 PM EDT): Currently stable, no chest tube at this time O2 as needed, pulmonary hygiene, IS, PAP/PEP therapy/ breathing treatments as needed 12/11: Right anterior chest tube placed by SGT 12/13: Water seal trial Assessment & Plan (12/12/2024 4:31 PM EDT): Currently stable, no chest tube at this time O2 as needed, pulmonary hygiene, IS, PAP/PEP therapy/ breathing treatments as needed 12/11: Chest CT ordered 12/12 chest tube placed to suction Assessment & Plan (12/11/2024 12:21 PM EDT): Currently stable, no chest tube at this time O2 as needed, pulmonary hygiene, IS, PAP/PEP therapy/ breathing treatments as needed 12/11: Chest CT ordered Assessment & Plan (12/10/2024 10:58 AM EDT): Currently stable Consider chest tube placement given size- assess this morning and see Closed fracture of rib 12/10/2024 Assessment & Plan (12/14/2024 2:43 PM EDT): R 6-12 fxs Pulm hygiene Assessment & Plan (12/13/2024 2:33 PM EDT): R 6-12 fxs Pulm hygiene Assessment & Plan (12/12/2024 4:31 PM EDT): R 6-12 fxs Pulm hygiene Assessment & Plan (12/11/2024 12:21 PM EDT): R 6-12 fxs Pulm hygiene Assessment & Plan (12/10/2024 10:58 AM EDT): R 6-12 fxs Pulm hygiene Leucocytosis 12/10/2024 Assessment & Plan (12/14/2024 2:43 PM EDT): Likely reactive 20.12 on admission Assessment & Plan (12/13/2024 2:33 PM EDT): Likely reactive 20.12 on admission Assessment & Plan (12/12/2024 4:31 PM EDT): Likely reactive 20.12 on admission Assessment & Plan (12/11/2024 12:21 PM EDT): Likely reactive 20.12 on admission Assessment & Plan (12/10/2024 10:58 AM EDT): 20.12 on admission Other specified hypothyroidism 12/10/2024 Overview (12/10/2024): Continue home levothyroxine Assessment & Plan (12/14/2024 2:43 PM EDT): Home med reordered Assessment & Plan (12/13/2024 2:33 PM EDT): Home med reordered Assessment & Plan (12/12/2024 4:31 PM EDT): Home med reordered Assessment & Plan (12/11/2024 12:21 PM EDT): Home med reordered Assessment & Plan (12/10/2024 10:58 AM EDT): Home med reordered Hypertension 12/10/2024 Assessment & Plan (12/14/2024 2:43 PM EDT): Home meds as able Assessment & Plan (12/13/2024 2:33 PM EDT): Home meds as able Assessment & Plan (12/12/2024 4:31 PM EDT): Home meds as able Assessment & Plan (12/11/2024 12:21 PM EDT): Home meds as able Assessment & Plan (12/10/2024 10:58 AM EDT): Home meds as able Closed fracture of spinous process of thoracic v ertebra 12/10/2024 Assessment & Plan (12/14/2024 2:43 PM EDT): CT of thoracic and lumbar spine shows a spinous process fracture of T9 MMPM PT/OT Assessment & Plan (12/13/2024 2:33 PM EDT): CT of thoracic and lumbar spine shows a spinous process fracture of T9 MMPM PT/OT Assessment & Plan (12/12/2024 4:31 PM EDT): CT of thoracic and lumbar spine shows a spinous process fracture of T9 MMPM PT/OT Assessment & Plan (12/11/2024 12:21 PM EDT): CT of thoracic and lumbar spine shows a spinous process fracture of T9 MMPM PT/OT Assessment & Plan (12/10/2024 10:58 AM EDT): Monitor; no ttp on exam Encounters Date Type Department Care Team Description 12/24/2024 9:30 AM EDT Office Visit [facility] General Surgery [address] [place] [address] Lisette Mo PA Fall from ladder, subsequent encounter (Primary Dx); Traumatic pneumothorax, subsequent encounter; Closed fracture of multiple ribs with routine healing, unspecified laterality, subsequent encounter; Closed fracture of spinous process of thoracic vertebra with routine healing, subsequent encounter; Concussion with unknown loss of consciousness status, subsequent encounter 12/24/2024 8:35 AM EDT - 12/24/2024 11:59 PM EDT Hospital Encounter [facility] Radiology [address] [place] [address] Traumatic pneumothorax, initial encounter; Closed fracture of multiple ribs of right side, initial encounter Discharge Disposition: Home or Self Care 12/24/2024 Travel 12/21/2024 Telephone [facility] General Surgery [address] [place] [address] Stephy Souza 12/21/2024 Telephone [facility] General Surgery [address], [address] [place] [phone] Kam Santiago MD 12/15/2024 Travel 12/14/2024 Travel 12/13/2024 Travel 12/11/2024 Travel 12/10/2024 Travel 12/09/2024 4:40 PM EDT - 12/15/2024 3:06 PM EDT Hospital Encounter [facility] PAVA 9 T2 [facility] [address] [place] [phone] Jeovany Ludwig MD Chapman, Steven B, Lara Mendieta MD Griffen, Margaret M, MD Warriner, Zachary D, MD Pecoraro, Anthony R, MD Fall, initial encounter (Primary Dx); Traumatic pneumothorax, initial encounter; Closed fracture of multiple ribs of right side, initial encounter Discharge Disposition: Home or Self Care 12/09/2024 Travel 12/09/2024 Orders Only External Location [address] [place] [phone] Richard Yang PA 12/09/2024 Orders Only External Location [address] [place] [phone] Richard Yang PA 12/09/2024 Orders Only External Location [address] [place] [phone] Richard Yang PA 12/09/2024 Orders Only External Location [address] [place] [phone] Richard Yang PA 12/09/2024 Orders Only External Location [address] [place] [address] Richard Yang PA 12/09/2024 Orders Only External Location [address] [place] [address] Richard Yang PA 12/09/2024 Orders Only External Location [address] Richard Yang PA 12/09/2024 Orders Only External Location [address] Richard Yang PA 12/09/2024 Orders Only External Location [address] [place] [address] Richard Yang PA 12/09/2024 Orders Only External Location [address] [place] [address] Richard Yang PA from Last 3 Months Social History Tobacco Use Types Packs/Day Years [...] any time in the past 12 m [facility], were you homeless or living in a longterm (including now)? No 12/14/2024 [facility] Utilities Answer Date Recorded In the past 12 months has th e electric, gas, oil, or water company threatened to shut off services in your home? No 12/14/2024 Sex and Gender Information Value Date Recorded Sex Assigned at Not on file Legal Sex Male 2:49 PM EDT Gender Identity Not on file Sexual Orientation Not on file Last Filed Vital Signs Vital Sign Reading [...] Mass Index 19.74 12/24/2024 9:00 AM EDT Plan of Treatment Health Maintenance Due Date Last Done Comments [facility]-Depression Screening 1965 [facility]-/Child/Adol SDOH Screenings 1965 [facility]-Pneumococcal Vaccine: 50 + Years (1 of 2 - PCV) 06/16/1983 CT Colonography 2009 Colonoscopy 2009 FIT-DNA 2009 FIT 2009 FOBT 2009 Sigmoidoscopy 2009 [facility]-Colorectal Cancer Screening 2009 [facility]-Zoster Vaccines (1 of 2) 2014 [facility]-PHXIM-10 Vaccine (3 - Moderna risk series) 05/30/2020 05/02/2020, 03/31/2020 [facility]-RSV Vaccine: 60+ Years o r (1 - Risk 60-74 years 1-dose series) 2024 [facility]-Influenza Vaccine (#1) 2024 [facility]- SDOH Screenings 06/13/2025 [facility]-Adult SDOH Screenings 06/13/2025 12/14/2024 [facility]-DTaP,Tdap,and Td Vaccine s (2 - Td or Tdap) 05/24/2030 05/24/2020 [facility]-HIV Screening Completed 12/09/2024 [facility]-Hepatitis C Screening Completed 12/09/2024 HPV Vaccines Aged Out No longer eligi ble based on patient's age to complete this topic [facility]-HIB Vaccines Aged Out No longer e ligible based on patient's age to complete this topic [facility]-Hepatitis A Vaccines Aged Out No longer eligible based on patient's age to complete this topic [facility]-IPV Vaccines Aged Out No longer e ligible based on patient's age to complete this topic [facility]-Rotavirus Vaccines Aged Out No lo nger eligible based on patient's age to complete this topic Procedures Procedure Name Priority Date/Time Associated Diagnosis Comments XR CHEST 1 VIEW Routine 12/24/2024 8:42 AM EDT Traumatic pneumothorax, initial encounter Closed fracture of multiple ribs of right side, initial encounter XR CHEST 1 VIEW Routine 12/15/2024 7:17 [...] UNSOLICITED RESULTS Routine 12/13/2024 8:48 AM EDT HEMOGLOBIN A1C Add-On 12/13/2024 3:02 AM EDT EXTRA TUBE LIGHT GREEN TOP Routine 12/13/2024 3:02 AM EDT EXTRA TUBES Routine 12/13/2024 3:02 AM EDT CBC W/O DIFFERENTIAL Routine 12/13/2024 3:02 AM EDT XR CHEST 1 [...] 10:10 PM EDT Traumatic pneumothorax, initial encounter [place] PERQ DRAINAGE PLEURA INSERT CATH W/O IMAGING Routine 12/11/2024 10:10 PM EDT Traumatic pneumothorax, initial encounter POCT GLUCOSE METER UNSOLICITED RESULTS Routine 12/11/2024 5:[address] CHEST WO IV CONTRAST Routine 12/12/19 3:19 PM EDT POCT GLUCOSE METER UNSOLICITED RESULTS Routine 12/11/2024 11:35 AM EDT POCT GLUCOSE METER UNSOLICITED RESULTS Routine 12/11/2024 7:44 AM EDT MAGNESIUM, PLASMA Routine 12/11/2024 1:5 9 AM EDT PHOSPHORUS, PLASMA Routine 12/11/2024 1: 59 AM EDT CBC W/O DIFFERENTIAL Routine 12/11/2024 1:59 AM EDT BASIC METABOLIC PANEL, PLASMA Routine [...] / INR Routine 12/10/2024 4:12 AM EDT MAGNESIUM, PLASMA Routine 12/10/2024 4:1 2 AM EDT PHOSPHORUS, PLASMA Routine 12/10/2024 4: 12 AM EDT BASIC METABOLIC PANEL, PLASMA Routine 12/10/2024 4:12 AM EDT CBC W/O DIFFERENTIAL Routine 12/10/2024 4:12 AM EDT POCT GLUCOSE [...] ANTIBODY DIFFERENTIATION STAT 12/09/2024 6:12 PM EDT HEPATITIS C ANTIBODY - ED W/REFLEX TO HCV QUANT PCR STAT 12/09/2024 6:12 PM EDT TROPONIN T, HIGH SENSITIVITY, 0 HOUR, PLASMA, REFLEX TO 2 HOUR STAT 12/09/2024 6:12 PM EDT ANTI XA LEVEL UNFRACTIONATED HEPARIN STAT 12/09/2024 6:12 PM EDT PROTHROMBIN TIME(PT) / INR STAT 12/09/2024 6:12 PM EDT CBC WITH AUTO DIFFERENTIAL STAT 12/09/2024 6:12 PM EDT COMPREHENSIVE METABOLIC PANEL, PLASMA STAT 12/09/2024 6:12 PM EDT XR MSK OUTSIDE IMAGES 12/09/2024 2:38 PM EDT XR MSK OUTSIDE IMAGES 12/09/2024 2:38 PM EDT XR MSK OUTSIDE IMAGES 12/09/2024 2:38 PM EDT XR OUTSIDE IMAGES 12/09/2024 2:[address] THORACIC OUTSIDE IMAGES 12/09/2024 2:[address] THORACIC OUTSIDE IMAGES 12/09/2024 2:[address] NEURO OUTSIDE IMAGES 12/10/19 25 2:[address] NEURO OUTSIDE IMAGES 12/10/19 25 2:[address] NEURO OUTSIDE IMAGES 12/10/19 25 2:[address] NEURO OUTSIDE IMAGES 12/10/19 25 2:22 PM EDT from Last 3 Months Results * XR Chest 1 View (12/24/2024 8:42 AM EDT) Only the most recent of10 resultswithin the time period is included. Anatomical Region Laterality Modality Chest Digital Radiogra [...] JETER IMG XR PROCEDURES Final Result * (ABNORMAL) POCT glucose meter (12/14/2024 5:26 PM EDT) Only the most recent of19 resultswithin the time period is included. POCT Glucose 102(H) 74 - 99 mg/dL 12/14/2024 5:28 PM EDT [facility] Comment:Accuracy of a glucos e result [...] for testing. Comment 12/14/2024 5:28 PM EDT [facility] Emr Implementation Specialist ID Ivy Beard [id number] 5:28 PM EDT [facility]ARE [facility] Device ID [id number] 12/14/2024 5:28 PM EDT [facility] Specimen Type POC Capillary 12/14/2024 5:28 PM EDT [facility] Blood Capillary blood specimen / Unknown 12/14/2024 5:26 PM EDT 12/14/2024 5:28 PM EDT us Mynor Crews MD LAB POINT OF CARE TEST DOCKED DEVICE UNSOLICITED RESULTS Final Result Performing Organization Address City/[facility]/ZIP Co de Phone Number [facility]ALTHCARE [facility] [address] [place] [address] * Light Green Top (12/13/2024 3:02 AM EDT) Pathologist [facility] Extra Hold for add-ons 12/13/2024 8:02 AM EDT [facility] Comment:Auto resulted. Blood Venous blood specimen / Unknown 12/13/2024 3:02 AM EDT 12/13/2024 5:02 AM EDT us Karina Rodriguez MD LAB BLOOD ORDERABLES Final Result [facility] [address] [place] [address] * (ABNORMAL) CBC W/O Differential (12/13/2024 3:02 AM EDT) Only the most recent of3 resultswithin the time period is included. Pathologist [facility] WBC Count 12.54(H) 3.70 - 10.30 10*3/uL LAB HEMATOLOGY METHOD 12/13/2024 3:19 AM EDT [facility] RBC Count 3.87(L) 4.60 - 6.10 10*6/uL LAB HEMATOLOGY METHOD 12/13/2024 3:19 AM EDT [facility] HGB 12.7(L) 13.7 - 17.5 g/dL LAB HEMATOLOGY METHOD 12/13/2024 3:19 AM EDT [facility] HCT 37.0(L) 40.0 - 51.0 % LAB HEMATOLOGY METHOD 12/13/2024 3:19 AM EDT [facility] Platelet Count 221 155 - 369 10*3/uL LAB HEMATOLOGY METHOD 12/13/2024 3:19 AM EDT [facility] MCV 96 79 - 98 fL LAB HEMATOLOGY METHOD 12/13/2024 3:19 AM EDT [facility] MCH 32.8(H) 26.0 - 32.0 pg LAB HEMATOLOGY METHOD 12/13/2024 3:19 AM EDT [facility] MCHC 34.3 30.7 - 35.5 g/dL LAB HEMATOLOGY METHOD 12/13/2024 3:19 AM EDT [facility] RDW 12.6 11.5 - 14.5 % LAB HEMATOLOGY METHOD 12/13/2024 3:19 AM EDT [facility] MPV 9.4 8.8 - 12.5 fL LAB HEMATOLOGY METHOD 12/13/2024 3:19 AM EDT [facility] nRBC 0.0 <=0.0 per 100 WBCs LAB HEMATOLOGY METHOD 12/13/2024 3:19 AM EDT [facility] Blood Venous blood specimen / Unknown Venipuncture / Unknown 12/13/2024 3:02 AM EDT 12/13/2024 3:10 AM EDT us Ruben Goldberg APRN LAB BLOOD ORDERABLES Final Result [facility] [address] [place] [address] * Hemoglobin A1c (12/13/2024 3:02 AM EDT) Hemoglobin A1c 5.5 <5.7 % 12/13/2024 9:35 PM EDT [facility] Blood Venous blood specimen / Unknown Venipuncture / Unknown 12/13/2024 3:02 AM EDT 12/13/2024 3:10 AM EDT Narrative [facility] - 12/13/2024 9:35 PM EDT HA1C Interpretive Data: Diagnosis of Diabetes: Diabetic > or = 6.5% Pre-diabetic 5.7 to 6.4% Non-diabetic < or = 5.6% Glycemic Targets for Type I and Type II Diabetics: Non- Adults <7.0% Adults <6.0% Children and Adolescents <7.5% Source: [place] [employer]. Standards of medical care in diabetes,2017. Diabetes Care.2017:40 (suppl 1):S1-S135. us Maddison JETER LAB BLOOD ORDERABLES Final Re sult [facility] [address] [place] [address] * [place] PERQ DRAINAGE PLEURA INSERT CATH W/O IMAGING, [...] damage and pain Alternatives discussed: No treatment [place] protocol: Immediately prior to procedure, a time [...] Tolerated well, no immediate complications us Bernardino S Umberto JETER IN CLINIC/BEDSIDE ORDERABLES F inal Result * CT Chest wo IV Contrast (12/11/2024 [...] on 12/11/2024 4:06 PM us Ruben Goldberg GRANULATOR IMG CT PROCEDURES Final Re sult * Phosphorus, Plasma (12/11/2024 1:59 AM EDT) Only the most recent of2 resultswithin the time period is included. Phosphorus, Plasma 2.9 2.5 - 4.5 mg/dL 12/11/2024 4:20 AM EDT [facility] Blood Venous blood specimen / Unknown Venipuncture / Unknown 12/11/2024 1:59 AM EDT 12/11/2024 2:06 AM EDT Ruben Goldberg GRANULATOR LAB BLOOD ORDERABLES Final Result Performing Organization Address City/[facility] Co de Phone Number [facility] [address] [place] [address] * Magnesium, Plasma (12/11/2024 1:59 AM EDT) Only the most recent of2 resultswithin the time period is included. Magnesium, Plasma 2.2 1.9 - 2.4 mg/dL 12/11/2024 4:20 AM EDT [facility] Blood Venous blood specimen / Unknown Venipuncture / Unknown 12/11/2024 1:59 AM EDT 12/11/2024 2:06 AM EDT Ruben Goldberg APRN LAB BLOOD ORDERABLES Final Result Performing Organization Address City/[facility] de Phone Number [facility] [address] [place] [address] * (ABNORMAL) Basic Metabolic Panel, Plasma (12/11/2024 1:59 AM EDT) Only the most recent of2 resultswithin the time period is included. Glucose, Plasma 90 74 - 99 mg/dL 12/11/2024 4:20 AM EDT [facility] BUN, Plasma 19 8 - 23 mg/dL 12/11/2024 4:20 AM EDT [facility] Creatinine, Plasma 0.80 0.70 - 1.20 mg/dL 12/11/2024 4:20 AM EDT [facility] BUN/Creatinine Ratio 24 12/11/2024 4:20 AM EDT [facility] Sodium, Plasma 142 136 - 145 mmol/L 12/11/2024 4:20 AM EDT [facility] Potassium, Plasma 3.7 3.6 - 4.9 mmol/L 12/11/2024 4:20 AM EDT [facility] Chloride, Plasma 106 97 - 107 mmol/L 12/11/2024 4:20 AM EDT [facility] CO2, Plasma 25 22 - 29 mmol/L 12/11/2024 4:20 AM EDT [facility] Anion Gap 11 6 - 16 mmol/L 12/11/2024 4:20 AM EDT [facility] Total Calcium, Plasma 8.6(L) 8.9 - 10.2 mg/dL 12/11/2024 4:20 AM EDT [facility] eGFRcr 101.3 mL/min/1.7 3m*2 12/11/2024 4:20 AM EDT [facility] Comment:Reported eGFRcr in m L/min/1.73m2 is based the CKD-EPI 2020 equation that does not use a race coefficient. Blood Venous blood specimen / Unknown Venipuncture / Unknown 12/11/2024 1:59 AM EDT 12/11/2024 2:06 AM EDT us Ruben Goldberg GRANULATOR LAB BLOOD ORDERABLES Final Result [facility] [address] [place] [address] * (ABNORMAL) Protime-INR (12/10/2024 4:12 AM EDT) Only the most recent of2 resultswithin the time period is included. Prothrombin Time 14.6(H) 12.0 - 14.3 sec 12/10/2024 4:30 AM EDT [facility] INR 1.1 0.9 - 1.1 12/10/2024 4:30 AM EDT [facility] Blood Venous blood specimen / Unknown Venipuncture / Unknown 12/10/2024 4:12 AM EDT 12/10/2024 4:17 AM EDT Narrative [facility] - 12/10/2024 4:30 AM EDT OPTIMAL INR RANGES FOR PATIENT ON ORAL ANTICOAGULANT THERAPY Prevention of venous thromboembolism INR 2.0 to 3.0 In patients with heart disease: Atrial fibrillation INR 2.0 to 3.0 Valvular heart disease INR 2.0 to 3.0 Tissue heart valves INR 2.0 to 3.0 Mechanical prosthetic valves INR 2.5 to 3.5 Prevention of recurrent ND INR 2.5 to 3.5 Lara Stewart MD LAB BLOOD ORDERABLES Final Resul t Performing Organization Address City/[facility]/ZIP Co de Phone Number [facility] [address] [place] [address] * Troponin T, High Sensitivity, 2 Hour, Plasma (12/09/2024 8:25 PM EDT) Pathologist [facility] Troponin T, High Sensitivity, 2 Hour 13 <19 ng/L 12/09/2024 8:48 PM EDT [facility] Blood Venous blood specimen / Unknown Venipuncture / Unknown 12/09/2024 8:25 PM EDT 12/09/2024 8:27 PM EDT Result [facility] Jeovany Ludwig MD LAB BLOOD ORDERABLES Final Res ult Performing Organization Address [facility]/ZIP Co de Phone Number [facility] [address] [place] [address] * ED HIV 1/2 Antibody/Antigen Screen w/Reflex to HIV 1/2 Differentiation (12/09/2024 6:12 PM EDT) Pathologist [facility] HIV 1 & 2 Antibody/Antigen Screen Non Reactive Non Reactive 12/09/2024 7:08 PM EDT [facility] Comment:Screening for HIV 1 & 2 antibodies, and P24 antigen is NONREACTIVE. No confirmatory testing is required. Blood Venous blood specimen / Unknown Venipuncture / Unknown 12/09/2024 6:12 PM EDT 12/09/2024 6:25 PM EDT Jeovany Ludwig MD LAB BLOOD ORDERABLES Final Res ult Performing Organization Address City/[facility]/ZIP Co de Phone Number [facility] [address] [place] [address] * Troponin now and 120 min (12/09/2024 6:12 PM EDT) Troponin T, High Sensitivity, 0 Hour 14 <19 ng/L 12/09/2024 6:41 PM EDT [facility] Blood Venous blood specimen / Unknown Venipuncture / Unknown 12/09/2024 6:12 PM EDT 12/09/2024 6:15 PM EDT Jeovany Ludwig MD LAB BLOOD ORDERABLES Final Res ult Performing Organization Address City/[facility]/ZIP Co de Phone Number [facility] [address] [place] [address] * Hepatitis C Antibody - ED (12/09/2024 6:12 PM EDT) Hepatitis C Antibody Negative Negative 12/09/2024 7:05 PM EDT [facility] Blood Venous blood specimen / Unknown Venipuncture / Unknown 12/09/2024 6:12 PM EDT 12/09/2024 6:25 PM EDT Jeovany Ludwig MD LAB BLOOD ORDERABLES Final Res ult Performing Organization Address [facility] [place] [address] * Anti Xa Level Unfractionated Heparin (12/09/2024 6:12 PM EDT) Anti Xa Level Unfractionated Heparin <0.11 <1.00 IU/mL 12/09/2024 6:50 PM EDT [facility] Blood Venous blood specimen / Unknown Venipuncture / Unknown 12/09/2024 6:12 PM EDT 12/09/2024 6:15 PM EDT Narrative [facility] - 12/09/2024 6:50 PM EDT Therapeutic Range: UFH Full Dose and ACS/ND protocols*: 0.30 - 0.70 IU/mL UFH Low Dose protocol*: 0.25 - 0.50 IU/mL UFH prophylaxis: Not established Jeovany Ludwig MD LAB BLOOD ORDERABLES Final Res ult [facility] [address] [place] [address] * (ABNORMAL) CBC w/diff (12/09/2024 6:12 PM EDT) WBC Count 20.12(H) 3.70 - 10.30 10*3/uL LAB HEMATOLOGY METHOD 12/09/2024 6:17 PM EDT [facility] RBC Count 4.15(L) 4.60 - 6.10 10*6/uL LAB HEMATOLOGY METHOD 12/09/2024 6:17 PM EDT [facility] HGB 13.7 13.7 - 17.5 g/dL LAB HEMATOLOGY METHOD 12/09/2024 6:17 PM EDT [facility] HCT 38.3(L) 40.0 - 51.0 % LAB HEMATOLOGY METHOD 12/09/2024 6:17 PM EDT [facility] Platelet Count 235 155 - 369 10*3/uL LAB HEMATOLOGY METHOD 12/09/2024 6:17 PM EDT [facility] MCV 92 79 - 98 fL LAB HEMATOLOGY METHOD 12/09/2024 6:17 PM EDT [facility] MCH 33.0(H) 26.0 - 32.0 pg LAB HEMATOLOGY METHOD 12/09/2024 6:17 PM EDT [facility] MCHC 35.8(H) 30.7 - 35.5 g/dL LAB HEMATOLOGY METHOD 12/09/2024 6:17 PM EDT [facility] RDW 12.8 11.5 - 14.5 % LAB HEMATOLOGY METHOD 12/09/2024 6:17 PM EDT [facility] MPV 9.1 8.8 - 12.5 fL LAB HEMATOLOGY METHOD 12/09/2024 6:17 PM EDT [facility] nRBC 0.0 <=0.0 per 100 WBCs LAB HEMATOLOGY METHOD 12/09/2024 6:17 PM EDT [facility] Differential Type Automated LAB HEMATOLOGY METHOD 12/09/2024 6:17 PM EDT [facility] Neutrophils % 87 % LAB HEMATOLOGY METHOD 12/09/2024 6:17 PM EDT [facility] Lymphocytes % 6 % LAB HEMATOLOGY METHOD 12/09/2024 6:17 PM EDT [facility] Monocytes % 6 % LAB HEMATOLOGY METHOD 12/09/2024 6:17 PM EDT [facility] Eosinophils % 0 % LAB HEMATOLOGY METHOD 12/09/2024 6:17 PM EDT [facility] Basophils % 0 % LAB HEMATOLOGY METHOD 12/09/2024 6:17 PM EDT [facility] Immature Granulocytes % 1 % LAB HEMATOLOGY METHOD 12/09/2024 6:17 PM EDT [facility] Neutrophils Absolute 17.62(H) 1.60 - 6.10 10*3/uL LAB HEMATOLOGY METHOD 12/09/2024 6:17 PM EDT [facility] Lymphocytes Absolute 1.15(L) 1.20 - 3.90 10*3/uL LAB HEMATOLOGY METHOD 12/09/2024 6:17 PM EDT [facility] Monocytes Absolute 1.20(H) 0.30 - 0.90 10*3/uL LAB HEMATOLOGY METHOD 12/09/2024 6:17 PM EDT [facility] Eosinophils Absolute 0.01 0.00 - 0.50 10*3/uL LAB HEMATOLOGY METHOD 12/09/2024 6:17 PM EDT [facility] Basophils Absolute 0.04 0.00 - 0.10 10*3/uL LAB HEMATOLOGY METHOD 12/09/2024 6:17 PM EDT [facility] Immature Granulocytes Absolute 0.10(H) 0.00 - 0.06 10*3/uL LAB HEMATOLOGY METHOD 12/09/2024 6:17 PM EDT [facility] Blood Venous blood specimen / Unknown Venipuncture / Unknown 12/09/2024 6:12 PM EDT 12/09/2024 6:15 PM EDT Narrative [facility] - 12/09/2024 6:17 PM EDT Therapeutic decision making should be based on absolute values, rather than percentages. us Jeovany Ludwig MD LAB BLOOD ORDERABLES Final Res ult [facility] [address] [place] [address] * CMP (12/09/2024 6:12 PM EDT) Glucose, Plasma 80 74 - 99 mg/dL 12/09/2024 6:41 PM EDT [facility] BUN, Plasma 16 8 - 23 mg/dL 12/09/2024 6:41 PM EDT [facility] Creatinine, Plasma 0.81 0.70 - 1.20 mg/dL 12/09/2024 6:41 PM EDT [facility] BUN/Creatinine Ratio 20 12/09/2024 6:41 PM EDT [facility] Sodium, Plasma 139 136 - 145 mmol/L 12/09/2024 6:41 PM EDT [facility] Potassium, Plasma 3.7 3.6 - 4.9 mmol/L 12/09/2024 6:41 PM EDT [facility] Chloride, Plasma 102 97 - 107 mmol/L 12/09/2024 6:41 PM EDT [facility] CO2, Plasma 23 22 - 29 mmol/L 12/09/2024 6:41 PM EDT [facility] Anion Gap 14 6 - 16 mmol/L 12/09/2024 6:41 PM EDT [facility] Total Calcium, Plasma 9.1 8.9 - 10.2 mg/dL 12/09/2024 6:41 PM EDT [facility] Total Protein 6.4 6.3 - 7.9 g/dL 12/09/2024 6:41 PM EDT [facility] Albumin, Plasma 4.4 3.5 - 5.2 g/dL 12/09/2024 6:41 PM EDT [facility] AST, Plasma 36 10 - 50 U/L 12/09/2024 6:41 PM EDT [facility] ALT, Plasma 30 10 - 50 U/L 12/09/2024 6:41 PM EDT [facility] Alkaline Phosphatase, Plasma 61 40 - 115 U/L 12/09/2024 6:41 PM EDT [facility] Total Bilirubin, Plasma 0.6 0.2 - 1.1 mg/dL 12/09/2024 6:41 PM EDT [facility] eGFRcr 100.9 mL/min/1.7 3m*2 12/09/2024 6:41 PM EDT [facility] Comment:Reported eGFRcr in m L/min/1.73m2 is based the CKD-EPI 2020 equation that does not use a race coefficient. Blood Venous blood specimen / Unknown Venipuncture / Unknown 12/09/2024 6:12 PM EDT 12/09/2024 6:15 PM EDT Jeovany Ludwig MD LAB BLOOD ORDERABLES Final Res ult [facility] [address] [place] [address] * XR OUTSIDE IMAGES (12/09/2024 2:38 PM EDT) Anatomical Region Laterality Modality Radiographic Edith ging 12/09/2024 2:38 PM EDT Richard JETER IMG XR PROCEDURES Edited Resul t - Final * XR MSK OUTSIDE IMAGES (12/09/2024 2:38 PM EDT) Only the most recent of3 resultswithin the time period is included. Anatomical Region Laterality Modality Radiographic Edith ging 12/09/2024 2:38 PM EDT Richard JETER IMG XR PROCEDURES Edited Resul t - Final * CT THORACIC OUTSIDE IMAGES (12/09/2024 2:33 PM EDT) Only the most recent of2 resultswithin the time period is included. Anatomical Region Laterality Modality Computed Tomogra phy 12/09/2024 2:33 PM EDT Richard JETER IMG CT PROCEDURES Edited Resul t - Final * CT NEURO OUTSIDE IMAGES (12/09/2024 2:29 PM EDT) Only the most recent of4 resultswithin the time period is included. Anatomical Region Laterality Modality Computed Tomogra phy 12/09/2024 2:29 PM EDT Richard JETER IMG CT PROCEDURES Edited Resul t - Final from Last 3 Months Insurance [facility] Advance Directives * Full Code (Latest Code Status on File) Date Activated Date Inactivated Comments 12/10/2024 3:46 AM 12/15/2024 5:11 PM Question Answer Comments I have reviewed the capacity from the link above and, if needed, have updated to appropriate status: Yes Care Teams Spool Sander Relationship Specialty Start Date End Date Starr F[place]on [place] [address] [place] [address] PCP - General 12/09/24
[2025-01-07 09:44] LABS: Hematocrit 41.1 % (42.0-52.0); Hemoglobin 13.6 g/dL (14.1-18.0); Immature Granulocytes % 0.3 %; Mean Corpuscular HGB Conc 33.1 g/dL (31.8-35.4); Mean Corpuscular Hemoglobin 31.6 pg (27.0-31.2); Mean Corpuscular Volume 95.4 fl (80-94); Nucleated Red Blood Cells % 0 %; Platelet Count 280 K/mm3 (142-424); Red Blood Count 4.31 M/mm3 (4.60-6.20); Red Cell Distribution Width-SD 45.9 fL; White Blood Count 7.7 K/mm3 (4.8-10.8)
[2025-01-07 10:09] LABS: Hemoglobin A1C 5.3 % (4.0-6.0)
[2025-01-07 10:28] LABS: Alanine Aminotransferase 21 U/L (12-78); Albumin Level 4.2 g/dl (3.5-5.0); Albumin/Globulin Ratio 2.0 (1.1-1.8); Alkaline Phosphatase 101 U/L (38-126); Anion Gap 14.2 mEq/L (5-15); Aspartate Amino Transferase 26 U/L (17-59); Bilirubin,Total 0.8 mg/dl (0.2-1.3); Blood Urea Nitrogen 20 mg/dl (9-20); Calcium 9.2 mg/dl (8.4-10.2); Carbon Dioxide 29 mmol/L (22.0-30.0); Chloride 100 mmol/L (98-107); Cholesterol 138 mg/dl (140-200); Creatinine,Serum 0.90 mg/dl (0.66-1.25); Estimated Glomerular Filt Rate 86 ml/min (>60); GFR (African American) 104 ML/MIN (>60); Globulin 2.1 g/dL (1.3-3.2); Glucose 114 mg/dl (74-100); HDL Cholesterol 53 mg/dl (40-60); Potassium 4.2 mmoL/L (3.5-5.1); Sodium 139 mmol/L (136-145); Total Protein,Serum 6.3 g/dl (6.3-8.2); Triglycerides 64 mg/dl (30-150)
[2025-01-07 10:44] LABS: 25-OH Vitamin D, Total 48.6 ng/mL (30-100)
== END 2025-01-07 23:59 | disposition home or self-care (01) ==
LOC: LAB 08:52
PROVIDERS: PCP Physician Assistant; Visit Provider Physician Assistant
DX: E78.5 Hyperlipidemia, unspecified (principal); I10 Essential (primary) hypertension; E55.9 Vitamin D deficiency, unspecified; E11.65 Type 2 diabetes mellitus with hyperglycemia
CPT/HCPCS: 36415; 80053; 80061; 82306; 83036; 85025

== ENCOUNTER 2025-01-21 10:34 | Outpatient (CLI) | payer BC, OTHER, SELFPAY ==
--- OUTSIDE RECORDS SUMMARY | 2023-12-10 12:30 | XMS_ITS ---
[facility] Organization [facility] Address [address] [place] [id number] Care Team Providers Care Wearing Apparel Presser Name Role Phone Geoffrey Cantu Primary Care Provider KennyStarr villanueva Unavailable [phone] Allergies No Known Allergies Results Component Value [...] 90 days Active Vitamin D3 50 MCG (1999 UT) 1 tab(s) ora lly once a day 12/03/2018 Active Problems Problem Type SNOMED Code ICD Code Onset Dates Problem Status W/U Status Risk Notes Problem Tobacco use (267649498) Tobacco use disorder (F17.200) Active confirmed Vital Signs Weight 178.8 lbs 12/10/2023 Blood pressure systolic 150 mm Hg 12/10/19 24 Blood pressure diastolic 86 mm Hg 024 Heart Rate 74 /min 12/10/2023 Height 73 in 12/10/2023 BMI 23.59 kg/m2 12/10/2023 Encounters Encounter Location Date Provider Diagnosis [facility] [address] [facility] [id number] 12/10/2023 Starr Fulton Type 2 diabetes ericka [...] will get his labs done [facility] May be able to switch to mounjaro as he is not tolerating the trulicity very well. Next Appt Details Follow Up: via phone to repo rt test results, Reason: Progress Notes * ELVIA WHEELER TOMDOB:1965 (59 yo M)Acc No.[id number]:12/10/2023 Progress Notes Patient: ELVIA REYNOLDS Provider: STEFFANY Little :1965 A ge:58 Y S ex:Male Date:12/10/2023 Address:[address] [place] [address] [id number] Pcp:Geoffrey Cantu Subjective: * Chief Complaints: * [...] * Hospitalization/Major Diagno stic Procedure: H ypertension, Dizziness-[facility] 08/27/08-08/31/08, Shoulder- [facility] ER 10/2014, RT Shoulder Pain/Low Potassium Level- [facility] 09/19/2016, Norovirus- [facility] 05/2018. * Family History: F ather: alive, [...] Medications: T aking Vitamin D3 50 MCG (1999 UT) Tablet 1 tab(s) orally once a [...] VITD 49.0 30-100 - ng/mL * DonaldoStarr Isabel 12/17/2023 9: 04:02 AM [...] Karie Tariq 12/11/2023 9:02: 42 AM > auth#[id number]; valid 12/11/2023-01/09/2024; CPT code 21932; faxed to Starr Rae 12/25/2023 8:21:37 AM > see TE * Follow Up: v ia phone to report test results * Images: Billing Information: * Visit Code: 75127 Office Visit, Est Pt., Level 4. * Procedure Codes: * Electronic signature of STEFFANY Conklin on 01/21/2025 at 10:37 AM EDT Sign off status: Pending * Provider: STEFFANY Little Date: 0 12/10/2023 Generated for Selena barone/Fawillyg/eTransmitting on: 1 10:37 AM EDT History and Physical Notes * [...]
--- OUTSIDE RECORDS SUMMARY | 2024-01-22 06:00 | XMS_ITS ---
Author Organization [facility] Address [address] [place] [id number] Care Team Providers Care Sales Representative Health Insurance Name Role Phone Geoffrey Cantu Primary Care Provider KennyStarr villanueva Unavailable [phone] Allergies No Known Allergies REASON FOR VISIT [...] A DAY Active Vitamin D3 50 MCG (1999 UT) 1 tab(s) ora lly once a day 12/03/2018 Active Chlorthalidone 50 MG 1/2 tab orally once a day; Duration: 90 days Active Lisinopril 5 MG 1 tablet Orally Once a day; Duration: 90 days Active Vital Signs Weight 168.8 lbs 01/22/2024 Blood pressure systolic 120 mm Hg 01/22/20 24 Blood pressure diastolic 70 mm Hg 024 Heart Rate 60 /min 01/22/2024 Height 73 in 01/22/2024 BMI 22.27 kg/m2 01/22/2024 Encounters Encounter Location Date Provider Diagnosis [facility] [address] [place] [id number] 01/22/2024 Starr Coxrich Infection of toenail L03.039 Assessments Encounter Date [...] Next Appt Details Follow Up: prn, Reason: Progress Notes * ELVIA WHEELER TOMDOB:1965 (59 yo M)Acc No.[id number]:01/22/2024 Progress Notes Patient: Lindsey COLESChantelleVIOLETNE ELIZABETH Provider: STEFFANY Little :1965 A ge:58 Y S ex:Male Date:01/22/2024 Address:[address] [place] [address] [place], [id number] Pcp:Geoffrey Cantu Subjective: * Chief Complaints: * [...] * Hospitalization/Major Diagno stic Procedure: H ypertension, Dizziness-[facility] 08/27/08-08/31/08, Shoulder- [facility] 10/2014, RT Shoulder Pain/Low Potassium Level- [facility] 09/19/2016, Norovirus- [facility] 05/2018. * Family History: F ather: [...] * Images: Billing Information: * Visit Code: 64370 Office Visit, Est Pt., Level 3. * Procedure Codes: 91038 PULSE [place]. * Electronic signature of STEFFANY Conklin on 01/21/2025 at 10:38 AM EDT Sign off status: Pending * Provider: STEFFANY Little Date: Generated for Jci lizabeth/Jarod/eTransmitting on: 10:38 AM EDT History and Physical Notes * [...]
--- OUTSIDE RECORDS SUMMARY | 2024-03-03 09:15 | XMS_ITS ---
Author Organization [facility] Address [address] [facility] [address] [place] [id number] Care Team Providers Care Abattoir Manager Name Role Phone Geoffrey Cantu Primary Care Provider Starr Fulton Unavailable [phone] Allergies No Known Allergies REASON FOR VISIT BP issues Medications Medication SIG (Take, Route, Frequency, Duration) Notes Start Date End Date Status Meloxicam 15 MG TAKE ONE TABLET BY M JASKARAN ONCE A DAY Active FreeStyle Monica 3 Plus Sensor - as directed 12/10/2023 Active Mounjaro 2.5 MG/0.5ML INJECT 2 & 1/2 MG (0.5 ML) SUBCUTANEOUSLY ONCE A WEEK Activ e Cephalexin 500 MG 1 tablet Orally Two times a day; Duration: 10 day(s) 01/22/2024 Activ e Levothyroxine Sodium 75 MCG 1 tablet in the morning on an empty stomach Orally Once a day; Duration: 90 days Active Lisinopril 5 MG 1 tablet Orally Once a day Active Vitamin D3 50 MCG (1999 UT) 1 tab(s) orally once a day 12/03/2018 A ctive Vital Signs Weight 164.4 lbs 03/03/2024 Blood pressure systolic 132 mm Hg 03/03/20 24 Blood pressure diastolic 78 mm Hg 024 Heart Rate 47 /min 03/03/2024 Height 73 in 03/03/2024 BMI 21.69 kg/m2 03/03/2024 Encounters Encounter Location Date Provider Diagnosis [facility] [address] [facility] [address] [place] [id number] 03/03/2024 Starr Fulton Essential hypertensi on I10 and Symptomatic hypotension I95.9 Assessments Encounter Date Diagnosis (ICD Code) Assessment Notes Treatment Notes Treatment Clinical Notes Section Notes 03/03/2024 Essential hypertension (ICD-10 - I10) Patient has lost weight. Will stop the chlorthalidone and monitor BP for the next week and call with readings. 03/03/2024 Symptomatic hypotension (ICD-10 - I95.9) Plan Of Treatment Medication Medication Name Sig Start Date Stop Date Notes Lisinopril 5 MG 1 tablet Orally Once a day Chlorthalidone 50 MG 1/2 tab orally once a day Treatment Notes Assessment Notes Essential hypertension Patient has lost weight. Will stop the chlorthalidone and monitor BP for the next week and call with readings. Next Appt Details Follow Up: via phone to repo rt progress, Reason: Progress Notes * ELVIA WHEELER TOMDOB:1965 (59 yo M)Acc No.[id number]:03/03/2024 Progress Notes Patient: Lindsey ELVIA OWENS ELIZABETH Provider: STEFFANY Little :1965 A ge:58 Y S ex:Male Date:03/03/2024 Address:[address] [place] [address] OF [place], [id number] Pcp:Geoffrey Cantu Subjective: * Chief Complaints: * 1 . BP issues. * HPI: C ardiology: Hypotension P t presents today with c/o blood pressure getting low. Pt sts that when he gets up he gets dizzy. Pt does have a written log of his BP readings from home that he just started checking at 4:30 AM this morning. BP this am was 90/50. .? * ROS: D ERMATOLOGY: no R justen. [...] * Hospitalization/Major Diagno stic Procedure: H ypertension, Dizziness-[facility] 08/27/08-08/31/08, Shoulder- [facility] 10/2014, RT Shoulder Pain/Low Potassium Level- [facility] 09/19/2016, Norovirus- [facility] 05/2018. * Family History: F ather: alive, [...] stomach Orally Once a day , Taking Cephalexin 500 MG Tablet 1 tablet Orally Two times a day , Taking FreeStyle Monica 3 Plus Sensor - Miscellaneous as directed , Taking Meloxicam 15 MG Tablet TAKE ONE TABLET BY MOUTH ONCE A DAY , Taking Mounjaro 2.5 MG/0.5ML Solution Auto-injector INJECT 2 & 1/2 MG (0.5 ML) SUBCUTANEOUSLY ONCE A WEEK , Medication List reviewed and reconciled with the patient * Allergies: N .K.D.A. Objective: * Vitals: W t:164.4, Temp:97.3, BP:132/78, HR:47, Nurse:KASSIE, Ht: 73, BMI:21.69. * Examination: G eneral Examination: General Appearance: N AD. C hest: n ormal shape and expansion. H eart: R SR. L ungs: c lear to auscultation. Assessment: * Assessment: 1. E ssential hypertension - I10 (Primary) 2 . S ymptomatic hypotension - I95.9 Plan: * Treatment: * Follow Up: v ia phone to report progress * Images: Billing Information: * Visit Code: 80845 Office Visit, Est Pt., Level 3. * Procedure Codes: * Electronic signature of STEFFANY Conklin on 01/21/2025 at 10:38 AM EDT Sign off status: Pending * Provider: STEFFANY Little Date: 05/04/2023 Generated for Selena barone/Jarod/eTransmitting on: 10:38 AM EDT History and Physical Notes * HPI (History of Present Illness) Category Sub-Category Detail Notes Category Not es Cardiology Hypotension Pt presents toda y with c/o blood pressure getting low. Pt sts that when he gets up he gets dizzy. Pt does have a written log of his BP readings from home that he just started checking at 4:30 AM this morning. BP this am was 90/50. Examination Category Sub-Category Detail Notes Category Not es General Examination Heart: RSR Lungs: clear to auscultatio n General Appearance: NAD Chest: normal shape and exp ansion
--- OUTSIDE RECORDS SUMMARY | 2024-08-18 11:15 | XMS_ITS ---
[facility] Address [address] [place] [phone] Care Team Providers Care Gift Officer Name Role Phone Geoffrey Cantu Primary Care Provider [phone] KennyStarr villanueva Unavailable [phone] Allergies No Known Allergies Results Component Value Reference Range Notes CT Scan : Neck, soft tissue, without contrast Reviewed date:09/20/2024 11:32:54 PM Interpretation: Performing Lab: Notes/Report: REASON FOR VISIT BP checkup Medications Medication SIG (Take, Route, Frequency, Duration) Notes Start Date End Date Status Mounjaro 2.5 MG/0.5ML 2.5 mg Subcutaneou s once a week Active Dexcom G7 Sensor - as directed E11.65 05/03/2024 Active Dexcom G7 Gas Operations Superintendent - USE DIRECTED Active Chlorthalidone 25 MG 1 tablet in the mor pippa with food Orally once daily; Duration: 90 days Active Lisinopril 5 MG 1 tablet Orally Once a day; Duration: 90 days Active Levothyroxine Sodium 75 MCG 1 tablet in the morning on an empty stomach Orally Once a day; Duration: 90 days Active Vitamin D3 50 MCG (1999) 1 tab(s) ora lly once a day 12/03/2018 Active Cephalexin 500 MG 1 tablet Orally Two times a day; Duration: 10 day(s) 01/22/2024 Active Meloxicam 15 MG 1 tablet Orally Once a day; Duration: 90 days Active Vital Signs Weight 150.2 lbs 08/18/2024 Blood pressure systolic 124 mm Hg 08/19/19 25 Blood pressure diastolic 80 mm Hg 025 Heart Rate 77 /min 08/18/2024 Height 73 in 08/18/2024 BMI 19.81 kg/m2 08/18/2024 Encounters Encounter Location Date Provider Diagnosis [facility] [address] [facility] [address] [place] [id number] 08/18/2024 Starr Fulton Essential hypertensi on I10 ; Type 2 diabetes mellitus with hyperglycemia, without long-term current use of insulin E11.65 ; Vitamin D deficiency E55.9 ; Vitamin B 12 deficiency E53.8 ; Hyperlipidemia, unspecified hyperlipidemia type E78.5 ; Acquired hypothyroidism E03.9 ; Polyarthralgia M25.50 ; Cervical lymphadenopathy R59.0 and Body mass index (BMI) of 19.0 to 19.9 in adult Z68.1 Assessments Encounter Date Diagnosis (ICD Code) Assessment Notes Treatment Notes Treatment Clinical Notes Section Notes 08/18/2024 Essential hypertension (ICD-10 - I10) 08/18/2024 Type 2 diabetes mellitus with hyperglycemia, without long-term current use of insulin (ICD-10 - E11.65) 08/18/2024 Vitamin D deficiency (ICD-10 - E55.9) 08/18/2024 Vitamin B 12 deficiency (ICD-10 - E53.8) 08/18/2024 Hyperlipidemia, unspecified hyperlipidemia type (ICD-10 - E78.5) 08/18/2024 Acquired hypothyroidism (ICD-10 - E03.9) 08/18/2024 Polyarthralgia (ICD-10 - M25.50) 08/18/2024 Cervical lymphadenopathy (ICD-10 - R59.0) Pt had an enlarged node on the right previously and had a CT soft tissue of the neck done. He now has an enlarged node on the left as well. Will get another CT. 08/18/2024 Body mass index (BMI) of 19.0 to 19.9 in adult (ICD-10 - Z68.1) Plan Of Treatment Medication Medication Name Sig Start Date Stop Date Notes Mounjaro 2.5 MG/0.5ML 2.5 mg Subcutaneou s once a week Chlorthalidone 25 MG 1 tablet in the mor pippa with food Orally once daily; Duration: 90 days Lisinopril 5 MG 1 tablet Orally Once a day; Duration: 90 days Levothyroxine Sodium 75 MCG 1 tablet in the morning on an empty stomach Orally Once a day; Duration: 90 days Meloxicam 15 MG 1 tablet Orally Once a day; Duration: 90 days Treatment Notes Assessment Notes Cervical lymphadenopathy Pt had an enlar ged node on the right previously and had a CT soft tissue of the neck done. He now has an enlarged node on the left as well. Will get another CT. Next Appt Details Follow Up: via phone to repo rt test results, Reason: Progress Notes * ELVIA WHEELER TOMDOB:1965 (59 yo M)Acc No.[id number]:08/18/2024 Progress Notes Patient: ELVIA REYNOLDS Provider: STEFFANY Little :1965 A ge:59 Y S ex:Male Date:08/18/2024 Address:[address] [place] [address] [facility] [id number] Pcp:Geoffrey Cantu Subjective: * Chief Complaints: * 1 . BP checkup. * HPI: C ardiology: 59 year old male presents with c/o Blood Pressure Elevated P t is here today for a BP check up. * ROS: D ERMATOLOGY: no R justen. [...] * Hospitalization/Major Diagno stic Procedure: H ypertension, Dizziness-[facility] 08/27/08-08/31/08, Shoulder- [facility] 10/2014, RT Shoulder Pain/Low Potassium Level- [facility] 09/19/2016, Norovirus- [facility] 05/2018. * Family History: F ather: [...] ,Years: , Determination:. * Medications: T aking Chlorthalidone 25 MG Tablet 1 tablet in the morning with food Orally , Taking Vitamin D3 50 MCG (2000 UT) Tablet 1 tab(s) orally once a day , Taking Cephalexin 500 MG Tablet 1 tablet Orally Two times a day , Taking Lisinopril 5 MG Tablet 1 tablet Orally Once a day , Taking Meloxicam 15 MG Tablet 1 tablet Orally Once a day , Taking Dexcom G7 Sensor - Miscellaneous as directed , Notes to Pharmacist: , Taking Dexcom G7 Gas Operations Superintendent - Device USE DIRECTED , Taking Levothyroxine Sodium 75 MCG Tablet 1 tablet in the morning on an empty stomach Orally Once a day , Taking Mounjaro 2.5 MG/0.5ML Solution Auto-injector INJECT 1 PREFILLED SYRINGE SUBCUTANEOUSLY ONCE WEEKLY , Medication List reviewed and reconciled with the patient * Allergies: N .K.D.A. Objective: * Vitals: W t: 150.2, Temp: 97.6, BP: 124/80, HR: 77, Nurse: suzie, Ht: 73, BMI:19.81. * Examination: G eneral Examination: General Appearance: N AD. H EENT: s clera and conjunctiva clear, PERRLA, TM's normal, translucent, there are bilaterally enlarged cervical lymph nodes.?Oral cavity: n o lesions, mucosa moist and WNL, no erythema. N lawrence: s upple, no lymphadenopathy. C hest: n ormal shape and expansion. H eart: R SR. L ungs: c lear to auscultation. A bdomen: b owel sounds present , soft and nontender. N eurologic Exam: I ntact, gait normal. S kin: n ormal, no rash. P eripheral pulses: n ormal (2+) bilaterally. E xtremities: n o leg edema. Assessment: * Assessment: 1. E ssential hypertension - I10 2 . T ype 2 diabetes mellitus with hyperglycemia, without long-term current use of insulin - E11.65 3 . V itamin D deficiency - E55.9 4 . V itamin B 12 deficiency - E53.8 5 . H yperlipidemia, unspecified hyperlipidemia type - E78.5 6 . A cquired hypothyroidism - E03.9 7 . P olyarthralgia - M25.50 8 . C ervical lymphadenopathy - R59.0 9 . B terry mass index (BMI) of 19.0 to 19.9 in adult - Z68.1 ? Plan: * Treatment: 2. T ype 2 diabetes mellitus with hyperglycemia, without long-term current use of insulin Refill Mounjaro Solution Auto-injector, 2.5 MG/0.5ML, 2.5 mg, Subcutaneous, once a week, 4, Refills 11. 3. A cquired hypothyroidism Refill Levothyroxine Sodium Tablet, 75 MCG, 1 tablet in the morning on an empty stomach, Orally, Once a day, 90 days, 90 Tablet, Refills 3. 4. P olyarthralgia Refill Meloxicam Tablet, 15 MG, 1 tablet, Orally, Once a day, 90 days, 90 Tablet, Refills 3. ? 5. C ervical lymphadenopathy I maging: CT Scan : Neck, soft tissue, without contrast (Performed Date - 09/17/2024) Notes: Pt had an enlarged node on the right previously and had a CT soft tissue of the neck done. He now has an enlarged node on the left as well. Will get another CT. ?? * Procedure Codes: G 8950 PREHTN/HTN BP DOC INDCD F/U DOC, G8752 MOST RECENT SYSTOLIC BP < 140MM HG, G8754 MOST RECENT DIASTOLIC BP < 90MM HG, 3044F HG A1C LEVEL LT 7.0% * Follow Up: v ia phone to report test results * Images: Billing Information: * Visit Code: 56284 Office Visit, Est Pt., Level 4. * Procedure Codes: G8950 PREHTN/HTN BP DOC INDCD F/U DOC. G8752 MOST RECENT SYSTOLIC BP < 140MM HG. G8754 MOST RECENT DIASTOLIC BP < 90MM HG. 3044F HG A1C LEVEL LT 7.0%. * Electronic signature of STEFFANY Conklin on 01/21/2025 at 10:39 AM EDT Sign off status: Pending * Provider: STEFFANY Little Date: 0 08/18/2024 Generated for Jci lizabeth/Jarod/Gonzalezsmitting on: 1 10:39 AM EDT History and Physical Notes * HPI (History of Present Illness) Category Sub-Category Detail Notes Category Not es Cardiology Blood Pressure Elevated Pt is here today for a BP check up Examination Category Sub-Category Detail Notes Category Not es General Examination HEENT: sclera and c onjunctiva clear, PERRLA, TM's normal, translucent, there are bilaterally enlarged cervical lymph nodes Heart: RSR Lungs: clear to auscultatio n Abdomen: bowel sounds present , soft and nontender Extremities: no leg edema General Appearance: NAD Skin: normal, no rash Neurologic Exam: Intact, gait normal Neck: supple, no lymphaden opathy Oral cavity: no lesions, mucosa m oist and WNL, no erythema Peripheral pulses: normal (2+) bilatera lly Chest: normal shape and exp ansion
--- OUTSIDE RECORDS SUMMARY | 2024-12-09 06:53 | XMS_ITS ---
Author [facility] [address] [facility] 36 [facility] [address] [place] [id number] Care Team Providers Care Slitting Machine Feeder Name Role Phone Geoffrey Cantu Primary Care Provider Starr Fulton [phone] REASON FOR VISIT Lab Order Encounters Encounter Location Date Provider Diagnosis [place] [address] [facility] 36 [facility] [address] [place] [id number] 12/09/2024 Starr Fulton Essential hypertensi on I10 [...] Panel 12/09/2024 H-CMP 12/09/2024 H-Glycohemoglobin A1C 12/09/2024 Progress Notes * ELVIA WHEELERDOB:1965 (59 yo M)Acc No.[id number]:12/09/2024 Patient: ELVIA REYNOLDS :1965 A ge:59 Y S ex:Male Address:[address] [place] [address] [place] [address] Subjective: * Chief Complaints: * L ab [...] Date: Generated for Selena barone/Jarod/eTangelicasmitting on: 1 10:39 AM EDT
--- OUTSIDE RECORDS SUMMARY | 2024-12-09 16:40 | XMS_ITS | Encounter Summary ---
Author Organization [facility] Address [address] [id number] Care Team Providers Care Gas Compressor Operator Name Role Phone Starr Fulton Primary Care Provider [phone] Reason for Referral * Consultation (Routine) - Closed Specialty Diagnoses / Procedures Referred By Shiv queen Referred To Contact Trauma Surgery / General Surgery Diagnoses Traumatic pneumothorax, initial encounter Closed fracture of multiple ribs of right side, initial encounter Bridgette Jamison PA [address] [address] Phone: tel: fax: [facility] Surgery [address], [address] [place] [address] Phone: tel: fax: Referral ID Status Reason Start Date Expiration Date V isits Requested Visits Authorized [id number] Closed Specialty Services Required 12/15/2024 06/16/2026 1 1 Scheduling Instructions CXR to evaluate post-pneumothorax, CT, and R 6-12 ribs Reason for Visit * Reason Comments Fall * Auth/Cert (Routine) Specialty Diagnoses / Procedures Referred By Contac t Referred To Contact Diagnoses Fall from ladder, initial encounter 10ft Fall: Rib Fx and Pneumo Lara Stewart MD [id number] [place] [address] Phone: tel: fax: [facility] [address] [place] [address] Phone: tel: Referral ID Status Reason Start Date Expiration Date Visits Re quested Visits Authorized [id number] 1 1 Encounter Details Date Type Department Care Team (Latest Contact Info) Description 12/09/2024 4:40 PM EDT - 12/15/2024 3:06 PM EDT Hospital Encounter MG MEYER 9 T2 [facility] [address] [place] [address] Rea Ludwig MD [address] [place] [address] Jesse Cervantes DO [address] [place] [address] Lara Stewart MD [address] [address] Karina Rodriguez MD [address] [address] Hayden Brown MD [address] [address] Mynor Crews MD [address] [address] Fall, initial encounter (Primary Dx); Traumatic pneumothorax, initial encounter; Closed fracture of multiple ribs of right side, initial encounter Discharge Disposition: Home or Self Care Social History Tobacco Use Types Packs/Day Years Used Date Smoking Tobacco: Every Day Cigarettes Tobacco Cessation:Ready to Q uit: No; Counseling Given: No Alcohol Use Standard Drinks/Week Comments Never 0 (1 standard drink = 0.6 oz pur e alcohol) Humiliation, Afraid, Rape, and Kick questionnair e Answer Date Recorded Within the last year, have y ou been afraid of your partner or ex-partner? No 12/14/2024 Within the last year, have y ou been humiliated or emotionally abused in other ways by your partner or ex-partner? No Within the last year, have y ou been kicked, hit, slapped, or otherwise physically hurt by your partner or ex-partner? No 12/14/2024 Within the last year, have y ou been raped or forced to have any kind of sexual activity by your partner or ex-partner? No 12/14/2024 AUDIT-C Answer Date Recorded Q1: How often do you have a drink containing alcohol? Never 12/24/2024 Q2: How many drinks containi ng alcohol do you have on a typical day when you are drinking? Patient does not drink Q3: How often do you have si x or more drinks on one occasion? Never 12/24/2024 Hunger Vital Sign Answer Date Recorded Within the past 12 months, y ou worried that your food would run out before you got the money to buy more. Never true 12/15/19 25 Within the past 12 months, t he food you bought just didn't last and you didn't have money to get more. Never true 12/14/2024 PRAPARE - Transportation Answer Date Re corded In the past 12 months, has l ack of transportation kept you from medical appointments or from getting medications? No 11/23 In the past 12 months, has l ack of transportation kept you from meetings, work, or from getting things needed for daily living? No 12/14/2024 Housing Stability Vital Sign Answer Arnulfo e Recorded In the last 12 months, was t here a time when you were not able to pay the mortgage or rent on time? No 12/14/2024 Number of Times Moved in the Last Year Not on fi le 12/14/2024 At any time in the past 12 m [facility], were you homeless or living in a halfway (including now)? No 12/14/2024 [facility] Utilities Answer Date Recorded In the past 12 months has e electric, gas, oil, or water company threatened to shut off services in your home? No 12/14/2024 Sex and Gender Information Value Date Recorded Sex Assigned at Not on file Legal Sex Male 2:49 PM EDT Gender Identity Not on file Sexual Orientation Not on file documented as of this encounter Last Filed Vital Signs Vital Sign Reading Time Taken Comments Blood Pressure 139/81 12/15/2024 12:01 PM EDT Pulse 57 12/15/2024 12:01 PM EDT Temperature 36.6 C (97.8 F) 12/15/2024 12:01 PM EDT Respiratory Rate 16 12/15/2024 7:46 AM EDT Oxygen Saturation 97% 12/15/2024 12:01 PM EDT Inhaled Oxygen Concentration - - Weight 67 kg (147 lb 11.3 oz) 12/13/2024 6:04 AM EDT Height 185.4 cm (6' 1 ) 12/11/2024 1:41 AM EDT Body Mass Index 19.49 12/11/2024 1:41 AM EDT documented in this encounter Functional Status * Calculated C-SSRS Risk Score (Lifetime/Recent) Answer Date of Assessment Author No Risk Indicated 12/14/2024 8:00 PM EDT Chandni Mi RN * Question Answer Date of Assessment Author 1. Wish to be (Past 1 Month) No 025 8:00 PM EDT Chandni Mi RN 2. Non-Specific Active Suici mendy Thoughts (Past 1 Month) No 12/14/2024 8:00 PM EDT Chandni Mi RN 6. Suicidal Behavior (Lifetime) No 8:00 PM EDT Chandni Mi RN documented as of this encounter Discharge Instructions * Discharge Instructions* Bridgette Jamison PA - 12/15/2024 1:36 PM EDT DVT prophylaxis: None at DC Procedures: 12/11: Right anterior chest tube placed by SGT 12/14: R chest tube removed Mobility Restrictions: None Other Precautions: No lifting > 10 lbs or lifting overhead x 4 weeks. Avoid altitude changes; no scuba diving or plane travel x 4-6 weeks Wound Care: Keep clean, dry, and intact. Wash with warm soapy water and pat dry. Change dressings/bandages as needed Leave CT bandage in place for at least 72 hours after it was removed. Incidental Findings: None Follow up: PCP: Follow up in 1-2 weeks post hospitalization for incidental findings and management of chronic conditions/medications SGT: [facility] FU on ribs and pneumothorax on 12/24 with CXR to evaluate post-pneumothorax, CT, and R 6-12 ribs; [address] [place] [place] [facility] First Floor, [address] [address], #[phone]. Questions or Concerns and Appointments If there are questions or concerns after discharge from the hospital, please call [phone] and ask for [facility] Nurse. Working hours are Friday - Friday 8:00 AM to 4:00 PM. After hours, weekends and holidays please call [phone] and ask for the resident contract administration manager for [facility]. For appointments please call [phone]. Medication requests should be made between the hours of 9:00 AM to 3:00 PM Friday thru Friday. Please note that based upon recent changes to [place] law related to prescribing opioid pain medications, our providers will not provide refills on controlled medications after your hospital discharge following a major surgery or trauma. [place] 218[place].172, [place].205 [place] 201 KAR9:260. documented in this encounter Medications at Time of Discharge chlorthalidone (Hygroton) 25 MG tablet Take 1 tablet by mouth daily. gabapentin (Neurontin) 100 MG capsule Take 2 capsules by mouth 3 times a day for 3 days, THEN 1 capsule 3 times a day for 3 days, THEN 1 capsule 2 times a day for 3 days. 33 capsule 12/15/2024 levothyroxine (Synthroid, Levoxyl) 75 MCG tablet Take 1 tablet by mouth daily before breakfast. lisinopril 5 MG tablet Take 1 tablet by mouth daily. meloxicam (Mobic) 15 MG tablet Take 1 tablet by mouth daily. methocarbamol (Robaxin) 500 MG tablet Take 1 tablet by mouth every 8 hours. 42 tablet 12/15/2024 Mounjaro 2.5 MG/0.5ML solution auto-injector solution pen-injector Inject 0.5 mL under the skin 1 time per week. acetaminophen (Tylenol) 500 MG tablet Take 2 tablets by mouth every 6 hours for 7 days. 56 tablet 12/15/2024 5 ibuprofen 600 MG tablet Take 1 tablet by mouth every 6 hours for 7 days. 28 tablet 12/15/2024 5 lidocaine (Lidoderm) 5 % patch Apply 2 patches topically 1 (one) time each day at the same time over 12 hours. Remove & discard patch within 12 hours or as directed by MD. 60 patch 12/16/2024 5 meclizine (Antivert) 25 MG tablet Take 1 tablet by mouth 3 times a day as needed for dizziness for up to 14 days. 42 tablet 12/15/2024 5 ondansetron ODT (Zofran-ODT) 4 MG disintegrating tablet Dissolve 1 tablet on the tongue every 6 hours as needed for nausea or vomiting for up to 5 days. 20 tablet 12/15/2024 5 oxyCODONE (Roxicodone) 5 MG immediate release tablet Take 1 tablet by mouth every 6 hours as needed for severe pain for up to 3 days. 12 tablet 12/15/2024 5 polyethylene glycol (Miralax) 17 g packet Take 17 g by mouth daily for 5 days. 5 packet 12/16/2024 5 senna-docusate (Rose-Colace) 8.6-50 MG tablet Take 1 tablet by mouth 2 times a day for 5 days. 10 tablet 12/15/2024 5 documented as of this encounter Miscellaneous Notes * Laura Khan - 12/15/2024 2:18 PM EDT Images from the original note were not included. 798 Narcan Nasal [place]: Rescue Guide for Opioid Overdose Step 1 Check for signs of overdose. Think someone had opioid overdose? Shout their name and ask Are you OK? Try shaking them by the shoulders or rubbing the middle of the chest. Signs of overdose are: ? No response or does not wake up. ? Breathing is slow, odd, or has stopped. ? Center of the eye (pupil) is very small. If you see any of these signs, go to Step 2. Step 2 Give the medicine. 1. Lay the person flat on the back. 2. Get the Narcan nasal spray. Peel back the tab to remove the bottle. 3. Hold the bottle as shown. 4. Put your free hand behind the person?s neck. Gently lift to tilt the head back. 5. Place the nozzle inside one nostril until your fingers touch the nose. 6. Press the plunger with your thumb to spray. Then remove from the nostril. Step 3 Call 911 for help and watch the person. ? Call 911 for emergency help. ? Have the person lay on their side as shown. ? Look for a response. The person may wake up, breathe normally, or respond to touch or voice. ? If there is no response for 2-3 minutes after giving the spray, give another - if you have extra spray bottles. In that case, repeat Step 2 then move them back on to their side. ? You can repeat this every 2-3 minutes until help arrives or the person responds. ? Use this medicine only if you know or suspect the person has opioid overdose. ? Do not open the Narcan package until you need to use it. ? Only for use in the nose. * [facility] - Laura Tierney - 12/15/2024 2:18 PM EDT Images from the original note were not included. 450 Safe Use of Controlled Substances Taking a medicine may be an important part of your treatment. Your body should heal faster if you take medicine safely. Some medicines are called Controlled Substances. This means their use is controlled by law. Some of these can harm you if you do not take them safely. What can I do to make sure I take my medicine safely? ? Follow the instructions we give you for how to take your medicine. ? We will give you an instruction sheet for each of your medicines. Ask your doctor or nurse if youdo not get these instructions. ? Some medicines make you sleepy or cloud your thinking. Do not drive, use heavy machines or do dangerous activities while taking these medicines. ? Read the label on the bottle each time you take your medicine. ? Do not take your medicine with alcohol or other sedatives. ? Do not take medicine after the expiration date. ? It is against the law to sell your medicine or share it with others. ? Do not drive while using your medicine. How should I store my medicine? Store it in a safe place. This will keep others from taking your medicine and help you keep track of it. ? Store controlled substances in a cabinet or container that you can lock. ? Keep it in a place that is cool, dry and out of direct sunlight. ? Do not leave it in the car. ? Do not store in a refrigerator or freezer, unless your doctor tells you to. ? Call your doctor right away if your medicine is lost or stolen. How should I dispose of medicine that is or no longer needed? You may have medicine left over that you do not need or should not take. You must dispose of it theright way to protect yourself and others. You can ask your local pharmacist how to dispose of them.You can also visit these Web sites to learn more about disposal of controlled substances: ? Drug Enforcement Agency (IGNACIO): http://www.deadiversion.[place].gov/drug_disposal/takeback/index.htm ? National Association of Drug Diversion Investigators (NADDI): http://rxdrugdropbox.org/ ? [place] Office of Drug Control Policy: http://odcp.wi.gov/Prescription+Drug+Drop+Box+Sites.htm Are there concerns about or ? ? Before you take a medicine, tell your doctor if you are or plan to get . This could harm your baby. ? Tell your doctor if you breastfeed. Medicine in breast milk may be bad for your child. What if I have low or impaired vision? If you have vision problems, take extra care with your medicine. ? Wear your glasses when you take your medicine. ? Do not take medicine in the dark. What are the signs of overdose? Some controlled substances may cause breathing problems if you take more than your doctor recommends. This may lead to serious health problems or even . You and your caregivers should watch for the following signs of overdose. ? Slurred speech, confusion or stumbling ? Feeling dizzy or faint ? Acting drowsy or groggy ? Unusual snoring, gasping or snorting during sleep ? Hard to wake up or keep awake What should I or my caregiver do if I overdose? You or your caregiver should call 911 if you have any of these problems: ? Cannot wake up ? Cannot talk after waking up ? Shortness of breath, slow or light breathing, or breathing has stopped ? Heartbeat is slow or stopped ? Gurgling noise comes from the mouth or throat ? Body is limp or seems lifeless ? Face is pale or clammy ? Fingernails or lips look blue or purple What is a CARRI report? MYOMO is a system that tracks prescriptions of controlled substances in [place]. The CARRI report tells your doctor if you have been prescribed controlled substances in the past. Doctors must get a CARRI report before prescribing controlled substances. What can I do if the information in my CARRI report is wrong? You or your doctor may contact the dispenser who reported the information to MYOMO. If the dispenser agrees that the information should be changed, he or she can fix the CARRI report. However, the dispenser may certify that the report is correct. If that is the case, you or your doctor may then call the [place] Drug Enforcement and Professional Practices Branch at .This will start an investigation of the error. * [facility] - Laura Tierney - 12/15/2024 2:17 PM EDT Images from the original note were not included. [address] Back Fracture (Compression Fracture) Your spine stretches from the base of your skull to your tailbone. It's composed of 33 bones (vertebrae) stacked on top of one another. These bones are strong enough to support the weight of your upper body. But certain injuries can damage 1 or more of the vertebrae and cause them to collapse. A collapsed bone in your spine is known as a compression fracture. As you age, your bones lose calcium. This can lead to bone loss (osteopenia) or osteoporosis. This raises the risk for compression fractures and other fractures, such as in the hip. What to expect in the ER A healthcare provider will ask about your health history and examine you. In some cases, you may have X-rays. You may have other tests, such as a CT scan or MRI. These tests can give detailed images of your bones and spinal cord. Treatment Treatment will depend on the type and cause of the fracture. You will be given medicine for pain. Severe fractures or those that cause nerve problems may need surgery. Many compression fractures mendon their own. Follow-up As you improve, you may be given exercises to strengthen your bones. You may also need a special type of X-ray called a DEXA scan (dual-energy X-ray absorptiometry). This measures bone mineral density and bone loss. If the DEXA shows your bone density is lower than expected for your age, it means you have a risk for osteoporosis and bone fractures. If you have osteoporosis, your provider may prescribe a medicine to treat it. Sometimes you may have pain even after the bone has healed. In that case, your provider will discuss your options. Causes of compression fracture Many compression fractures result from osteoporosis. This disease thins and weakens your bones so they can't withstand normal pressure and are more likely to break. Trauma from a car accident or hardfall can fracture even healthy vertebrae. In rare cases, a tumor in the bone may be the cause of a fracture. Sometimes vertebrae may fracture for unknown reasons. When to call 911 Call 911 if you or someone else has been in an accident or had a fall and has neck or back pain, especially when pain occurs with any of these symptoms: ? Can't move immediately after the incident. Keep the person still. Don't move the head or neck. Place heavy towels or rolled sheets on both sides of the neck. Or hold the head and neck still to prevent movement. ? Loss of control over bowels or bladder ? Numbness or weakness ? High fever ? Unexplained back pain in a person with cancer Last Reviewed Date: 2023 00:00:00 ?? [id number] The [employer]. All rights reserved. This information is not intended as a substitute for professional medical care. Always follow your healthcare professional's instructions. * [facility] - Laura Tierney - 12/15/2024 2:11 PM EDT Images from the original note were not included. [address]666 Rib Fracture (Broken Rib) Your ribs are curved bones in your chest. They help protect your lungs and expand and contract whenyou breathe. Children's ribs bend easily and can often withstand a blow or fall. But adult ribs aremore likely to break (fracture) under stress. Even coughing or a hard sneeze can fracture a rib. When to go to the emergency room (ER) Although they can be painful, most rib fractures aren't serious. But they often make it hard to cough or breathe deeply. Get to the ER or call 911 right away if you have: ? Trouble breathing ? Nausea, vomiting, or stomach pain with a sore or bruised rib ? Pain that gets worse over time ? An injury to the chest or stomach What to expect in the ER Here's what will happen in the ER: ? A healthcare provider will ask about your injury and examine you carefully. ? An X-ray of your chest will likely be taken to show any major damage to ribs and lungs. But ribs can have small breaks that don't show up on X-rays, even though they still hurt. In some cases, a CTscan may be done. ? You may be given medicine to ease your discomfort. ? In rare cases, rib fractures can cause a lung to collapse or lead to bleeding in the chest. In these cases, a tube will be inserted into the chest to reinflate the lung or drain the blood. Follow-up You are likely to heal in 6 to 8 weeks. Most rib fractures heal on their own with no lasting effects. Call your healthcare provider right away if you notice any of these symptoms: ? Increased chest pain ? Shortness of breath ? Fever of 100.4??F (38??C) or above, or as advised by your provider ? Chills ? Coughing up blood Last Reviewed Date: 2023 00:00:00 ?? [id number] The [employer]. All rights reserved. This information is not intended as a substitute for professional medical care. Always follow your healthcare professional's instructions. * [facility] Laura Tierney - 12/15/2024 2:11 PM EDT Images from the original note were not included. [id number] Traumatic (Blunt Trauma) Pneumothorax Pneumothorax occurs when air leaks out from a lung and gets trapped in the space between the lung and the chest wall (pleural space). It can cause complete or partial collapse of a lung. The trapped air prevents the lung from re-inflating. Pneumothorax can occur as a result of a blow to the chest, such as from a fall or car accident (blunt trauma). It can happen with or without a broken rib. It may also happen without an injury. A small pneumothorax caused by blunt trauma may not need a hospital stay after diagnosis. It can betreated at home. The trapped air will be absorbed, and the lung will re-expand by itself. Larger amounts of trapped air must be treated in a hospital. Symptoms Symptoms of pneumothorax include: ? Trouble breathing or being unable to take a full breath. ? Sharp chest pain when breathing. ? Tightness in the chest. ? Rapid heart rate. ? Rapid breathing. Home care ? Rest at home. Don't do vigorous activity or exercise for the next week or until your health care provider says it?s safe to do so. ? You may use vknp-[id number] pain medicine to control pain, unless another medicine was prescribed. If you have chronic liver or kidney disease or have ever had a stomach ulcer or gastrointestinal bleeding, talk with your provider before using these medicines. Also talk with your provider if you are taking medicine to prevent blood clots. ? During the next 3 days, it's important to take 4 slow, deep breaths every 1 to 2 hours while awake. Do this even though your chest may hurt when you breathe. It sends extra oxygen and blood to the lung. This is important to help keep the lung expanded. If an incentive spirometer (breathing exercise device) was given, use it as directed. ? If you smoke or use e-cigarettes, get help to quit. ? Don't fly or go diving until your provider says it?s safe to do so. Follow-up care Follow up with your provider, or as advised. If X-rays have been taken, you will be told of any newfindings that may affect your care. You can also call as advised for the results. Call 911 Call 911 if: ? You have trouble with breathing that gets worse. ? You have confusion or trouble waking up. ? You have a rapid heart rate. ? You have new pain in your chest, arm, shoulder, neck, or upper back. ? You have weakness, dizziness, or fainting. When to contact your doctor Call your provider right away if any of these occur: ? Increased pain with breathing ? Fever ? Productive cough Last Reviewed Date: 2024 00:00:00 ?? [id number] The [employer]. All rights reserved. This information is not intended as a substitute for professional medical care. Always follow your healthcare professional's instructions. * [facility] - Laura Tierney - 12/15/2024 2:10 PM EDT Images from the original note were not included. 40741 Preventing Falls: Staying Active Staying active is one of the best things you can do to prevent falls. Keep in mind that doing too little can be as risky as doing too much. That's because not being active can make you weaker and more likely to fall. But how much can you do safely? Start easy. Slowly work up to doing more. Talk with your health care provider about safe ways for you to stay active. Stay active, stay connected Staying in contact with other people can help lower your risk of falls. It also helps to keep you from feeling isolated and depressed. Find a social activity you enjoy. Make it part of your weekly ordaily routine: ? Join a club or visit a senior center. ? Go to sikh services. ? Plan a potRetAPPsk or game of cards. ? Garden with your neighbor. ? Have a friend join you to go walking outdoors or in the mall. How exercise helps The list of benefits from exercise just keeps getting longer. And, as you age, you can keep gettingthose rewards. Balance, flexibility, strength, and endurance all come from exercise. They all play a role to prevent falls. It's never too late to start exercising. Try organized activities. You can find these at senior centers, health clubs, or even at a place of zoroastrianism. This may work best if you' ve never exercised in the past or if you need company to get motivated. But you can exercise on your own if you prefer. Try an exercise video or walk in the park. Last Reviewed Date: 2024 00:00:00 ?? [id number] The [employer]. All rights reserved. This information is not intended as a substitute for professional medical care. Always follow your healthcare professional's instructions. * [facility] - Laura Tierney - 12/15/2024 2:10 PM EDT Images from the original note were not included. [id number] After a Fall You have had a fall today. That means that you slipped, tripped, or lost your balance. If your fallwas because of fainting or a seizure, you might need other tests. It's normal to feel sore and tight in your muscles and back the next day, and not just the muscles you injured. Remember, all the parts of your body are connected, so while one area hurts now, the next day another may hurt. Also, when you injure yourself, it causes inflammation. This then causes the muscles to tighten up and hurt more. After the symptoms get worse, they should slowly improve overthe next few days. Tell your doctor if you have more severe pain. Even without a definite head injury, you can still get a concussion from your head suddenly jerkingforward, backward, or sideways when you fall. This is especially true if you have had concussions in the past. Concussions and even bleeding can still happen, especially if you had a recent injury ortake blood thinner medicine. It is not unusual to have a mild headache and feel tired and even nauseated or dizzy. Home care ? Rest today. Return to your normal activities when you are feeling back to normal. ? If you were injured during the fall, follow the advice from your doctor about how to care for your injury. ? At first, don't try to stretch out the sore spots. If there is a strain, stretching may make it worse. Massage may help relax the muscles without stretching them. ? Use an ice pack or a cold compress on and off at the sore spots for 10 to 20 minutes at a time, as often as you feel comfortable. This may help reduce the inflammation, swelling, and pain. ? Know that if you have any scrapes (abrasions), they often heal within 10 days. Keep the scrapes clean while they start to heal. But an infection may happen even with correct care. So watch for early signs of infection (such as warmth, redness, or swelling). Medicines ? Talk with your doctor before taking new medicines, especially if you have other health problems or are taking other medicines. ? If you need anything for pain, use acetaminophen or ibuprofen, unless you were given a different pain medicine to use. Talk with your doctor before using these medicines if you: o Have chronic liver or kidney disease. o Ever had a stomach ulcer or gastrointestinal bleeding. o Are taking blood-thinner medicines. ? Be careful if you are given prescription pain medicines, narcotics, or medicine for muscle spasms. They can make you sleepy and dizzy. And they can affect your coordination, reflexes, and judgment.Don't drive or do work where you can hurt yourself when taking them. Fall prevention ? Fix, remove, or replace anything that caused your fall. ? Make your home safe by keeping walkways clear of objects you could trip over. ? Use nonslip pads under rugs. Don't use small area rugs or throw rugs. ? Don't walk in poorly lit areas. ? Don't stand on chairs or wobbly ladders. ? Be careful when you reach overhead or look upward. This position can cause a loss of balance. ? Be sure your shoes fit correctly, have nonslip bottoms, and are in good condition. ? Be careful when you go up and down curbs and when you walk on uneven sidewalks. ? If your balance is poor, think about using a cane or walker. ? Stay as active as you can. Balance, flexibility, strength, and endurance all come from exercise. They all play a role in preventing falls. ? If you have pets, know where they are before you stand up or walk so you don't trip over them. ? Limit alcohol intake. Alcohol can cause balance problems and increase the risk for falls. ? Use night-lights. ? Have your eyes tested to be sure you are seeing well, even if you already wear glasses. Follow-up Follow up with your doctor, or as advised. If X-rays or CT scans were done, you will be told if there is a change in the reading, especially if it affects treatment. Call 911 Call 911 if you have: ? Trouble breathing. ? Confusion. ? Trouble waking up. ? Fainting or loss of consciousness. ? A fast or very slow heart rate. ? A seizure. ? Trouble with speech or vision, or weakness of an arm or leg. ? Trouble walking or talking, loss of balance, numbness or weakness on one side of your body, or facial droop. When to get medical advice Contact your doctor right away if you have: ? Repeated falls, including falls that seem to happen for no reason. ? Dizziness. ? A severe headache. ? Blood in your vomit or stools. (They look black or red.) Last Reviewed Date: 2024 00:00:00 ?? [id number] The [employer]. All rights reserved. This information is not intended as a substitute for professional medical care. Always follow your healthcare professional's instructions. * [facility] - Laura Tierney - 12/15/2024 2:09 PM EDT Images from the original note were not included. [id number] Ladder Safety on the Job Falls happen when you lose your balance. Standing on makeshift supports and using ladders incorrectly can cause you to fall. Using the wrong equipment for a task can also increase your chances of being hurt. Watch for hazards ? Makeshift supports. Makeshift supports are never quite right for the job. And they're not safe. For instance, don't stand on top of a trash can or chair instead of a stepstool or ladder. This raises your risk of falling and hurting yourself. Never make a short ladder taller by putting something under the legs. And be careful not to overreach. This can shift your center of gravity and make you lose your balance. ? Incorrect use of ladders. Using equipment incorrectly is a common fall hazard. Ladders can pose major risks if used incorrectly. If you set a ladder too close or too far from a building, you're more likely to fall off of it. Other causes of falls include setting the ladder on loose, uneven ground. Or using a tall ladder by yourself without securing it. And never stand on the top of a stepladder. Also never use an extension ladder that's too short. Use the right equipment and use it right ? Find out what you need ahead of time. ? Follow safety warnings on equipment. ? Keep yourself centered over your support. This helps you keep your balance. ? Keep your arms and legs as close to your center of gravity as possible (don't overreach). ? Choose the right ladder for the job. ? Do not use a metal stepladder near power lines or electrical equipment. ? Do not tie 2 ladders together to make them longer. ? Do not exceed the ladder?s maximum load rating. Follow ladder safety rules ? Inspect the ladder before using it. Look for any signs of damage. These include cracks, rust, or missing rungs. ? Use the 1 to 4 rule. The base of the ladder needs to be placed 1 foot out from its support for every 4 feet of ladder length. ? Set and secure the ladder on stable ground. ? Have someone hold the base of the ladder. The base of the ladder should be secured. ? Never use the top rung. ? Wear correct footwear, such as nonslip flat shoes. ? Make sure the ladder is fully extended before starting work. ? Have 3 points of contact with the ladder at all times. ? Do not carry any tools or materials in your hands when climbing a ladder. Carry them in a tool belt. Or raise tools up using a handline. ? Stay near the middle of the ladder and face the ladder while climbing up or down. ? Do not ignore nearby overhead power lines. ? Position portable ladders (also called extension ladders) so that side rails extend at least 3 feet above the landing. ? Keep ladders free of any slippery materials. ? Prevent tipping the ladder over sideways or causing the ladder base to slide out. Last Reviewed Date: 2023 00:00:00 ?? [id number] The [employer]. All rights reserved. This information is not intended as a substitute for professional medical care. Always follow your healthcare professional's instructions. * Discharge Summary - Chromy, Bridgette I, PA - 12/15/2024 1:35 PM EDT Hospitalization Admit Date/Time: 12/09/2024 4:40 PM Admitting Attending: Lara Stewart Discharge Date: 12/15/2024 Discharge Attending Physician: Hayden Brown MD PCP name and Address: Starr Fulton PA [address] / [place] [address] Referring provider name and address: Richard Yang PA [address] [place] [address] Chief Concern, Brief History of Present Illness, and Hospital Course Yossi Riddle is a 59 y/o M w/ hx of HTN, hypothyroidism, arthritis, DM, HLD who comes to on 12/10 from OSH after fall from 10ft ladder. Injuries includes: R rib 6-12 fxs, T9 tp fx, R pneumothorax,abrasions Past 24h: Patient is resting in bed, comfortable and alert. NAD. MANUELON. PM CXR stable, awaiting read from AM CXR, appears stable from my review. VSS. On RA, no SOA. Endorses dizziness when ambulating. Pain is well-controlled. Tolerating PO diet. Denies N/V, abd pain. Last BM 12/14. Mobilizing as able. Discussed anticipated hospital course. 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 At the time of discharge the patient was hemodynamically stable, tolerating PO, voiding spontaneously, normal bowel function, mobilizing appropriately, with their pain controlled with PO medication. At this time, the patient has obtained the maximum benefit from the present hospital stay, and so will be discharged to home. DVT prophylaxis: None at DC Procedures: 12/11: Right anterior chest tube placed by SGT 12/14: R chest tube removed Mobility Restrictions: None Other Precautions: No lifting > 10 lbs or lifting overhead x 4 weeks. Avoid altitude changes; no scuba diving or plane travel x 4-6 weeks Wound Care: Keep clean, dry, and intact. Wash with warm soapy water and pat dry. Change dressings/bandages as needed Leave CT bandage in place for at least 72 hours after it was removed. Incidental Findings: None Follow up: PCP: Follow up in 1-2 weeks post hospitalization for incidental findings and management of chronic conditions/medications SGT: [facility] FU on ribs and pneumothorax on 12/24 with CXR to evaluate post-pneumothorax, CT, and R 6-12 ribs; [address] [place] [facility] First Floor, Wing [address] [place] [address], #[phone]. Questions or Concerns and Appointments If there are questions or concerns after discharge from the hospital, please call [phone] and ask for [facility] Nurse. Working hours are Friday - Friday 8:00 AM to 4:00 PM. After hours, weekends and holidays please call [phone] and ask for the resident contract administration manager for [facility]. For appointments please call [phone]. Medication requests should be made between the hours of 9:00 AM to 3:00 PM Friday thru Friday. Please note that based upon recent changes to [place] law related to prescribing opioid pain medications, our providers will not provide refills on controlled medications after your hospital discharge following a major surgery or trauma. [place], [place] 201 KAR9:260. Surgeries and Procedures Procedures performed in this encounter Procedures Chest Tube Insertion Medication List .. acetaminophen 500 MG tablet Commonly known as: Tylenol Take 2 tablets by mouth every 6 hours for 7 days. chlorthalidone 25 MG tablet Commonly known as: Hygroton Take 1 tablet by mouth daily. gabapentin 100 MG capsule Commonly known as: Neurontin Take 2 capsules by mouth 3 times a day for 3 days, THEN 1 capsule 3 times a day for 3 days, THEN 1 capsule 2 times a day for 3 days. Start taking on: December 15, 2024 ibuprofen 600 MG tablet Take 1 tablet by mouth every 6 hours for 7 days. levothyroxine 75 MCG tablet Commonly known as: Synthroid, Levoxyl Take 1 tablet by mouth daily before breakfast. lidocaine 5 % patch Commonly known as: Lidoderm Apply 2 patches topically 1 (one) time each day at the same time over 12 hours. Remove & discard patch within 12 hours or as directed by MD. Start taking on: December 16, 2024 lisinopril 5 MG tablet Take 1 tablet by mouth daily. meclizine 25 MG tablet Commonly known as: Antivert Take 1 tablet by mouth 3 times a day as needed for dizziness for up to 14 days. meloxicam 15 MG tablet Commonly known as: Mobic Take 1 tablet by mouth daily. methocarbamol 500 MG tablet Commonly known as: Robaxin Take 1 tablet by mouth every 8 hours. Mounjaro 2.5 MG/0.5ML solution auto-injector solution pen-injector Generic drug: tirzepatide Inject 0.5 mL under the skin 1 time per week. ondansetron ODT 4 MG disintegrating tablet Commonly known as: Zofran-ODT Dissolve 1 tablet on the tongue every 6 hours as needed for nausea or vomiting for up to 5 days. oxyCODONE 5 MG immediate release tablet Commonly known as: Roxicodone Take 1 tablet by mouth every 6 hours as needed for severe pain for up to 3 days. polyethylene glycol 17 g packet Commonly known as: Miralax Take 17 g by mouth daily for 5 days. Start taking on: December 16, 2024 senna-docusate 8.6-50 MG tablet Commonly known as: Rose-Colace Take 1 tablet by mouth 2 times a day for 5 days. Where to Get Your Medications These medications were sent to [facility] - [place], [place] - [address] [email or web address] [address] [employer] [place] [id number] acetaminophen 500 MG tablet gabapentin 100 MG capsule ibuprofen 600 MG tablet lidocaine 5 % patch meclizine 25 MG tablet methocarbamol 500 MG tablet ondansetron ODT 4 MG disintegrating tablet oxyCODONE 5 MG immediate release tablet polyethylene glycol 17 g packet senna-docusate 8.6-50 MG tablet Discharge Diagnosis Medical Problems Active and Resolved Hospital Problems Hospital * (Principal) Fall from ladder, initial encounter (Chronic) Traumatic pneumothorax Closed fracture of rib Leucocytosis Other specified hypothyroidism Overview Signed 12/10/2024 4:06 AM by Ken Baires MBBS Continue home levothyroxine Hypertension Closed fracture of spinous process of thoracic vertebra (CMS/HCC) Outpatient Follow-Up Future Appointments Date Time Provider Department Center 12/24/2024 9:30 AM GENERAL SURGERY [facility] Pertinent Physical Exam At Time of Discharge Physical Exam Vitals reviewed. Constitutional: General: He is not in acute distress. Appearance: Normal appearance. He is not ill-appearing. HENT: Head: Normocephalic. Nose: Nose normal. Mouth/Throat: Mouth: Mucous membranes are moist. Eyes: Conjunctiva/sclera: Conjunctivae normal. Cardiovascular: Rate and Rhythm: Normal rate and regular rhythm. Heart sounds: Normal heart sounds. Pulmonary: Effort: Pulmonary effort is normal. No respiratory distress. Breath sounds: Normal breath sounds. No wheezing, rhonchi or rales. Chest: Chest wall: Tenderness present. Abdominal: General: There is no distension. Palpations: Abdomen is soft. Tenderness: There is no abdominal tenderness. Musculoskeletal: General: No tenderness or signs of injury. Normal range of motion. Skin: General: Skin is warm and dry. Neurological: Mental Status: He is alert and oriented to person, place, and time. Mental status is at baseline. Sensory: No sensory deficit. Motor: No weakness. Psychiatric: Behavior: Behavior normal. Thought Content: Thought content normal. Discharge Disposition/Condition Disposition: Home Condition: Stable (s/sx potential problems absent or manageable) I spent >30 minutes of patient care and instruction time in preparation for this discharge. Cosigned by Hayden Brown MD at 12/20/2024 4:16 AM EDT * Care Plan - Adonay Padgett RN - 12/15/2024 9:38 AM EDT Problem: Adult Inpatient Plan of Care Goal: Plan of Care Review Outcome: Ongoing, Progressing Flowsheets Taken 12/13/2024 0912 by Siomara Licona RN Progress: improving Plan of Care Reviewed With: patient Taken 12/11/2024 1015 by Chung Perea RN Outcome Evaluation: Patient denies pain Goal: Patient-Specific Goal (Individualized) Outcome: Ongoing, Progressing Flowsheets (Taken 12/15/2024 0800) Patient/Family-Specific Goals (Include Timeframe): patient will remain free from falls while waiting on discharge Individualized Care Needs: discharge plans Anxieties, Fears or Concerns: denied Goal: Absence of Hospital-Acquired Illness or Injury Outcome: Ongoing, Progressing Intervention: Identify and Manage Fall Risk Flowsheets (Taken 12/15/2024 0800) Safety Promotion/Fall Prevention: activity supervised Intervention: Prevent Skin Injury Flowsheets Taken 12/15/2024 08 by Adonay Padgett RN Body Position: weight shifting Taken 12/10/20242343 by Nyasia Mcgraw RN Skin Protection: incontinence pads utilized Intervention: Prevent and Manage VTE (Venous Thromboembolism) Risk Flowsheets (Taken 12/13/2024 08 by Siomara Licona, HALEIGH) VTE Prevention/Management: bilateral lower extremity SCDs (sequential compression devices) on Intervention: Prevent Infection Flowsheets (Taken 12/10/20242343 by Nyasia Mcgraw RN) Infection Prevention: hand hygiene promoted Goal: Optimal Comfort and Wellbeing Outcome: Ongoing, Progressing Intervention: Monitor Pain and Promote Comfort Flowsheets (Taken 12/14/20242027 by Chandni Mi, HALEIGH) Pain Management Interventions: medication (see MAR) Intervention: Provide Person-Centered Care Flowsheets (Taken 12/10/20242343 by Nyasia Mcgraw RN) Trust Relationship/Rapport: care explained questions answered questions encouraged Problem: Fall Injury Risk Goal: Absence of Fall and Fall-Related Injury Outcome: Ongoing, Progressing Intervention: Identify and Manage Contributors Flowsheets (Taken 12/10/20242343 by Nyasia Mcgraw RN) Medication Review/Management: medications reviewed Self-Care Promotion: independence encouraged BADL personal objects within reach BADL personal routines maintained Intervention: Promote Injury-Free Environment Flowsheets (Taken 12/15/2024 0800) Safety Promotion/Fall Prevention: activity supervised Problem: Pain Acute Goal: Optimal Pain Control and Function Outcome: Ongoing, Progressing Intervention: Optimize Psychosocial Wellbeing Flowsheets (Taken 12/10/20242343 by Nyasia Mcgraw RN) Supportive Measures: active listening utilized self-care encouraged relaxation techniques promoted Diversional Activities: television Spiritual Activities Assistance: personal rituals encouraged Intervention: Develop Pain Management Plan Flowsheets (Taken 12/14/20242027 by Chandni Mi, HALEIGH) Pain Management Interventions: medication (see MAR) Intervention: Prevent or Manage Pain Flowsheets (Taken 12/10/20242343 by [place], Krizzana C, RN) Sensory Stimulation Regulation: quiet environment promoted auditory stimulation minimized Bowel Elimination Promotion: ambulation promoted adequate fluid intake promoted Sleep/Rest Enhancement: consistent schedule promoted therapeutic touch utilized room darkened Medication Review/Management: medications reviewed * Care Plan - Chandni Mi RN - 12/15/2024 1:08 AM EDT Problem: Adult Inpatient Plan of Care Goal: Plan of Care Review Outcome: Ongoing, Progressing Goal: Patient-Specific Goal (Individualized) 12/15/2024 0108 by Chandni Mi RN Flowsheets (Taken 12/14/20241999) Patient/Family-Specific Goals (Include Timeframe): PATIENT WILL REACH DESIRED PAIN GOAL BY END OF SHIFT Individualized Care Needs: PAIN Anxieties, Fears or Concerns: NONE 12/15/2024 0108 by Chandni Mi RN Outcome: Ongoing, Progressing Goal: Absence of Hospital-Acquired Illness or Injury Outcome: Ongoing, Progressing Goal: Optimal Comfort and Wellbeing Outcome: Ongoing, Progressing Problem: Fall Injury Risk Goal: Absence of Fall and Fall-Related Injury Outcome: Ongoing, Progressing Intervention: Promote Injury-Free Environment Flowsheets (Taken 12/14/20241999) Safety Promotion/Fall Prevention: activity supervised assistive device/personal items within reach clutter-free environment maintained lighting adjusted fall prevention program maintained mobility aid in reach nonskid shoes/slippers when out of bed room organization consistent safety round/check completed Problem: Pain Acute Goal: Optimal Pain Control and Function Outcome: Ongoing, Progressing Intervention: Prevent or Manage Pain Flowsheets (Taken 12/10/2024 2344 by Nyasia Mcgraw, RN) Sensory Stimulation Regulation: quiet environment promoted auditory stimulation minimized Bowel Elimination Promotion: ambulation promoted adequate fluid intake promoted Sleep/Rest Enhancement: consistent schedule promoted therapeutic touch utilized room darkened Medication Review/Management: medications reviewed * Care Plan - Adonay Padgett RN - 12/14/2024 6:21 PM EDT Problem: Adult Inpatient Plan of Care Goal: Plan of Care Review Flowsheets Taken 12/13/2024 0912 by Siomara Licona, H[place]IGH Progress: improving Plan of Care Reviewed With: patient Taken 12/11/2024 1015 by Chung Perea RN Outcome Evaluation: Patient denies pain Goal: Patient-Specific Goal (Individualized) Flowsheets (Taken 12/13/2024 0800 by Siomara Licona, H[place]IGH) Patient/Family-Specific Goals (Include Timeframe): patient will remain free from falls/injury/harm Individualized Care Needs: safety Anxieties, Fears or Concerns: chest tube status Goal: Absence of Hospital-Acquired Illness or Injury Note: Remain free from falls Intervention: Identify and Manage Fall Risk Flowsheets (Taken 12/14/2024 1130) Safety Promotion/Fall Prevention: activity supervised Intervention: Prevent Skin Injury Flowsheets Taken 12/14/2024 1000 by Ani Ferrera RN Body Position: weight shifting Taken 12/10/20242343 by Nyasia Mcgraw RN Skin Protection: incontinence pads utilized Intervention: Prevent and Manage VTE (Venous Thromboembolism) Risk Flowsheets (Taken 12/13/2024 0800 by Siomara Licona, H[place]IGH) VTE Prevention/Management: bilateral lower extremity SCDs (sequential compression devices) on Intervention: Prevent Infection Flowsheets (Taken 12/10/20242343 by Nyasia Mcgraw RN) Infection Prevention: hand hygiene promoted Goal: Optimal Comfort and Wellbeing Intervention: Monitor Pain and Promote Comfort Flowsheets (Taken 12/13/2024 1513 by Siomara Licona, H[place]IGH) Pain Management Interventions: medication (see MAR) Intervention: Provide Person-Centered Care Flowsheets (Taken 12/10/20242343 by Nyasia Mcgraw, H[place]IGH) Trust Relationship/Rapport: care explained questions answered questions encouraged Problem: Fall Injury Risk Goal: Absence of Fall and Fall-Related Injury Intervention: Identify and Manage Contributors Flowsheets (Taken 12/10/20242343 by Nyasia Mcgraw, H[place]IGH) Medication Review/Management: medications reviewed Self-Care Promotion: independence encouraged BADL personal objects within reach BADL personal routines maintained Intervention: Promote Injury-Free Environment Flowsheets (Taken 12/14/2024 1130) Safety Promotion/Fall Prevention: activity supervised Problem: Pain Acute Goal: Optimal Pain Control and Function Intervention: Optimize Psychosocial Wellbeing Flowsheets (Taken 12/10/20242343 by Nyasia Mcgraw RN) Supportive Measures: active listening utilized self-care encouraged relaxation techniques promoted Diversional Activities: television Spiritual Activities Assistance: personal rituals encouraged Intervention: Develop Pain Management Plan Flowsheets (Taken 12/13/2024 1513 by Siomara Licona RN) Pain Management Interventions: medication (see MAR) Intervention: Prevent or Manage Pain Flowsheets (Taken 12/10/2024 9274 by Nyasia Mcgraw RN) Sensory Stimulation Regulation: quiet environment promoted auditory stimulation minimized Bowel Elimination Promotion: ambulation promoted adequate fluid intake promoted Sleep/Rest Enhancement: consistent schedule promoted therapeutic touch utilized room darkened Medication Review/Management: medications reviewed * Assessment & Plan Note - Maddison George PA - 12/14/2024 2:43 PM EDT Associated Problem(s): Traumatic pneumothorax Currently stable, no chest tube at this time O2 as needed, pulmonary hygiene, IS, PAP/PEP therapy/ breathing treatments as needed 12/11: Right anterior chest tube placed by SGT 12/13: Water seal trial 12/14: R chest tube removed * Assessment & Plan Note - Maddison George PA - 12/14/2024 2:43 PM EDT Associated Problem(s): Fall from ladder, initial encounter Sgt2 Tertiary 12/11 * Assessment & Plan Note - Maddison George PA - 12/14/2024 2:43 PM EDT Associated Problem(s): Closed fracture of rib R 6-12 fxs Pulm hygiene * Assessment & Plan Note - Maddison George PA - 12/14/2024 2:43 PM EDT Associated Problem(s): Leucocytosis Likely reactive 20.12 on admission * Assessment & Plan Note - Maddison George PA - 12/14/2024 2:43 PM EDT Associated Problem(s): Other specified hypothyroidism Home med reordered * Assessment & Plan Note - Maddison George PA - 12/14/2024 2:43 PM EDT Associated Problem(s): Hypertension Home meds as able * Assessment & Plan Note - Maddison George PA - 12/14/2024 2:43 PM EDT Associated Problem(s): Closed fracture of spinous process of thoracic vertebra (CMS/HCC) CT of thoracic and lumbar spine shows a spinous process fracture of T9 MMPM PT/OT * Progress Notes - Maddison George PA - 12/14/2024 2:42 PM EDT 12/14/24 Yossi Riddle is a 59 y/o M w/ hx of HTN, hypothyroidism, arthritis, DM, HLD who comes to on 12/10 from OSH after fall from 10ft ladder. Injuries includes: R rib 6-12 fxs, T9 tp fx, R pneumothorax,abrasions 12/11: Right anterior chest tube placed by SGT Interval: Pt sitting up in bed, awake and alert. VSS, on room air, NAEON. Pain is controlled at present. Denies SOA. Pulling 500 on IS. R chest tube to water seal without air leak. Last BM 12/11. Afternoon update: After discussion with attending proceeded with chest tube removal. Pt tolerated well. Edited by: Maddison George PA at 12/14/2024 1441 Relevant review of systems was obtained as able and is negative unless stated above in HPI. Vital signs: Vitals: 12/14/24 1133 BP: 126/74 Pulse: 64 Resp: 16 Temp: 36.8 ??C (98.3 ??F) SpO2: 93% Physical Exam Vitals reviewed. Constitutional: General: He is not in acute distress. HENT: Head: Normocephalic. Eyes: Conjunctiva/sclera: Conjunctivae normal. Cardiovascular: Rate and Rhythm: Normal rate. Pulmonary: Effort: Pulmonary effort is normal. Chest: Chest wall: Tenderness present. Abdominal: General: There is no distension. Palpations: Abdomen is soft. Musculoskeletal: General: Normal range of motion. Skin: General: Skin is warm and dry. Neurological: Mental Status: He is alert and oriented to person, place, and time. Psychiatric: Behavior: Behavior normal. Intake/Output Summary (Last 24 hours) at 12/14/2024 1442 Last data filed at 12/14/2024 0800 Gross per 24 hour Intake -- Output 115 ml Net -115 ml Lines/Drains/Tubes: Patient Lines/Drains/Airways Status Active Airway None Output by Drain (mL) 12/12/24 0700 - 12/12/24 1859 12/12/24 1900 - 12/13/24 0659 12/13/24 0700 - 12/13/24 1859 12/13/24 1900 - 12/14/24 0659 12/14/24 0700 - 12/14/24 1442 Requested LDAs do not have output data documented. Labs in last 18 hours: CBC WBC ?? Hb ?? Plt ?? Hct ?? ANC ?? INR ??, PTT ??, Anti-Xa ?? MCV ?? BMP Na ?? Cl ?? BUN ?? Glu ?? K ?? Co2 ?? Cr ?? Ca ?? iCa ?? Mg ??, Phos ?? Lactate ?? LFT AST ?? AlkPhos ?? T Prot ?? ALK ?? Bili ?? Alb ?? D.Bili ?? Lab Trends: H/H Results from last 7 days Lab Units 12/13/24 0302 12/11/24 0159 12/10/24 0412 HEMOGLOBIN g/dL 12.7* 11.9* 12.9* HEMATOCRIT % 37.0* 34.5* 36.2* INR Results from last 7 days Lab Units 12/10/24 0412 12/09/24 1812 INR 1.1 1.1 Cr Results from last 7 days Lab Units 12/11/24 0159 12/10/24 0412 12/09/24 1812 CREATININE mg/dL 0.80 0.74 0.81 Medications reviewed. Vital signs reviewed. Labs reviewed. Radiography reviewed. Assessment and Plan: Assessment & Plan Fall from ladder, initial encounter Present on Admission: Yes Sgt2 Tertiary 12/11 Traumatic pneumothorax Present on Admission: Yes Currently stable, no chest tube at this time O2 as needed, pulmonary hygiene, IS, PAP/PEP therapy/ breathing treatments as needed 12/11: Right anterior chest tube placed by SGT 12/13: Water seal trial 12/14: R chest tube removed Closed fracture of rib Present on Admission: Yes R 6-12 fxs Pulm hygiene Leucocytosis Present on Admission: Yes Likely reactive 20.12 on admission Other specified hypothyroidism Present on Admission: Yes Home med reordered Hypertension Present on Admission: Yes Home meds as able Closed fracture of spinous process of thoracic vertebra (CMS/HCC) Present on Admission: Yes CT of thoracic and lumbar spine shows a spinous process fracture of T9 MMPM PT/OT Plan: - R CT removed. F/u CXR @ 18:30 & in AM - POCT glucose trend reviewed, A1C 5.5. Change POCT glucose checks to PRN - Pulmonary hygiene, IS Q1HWA, daily ambulation - MMPC - Bowel regimen Dispo: home with assistance Edited by: Maddison George PA at 12/14/2024 1441 STEFFANY Wong * Progress Notes - Leatha Cota RN - 12/14/2024 12:56 PM EDT Case Management Adult Initial Progress Note Yossi Riddle 59 y.o. male CSN: [id number] Admission: 12/09/2024 4:40 PM Primary Problem: Fall from ladder, initial encounter Dyer Assistant reviewed chart and spoke with patient to complete this Initial Case Management Assessment. PCP: Starr Fulton PA in [place], [place] Preferred pharmacy is [facility] in [place] Emergency Contact: Extended Emergency Contact Information Primary Emergency Contact: brandan riddle Mobile Relation: Spouse Preferred language: [place] Tool And [employer] Engineer needed? No Insurance: Primary Visit Coverage Payer Plan Sponsor Code Group Number Group Name [employer]END[employer] TO [facility] [id number] Primary Visit Coverage Subscriber Subscriber ID Subscriber Name Subscriber SSN Subscriber Address [id number] Yossi Riddle Jr [id number] [facility] [place] [address] Patient information: Primary Caregiver: Self Support System: Immediate family (Patient lives with spouse Brandan who can assist patient if needed and with transportation, but patient was independent in AD[employer]s [employer] and drives self.) Daily Living Activities: Living Arrangements: Family (Patient lives with spouse Brandan who can assist patient if needed andwith transportation, but patient was independent in ADLs [employer] and drives self.) Type of Residence: Private residence, Multi Level (Back: 2 ARTURO Front: 5 ARTURO) [address] [facility] [address] [place] [facility] [address] Current DME: Equipment Currently Used at Home: none Anticipated Discharge Date: tbd Patient's Discharge Goal: Assistance Available at Discharge: Family Discharge Transport: Family Follow Up Transport: Family Home Health / Home Infusion / Outpatient Dialysis Services: None Living Will/Advance Directive/Power of Vapor Coater /Guardian: None Advance Directive: Patient does not have advance directive Information Provided on Healthcare Directives: No Pre-existing DNR/DNI Order: No Patient Requests Assistance: No Additional Comments: Patient lives with spouse Brandan who can assist patient if needed and with transportation, but patient was independent in ADLs [employer] and drives self. Patient currently has a chest tube this admit and is on room air. Patient does not use any oxygen or DME at home. Current PT recs for Home with assistance, patient owns appropriate equipment. Social Drivers of Health Food Insecurity: No Food Insecurity (12/14/2024) Hunger Vital Sign Worried About Running Out of Food in the Last Year: Never true Ran Out of Food in the Last Year: Never true Alcohol Use: Not on file Housing Stability: Unknown (12/14/2024) Housing Stability Vital Sign Unable to Pay for Housing in the Last Year: No Number of Times Moved in the Last Year: Not on file Homeless in the Last Year: No Tobacco Use: High Risk (12/11/2024) Patient History Smoking Tobacco Use: Every Day Smokeless Tobacco Use: Unknown Passive Exposure: Not on file Transportation Needs: No Transportation Needs (12/14/2024) PRAPARE - Transportation Lack of Transportation (Medical): No Lack of Transportation (Non-Medical): No Depression: Not on file Utilities: Not At Risk (12/14/2024) [facility] Utilities Threatened with loss of utilities: No Stress: Not on file Intimate Partner Violence: Not At Risk (12/14/2024) Humiliation, Afraid, Rape, and Kick questionnaire Fear of Current or Ex-Partner: No Emotionally Abused: No Physically Abused: No Sexually Abused: No Physical Activity: Not on file Social Connections: Not on file Financial Resource Strain: Not on file * Assessment & Plan Note - Maddison George PA - 12/13/2024 2:33 PM EDT Associated Problem(s): Traumatic pneumothorax Currently stable, no chest tube at this time O2 as needed, pulmonary hygiene, IS, PAP/PEP therapy/ breathing treatments as needed 12/11: Right anterior chest tube placed by SGT 12/13: Water seal trial * Assessment & Plan Note - Maddison George PA - 12/13/2024 2:33 PM EDT Associated Problem(s): Fall from ladder, initial encounter Sgt2 Tertiary 12/11 * Assessment & Plan Note - Maddison George PA - 12/13/2024 2:33 PM EDT Associated Problem(s): Closed fracture of rib R 6-12 fxs Pulm hygiene * Assessment & Plan Note - Maddison George PA - 12/13/2024 2:33 PM EDT Associated Problem(s): Leucocytosis Likely reactive 20.12 on admission * Assessment & Plan Note - Maddison George PA - 12/13/2024 2:33 PM EDT Associated Problem(s): Other specified hypothyroidism Home med reordered * Assessment & Plan Note - Maddison George PA - 12/13/2024 2:33 PM EDT Associated Problem(s): Hypertension Home meds as able * Assessment & Plan Note - Maddison George PA - 12/13/2024 2:33 PM EDT Associated Problem(s): Closed fracture of spinous process of thoracic vertebra (CMS/HCC) CT of thoracic and lumbar spine shows a spinous process fracture of T9 MMPM PT/OT * Progress Notes - Maddison George PA - 12/13/2024 2:32 PM EDT 12/13/24 Yossi Raykathleen HPI Yossi Riddle is a 59 y/o M w/ hx of HTN, hypothyroidism, arthritis, DM, HLD who comes to on 12/10 from OSH after fall from 10ft ladder. Injuries includes: R rib 6-12 fxs, T9 tp fx, R pneumothorax,abrasions 12/11: Right anterior chest tube placed by SGT Interval: Pt sitting up in the chair, awake and alert. Female visitor at bedside. VSS, on room air, NAEON. Pulling 500 on IS. Endorses occasional productive cough. Encouraged to expectorate secretions. R CT to20 cm suction, gentle tidaling, no air leak. Output flowsheet reviewed. Discussed plan for possibletrial of water seal today, anticipated hospital course. All questions answered. Edited by: Maddison George PA at 12/13/2024 1053 Relevant review of systems was obtained as able and is negative unless stated above in HPI. Vital signs: Vitals: 12/13/24 1146 BP: 113/69 Pulse: 67 Resp: 17 Temp: 36.7 ??C (98 ??F) SpO2: 95% Physical Exam Vitals reviewed. Constitutional: General: He is not in acute distress. HENT: Head: Normocephalic. Eyes: Conjunctiva/sclera: Conjunctivae normal. Cardiovascular: Rate and Rhythm: Normal rate. Heart sounds: Normal heart sounds. Pulmonary: Effort: Pulmonary effort is normal. Chest: Chest wall: Tenderness present. Comments: Right anterior chest tube to 20 cm suction, no air leak Abdominal: General: There is no distension. Palpations: Abdomen is soft. Musculoskeletal: General: Normal range of motion. Skin: General: Skin is warm and dry. Neurological: Mental Status: He is alert and oriented to person, place, and time. Psychiatric: Behavior: Behavior normal. Intake/Output Summary (Last 24 hours) at 12/13/2024 1432 Last data filed at 12/13/2024 0400 Gross per 24 hour Intake 250 ml Output 120 ml Net 130 ml Lines/Drains/Tubes: Patient Lines/Drains/Airways Status Active Airway None Output by Drain (mL) 12/11/24 0700 - 12/11/24 1859 12/11/24 1900 - 12/12/24 0659 12/12/24 0700 - 12/12/24 1859 12/12/24 1900 - 12/13/24 0659 12/13/24 0700 - 12/13/24 1432 Requested LDAs do not have output data documented. Labs in last 18 hours: CBC WBC 12.54 (H) Hb 12.7 (L) Plt 221 Hct 37.0 (L) ANC ?? INR ??, PTT ??, Anti-Xa ?? MCV 96 BMP Na ?? Cl ?? BUN ?? Glu ?? K ?? Co2 ?? Cr ?? Ca ?? iCa ?? Mg ??, Phos ?? Lactate ?? LFT AST ?? AlkPhos ?? T Prot ?? ALK ?? Bili ?? Alb ?? D.Bili ?? Lab Trends: H/H Results from last 7 days Lab Units 12/13/24 0302 12/11/24 0159 12/10/24 0412 HEMOGLOBIN g/dL 12.7* 11.9* 12.9* HEMATOCRIT % 37.0* 34.5* 36.2* INR Results from last 7 days Lab Units 12/10/24 0412 12/09/24 1812 INR 1.1 1.1 Cr Results from last 7 days Lab Units 12/11/24 0159 12/10/24 0412 12/09/24 1812 CREATININE mg/dL 0.80 0.74 0.81 Medications reviewed. Vital signs reviewed. Labs reviewed. Radiography reviewed. Assessment and Plan: Assessment & Plan Fall from ladder, initial encounter Present on Admission: Yes [facility] Tertiary 12/11 Traumatic pneumothorax Present on Admission: Yes Currently stable, no chest tube at this time O2 as needed, pulmonary hygiene, IS, PAP/PEP therapy/ breathing treatments as needed 12/11: Right anterior chest tube placed by SGT 12/13: Water seal trial Closed fracture of rib Present on Admission: Yes R 6-12 fxs Pulm hygiene Leucocytosis Present on Admission: Yes Likely reactive 20.12 on admission Other specified hypothyroidism Present on Admission: Yes Home med reordered Hypertension Present on Admission: Yes Home meds as able Closed fracture of spinous process of thoracic vertebra (CMS/HCC) Present on Admission: Yes CT of thoracic and lumbar spine shows a spinous process fracture of T9 MMPM PT/OT Plan: - Discussed with attending, trial water seal today. CXR @ 16:00 and in AM. Tube may need to be pulled back slightly, will CTM - Pulmonary hygiene, IS Q1HWA, daily ambulation - MMPC - Bowel regimen Dispo: home with assistance Barriers: R chest tube Edited by: Maddison George PA at 12/13/2024 1429 STEFFANY Wong * Progress Notes - Rich Rowell - 12/13/2024 9:52 AM EDT Physical Therapy Evaluation Patient Name: Yossi Riddle Today's Date: 12/13/2024 PT Discharge Recommendations: Home with assistance Equipment Recommended: Patient owns appropriate equipment History Yossi Riddle is 59 y.o. male admitted 12/09/2024 for work-up of Fall from ladder, initial encounter. Problem List Active Hospital Problems Diagnosis Date Noted Fall 12/13/2024 Fall from ladder, initial encounter 12/10/2024 Traumatic pneumothorax 12/10/2024 Closed fracture of rib 12/10/2024 Leucocytosis 12/10/2024 Other specified hypothyroidism 12/10/2024 Hypertension 12/10/2024 Closed fracture of spinous process of thoracic vertebra (CMS/HCC) 12/10/2024 Past Medical History Patient has a past medical history of Diabetes mellitus (CMS/HCC), Hypertension, and Hypothyroid. Past Surgical History Patient has a past surgical history that includes Thyroidectomy. Precautions Medical Precautions: Fall precautions Subjective RN and pt agreeable to therapy session. Participants in Care Family/Caregiver Present: Yes Family/Caregiver: Spouse Tool And Die Engineer: Not Applicable Presentation Oxygen Therapy: None (Room air) Pre-Session: Supine, Head of bed elevated, Lines intact Pre-Session Comments: RN agreeable to therapy session. Post-Session: Sitting in chair, Lines intact, RN notified, Call light in reach Post-Session Comments: All needs in reach. Home Living/Set-up Lives With: Spouse Home Type: House Home Adaptive Equipment: Rolling walker Home Layout: Two level, Able to live on one level with bedroom/bathroom, Stairs to enter with rails Number of Stairs: 2 Bathroom: Tub/Shower: Tub/Shower combo (upstairs) Bathroom: Accessibility: Accessible Prior Level of Function Receives Help From: No assist required prior to admission Level of Mobility: Ambulatory- community Mobility [place]: Independent gait without device History of Falls: No ADL Performance: Independent Patient/Family Goals Return to home. Objective Pain Pain score (0-10): pt does not rate Location: R ribs Intervention: activity increased, position adjusted, pillow support, emotional support provided, and RN notified Response: comfortable at end of session Delirium Screening RASS: Alert and calm Confusion Assessment Method-ICU (CAM-ICU/PCAM-ICU) Feature 3: Altered Level of Consciousness: Negative Cognition Overall Cognitive Status: Within Functional Limits Arousal/Alertness: Appropriate responses to stimuli Mood/Behavior: Alert Orientation Level: Oriented X4 Single Step Commands: Consistently Multi-Step Commands: Consistently Method of Communication: Verbal Vision - Basic Assessment Baseline Vision: Glasses distance, Glasses reading Current Vision: Blurred, Diplopia Right Upper Extremity Examination RUE Assessment: Within Functional Limits Manual Muscle Testing - RUE: Within functional limits Sensation Light Touch: Right Upper Extremity: Intact Left Upper Extremity Examination LUE ROM Assessment LUE Assessment: Within Functional Limits Manual Muscle Testing - LUE Manual Muscle Testing - LUE: Within functional limits Sensation Light Touch: Left Upper Extremity: Intact Right Lower Extremity Examination RLE ROM Assessment RLE Assessment: Within Functional Limits Manual Muscle Testing - RLE Manual Muscle Testing - RLE: Within functional limits (at least 3+/5) Sensation Light Touch: Right Lower Extremity: Intact Left Lower Extremity Examination LLE Assessment: Within Functional Limits Manual Muscle Testing: Within functional limits (at least 3+/5) Sensation Light Touch: Left Lower Extremity: Intact Bed Mobility Bed Mobility Interventions: Pt instructed to perform supine to sit transfer with logroll technique to reduce pain with transfers 2/2 rib fractures. Pt cued to bend knee and reach across midline towards bedrail to roll onto his side and then push himself into a seated position with good carryover and slow pacing. Once at EOB, pt was able to scoot hips anteriorly for optimal positioning for STS with cues to initate movement. Bed Mobility Exam: Rolling/Turning Level of [place]: Contact guard Physical/Nonphysical Assist: Verbal Cues, Nonverbal cues (demo/gestures), Moderate cues, Additionalassist utilized for safety Assistive Device: Bed rails Bed Mobility Exam: Scooting/Bridging Level of [place]: Contact guard Physical/Nonphysical Assist: Verbal Cues, Nonverbal cues (demo/gestures) Bed Mobility Exam: Supine to Sit Level of [place]: Contact guard Physical/Nonphysical Assist: HOB elevated, Verbal Cues, Nonverbal cues (demo/gestures), Additional assist utilized for safety Transfers Transfer Interventions: Pt completed sit <> stand transfers with CGA and cues for RW management during transfer. Pt paused at 50% upright during sit to stand transfer and required cues to finish movement. Transfer Exam: Sit to stand Level of [place]: Contact guard Physical/Nonphysical Assist: Verbal Cues, Nonverbal cues (demo/gestures), 1 person + 1 person to manage equipment Assistive Device: Walker, rolling Transfer Exam: Stand to Sit Level of [place]: Contact guard Physical/Nonphysical Assist: Verbal Cues, Nonverbal cues (demo/gestures), 1 person + 1 person to manage equipment Assistive Device: Walker, rolling Ambulation Device: Rolling walker Assistance: Contact guard assist Distance : 150ft Ambulation Comments: Pt ambulated 150ft with CGA and RW. He demonstrated decreased step length, decreased foot clearance, downward gaze, and overall slow pacing. Pt cued to keep gaze forward and keepBOW within RW with fair carryover. Pt with 1 episode of LOB during ambulation that he was able to recover from independently. Pt was cued to ascend/descend 2 steps with a step-to gait pattern and he was able to perform with good carryover and CGA for safety. Balance Postural Appearance Posture: Rounded shoulders, Forward head Static Sitting Balance Static Sitting-Balance Support: Right upper extremity support, Left upper extremity support, Feet supported Static Sitting-Level of Assistance: Standby assist Stating Sitting - Interventions: Pt sat at EOB prior to ambulation to improve tolerance to upright mobility. Dynamic Sitting Balance Dynamic Sitting-Balance Support: Right upper extremity support, Left upper extremity support, Feet supported Dynamic Sitting-Balance: Lateral weight shifts, Anterior/Posterior weight shifts Level of Assistance: Contact guard Static Standing Balance Static Standing-Balance Support: Right upper extremity support, Left upper extremity support (RW) Static Standing-Level of Assistance: Contact guard Dynamic Standing Balance Dynamic Standing-Balance Support: Right upper extremity support, Left upper extremity support (RW) Dynamic Standing-Balance: Lateral weight shifts, Anterior/Posterior weight shifts Dynamic Standing Level of Assistance: Contact guard Dynamic Standing - Interventions: Pt with 1 episode of LOB during ambulation that he was able to recover from independently. Therapeutic Activity (18 minutes) Pt participated in therAct focused on increasing pt's independence with bed mobility, transfers, ambulation, and balance, and improving his tolerance to upright mobility. Please see specific sectionsfor details. Standardized Assessments [facility] 6-Clicks Mobility Assessment Difficulty patient has turning over in bed (including adjusting bedclothes, sheets, and blankets)?:A little Difficulty patient has sitting down on and standing up from a chair with arms (wheelchair, bedside commode, etc.)?: A little Difficulty patient has moving from lying on back to sitting on the side of the bed?: A little How much help does the patient need moving to and from a bed to a chair (including a wheelchair)?: A little How much help does the patient need to walk in hospital room?: A little How much help does the patient need climbing 3-5 steps with a railing?: A little [facility] 6-Clicks Mobility Assessment Total : 18 Assessment PT evaluation completed this date in addition to therAct. At this time, pt is CGA with all mobility. Prior to admission, pt was independent with all mobility and is currently mobilizing near baseline. He reports he has assistance from family and reports no concerns regarding home discharge. When medically ready, pt is appropriate to discharge to home with assistance. Impairments: Decreased endurance, ventilation, and/or gas exchange, Pain, Impaired gait dynamics/performance Eval Complexity History Profile: 1 - 2 personal factors and/or comorbidities Clinical Presentation: Stable and/or uncomplicated characteristics Clinical Decision Making: Moderate complexity PT Recommendations Discharge Destination: Home with assistance Discharge Equipment: Patient owns appropriate equipment Plan Patient no longer demonstrates need for inpatient physical therapy services. Patient to be discharged from physical therapy. Written by Rich Rowell on 12/13/24 at 1:49 PM. Cosigned by Janae Galindo at 12/13/2024 2:41 PM EDT Associated attestation - Janae Galindo - 12/13/2024 2:41 PM EDT I attest that I was present during this PT student's entire physical therapy session and am in agreement with all documentation produced for this patient on this date. Janae Galindo, PT, DPT * Progress Notes - Leatha Rush - 12/13/2024 9:51 AM EDT Occupational Therapy Evaluation/Discharge Patient Name: Yossi Riddle Today's Date: 12/13/2024 OT Discharge Recommendations: Home with assistance Equipment Recommended: Patient owns appropriate equipment History Yossi Riddle is 59 y.o. male admitted 12/09/2024 for work-up of Fall from ladder, initial encounter. Problem List Active Hospital Problems Diagnosis Date Noted Fall 12/13/2024 Fall from ladder, initial encounter 12/10/2024 Traumatic pneumothorax 12/10/2024 Closed fracture of rib 12/10/2024 Leucocytosis 12/10/2024 Other specified hypothyroidism 12/10/2024 Hypertension 12/10/2024 Closed fracture of spinous process of thoracic vertebra (CMS/HCC) 12/10/2024 Procedures Past Medical History Patient has a past medical history of Diabetes mellitus (CMS/HCC), Hypertension, and Hypothyroid. Past Surgical History Patient has a past surgical history that includes Thyroidectomy. Precautions Medical Precautions: Fall precautions Subjective Pt agreeable to OT session Participants in Care Family/Caregiver Present: Yes Family/Caregiver: Spouse Tool And Die Engineer: Not Applicable Presentation Oxygen Therapy: None (Room air) Chest Tube Right 28 Fr (Active) Peripheral IV Anterior;Distal;Left;Upper Arm (Active) Peripheral IV Right Antecubital (Active) Lines and Tubes: Telemetry Pre-Session: Supine, Head of bed elevated, Lines intact Pre-Session Comments: RN agreeable to therapy session. Post-Session: Sitting in chair, Lines intact, RN notified, Call light in reach Post-Session Comments: All needs in reach. Home Living/Set-up Lives With: Spouse Home Type: House Home Adaptive Equipment: Rolling walker Home Layout: Two level, Able to live on one level with bedroom/bathroom, Stairs to enter with rails Number of Stairs: 2 Bathroom: Tub/Shower: Tub/Shower combo (upstairs) Bathroom: Accessibility: Accessible Prior Level of Function Receives Help From: No assist required prior to admission Level of Mobility: Ambulatory- community Mobility [place]: Independent gait without device History of Falls: No ADL Performance: Independent Patient/Family Goals Statement To return home Objective Pain Pt with no reports of pain during session Delirium Screening RASS: Alert and calm Confusion Assessment Method-ICU (CAM-ICU/PCAM-ICU) Feature 3: Altered Level of Consciousness: Negative Cognition Overall Cognitive Status: Within Functional Limits Arousal/Alertness: Appropriate responses to stimuli Mood/Behavior: Alert Orientation Level: Oriented X4 Single Step Commands: Consistently Multi-Step Commands: Consistently Method of Communication: Verbal Vision - Basic Assessment Baseline Vision: Glasses distance, Glasses reading Current Vision: Blurred, Diplopia Right Upper Extremity Examination RUE ROM Assessment RUE Assessment: Within Functional Limits Manual Muscle Testing - RUE: Within functional limits Sensation Light Touch: Right Upper Extremity: Intact Left Upper Extremity Examination LUE ROM Assessment LUE Assessment: Within Functional Limits Manual Muscle Testing - LUE: Within functional limits Sensation Light Touch: Left Upper Extremity: Intact Right Lower Extremity Examination RLE ROM Assessment RLE Assessment: Within Functional Limits Manual Muscle Testing - RLE: Within functional limits (at least 3+/5) Sensation Light Touch: Right Lower Extremity: Intact Left Lower Extremity Examination LLE ROM Assessment LLE Assessment: Within Functional Limits Manual Muscle Testing: Within functional limits (at least 3+/5) Sensation Light Touch: Left Lower Extremity: Intact Bed Mobility Bed Mobility Exam: Rolling/Turning Level of [place]: Contact guard Physical/Nonphysical Assist: Verbal Cues, Nonverbal cues (demo/gestures), Moderate cues, Additionalassist utilized for safety Bed Mobility Exam: Scooting/Bridging Level of [place]: Contact guard Physical/Nonphysical Assist: Verbal Cues, Nonverbal cues (demo/gestures) Bed Mobility Exam: Supine to Sit Level of [place]: Contact guard Physical/Nonphysical Assist: HOB elevated, Verbal Cues, Nonverbal cues (demo/gestures), Additional assist utilized for safety Transfers Transfer Exam: Sit to stand Level of [place]: Contact guard Physical/Nonphysical Assist: Verbal Cues, Nonverbal cues (demo/gestures), 1 person + 1 person to manage equipment Assistive Device: Walker, rolling Transfer Exam: Stand to Sit Level of [place]: Contact guard Physical/Nonphysical Assist: Verbal Cues, Nonverbal cues (demo/gestures), 1 person + 1 person to manage equipment Assistive Device: Walker, rolling Balance Postural Appearance Posture: Rounded shoulders, Forward head Static Sitting Balance Static Sitting-Balance Support: Right upper extremity support, Left upper extremity support, Feet supported Static Sitting-Level of Assistance: Standby assist Stating Sitting - Interventions: Pt sat at EOB prior to ambulation to improve tolerance to upright mobility. Dynamic Sitting Balance Dynamic Sitting-Balance Support: Right upper extremity support, Left upper extremity support, Feet supported Dynamic Sitting-Balance: Lateral weight shifts, Anterior/Posterior weight shifts Level of Assistance: Contact guard Static Standing Balance Static Standing-Balance Support: Right upper extremity support, Left upper extremity support (RW) Static Standing-Level of Assistance: Contact guard Dynamic Standing Balance Dynamic Standing-Balance Support: Right upper extremity support, Left upper extremity support (RW) Dynamic Standing-Balance: Lateral weight shifts, Anterior/Posterior weight shifts Dynamic Standing Level of Assistance: Contact guard Self-Care Interventions Self Care/Home Management (ADLs) Time Entry: 18 OT provided the following skilled services: *grading of activity to provide just right challenge *training on body mechanics *environmental setup for safety to reduce fall risk Bathing UE Bathing Level of Assistance: Setup LE Bathing Level of Assistance: Contact guard Bathing Interventions: Anticipated based on functional mobility UE Dressing UE Dressing Level of Assistance: Setup Lower Extremity Dressing Pants Level of Assistance: Minimum assistance Toileting Toileting Level of Assistance: Contact guard Toileting Interventions: Pt and verbalize pt has been up to the commode in bathroom this morning. OT provided education/training on use of RW at home for safe transition on/off commode Health Management Health Management interventions: In conjunction with with self care activities, pt functionally mobilized household distance (including 2 steps to simulate home entrance/exit) with CGA and RW for purpose of facilitating postural support, balance stability, and energy conservation. OT incorporated this functional challenge to simulate sequential activity tolerance which is required during ADLs (I.e. bathing followed by dressing, traveling from bedroom to kitchen to engage in meal prep, etc). Cueing provided throughout for pacing for energy conservation and planning for safety awareness. Pt with 1 LOB during functional mobility, but self-corrected. Standardized Assessments [facility] 6-Click Daily Activities Help from Other: Don/Doff Regular Lower Body Clothings: Little Help From Other: Bathing: None Help From Other: Toileting: Little Help From Other: Don/Doff Upper Body Clothings: None Help From Other: Grooming: None Help From Other: Eating Meals: None [facility] 6 Click - Daily Activities Score: 22 Assessment Pt presents with minimal ADL performance deficits, no activity tolerance deficits, and no deficits with functional mobility. Pt does not required skilled OT services at this time and is a good candidate to return home with assist when medically stable. OT to sign off at this time. OT Findings: (No OT needs) Eval Complexity Occupational Profile: Brief history including review of medical/therapy records relating to presenting problem Performance Deficits: (No overt OT deficits) Clinical Decision Making: Low Overall Eval complexity: Low OT Recommendations Discharge Destination: Home with assistance Discharge Equipment: Patient owns appropriate equipment Plan Patient no longer demonstrates need for inpatient occupational therapy services. Patient to be discharged from occupational therapy. Written by Leatha Rush on 12/13/24 at 1:48 PM. * Care Plan - Siomara Licona RN - 12/13/2024 9:12 AM EDT Problem: Adult Inpatient Plan of Care Goal: Plan of Care Review Outcome: Ongoing, Progressing Flowsheets (Taken 12/13/2024 0912) Progress: improving Plan of Care Reviewed With: patient Goal: Patient-Specific Goal (Individualized) Outcome: Ongoing, Progressing Flowsheets (Taken 12/13/2024 0800) Patient/Family-Specific Goals (Include Timeframe): patient will remain free from falls/injury/harm Individualized Care Needs: safety Anxieties, Fears or Concerns: chest tube status Goal: Absence of Hospital-Acquired Illness or Injury Outcome: Ongoing, Progressing Goal: Optimal Comfort and Wellbeing Outcome: Ongoing, Progressing Problem: Fall Injury Risk Goal: Absence of Fall and Fall-Related Injury Outcome: Ongoing, Progressing Problem: Pain Acute Goal: Optimal Pain Control and Function Outcome: Ongoing, Progressing * Care Plan - Estella Tomas RN - 12/12/2024 10:06 PM EDT Problem: Adult Inpatient Plan of Care Goal: Plan of Care Review Outcome: Ongoing, Progressing Flowsheets (Taken 12/12/2024 0913 by Siomara Licona [place]) Progress: improving Plan of Care Reviewed With: patient Goal: Patient-Specific Goal (Individualized) Outcome: Ongoing, Progressing Goal: Absence of Hospital-Acquired Illness or Injury Outcome: Ongoing, Progressing Goal: Optimal Comfort and Wellbeing Outcome: Ongoing, Progressing Problem: Fall Injury Risk Goal: Absence of Fall and Fall-Related Injury Outcome: Ongoing, Progressing Problem: Pain Acute Goal: Optimal Pain Control and Function Outcome: Ongoing, Progressing * Assessment & Plan Note - Ruben Goldberg APRN - 12/12/2024 4:31 PM EDT Associated Problem(s): Traumatic pneumothorax Currently stable, no chest tube at this time O2 as needed, pulmonary hygiene, IS, PAP/PEP therapy/ breathing treatments as needed 12/11: Chest CT ordered 12/12 chest tube placed to suction * Assessment & Plan Note - Ruben Goldberg APRN - 12/12/2024 4:31 PM EDT Associated Problem(s): Fall from ladder, initial encounter Sgt2 Tertiary 12/11 * Assessment & Plan Note - Ruben oGldberg APRN - 12/12/2024 4:31 PM EDT Associated Problem(s): Closed fracture of rib R 6-12 fxs Pulm hygiene * Assessment & Plan Note - Ruben Goldberg APRN - 12/12/2024 4:31 PM EDT Associated Problem(s): Leucocytosis Likely reactive 20.12 on admission * Assessment & Plan Note - Ruben Goldberg APRN - 12/12/2024 4:31 PM EDT Associated Problem(s): Other specified hypothyroidism Home med reordered * Assessment & Plan Note - Ruben Goldberg APRN - 12/12/2024 4:31 PM EDT Associated Problem(s): Hypertension Home meds as able * Assessment & Plan Note - Ruben Goldberg APRN - 12/12/2024 4:31 PM EDT Associated Problem(s): Closed fracture of spinous process of thoracic vertebra (CMS/HCC) CT of thoracic and lumbar spine shows a spinous process fracture of T9 MMPM PT/OT * Progress Notes - Ruben Goldberg APRN - 12/12/2024 4:30 PM EDT 12/12/24 Yossi Riddle is a 59 y/o M w/ hx of HTN, hypothyroidism, arthritis, DM, HLD who comes to on 12/10 from OSH after fall from 10ft ladder. Injuries includes: R rib 6-12 fxs, T9 tp fx, R pneumothorax,abrasions Interval: Patient sitting up in bed A&O. VSS. NAD. NAEON. On RA, no SOA. Tolerating PO diet, noN/V, abd pain. Last BM [employer]. Mobilizing as able. Pain well controlled. Chest tube to suction. Discussed plan of care with patient/family, who is in understanding. No further concerns per patient or nursing. Edited by: Ruben Goldberg APRN at 12/12/2024 1630 Relevant review of systems was obtained as able and is negative unless stated above in HPI. Vital signs: Vitals: 12/12/24 1518 BP: 120/70 Pulse: 68 Resp: Temp: 37.5 ??C (99.5 ??F) SpO2: 93% Physical Exam Vitals and nursing note reviewed. Constitutional: Appearance: Normal appearance. HENT: Head: Normocephalic and atraumatic. Nose: Nose normal. Mouth/Throat: Mouth: Mucous membranes are dry. Pharynx: Oropharynx is clear. Eyes: Extraocular Movements: Extraocular movements intact. Pupils: Pupils are equal, round, and reactive to light. Cardiovascular: Rate and Rhythm: Normal rate and regular rhythm. Heart sounds: Normal heart sounds. Pulmonary: Effort: Pulmonary effort is normal. Breath sounds: Decreased breath sounds present. Chest: Chest wall: Tenderness present. Abdominal: General: Abdomen is flat. Bowel sounds are normal. There is no distension. Palpations: Abdomen is soft. Tenderness: There is no abdominal tenderness. There is no guarding. Musculoskeletal: General: Normal range of motion. Cervical back: Normal range of motion and neck supple. No tenderness. Skin: General: Skin is warm and dry. Capillary Refill: Capillary refill takes less than 2 seconds. Neurological: Mental Status: He is alert and oriented to person, place, and time. Psychiatric: Mood and Affect: Mood normal. Behavior: Behavior normal. Intake/Output Summary (Last 24 hours) at 12/12/2024 1630 Last data filed at 12/12/2024 0600 Gross per 24 hour Intake 560 ml Output 150 ml Net 410 ml Lines/Drains/Tubes: Patient Lines/Drains/Airways Status Active Airway None Output by Drain (mL) 12/10/24 07 - 12/10/24 1859 12/10/24 1900 - 12/11/24 0659 12/11/24 0700 - 12/11/24 1859 12/11/24 1900 - 12/12/24 0659 12/12/24 0700 - 12/12/24 1630 Requested LDAs do not have output data documented. Labs in last 18 hours: CBC WBC ?? Hb ?? Plt ?? Hct ?? ANC ?? INR ??, PTT ??, Anti-Xa ?? MCV ?? BMP Na ?? Cl ?? BUN ?? Glu ?? K ?? Co2 ?? Cr ?? Ca ?? iCa ?? Mg ??, Phos ?? Lactate ?? LFT AST ?? AlkPhos ?? T Prot ?? ALK ?? Bili ?? Alb ?? D.Bili ?? Lab Trends: H/H Results from last 7 days Lab Units 12/11/24 0159 12/10/24 0412 12/09/24 1812 HEMOGLOBIN g/dL 11.9* 12.9* 13.7 HEMATOCRIT % 34.5* 36.2* 38.3* INR Results from last 7 days Lab Units 12/10/24 0412 12/09/24 1812 INR 1.1 1.1 Cr Results from last 7 days Lab Units 12/11/24 0159 12/10/24 0412 12/09/24 1812 CREATININE mg/dL 0.80 0.74 0.81 Medications reviewed. Vital signs reviewed. Labs reviewed. Radiography reviewed. Assessment and Plan: Assessment & Plan Fall from ladder, initial encounter Present on Admission: Yes Sgt2 Tertiary 12/11 Traumatic pneumothorax Present on Admission: Yes Currently stable, no chest tube at this time O2 as needed, pulmonary hygiene, IS, PAP/PEP therapy/ breathing treatments as needed 12/11: Chest CT ordered 12/12 chest tube placed to suction Closed fracture of rib Present on Admission: Yes R 6-12 fxs Pulm hygiene Leucocytosis Present on Admission: Yes Likely reactive 20.12 on admission Other specified hypothyroidism Present on Admission: Yes Home med reordered Hypertension Present on Admission: Yes Home meds as able Closed fracture of spinous process of thoracic vertebra (CMS/HCC) Present on Admission: Yes CT of thoracic and lumbar spine shows a spinous process fracture of T9 MMPM PT/OT Plan: - Chest tube management: Suction - MMPC - Bowel regimen - Pulmonary hyigene/IS - DVT ppx - Labs stable, AM cbc - AM CXR - PT/OT Dispo: Pending Barriers: Chest tube Edited by: Ruben Goldberg APRN at 12/12/2024 1627 Ruben Goldberg APRN * Care Plan - Siomara Licona RN - 12/12/2024 9:13 AM EDT Problem: Adult Inpatient Plan of Care Goal: Plan of Care Review Outcome: Ongoing, Progressing Flowsheets (Taken 12/12/2024 0913) Progress: improving Plan of Care Reviewed With: patient Goal: Patient-Specific Goal (Individualized) Outcome: Ongoing, Progressing Flowsheets (Taken 12/12/2024 0800) Patient/Family-Specific Goals (Include Timeframe): patient will remain free from falls/injury/harm Individualized Care Needs: safety Anxieties, Fears or Concerns: none Goal: Absence of Hospital-Acquired Illness or Injury Outcome: Ongoing, Progressing Goal: Optimal Comfort and Wellbeing Outcome: Ongoing, Progressing Problem: Fall Injury Risk Goal: Absence of Fall and Fall-Related Injury Outcome: Ongoing, Progressing Problem: Pain Acute Goal: Optimal Pain Control and Function Outcome: Ongoing, Progressing * Procedures - Bernardino Shipman PA - 12/11/2024 10:10 PM EDTAssociated Order(s): Chest Tube Insertion Post-Procedure Diagnose(s): Traumatic pneumothorax, initial encounter Chest Tube Insertion Performed by: Bernardino Shipman PA Authorized by: Bernardino Shipman PA Consent: Consent obtained: Verbal and written Consent given by: Patient Risks discussed: Bleeding, damage to surrounding structures, infection, incomplete drainage, nerve damage and pain Alternatives discussed: No treatment [place] protocol: Immediately prior to procedure, a time out was called: yes Patient identity confirmed: Hospital-assigned identification number and arm band Pre-procedure details: Skin preparation: Chlorhexidine with alcohol Antibiotic: cefazolin Sedation: Sedation type: None Anesthesia: Anesthesia method: Local infiltration Local anesthetic: Lidocaine 1% w/o epi Procedure details: Approach: Percutaneous Placement location: R anterior Tube size (Fr): 28 Dilation Performed: yes Dissection instrument: Finger and Karla clamp Ultrasound guidance: no Tension pneumothorax: no Tube connected to: Suction Drainage characteristics: Air and minimal blood. Suture material: 0 silk Dressinx4 sterile gauze and petrolatum-impregnated gauze Post-procedure details: Post-insertion x-ray findings comment: CXR pending Procedure completion: Tolerated well, no immediate complications Bernardino Shipman PA-C * Care Plan - Estella Tomas RN - 12/11/2024 8:29 PM EDT Problem: Adult Inpatient Plan of Care Goal: Plan of Care Review Outcome: Ongoing, Progressing Goal: Patient-Specific Goal (Individualized) Outcome: Ongoing, Progressing Goal: Absence of Hospital-Acquired Illness or Injury Outcome: Ongoing, Progressing Goal: Optimal Comfort and Wellbeing Outcome: Ongoing, Progressing Problem: Fall Injury Risk Goal: Absence of Fall and Fall-Related Injury Outcome: Ongoing, Progressing Problem: Pain Acute Goal: Optimal Pain Control and Function Outcome: Ongoing, Progressing * Hospital Course - Bridgette Jamison PA - 12/11/2024 1:40 PM EDT Yossi Riddle is a 59 y/o M w/ hx of HTN, hypothyroidism, arthritis, DM, HLD who comes to on 12/10 from OSH after fall from 10ft ladder. Injuries includes: R rib 6-12 fxs, T9 tp fx, R pneumothorax,abrasions Past 24h: Patient is resting in bed, comfortable and alert. NAD. NAEON. PM CXR stable, awaiting read from AM CXR, appears stable from my review. VSS. On RA, no SOA. Endorses dizziness when ambulating. Pain is well-controlled. Tolerating PO diet. Denies N/V, abd pain. Last BM 12/14. Mobilizing as able. Discussed anticipated hospital course. 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 At the time of discharge the patient was hemodynamically stable, tolerating PO, voiding spontaneously, normal bowel function, mobilizing appropriately, with their pain controlled with PO medication. At this time, the patient has obtained the maximum benefit from the present hospital stay, and so will be discharged to home. DVT prophylaxis: None at DC Procedures: 12/11: Right anterior chest tube placed by SGT 12/14: R chest tube removed Mobility Restrictions: None Other Precautions: No lifting > 10 lbs or lifting overhead x 4 weeks. Avoid altitude changes; no scuba diving or plane travel x 4-6 weeks Wound Care: Keep clean, dry, and intact. Wash with warm soapy water and pat dry. Change dressings/bandages as needed Leave CT bandage in place for at least 72 hours after it was removed. Incidental Findings: None Follow up: PCP: Follow up in 1-2 weeks post hospitalization for incidental findings and management of chronic conditions/medications SGT: [facility] FU on ribs and pneumothorax on 12/24 with CXR to evaluate post-pneumothorax, CT, and R 6-12 ribs; [address], [place] [facility] First Floor, [address] [place] [address], #[phone]. Questions or Concerns and Appointments If there are questions or concerns after discharge from the hospital, please call [phone] and ask for [facility] Nurse. Working hours are Friday - Friday 8:00 AM to 4:00 PM. After hours, weekends and holidays please call [phone] and ask for the resident contract administration manager for [facility]. For appointments please call [phone]. Medication requests should be made between the hours of 9:00 AM to 3:00 PM Friday thru Friday. Please note that based upon recent changes to [place] law related to prescribing opioid pain medications, our providers will not provide refills on controlled medications after your hospital discharge following a major surgery or trauma. [place], [place] 201 [id number]. * Assessment & Plan Note - Ruben Goldberg APRN - 12/11/2024 12:21 PM EDT Associated Problem(s): Fall from ladder, initial encounter Sgt2 Tertiary 12/11 * Assessment & Plan Note - Ruben Goldberg APRN - 12/11/2024 12:21 PM EDT Associated Problem(s): Closed fracture of spinous process of thoracic vertebra (CMS/HCC) CT of thoracic and lumbar spine shows a spinous process fracture of T9 MMPM PT/OT * Assessment & Plan Note - Ruben Goldberg APRN - 12/11/2024 12:21 PM EDT Associated Problem(s): Leucocytosis Likely reactive 20.12 on admission * Assessment & Plan Note - Ruben Goldberg APRN - 12/11/2024 12:21 PM EDT Associated Problem(s): Traumatic pneumothorax Currently stable, no chest tube at this time O2 as needed, pulmonary hygiene, IS, PAP/PEP therapy/ breathing treatments as needed 12/11: Chest CT ordered * Assessment & Plan Note - Ruben Goldberg APRN - 12/11/2024 12:21 PM EDT Associated Problem(s): Closed fracture of rib R 6-12 fxs Pulm hygiene * Assessment & Plan Note - Ruben Goldberg APRN - 12/11/2024 12:21 PM EDT Associated Problem(s): Other specified hypothyroidism Home med reordered * Assessment & Plan Note - Ruben Goldberg APRN - 12/11/2024 12:21 PM EDT Associated Problem(s): Hypertension Home meds as able * Progress Notes - Ruben Goldberg APRN - 12/11/2024 12:20 PM EDT TRAUMA SURGERY TERTIARY SURVEY 12/11/24 Yossi Riddle is a 59 y/o M w/ hx of HTN, hypothyroidism, arthritis, DM, HLD who comes to on 12/10 from OSH after fall from 10ft ladder. Injuries includes: R rib 6-12 fxs, T9 tp fx, R pneumothorax,abrasions Interval: Patient sitting up in bed A&O. VSS. NAD. NAEON. On RA, no SOA. Tolerating PO diet, noN/V, abd pain. Last BM [employer]. Mobilizing as able. Pain well controlled. Full code. Tertiary completedwith no additional findings. Denies alcohol, or illicit drug use. Admits to smoking 1.5PPD x 25 years. Negative ITSS. Discussed case with Dr. Rodriguez who recommends ordering CT chest to investigate pneumothorax further before deciding on DC. Discussed plan of care with patient/family, who is in understanding. No further concerns per patient or nursing. Edited by: Ruben Goldberg APRN at 12/11/2024 1220 Are there limits on this patient's care or advanced wishes/documents available? No Past Medical History: Active Ambulatory Problems Diagnosis Date Noted No Active Ambulatory Problems Resolved Ambulatory Problems Diagnosis Date Noted No Resolved Ambulatory Problems Past Medical History: Diagnosis Date Diabetes mellitus ([facility]) Hypertension Hypothyroid Past Surgical History: Surgical History[1] Home Medications: Prior to Admission medications Medication Sig Start Date End Date Taking? Authorizing Provider chlorthalidone (Hygroton) 25 MG tablet Take 1 tablet by mouth daily. Yes Provider, Historical levothyroxine (Synthroid, Levoxyl) 75 MCG tablet Take 1 tablet by mouth daily before breakfast. YesProvider, Historical lisinopril 5 MG tablet Take 1 tablet by mouth daily. Yes Provider, Historical meloxicam (Mobic) 15 MG tablet Take 1 tablet by mouth daily. Yes Provider, Historical Mounjaro 2.5 MG/0.5ML solution auto-injector solution pen-injector Inject 0.5 mL under the skin 1 time per week. Yes Provider, Historical Social History: Pt has reports that he has been smoking cigarettes. He does not have any smokeless tobacco history on file. He reports that he does not drink alcohol and does not use drugs. (details as available below) Social History Substance and Sexual Activity Alcohol Use Never Social History Substance and Sexual Activity Drug Use Never Tobacco Use History[2] Audit-C for Alcohol Misuse Screening No results found for: ETOH Q1: How often did you have a drink containing alcohol in the past year? Never = 0 Q2: How many drinks did you have on a typical day when you were drinking in the past year? None = 0 Q3: How often did you have six or more drinks on one occasion in the past year? Never = 0 The AUDIT-C is scored on a scale of 0-12 (scores of 0 reflect no alcohol use). In men, a score of 4or more is considered positive; in women, a score of 3 or more is considered positive. Generally, the higher the AUDIT-C score, the more likely it is that the patient's drinking is affecting his/her health and safety. If screening positive (men = 4 women = 3), proceed with referral for alcohol misuse. TOTAL SCORE: 0 Brief Intervention Performed: Not indicated Referral to Treatment Made: Not indicated Injured Trauma Survivor Screen (ITSS) for Depression / PTSD Risk Before this injury: Have you ever taken a medication for, or been given a mental health diagnosis? No = +0 Has there ever been a time in your life you have been bothered by feeling down or hopeless or lost all interest in things you usually enjoyed for more than 2 weeks? No = +0 When you were injured or right after: Did you think you were going to ? No = +0 Do you think this was done to you intentionally? No = +0 Since your injury: Have you felt emotionally detached from your loved ones? No = +0 Do you find yourself crying and are unsure why? No = +0 Have you felt more restless, tense or jumpy than usual? No = +0 Have you found yourself unable to stop worrying? No = +0 Do you find yourself thinking that the world is unsafe and that people are not to be trusted? No = +0 Total Score: 0 0-1 = teaching 2-5 = Consult to Trauma Mental Health Professional or Incident Response Engineer 6-9 = Psychiatry Consult Relevant review of systems was obtained as able and is negative unless stated above in HPI. Vital signs: Vitals: 12/11/24 1136 BP: 132/76 Pulse: 65 Resp: 21 Temp: 36.7 ??C (98 ??F) SpO2: 97% Tertiary exam as documented below: Physical Exam Vitals and nursing note reviewed. Constitutional: Appearance: Normal appearance. HENT: Head: Normocephalic and atraumatic. Nose: Nose normal. Mouth/Throat: Mouth: Mucous membranes are dry. Pharynx: Oropharynx is clear. Eyes: Extraocular Movements: Extraocular movements intact. Pupils: Pupils are equal, round, and reactive to light. Cardiovascular: Rate and Rhythm: Normal rate and regular rhythm. Heart sounds: Normal heart sounds. Pulmonary: Effort: Pulmonary effort is normal. Breath sounds: Decreased breath sounds present. Chest: Chest wall: Tenderness present. Abdominal: General: Abdomen is flat. Bowel sounds are normal. There is no distension. Palpations: Abdomen is soft. Tenderness: There is no abdominal tenderness. There is no guarding. Musculoskeletal: General: Normal range of motion. Cervical back: Normal range of motion and neck supple. No tenderness. Comments: No spine tenderness in cervical, thoracic, or lumbar. No step offs. No pelvis or hip tenderness. No extremity bony tenderness noted. All compartments are soft and compressible. Pulses are palpable and present. Skin: General: Skin is warm and dry. Capillary Refill: Capillary refill takes less than 2 seconds. Neurological: Mental Status: He is alert and oriented to person, place, and time. Psychiatric: Mood and Affect: Mood normal. Behavior: Behavior normal. Intake/Output Summary (Last 24 hours) at 12/11/2024 1221 Last data filed at 12/11/2024 1000 Gross per 24 hour Intake 360 ml Output -- Net 360 ml Lines/Drains/Tubes: Patient Lines/Drains/Airways Status Active Airway None Output by Drain (mL) 12/09/24 07 - 12/09/24 18512/09/24 1900 - 12/10/24 0659 12/10/24 07 - 12/10/24185812/10/24 1900 - 12/11/24 0659 12/11/24 0700 - 12/11/24 1221 Patient has no LDAs of requested type attached. Labs in last 18 hours: CBC WBC 9.57 Hb 11.9 (L) Plt 195 Hct 34.5 (L) ANC ?? INR ??, PTT ??, Anti-Xa ?? MCV 96 BMP Na 142 Cl 106 BUN 19 Glu 90 K 3.7 Co2 25 Cr 0.80 Ca 8.6 (L) iCa ?? Mg 2.2, Phos 2.9 Lactate ?? LFT AST ?? AlkPhos ?? T Prot ?? ALK ?? Bili ?? Alb ?? D.Bili ?? Lab Trends: H/H Results from last 7 days Lab Units 12/11/24 01512/10/24 04112/09/24 1812 HEMOGLOBIN g/dL 11.9* 12.9* 13.7 HEMATOCRIT % 34.5* 36.2* 38.3* INR Results from last 7 days Lab Units 12/10/24 0412 12/09/24 1812 INR 1.1 1.1 Cr Results from last 7 days Lab Units 12/11/24 0159 12/10/24 0412 12/09/24 1812 CREATININE mg/dL 0.80 0.74 0.81 I performed a complete tertiary exam, reviewed patient history, lab studies and all available imaging. All traumatic or incidental findings have been documented. Assessment and Plan: Assessment & Plan Fall from ladder, initial encounter Present on Admission: Yes Sgt2 Tertiary 12/11 Traumatic pneumothorax Present on Admission: Yes Currently stable, no chest tube at this time O2 as needed, pulmonary hygiene, IS, PAP/PEP therapy/ breathing treatments as needed 12/11: Chest CT ordered Closed fracture of rib Present on Admission: Yes R 6-12 fxs Pulm hygiene Leucocytosis Present on Admission: Yes Likely reactive 20.12 on admission Other specified hypothyroidism Present on Admission: Yes Home med reordered Hypertension Present on Admission: Yes Home meds as able Closed fracture of spinous process of thoracic vertebra (CMS/HCC) Present on Admission: Yes CT of thoracic and lumbar spine shows a spinous process fracture of T9 MMPM PT/OT Plan: - Tertiary 12/11 - Chest CT - Resume home medications - MMPC - Bowel regimen - Pulmonary hyigene/IS - DVT ppx - AM Labs stable - PT/OT Dispo:Pending Edited by: Ruben Goldberg APRN at 12/11/2024 1220 Ruben Goldberg APRN [1] Past Surgical History: Procedure Laterality Date THYROIDECTOMY [2] Social History Tobacco Use Smoking Status Every Day Types: Cigarettes Smokeless Tobacco Not on file * Care Plan - Chung Perea RN - 12/11/2024 10:16 AM EDT Problem: Adult Inpatient Plan of Care Goal: Plan of Care Review Outcome: Ongoing, Progressing Flowsheets (Taken 12/11/2024 1015) Progress: improving Outcome Evaluation: Patient denies pain Plan of Care Reviewed With: patient Problem: Pain Acute Goal: Optimal Pain Control and Function Outcome: Ongoing, Progressing Intervention: Develop Pain Management Plan Flowsheets (Taken 12/11/2024 1015) Pain Management Interventions: pain management plan reviewed with patient/caregiver * Care Plan - Nyasia Mcgraw RN - 12/10/2024 11:46 PM EDT Problem: Adult Inpatient Plan of Care Goal: Plan of Care Review Outcome: Ongoing, Progressing Flowsheets (Taken 12/10/20242343) Progress: improving Outcome Evaluation: Pt comfortable, no complaints of pain monitored for safety and prevention of falls Plan of Care Reviewed With: patient Goal: Patient-Specific Goal (Individualized) Outcome: Ongoing, Progressing Flowsheets (Taken 12/10/20242116) Patient/Family-Specific Goals (Include Timeframe): pt's level of comfort will be achieved Individualized Care Needs: pain management Anxieties, Fears or Concerns: pain Goal: Absence of Hospital-Acquired Illness or Injury Outcome: Ongoing, Progressing Intervention: Identify and Manage Fall Risk Flowsheets (Taken 12/10/20242343) Safety Promotion/Fall Prevention: activity supervised clutter-free environment maintained Intervention: Prevent Skin Injury Flowsheets (Taken 12/10/20242343) Body Position: weight shifting Skin Protection: incontinence pads utilized Intervention: Prevent and Manage VTE (Venous Thromboembolism) Risk Flowsheets (Taken 12/10/20242343) VTE Prevention/Management: medication Intervention: Prevent Infection Flowsheets (Taken 12/10/20242343) Infection Prevention: hand hygiene promoted Goal: Optimal Comfort and Wellbeing Outcome: Ongoing, Progressing Intervention: Monitor Pain and Promote Comfort Flowsheets (Taken 12/10/20242343) Pain Management Interventions: medication (see MAR) [id number] dosing utilized Intervention: Provide Person-Centered Care Flowsheets (Taken 12/10/20242343) Trust Relationship/Rapport: care explained questions answered questions encouraged Problem: Fall Injury Risk Goal: Absence of Fall and Fall-Related Injury Outcome: Ongoing, Progressing Intervention: Identify and Manage Contributors Flowsheets (Taken 12/10/20242343) Medication Review/Management: medications reviewed Self-Care Promotion: independence encouraged BADL personal objects within reach BADL personal routines maintained Intervention: Promote Injury-Free Environment Flowsheets (Taken 12/10/20242343) Safety Promotion/Fall Prevention: activity supervised clutter-free environment maintained Problem: Pain Acute Goal: Optimal Pain Control and Function Outcome: Ongoing, Progressing Intervention: Optimize Psychosocial Wellbeing Flowsheets (Taken 12/10/20242343) Supportive Measures: active listening utilized self-care encouraged relaxation techniques promoted Diversional Activities: television Spiritual Activities Assistance: personal rituals encouraged Intervention: Develop Pain Management Plan Flowsheets (Taken 12/10/2024 2344) Pain Management Interventions: medication (see MAR) [id number] dosing utilized Intervention: Prevent or Manage Pain Flowsheets (Taken 12/10/2024 2344) Sensory Stimulation Regulation: quiet environment promoted auditory stimulation minimized Bowel Elimination Promotion: ambulation promoted adequate fluid intake promoted Sleep/Rest Enhancement: consistent schedule promoted therapeutic touch utilized room darkened Medication Review/Management: medications reviewed * Care Plan - Ortiz Waite RN - 12/10/2024 11:41 AM EDT Problem: Adult Inpatient Plan of Care Goal: Plan of Care Review Outcome: Ongoing, Progressing Flowsheets (Taken 12/10/2024 1138) Progress: improving Outcome Evaluation: POC reviewed Plan of Care Reviewed With: patient Goal: Patient-Specific Goal (Individualized) Outcome: Ongoing, Progressing Flowsheets (Taken 12/10/2024 1138) Patient/Family-Specific Goals (Include Timeframe): pt will verbalize adequate pain relief this shift Individualized Care Needs: pain control Anxieties, Fears or Concerns: pain Goal: Absence of Hospital-Acquired Illness or Injury Outcome: Ongoing, Progressing Intervention: Identify and Manage Fall Risk Flowsheets (Taken 12/10/2024 1138) Safety Promotion/Fall Prevention: activity supervised assistive device/personal items within reach clutter-free environment maintained fall prevention program maintained lighting adjusted mobility aid in reach nonskid shoes/slippers when out of bed room organization consistent safety round/check completed toileting scheduled Intervention: Prevent Skin Injury Flowsheets (Taken 12/10/2024 1138) Body Position: weight shifting Skin Protection: incontinence pads utilized Intervention: Prevent and Manage VTE (Venous Thromboembolism) Risk Flowsheets (Taken 12/10/2024 1138) VTE Prevention/Management: medication Intervention: Prevent Infection Flowsheets (Taken 12/10/2024 1138) Infection Prevention: hand hygiene promoted environmental surveillance performed Goal: Optimal Comfort and Wellbeing Outcome: Ongoing, Progressing Intervention: Monitor Pain and Promote Comfort Flowsheets (Taken 12/10/2024 1138) Pain Management Interventions: medication (see MAR) [id number] dosing utilized Intervention: Provide Person-Centered Care Flowsheets (Taken 12/10/2024 1138) Trust Relationship/Rapport: care explained questions answered questions encouraged Problem: Fall Injury Risk Goal: Absence of Fall and Fall-Related Injury Outcome: Ongoing, Progressing Intervention: Identify and Manage Contributors Flowsheets (Taken 12/10/2024 1138) Medication Review/Management: medications reviewed Self-Care Promotion: BADL personal objects within reach BADL personal routines maintained Intervention: Promote Injury-Free Environment Flowsheets (Taken 12/10/2024 1138) Safety Promotion/Fall Prevention: activity supervised assistive device/personal items within reach clutter-free environment maintained fall prevention program maintained lighting adjusted mobility aid in reach nonskid shoes/slippers when out of bed room organization consistent safety round/check completed toileting scheduled Problem: Pain Acute Goal: Optimal Pain Control and Function Outcome: Ongoing, Progressing Intervention: Optimize Psychosocial Wellbeing Flowsheets (Taken 12/10/2024 1138) Supportive Measures: active listening utilized goal-setting facilitated Diversional Activities: television smartphone Intervention: Develop Pain Management Plan Flowsheets (Taken 12/10/2024 1138) Pain Management Interventions: medication (see MAR) [id number] dosing utilized Intervention: Prevent or Manage Pain Flowsheets (Taken 12/10/2024 1138) Sensory Stimulation Regulation: quiet environment promoted care clustered Sleep/Rest Enhancement: consistent schedule promoted relaxation techniques promoted Medication Review/Management: medications reviewed * Assessment & Plan Note - Francisca Meeks MD - 12/10/2024 10:58 AM EDT Associated Problem(s): Fall from ladder, initial encounter Sgt admit tertiary * Assessment & Plan Note - Francisca Meeks MD - 12/10/2024 10:58 AM EDT Associated Problem(s): Traumatic pneumothorax Currently stable Consider chest tube placement given size- assess this morning and see * Assessment & Plan Note - Francisca Meeks MD - 12/10/2024 10:58 AM EDT Associated Problem(s): Closed fracture of rib R 6-12 fxs Pulm hygiene * Assessment & Plan Note - Francisca Meeks MD - 12/10/2024 10:58 AM EDT Associated Problem(s): Leucocytosis 20.12 on admission * Assessment & Plan Note - Francisca Meeks MD - 12/10/2024 10:58 AM EDT Associated Problem(s): Other specified hypothyroidism Home med reordered * Assessment & Plan Note - Francisca Meeks MD - 12/10/2024 10:58 AM EDT Associated Problem(s): Hypertension Home meds as able * Assessment & Plan Note - Francisca Meeks MD - 12/10/2024 10:58 AM EDT Associated Problem(s): Closed fracture of spinous process of thoracic vertebra (CMS/HCC) Monitor; no ttp on exam * H&P - Francisca Meeks MD - 12/10/2024 2:46 AM EDTAssociated Order(s): Consult to Trauma Surgery Trauma Alert? No Consult to Trauma Surgery Consult performed by: Francisca Meeks MD Consult ordered by: Rea Ludwig MD Time of Consultation: 11:40pm Time of Trauma Evaluation: 1am Arrival Date: 12/09/24 Arrival Time: 4:40pm Referring Hospital: [facility] Injury Date: 12/09/24 Injury Time: 2pm Transport Mode: Mode of Arrival: Air Mechanism of Injury Fall Distance 10 ft from ladder Farm Related Injury: no Work Related Injury: no History Of Present Illness Yossi Riddle is a 59 y.o. male with PMH of HTN, hypothyroidism, DM, HLD, presenting with concern for rib fractures and pneumothorax from OSH. Imaging and workup reviewed showing concern for R 6-12 rib fractures, with associated pneumothorax measuring about 2.5cm on XR, T9 tp fx. Reports pain when taking deep breaths. Sating well currently. Current smoker of 1.5 ppd. Old Chart Reviewed: yes Total fluids given prior to arrival ? ml. Loss of Consciousness: unknown Past Medical History He has a past medical history of Diabetes mellitus (CMS/HCC), Hypertension, and Hypothyroid. Reviewed as documented above Surgical History He has a past surgical history that includes Thyroidectomy. Reviewed as documented above Family History Family History[1] Reviewed as documented above Social History He has no history on file for tobacco use, alcohol use, and drug use. Pertinent for 1.5 ppd smoker Allergies Patient has no known allergies. Reviewed as documented above Medications Current Medications[2] Reviewed as documented above Occupational History Occupational history[3] Employer: No address on file. Reviewed as documented above Immunizations not reviewed VACCINE / DOSE Flu Tetanus Pneumovax Shingles Review of Systems Relevant review of systems was obtained as able and is negative unless stated above in HPI. Physical Exam HENT: Head: Normocephalic. Comments: Right scalp small abrasion Eyes: Extraocular Movements: Extraocular movements intact. Cardiovascular: Rate and Rhythm: Normal rate. Pulmonary: Effort: No respiratory distress. Comments: No external ttp of right chest wall Abdominal: Palpations: Abdomen is soft. Tenderness: There is no abdominal tenderness. Musculoskeletal: General: No deformity. Comments: Right hand abrasion B/l swain abrasions Skin: General: Skin is warm. Neurological: General: No focal deficit present. Mental Status: He is alert and oriented to person, place, and time. Psychiatric: Mood and Affect: Mood normal. Thought Content: Thought content normal. Rectal exam was deferred. Last Recorded Vitals Blood pressure 124/74, pulse 60, temperature 37.2 ??C (99 ??F), temperature source Oral, resp. rate18, height 1.829 m (6'), weight 79.4 kg (175 lb), SpO2 98%. Madhu Madhu Coma Scale Best Eye Response: Spontaneous Best Verbal Response: Oriented Best Motor Response: Follows commands Madhu Coma Scale Score: 15 Intubated No Recent Results Labs in last 18 hours CBC WBC 11.06 (H) Hb 12.9 (L) Plt 233 Hct 36.2 (L) ANC 17.62 (H) INR 1.1, PTT ??, Anti-Xa ?? BMP Na 138 Cl 101 BUN 15 Glu 110 (H) K 3.4 (L) Co2 25 Cr 0.74 Ca 8.6 (L) iCa ?? Mg 1.8 (L), Phos 3.4 Lactate ?? LFT AST 36 AlkPhos 61 T Prot 6.4 ALK 30 Bili 0.6 Alb ?? D.Bili ?? Radiology FAST not performed / unindicated Images personally reviewed and consistent with the following: Plain Films: R shoulder and humerus, PXR CT Scans: c/t/l spine, c/a/p, head Angiography: - Impression: R 6-12 rib fractures, with associated pneumothorax measuring about 2.5cm on XR, T9 tp fx. Assessment & Plan Fall from ladder, initial encounter Present on Admission: Yes Sgt admit tertiary Traumatic pneumothorax Present on Admission: Yes Currently stable Consider chest tube placement given size- assess this morning and see Closed fracture of rib Present on Admission: Yes R 6-12 fxs Pulm hygiene Leucocytosis Present on Admission: Yes 20.12 on admission Other specified hypothyroidism Present on Admission: Yes Home med reordered Hypertension Present on Admission: Yes Home meds as able Closed fracture of spinous process of thoracic vertebra (CMS/HCC) Present on Admission: Unknown Monitor; no ttp on exam Disposition: sgt admit [1] No family history on file. [2] Current Facility-Administered Medications Medication Dose Route Frequency Provider Last Rate Last Admin acetaminophen (Tylenol) tablet 1,000 mg 1,000 mg Oral q6h Ruben Lobo, MELISSA glucose (Glutose) 40 % oral gel 15-30 grams of glucose 15-30 grams of glucose Sublingual q15 min PRN Francisca Meeks MD Or dextrose 10 % (D10W) bolus 125 mL 125 mL Intravenous q15 min PRN Francisca Meeks MD Or dextrose 10 % (D10W) bolus 250 mL 250 mL Intravenous q15 min PRN Francisca Meeks MD Or glucagon (human recombinant) injection 1 mg 1 mg Intramuscular q15 min PRN Francisca Meeks MD enoxaparin (Lovenox) syringe 30 mg 30 mg Subcutaneous BID Francisca Meeks MD 30 mg at 12/10/24 0827 gabapentin (Neurontin) capsule 200 mg 200 mg Oral TID Ruben Goldberg APRN 200 mg at 12/10/24 1030 ibuprofen tablet 600 mg 600 mg Oral q6h FERNIE Ruben Goldberg APRN insulin lispro (Admelog) 100 units/mL injection - Correction - Standard Dose 0-5 Units SubcutaneousTID with meals Francisca Meeks MD insulin lispro (Admelog) injection - Correction - Nighttime Dose 0-3 Units Subcutaneous Twice at night Francisca Meeks MD levothyroxine (Synthroid, Levoxyl) tablet 75 mcg 75 mcg Oral q AM Francisca Meeks MD 75 mcg at 12/10/24 0532 lidocaine (Lidoderm) 5 % patch 2 patch 2 patch Apply externally q24h Ruben Goldberg APRN 2 patch at 12/10/24 1028 magnesium sulfate IVPB 2 g 2 g Intravenous Once Ruben Goldberg APRN 25 mL/hr at 12/10/24 1027 2g at 12/10/24 1027 methocarbamol (Robaxin) tablet 500 mg 500 mg Oral q8h Francisca Meeks MD 500 mg at 12/10/24 1033 ondansetron ODT (Zofran-ODT) disintegrating tablet 4 mg 4 mg Oral q6h PRN Francisca Meeks MD Or ondansetron (Zofran) injection 4 mg 4 mg Intravenous q6h PRN Francisca Meeks MD Or ondansetron (Zofran) 4 MG/5ML solution 4 mg 4 mg Oral q6h PRN Francisca Meeks MD oxyCODONE (Roxicodone) immediate release tablet 5 mg 5 mg Oral q4h PRN Francisca Meeks MD polyethylene glycol (Miralax) packet 17 g 17 g Oral Daily Ruben Goldberg APRN 17 g at 12/10/24 1028 senna-docusate (Rose-Colace) 8.6-50 MG per tablet 1 tablet 1 tablet Oral BID Ruben Goldberg APRN 1 tablet at 12/10/24 1031 sodium chloride 0.9 % flush 10 mL 10 mL Intravenous q12h Francisca Meeks MD 10 mL at 12/10/24 0413 And sodium chloride 0.9 % flush 10 mL 10 mL Intravenous PRN Francisca Meeks MD No current outpatient medications on file. [3] Cosigned by Lara Stewart MD at 12/13/2024 1:21 PM EDT Associated attestation - Lara Stewart MD - 12/13/2024 1:21 PM EDT I saw and evaluated the patient with the resident/fellow. I discussed the case with the resident/fellow and agree with the findings and plan as documented. Repeat CXR in the morning, will place chest tube if PTX gets larger. Pulmonary toilet for rib fractures. * Care Plan - Judah Oliver RN - 12/10/2024 1:41 AM EDT Problem: Adult Inpatient Plan of Care Goal: Plan of Care Review Outcome: Ongoing, Progressing Flowsheets (Taken 12/10/2024138) Progress: improving Plan of Care Reviewed With: patient Goal: Patient-Specific Goal (Individualized) Outcome: Ongoing, Progressing Flowsheets (Taken 12/10/2024138) Patient/Family-Specific Goals (Include Timeframe): patient will have adequate pain relief during the shift. Individualized Care Needs: pain management Anxieties, Fears or Concerns: pain Goal: Absence of Hospital-Acquired Illness or Injury Outcome: Ongoing, Progressing Intervention: Identify and Manage Fall Risk Flowsheets (Taken 12/10/2024138) Safety Promotion/Fall Prevention: activity supervised assistive device/personal items within reach clutter-free environment maintained fall prevention program maintained lighting adjusted nonskid shoes/slippers when out of bed room organization consistent safety round/check completed toileting scheduled Intervention: Prevent Skin Injury Flowsheets (Taken 12/10/2024138) Body Position: education provided weight shifting Intervention: Prevent Infection Flowsheets (Taken 12/10/2024138) Infection Prevention: hand hygiene promoted single patient room provided Problem: Fall Injury Risk Goal: Absence of Fall and Fall-Related Injury Outcome: Ongoing, Progressing Intervention: Identify and Manage Contributors Flowsheets (Taken 12/10/2024138) Medication Review/Management: medications reviewed high-risk medications identified Intervention: Promote Injury-Free Environment Flowsheets (Taken 12/10/2024138) Safety Promotion/Fall Prevention: activity supervised assistive device/personal items within reach clutter-free environment maintained fall prevention program maintained lighting adjusted nonskid shoes/slippers when out of bed room organization consistent safety round/check completed toileting scheduled Problem: Pain Acute Goal: Optimal Pain Control and Function Outcome: Ongoing, Progressing Intervention: Optimize Psychosocial Wellbeing Flowsheets (Taken 12/10/2024138) Supportive Measures: goal-setting facilitated active listening utilized relaxation techniques promoted Intervention: Develop Pain Management Plan Flowsheets (Taken 12/10/2024138) Pain Management Interventions: medication (see MAR) pain management plan reviewed with patient/caregiver quiet environment facilitated relaxation techniques promoted breathing exercises Intervention: Prevent or Manage Pain Flowsheets (Taken 12/10/2024138) Sensory Stimulation Regulation: lighting decreased quiet environment promoted Sleep/Rest Enhancement: awakenings minimized regular sleep/rest pattern promoted relaxation techniques promoted room darkened Medication Review/Management: medications reviewed high-risk medications identified * ED Provider Notes - Rosalio Fuentes MD - 12/09/2024 4:40 PM EDT Images from the original note were not included. - HPI Chief Complaint Patient presents with Fall Yossi Riddle is a 59-year-old male with minimal reported past medical history who presents to the emergency department as transfer from outside hospital after a fall of approximately 10 ft. Upon arrival to the emergency department the patient is hemodynamically stable, comfortable, still in a C-collar. Review of the patient's outside imaging shows a T9 transverse process fracture, multiple right-sided rib fractures, pneumothorax of approximately 25%. Patient History Past Medical History[1] Surgical History[2] Family History[3] Social History[4] Allergies: Allergies[5] Physical Exam ED Triage Vitals Temp Heart Rate Resp BP 12/09/24 1647 12/09/24 1647 12/09/24 1647 12/09/24 1700 37.3 ??C (99.1 ??F) 77 14 102/68 SpO2 Temp Source Heart Rate Source Patient Position 12/09/24 16412/09/24 1647 12/09/24 1647 12/09/24 1647 94 % Oral Monitor Lying BP Location FiO2 (%) 12/09/24 1647 -- Right arm Physical Exam Constitutional: General: He is not in acute distress. HENT: Head: Normocephalic. Comments: No facial swelling Mouth/Throat: Mouth: Mucous membranes are moist. Pharynx: Oropharynx is clear. Cardiovascular: Rate and Rhythm: Normal rate. Pulmonary: Effort: Pulmonary effort is normal. No respiratory distress. Breath sounds: Normal air entry. Comments: Speaking full sentences. Symmetric chest rise Abdominal: General: There is no distension. Musculoskeletal: General: No deformity. Normal range of motion. Cervical back: Normal range of motion. Comments: Atraumatic, moves all extremities spontaneously Neurological: Mental Status: He is alert. Mental status is at baseline. Comments: Awake Psychiatric: Behavior: Behavior normal. Madhu Coma Scale Score: 15 ED Course & MDM - Assessment: 59 y.o. male presents to ED with complaint of concern for injury after a fall. Differential Diagnosis: Differential diagnosis includes but is not limited to, intracranial hemorrhage, skull fracture, cervical spine fracture, thoracic spine fracture, lumbar spine fracture, blunt cardiac trauma, pneumothorax, hemothorax, rib fracture, great vessel injury, fracture, dislocation, polytrauma In order to fully explore the differential diagnosis the following treatments and tests were ordered: ED Medication Administration from 12/09/2024 1515 to 12/10/2024 0346 Date/Time Order Dose Route Action 12/09/2024 2340 EDT morphine PF 4 mg 4 mg Intravenous Given 12/09/2024 234 EDT ondansetron (Zofran) injection 4 mg 4 mg Intravenous Given All Other Orders Ordered Status Ordering Provider 12/10/24345 Neuro checks Every 4 hours Acknowledged YUNIGRUPO FRANCISCA 12/10/24 034 Incentive spirometry Every 1 hour while awake Acknowledged ARVIN FRANCISCA 12/10/24 034 CBC Once Final result ARVIN FRANCISCA 12/10/24 034 Basic Metabolic Panel Once Final result YUNIMONIEOLElmer [facility] 12/10/24 034 Phosphorus Once Final result YUNIGRUPO [facility] 12/10/24 034 Magnesium Once Final result ARVIN [facility] 12/10/24345 Protime-INR Once Final result ARVIN [facility] 12/10/24345 Do Not Give Nicotine Replacement Until discontinued Acknowledged ARVIN FRANCISCA 12/10/24345 XR Chest 1 View One time imaging Final result ARVIN FRANCISCA 12/10/24 034 Notify Provider Until discontinued Acknowledged ARVIN [facility] 12/10/24 034 Vital Signs Until discontinued Comments: Every 1Hr x4, Then Every 4hrs Thereafter. Acknowledged ARVIN [facility] 12/10/24345 Intake and Output - Strict Per unit protocol Acknowledged ARVIN [facility] 12/10/24345 Insert peripheral IV Once Placed in And Linked Group Completed ARVIN FRANCISCA 12/10/24345 Saline lock IV Once Placed in And Linked Group Completed ARVIN FRANCISCA 12/10/24 034 Admit to inpatient Once Completed ARVIN [facility] 12/10/24345 Full code Continuous Acknowledged ARVIN [facility] 12/10/24345 Adult diet Diet texture: Regular; Carbohydrate restriction: Consistent Carb 2 (80 gm max/meal) Diet effective now Acknowledged ARVIN FRANCISCA 12/10/24 034 Mobility Orders Until discontinued Acknowledged ARVIN [facility] 12/10/24 034 Continuous Pulse Oximetry Until discontinued Acknowledged ARVIN FRANCISCA 12/09/24 233 Consult to Trauma Surgery Once Specialty: Trauma Surgery Provider: (Not yet assigned) NICOLA Barroso 12/09/24 2332 ED to floor bed request Once Completed NICOLA SALAZAR 12/09/24 2237 POCT glucose meter PROCEDURE ONCE Final result REA LUDWIG 12/09/24 1841 Troponin T, High Sensitivity, 2 Hour, Plasma PROCEDURE ONCE Final result ROSALIO FUENTES 12/09/24 1800 CMP STAT Final result ROSALIO FUENTES 12/09/24 1800 CBC w/diff STAT Final result ROSALIO FUENTES 12/09/24 1800 PT-INR STAT Final result ROSALIO FUENTES 12/09/24 1800 Anti Xa Level Unfractionated Heparin STAT Final result ROSALIO FUENTES 12/09/24 1800 Troponin now and 120 min STAT Final result ROSALIO FUENTES 12/09/24 1800 XR Chest 1 View One time imaging Final result ROSALIO FUENTES 12/09/24 1800 Hepatitis C Antibody - ED Once Final result ROSALIO FUENTES 12/09/24 1800 ED Protocol - HIV 1/2 Antibody/Antigen Screen Once Final result ROSALIO FUENTES 12/09/24 1800 ED HIV 1/2 Antibody/Antigen Screen w/Reflex to HIV 1/2 Differentiation PROCEDURE ONCE Final result ROSALIO FUENTES ED Course as of 12/11/24 0920 Vivian Dec 09, [id number] Laboratory workup personally interpreted by me show significant leukocytosis, no significant anemia, no other major metabolic abnormalities. In the setting of the patient's significant traumaticinjury I think it is most likely this leukocytosis is reactive. [MM] 2143 Imaging from outside hospital personally reviewed by me, CT head shows no acute injury, CT cervical spine shows no acute injury, CT of thoracic and lumbar spine shows a spinous process fracture of T9. The patient has no point tenderness on the back. CT scan of the chest shows 6 through 12 rib fractures on the right with the associated pneumothorax. The patient able to pull 1500 on incentive spirometry, current thiago score is 6, based on this the decision was made to consult Trauma surgery and admit the patient to their service for further care and management. [MM] ED Course User Index [MM] Rosalio Fuentes MD Clinical Impressions as of 12/11/24 0920 Fall, initial encounter Traumatic pneumothorax, initial encounter Closed fracture of multiple ribs of right side, initial encounter Ultimately, this patient was Was admitted (Admission) The primary encounter diagnosis was Fall, initial encounter. Diagnoses of Traumatic pneumothorax, initial encounter and Closed fracture of multiple ribs of right side, initial encounter were also pertinent to this visit.. Patient believed to require admission for the listed diagnoses. The Trauma Surgery service was consulted for admission and was agreeable to admit to Acute Floor (Med/Surg). ED Prescriptions None Disposition Admit Admitting/Attending Physician: LARA STEWART [[id number]] Provider Care Team: SGT FLOOR 2 [213] Are they the primary team?: Yes [1] - [1] Past Medical History: Diagnosis Date Diabetes mellitus (CMS/HCC) Hypertension Hypothyroid [2] Past Surgical History: Procedure Laterality Date THYROIDECTOMY [3] No family history on file. [4] Tobacco Use Smoking status: Every Day Types: Cigarettes Vaping Use Vaping status: Never Used Substance Use Topics Alcohol use: Never Drug use: Never [5] No Known Allergies Rosalio Fuentes MD Resident 12/11/24924 Cosigned by Rea Ludwig MD at 12/15/2024 9:23 PM EDT Associated attestation - Rea Ludwig MD - 12/15/2024 9:23 PM EDT I saw and evaluated the patient with the resident/fellow. I discussed the case with the resident/fellow and agree with the findings and plan as documented. * ED Triage Notes - Mansoor Garg RN - 12/09/2024 4:40 PM EDT Pt presents for fall off ladder transferred from outside hospital. Pt was found unconscious after falling off 10ft ladder. Pt GCS 15, VSS, small laceration and hematoma to right posterior head. Pt also has right sided rib fractures. * Progress Notes - Nicola Salazar MD - 12/09/2024 4:40 PM EDT Images from the original note were not included. ED TRANSFER OF CARE NOTE Transferring provider: Dr. Fuentes Transferring attending: Dr. Oziel MCMAHAN Time: 10:11 pm I received sign-out and accepted care of this patient from the previous ED providers caring for this patient. I reviewed the patient's history, exam, work- up, and treatment plan up to this point. Please see the primary ED Provider Note for complete elements of the history, physical exam, and ED course. PERTINENT HISTORY: In brief, Yossi Riddle is a 59 y.o. male with relevant PMH of HTN, DM, HLD, andhypothyroidism who presented to the ED from OSH for evaluation of rib fractures and pneumothorax. PENDING: I accepted care of this patient from the previous provider while waiting for evaluation and/or recommendations from: Trauma Surgery. Ultimately, the aforementioned service recommended admission. On my evaluation, pt endorses 5/10 pain. Will administer morphine for pain control. His oxygen saturation dropped to 88% when asleep and increased to 91% while awake. Will place on supplemental oxygen by nasal cannula. ED Medication Administration from 12/09/2024 1515 to 12/10/2024 0346 Date/Time Order Dose Route Action 12/09/2024 2340 EDT morphine PF 4 mg 4 mg Intravenous Given 12/09/2024 2345 EDT ondansetron (Zofran) injection 4 mg 4 mg Intravenous Given ED COURSE: ED Course as of 12/10/24 180 Vivian Dec 09, [id number] Laboratory workup personally interpreted by me show significant leukocytosis, no significant anemia, no other major metabolic abnormalities. In the setting of the patient's significant traumaticinjury I think it is most likely this leukocytosis is reactive. [MM] 2143 Imaging from outside hospital personally reviewed by me, CT head shows no acute injury, CT cervical spine shows no acute injury, CT of thoracic and lumbar spine shows a spinous process fracture of T9. The patient has no point tenderness on the back. CT scan of the chest shows 6 through 12 rib fractures on the right with the associated pneumothorax. The patient able to pull 1500 on incentive spirometry, current thiago score is 6, based on this the decision was made to consult Trauma surgery and admit the patient to their service for further care and management. [MM] ED Course User Index [MM] Rosalio Fuentes MD Clinical Impressions as of 12/10/24 1803 Fall, initial encounter Traumatic pneumothorax, initial encounter Closed fracture of multiple ribs of right side, initial encounter Ultimately, this patient Was admitted (Admission) The primary encounter diagnosis was Fall, initial encounter. Diagnoses of Traumatic pneumothorax, initial encounter and Closed fracture of multiple ribs of right side, initial encounter were also pertinent to this visit. Patient believed to require admission for the listed diagnoses. The Trauma Surgery service was consulted for admission and was agreeable to admit to Acute Floor (Med/Surg). ED Prescriptions None Disposition Admit Admitting/Attending Physician: LARA STEWART [[id number]] Provider Care Team: SGT FLOOR 2 [213] Are they the primary team?: Yes [1] - Nicola Salazar MD Cosigned by Jesse Cervantes DO at 12/16/2024 9:30 PM EDT Associated attestation - Jesse Cervantes DO - 12/16/2024 9:30 PM EDT Seen by resident only. documented in this encounter Plan of Treatment Scheduled Referrals Name Type Priority Associated Diagnoses Order Schedule Discharge Ambulatory referral to General Surgery Outpatient Referral Routine Traumatic pneumothorax, initial encounter Closed fracture of multiple ribs of right side, initial encounter Expected: 12/24/2024, Expires: 06/18/2026 documented as of this encounter Procedures Procedure Name Priority Date/Time Associated Diagnosis Comments XR CHEST 1 VIEW Routine 12/15/2024 7:17 AM EDT XR CHEST 1 VIEW Timed 12/14/2024 6:38 PM EDT POCT GLUCOSE METER UNSOLICITED RESULTS Routine 12/14/2024 5:26 PM EDT POCT GLUCOSE METER UNSOLICITED RESULTS Routine 12/14/2024 11:34 AM EDT POCT GLUCOSE METER UNSOLICITED RESULTS Routine 12/14/2024 8:11 AM EDT XR CHEST 1 VIEW Routine 12/14/2024 3:21 AM EDT POCT GLUCOSE METER UNSOLICITED RESULTS Routine 12/13/2024 8:56 PM EDT POCT GLUCOSE METER UNSOLICITED RESULTS Routine 12/13/2024 5:35 PM EDT XR CHEST 1 VIEW Timed 12/13/2024 4:11 PM EDT POCT GLUCOSE METER UNSOLICITED RESULTS Routine 12/13/2024 11:48 AM EDT POCT GLUCOSE METER UNSOLICITED RESULTS Routine 12/13/2024 8:48 AM EDT EXTRA TUBE LIGHT GREEN TOP Routine 12/13/2024 3:02 AM EDT EXTRA TUBES Routine 12/13/2024 3:02 AM EDT CBC W/O DIFFERENTIAL Routine 12/13/2024 3:02 AM EDT HEMOGLOBIN A1C Add-On 12/13/2024 3:02 AM EDT XR CHEST 1 VIEW Routine 12/13/2024 2:25 AM EDT POCT GLUCOSE METER UNSOLICITED RESULTS Routine 12/12/2024 8:32 PM EDT POCT GLUCOSE METER UNSOLICITED RESULTS Routine 12/12/2024 5:15 PM EDT POCT GLUCOSE METER UNSOLICITED RESULTS Routine 12/12/2024 11:32 AM EDT POCT GLUCOSE METER UNSOLICITED RESULTS Routine 12/12/2024 8:13 AM EDT XR CHEST 1 VIEW STAT 12/11/2024 10:27 PM EDT HC PERQ DRAINAGE PLEURA INSERT CATH W/O IMAGING Routine 12/11/2024 10:10 PM EDT Traumatic pneumothorax, initial encounter LA PERQ DRAINAGE PLEURA INSERT CATH W/O IMAGING Routine 12/11/2024 10:10 PM EDT Traumatic pneumothorax, initial encounter POCT GLUCOSE METER UNSOLICITED RESULTS Routine 12/11/2024 5:[address] CHEST WO IV CONTRAST Routine 12/12/19 3:19 PM EDT POCT GLUCOSE METER UNSOLICITED RESULTS Routine 12/11/2024 11:35 AM EDT POCT GLUCOSE METER UNSOLICITED RESULTS Routine 12/11/2024 7:44 AM EDT CBC W/O DIFFERENTIAL Routine 12/11/2024 1:59 AM EDT PHOSPHORUS, PLASMA Routine 12/11/2024 1: 59 AM EDT MAGNESIUM, PLASMA Routine 12/11/2024 1:5 9 AM EDT BASIC METABOLIC PANEL, PLASMA Routine 12/11/2024 1:59 AM EDT XR CHEST 1 VIEW Routine 12/11/2024 12:45 AM EDT POCT GLUCOSE METER UNSOLICITED RESULTS Routine 12/10/2024 8:01 PM EDT POCT GLUCOSE METER UNSOLICITED RESULTS Routine 12/10/2024 5:01 PM EDT POCT GLUCOSE METER UNSOLICITED RESULTS Routine 12/10/2024 12:19 PM EDT PEP THERAPY Routine 12/10/2024 10:58 AM EDT POCT GLUCOSE METER UNSOLICITED RESULTS Routine 12/10/2024 8:32 AM EDT XR CHEST 1 VIEW Routine 12/10/2024 5:34 AM EDT PROTHROMBIN TIME(PT) / INR Routine 12/10/2024 4:12 AM EDT CBC W/O DIFFERENTIAL Routine 12/10/2024 4:12 AM EDT PHOSPHORUS, PLASMA Routine 12/10/2024 4: 12 AM EDT MAGNESIUM, PLASMA Routine 12/10/2024 4:1 2 AM EDT BASIC METABOLIC PANEL, PLASMA Routine 12/10/2024 4:12 AM EDT POCT GLUCOSE METER UNSOLICITED RESULTS Routine 12/09/2024 10:37 PM EDT TROPONIN T, HIGH SENSITIVITY, 2 HOUR, PLASMA Timed 12/09/2024 8:25 PM EDT XR CHEST 1 VIEW STAT 12/09/2024 8:02 PM EDT ED HIV 1/2 ANTIBODY/ANTIGEN SCREEN WITH REFLEX TO HIV I/II DIFFERENTIATION STAT 12/09/2024 6:12 PM EDT ED PROTOCOL HIV 1/2 ANTIBODY/ANTIGEN SCREEN W/REFLEX TO HIV 1/2 ANTIBODY DIFFERENTIATION STAT 12/09/2024 6:12 PM EDT TROPONIN T, HIGH SENSITIVITY, 0 HOUR, PLASMA, REFLEX TO 2 HOUR STAT 12/09/2024 6:12 PM EDT HEPATITIS C ANTIBODY - ED W/REFLEX TO HCV QUANT PCR STAT 12/09/2024 6:12 PM EDT PROTHROMBIN TIME(PT) / INR STAT 12/09/2024 6:12 PM EDT ANTI XA LEVEL UNFRACTIONATED HEPARIN STAT 12/09/2024 6:12 PM EDT CBC WITH AUTO DIFFERENTIAL STAT 12/09/2024 6:12 PM EDT COMPREHENSIVE METABOLIC PANEL, PLASMA STAT 12/09/2024 6:12 PM EDT documented in this encounter Results * XR Chest 1 View (12/24/2024 8:42 AM EDT) Anatomical Region Laterality Modality Chest Digital Radiogra phy Impressions 12/24/2024 8:53 AM EDT Interval resolution of small right apical pneumothorax. Small right pleural effusion. Interval improvement of right basilar atelectasis. CRITICAL RESULT: No. COMMUNICATION: Per this written report. By electronically signing this report, I, the attending physician, attest that I have personally reviewed the images/data for the above examination(s) and agree with the final edited report. Drafted by Michael Warner MD on 12/24/2024 8:47 AM Final report signed by Denys Graham MD on 12/24/2024 8:53 AM Narrative 12/24/2024 8:53 AM EDT CLINICAL INDICATION: evaluate pneumothorax, 6-12 R ribs TECHNIQUE: XR CHEST 1 VIEW COMPARISON: Chest x-ray 12/15/2024 FINDINGS: Interval resolution of small right apical pneumothorax. Interval improvement of right basilar opacity likely representing atelectasis. Similar appearance the cardiac and mediastinal silhouettes. Small right pleural effusion. Right-sided rib fractures. Procedure Note Denys Graham MD - 12/24/2024 CLINICAL INDICATION: evaluate pneumothorax, 6-12 R ribs TECHNIQUE: XR CHEST 1 VIEW COMPARISON: Chest x-ray 12/15/2024 FINDINGS: Interval resolution of small right apical pneumothorax. Intervalimprovement of right basilar opacity likely representing atelectasis.Similar appearance the cardiac and mediastinal silhouettes. Small rightpleural effusion. Right-sided rib fractures. IMPRESSION: Interval resolution of small right apical pneumothorax. Small right pleural effusion. Interval improvement of right basilar atelectasis. CRITICAL RESULT: No. COMMUNICATION: Per this written report. By electronically signing this report, I, the attending physician, attestthat I have personally reviewed the images/data for the aboveexamination(s) and agree with the final edited report. Drafted by Michael Warner MD on 12/24/2024 8:47 AM Final report signed by Denys Graham MD on 12/24/2024 8:53 AM us Bridgette JETER IMG XR PROCEDURES Final Result * XR Chest 1 View (12/15/2024 7:17 AM EDT) Anatomical Region Laterality Modality Chest Digital Radiogra phy Impressions 12/15/2024 11:27 AM EDT Stable small right apical pneumothorax. Similar right basal opacity, likely reflecting atelectasis. CRITICAL RESULT: No. COMMUNICATION: Per this written report. By electronically signing this report, I, the attending physician, attest that I have personally reviewed the images/data for the above examination(s) and agree with the final edited report. Drafted by Michael Warner MD on 12/15/2024 10:30 AM Final report signed by Isai Mendoza MD on 12/15/2024 11:27 AM Narrative 12/15/2024 11:27 AM EDT CLINICAL INDICATION: Right chest tube removal TECHNIQUE: XR CHEST 1 VIEW COMPARISON: Chest x-ray 11 hours prior 12/14/2024 at 1828 hours. FINDINGS: Similar appearance of right basilar opacity. Unchanged appearance the cardiac and mediastinal silhouettes. No new consolidation or pleural effusion. Stable small right apical pneumothorax. Procedure Note Isai Mendoza MD - 12/15/2024 CLINICAL INDICATION: Right chest tube removal TECHNIQUE: XR CHEST 1 VIEW COMPARISON: Chest x-ray 11 hours prior 12/14/2024 at 1828 hours. FINDINGS: Similar appearance of right basilar opacity. Unchanged appearance thecardiac and mediastinal silhouettes. No new consolidation or pleuraleffusion. Stable small right apical pneumothorax. IMPRESSION: Stable small right apical pneumothorax. Similar right basal opacity, likely reflecting atelectasis. CRITICAL RESULT: No. COMMUNICATION: Per this written report. By electronically signing this report, I, the attending physician, attestthat I have personally reviewed the images/data for the aboveexamination(s) and agree with the final edited report. Drafted by Michael Warner MD on 12/15/2024 10:30 AM Final report signed by Isai Mendoza MD on 12/15/2024 11:27 AM us Maddison JETER IMG XR PROCEDURES Final Resul t * XR Chest 1 View (12/14/2024 6:38 PM EDT) Anatomical Region Laterality Modality Chest Digital Radiogra phy Impressions 12/14/2024 7:10 PM EDT Interval removal of the right chest tube. No other significant change. CRITICAL RESULT: No COMMUNICATION: Per this written report. Drafted by Bari Ellison MD on 12/14/2024 7:09 PM Final report signed by Bari Ellison MD on 12/14/2024 7:10 PM Narrative 12/14/2024 7:10 PM EDT CLINICAL INDICATION: R CT removal TECHNIQUE: XR CHEST 1 VIEW COMPARISON: Same day radiograph at 2:50 AM FINDINGS: The cardiomediastinal silhouette is stable. Interval removal of the right chest tube. Unchanged small right pneumothorax. Small right basilar opacity is unchanged. Procedure Note Bari Ellison MD - 12/14/2024 CLINICAL INDICATION: R CT removal TECHNIQUE: XR CHEST 1 VIEW COMPARISON: Same day radiograph at 2:50 AM FINDINGS: The cardiomediastinal silhouette is stable. Interval removal of the rightchest tube. Unchanged small right pneumothorax. Small right basilaropacity is unchanged. IMPRESSION: Interval removal of the right chest tube. No other significant change. CRITICAL RESULT: No COMMUNICATION: Per this written report. Drafted by Bari Ellison MD on 12/14/2024 7:09 PM Final report signed by Bari Ellison MD on 12/14/2024 7:10 PM us Maddison JETER IMG XR PROCEDURES Final Resul t * (ABNORMAL) POCT glucose meter (12/14/2024 5:26 PM EDT) POCT Glucose 102(H) 74 - 99 mg/dL 12/14/2024 5:28 PM EDT [facility] Comment:Accuracy of a glucos e result obtained from a capillary whole blood specimen relies upon adequate, non-compromised capillary blood flow. If the capillary glucose result is not consistent with the patient's clinical signs and symptoms, glucose testing should be repeated with either an arterial or venous sample on the glucometer or sent to the main labortory for testing. Comment 12/14/2024 5:28 PM EDT [facility] Public Health Policy Analyst ID Ivy Beard 025 5:28 PM EDT [facility] Device ID [id number] 12/14/2024 5:28 PM EDT [facility] Specimen Type POC Capillary 12/14/2024 5:28 PM EDT [facility] Blood Capillary blood specimen / Unknown 12/14/2024 5:26 PM EDT 12/14/2024 5:28 PM EDT Mynor Crews MD LAB POINT OF CARE TEST DOCKED DEVICE UNSOLICITED RESULTS Final Result [facility] [address] [place] [address] * (ABNORMAL) POCT glucose meter (12/14/2024 11:34 AM EDT) [facility] POCT Glucose 231(H) 74 - 99 mg/dL 12/14/2024 11:35 AM EDT [facility] Comment:Accuracy of a glucos e result obtained from a capillary whole blood specimen relies upon adequate, non-compromised capillary blood flow. If the capillary glucose result is not consistent with the patient's clinical signs and symptoms, glucose testing should be repeated with either an arterial or venous sample on the glucometer or sent to the main labortory for testing. Comment 12/14/2024 11:35 AM EDT [facility] Public Health Policy Analyst ID Ivy Beard 025 11:35 AM EDT [facility] Device ID [id number] 12/14/2024 11:35 AM EDT [facility] Specimen Type POC Capillary 12/14/2024 11:35 AM EDT [facility] Blood Capillary blood specimen / Unknown 12/14/2024 11:34 AM EDT 12/14/2024 11:35 AM EDT Mynor Crews MD LAB POINT OF CARE TEST DOCKED DEVICE UNSOLICITED RESULTS Final Result Performing Organization Address [facility] de Phone Number [facility] [address] [place] [address] * POCT glucose meter (12/14/2024 8:11 AM EDT) [facility] POCT Glucose 97 74 - 99 mg/dL 12/14/2024 8:13 AM EDT [facility] Comment:Accuracy of a glucos e result obtained from a capillary whole blood specimen relies upon adequate, non-compromised capillary blood flow. If the capillary glucose result is not consistent with the patient's clinical signs and symptoms, glucose testing should be repeated with either an arterial or venous sample on the glucometer or sent to the main labortory for testing. Comment 12/14/2024 8:13 AM EDT [facility] Public Health Policy Analyst ID Alejandra Reynolds 025 8:13 AM EDT [facility] Device ID [id number] 12/14/2024 8:13 AM EDT [facility] Specimen Type POC Capillary 12/14/2024 8:13 AM EDT [facility] Blood Capillary blood specimen / Unknown 12/14/2024 8:11 AM EDT 12/14/2024 8:13 AM EDT Mynor Crews MD LAB POINT OF CARE TEST DOCKED DEVICE UNSOLICITED RESULTS Final Result Performing Organization Address [facility] Co de Phone Number [facility] [address] [place] [address] * XR Chest 1 View (12/14/2024 3:21 AM EDT) Anatomical Region Laterality Modality Chest Digital Radiogra phy Impressions 12/14/2024 9:08 AM EDT Stable right-sided chest tube. Smaller tiny right apical pneumothorax. CRITICAL RESULT: No. COMMUNICATION: Per this written report. By electronically signing this report, I, the attending physician, attest that I have personally reviewed the images/data for the above examination(s) and agree with the final edited report. Drafted by Rc Olivares MD on 12/14/2024 7:25 AM Final report signed by Denys Graham MD on 12/14/2024 9:08 AM Narrative 12/14/2024 9:08 AM EDT CLINICAL INDICATION: R chest tube TECHNIQUE: XR CHEST 1 VIEW COMPARISON: 12/13/2024 chest radiograph. FINDINGS: Stable right-sided chest tube. Smaller tiny right apical pneumothorax. Right basilar atelectasis. No pleural effusion. Normal-sized cardiac silhouette. Procedure Note Denys Graham MD - 12/14/2024 CLINICAL INDICATION: R chest tube TECHNIQUE: XR CHEST 1 VIEW COMPARISON: 12/13/2024 chest radiograph. FINDINGS: Stable right-sided chest tube. Smaller tiny right apical pneumothorax.Right basilar atelectasis. No pleural effusion. Normal-sized cardiacsilhouette. IMPRESSION: Stable right-sided chest tube. Smaller tiny right apical pneumothorax. CRITICAL RESULT: No. COMMUNICATION: Per this written report. By electronically signing this report, I, the attending physician, attshayleethat I have personally reviewed the images/data for the aboveexamination(s) and agree with the final edited report. Drafted by Rc Olivares MD on 12/14/2024 7:25 AM Final report signed by Denys Graham MD on 12/14/2024 9:08 AM aMddison JETER IMG XR PROCEDURES Final Resul t * (ABNORMAL) POCT glucose meter (12/13/2024 8:56 PM EDT) POCT Glucose 109(H) 74 - 99 mg/dL 12/13/2024 8:58 PM EDT [facility] Comment:Accuracy of a glucos e result obtained from a capillary whole blood specimen relies upon adequate, non-compromised capillary blood flow. If the capillary glucose result is not consistent with the patient's clinical signs and symptoms, glucose testing should be repeated with either an arterial or venous sample on the glucometer or sent to the main labortory for testing. Comment 12/13/2024 8:58 PM EDT [facility] Public Health Policy Analyst ID Amor Stewart 025 8:58 PM EDT [facility] Device ID [id number] 12/13/2024 8:58 PM EDT [facility] Specimen Type POC Capillary 12/13/2024 8:58 PM EDT [facility] Blood Capillary blood specimen / Unknown 12/13/2024 8:56 PM EDT 12/13/2024 8:58 PM EDT us Myonr Crews MD LAB POINT OF CARE TEST DOCKED DEVICE UNSOLICITED RESULTS Final Result Performing Organization Address City/[facility] Co de Phone Number [facility] [address] [place] [address] * (ABNORMAL) POCT glucose meter (12/13/2024 5:35 PM EDT) [facility] POCT Glucose 104(H) 74 - 99 mg/dL 12/13/2024 5:37 PM EDT [facility] Comment:Accuracy of a glucos e result obtained from a capillary whole blood specimen relies upon adequate, non-compromised capillary blood flow. If the capillary glucose result is not consistent with the patient's clinical signs and symptoms, glucose testing should be repeated with either an arterial or venous sample on the glucometer or sent to the main labortory for testing. Comment 12/13/2024 5:37 PM EDT [facility] Public Health Policy Analyst ID Mirian Garrett 12/13/2024 5:37 PM EDT [facility] Device ID [id number] 12/13/2024 5:37 PM EDT [facility] Specimen Type POC Capillary 12/13/2024 5:37 PM EDT [facility] Blood Capillary blood specimen / Unknown 12/13/2024 5:35 PM EDT 12/13/2024 5:37 PM EDT us Hayden Brown MD LAB POINT OF CARE TEST DOCKED DEVICE UNSOLICITED RESULTS Final Result Performing Organization Address City/[facility]/ZIP Co de Phone Number [facility] [address] [place] [address] * XR Chest 1 View (12/13/2024 4:11 PM EDT) Anatomical Region Laterality Modality Chest Digital Radiogra phy Impressions 12/13/2024 4:58 PM EDT Persistent small right pneumothorax with unchanged position of the right chest tube. Decreased right basilar opacity/atelectasis CRITICAL RESULT: No COMMUNICATION: Per this written report. Drafted by Bari Ellison MD on 12/13/2024 4:57 PM Final report signed by Bari Ellison MD on 12/13/2024 4:58 PM Narrative 12/13/2024 4:58 PM EDT CLINICAL INDICATION: R CT TECHNIQUE: XR CHEST 1 VIEW COMPARISON: Same day radiograph at 2:20 AM FINDINGS: The cardiomediastinal silhouette is stable. Unchanged position of the right chest tube and unchanged small right pneumothorax. Small right basilar opacities have decreased. Left lung is unchanged. Procedure Note Bari Ellison MD - 12/13/2024 CLINICAL INDICATION: R CT TECHNIQUE: XR CHEST 1 VIEW COMPARISON: Same day radiograph at 2:20 AM FINDINGS: The cardiomediastinal silhouette is stable. Unchanged position of theright chest tube and unchanged small right pneumothorax. Small rightbasilar opacities have decreased. Left lung is unchanged. IMPRESSION: Persistent small right pneumothorax with unchanged position of the rightchest tube. Decreased right basilar opacity/atelectasis CRITICAL RESULT: No COMMUNICATION: Per this written report. Drafted by Bari Ellison MD on 12/13/2024 4:57 PM Final report signed by Bari Ellison MD on 12/13/2024 4:58 PM us Maddison JETER IMG XR PROCEDURES Final Resul t * (ABNORMAL) POCT glucose meter (12/13/2024 11:48 AM EDT) POCT Glucose 156(H) 74 - 99 mg/dL 12/13/2024 11:50 AM EDT [facility] Comment:Accuracy of a glucos e result obtained from a capillary whole blood specimen relies upon adequate, non-compromised capillary blood flow. If the capillary glucose result is not consistent with the patient's clinical signs and symptoms, glucose testing should be repeated with either an arterial or venous sample on the glucometer or sent to the main labortory for testing. Comment 12/13/2024 11:50 AM EDT [facility] Public Health Policy Analyst ID Mirian Garrett 12/13/2024 11:50 AM EDT [facility] Device ID [id number] 12/13/2024 11:50 AM EDT [facility] Specimen Type POC Capillary 12/13/2024 11:50 AM EDT [facility] Blood Capillary blood specimen / Unknown 12/13/2024 11:48 AM EDT 12/13/2024 11:50 AM EDT us Hayden Brown MD LAB POINT OF CARE TEST DOCKED DEVICE UNSOLICITED RESULTS Final Result Performing Organization Address [facility] de Phone Number [facility] [address] [place] [address] * POCT glucose meter (12/13/2024 8:48 AM EDT) [facility] POCT Glucose 99 74 - 99 mg/dL 12/13/2024 8:50 AM EDT [facility] Comment:Accuracy of a glucos e result obtained from a capillary whole blood specimen relies upon adequate, non-compromised capillary blood flow. If the capillary glucose result is not consistent with the patient's clinical signs and symptoms, glucose testing should be repeated with either an arterial or venous sample on the glucometer or sent to the main labortory for testing. Comment 12/13/2024 8:50 AM EDT [facility] Public Health Policy Analyst ID Mirian Garrett 12/13/2024 8:50 AM EDT [facility] Device ID [id number] 12/13/2024 8:50 AM EDT [facility] Specimen Type POC Capillary 12/13/2024 8:50 AM EDT [facility] Blood Capillary blood specimen / Unknown 12/13/2024 8:48 AM EDT 12/13/2024 8:50 AM EDT us Hayden Brown MD LAB POINT OF CARE TEST DOCKED DEVICE UNSOLICITED RESULTS Final Result Performing Organization Address City/[facility]/ZIP Co de Phone Number [facility] [address] [place] [address] * Hemoglobin A1c (12/13/2024 3:02 AM EDT) Hemoglobin A1c 5.5 <5.7 % 12/13/2024 9:35 PM EDT [facility] Blood Venous blood specimen / Unknown Venipuncture / Unknown 12/13/2024 3:02 AM EDT 12/13/2024 3:10 AM EDT Narrative [facility] - 12/13/2024 9:35 PM EDT HA1C Interpretive Data: Diagnosis of Diabetes: Diabetic > or = 6.5% Pre-diabetic 5.7 to 6.4% Non-diabetic < or = 5.6% Glycemic Targets for Type I and Type II Diabetics: Non- Adults <7.0% Adults <6.0% Children and Adolescents <7.5% Source: [place] [employer]. Standards of medical care in diabetes,2017. Diabetes Care.2017:40 (suppl 1):S1-S135. us Maddison JETER LAB BLOOD ORDERABLES Final Re sult [facility] [address] [place] [address] * Light Green Top (12/13/2024 3:02 AM EDT) Pathologist [facility] Extra Hold for add-ons 12/13/2024 8:02 AM EDT [facility] Comment:Auto resulted. Blood Venous blood specimen / Unknown 12/13/2024 3:02 AM EDT 12/13/2024 5:02 AM EDT us Karina Rodriguez MD LAB BLOOD ORDERABLES Final Result [facility] [address] [place] [address] * (ABNORMAL) CBC W/O Differential (12/13/2024 3:02 AM EDT) WBC Count 12.54(H) 3.70 - 10.30 10*3/uL LAB HEMATOLOGY METHOD 12/13/2024 3:19 AM EDT [facility] RBC Count 3.87(L) 4.60 - 6.10 10*6/uL LAB HEMATOLOGY METHOD 12/13/2024 3:19 AM EDT [facility] HGB 12.7(L) 13.7 - 17.5 g/dL LAB HEMATOLOGY METHOD 12/13/2024 3:19 AM EDT [facility] HCT 37.0(L) 40.0 - 51.0 % LAB HEMATOLOGY METHOD 12/13/2024 3:19 AM EDT [facility] Platelet Count 221 155 - 369 10*3/uL LAB HEMATOLOGY METHOD 12/13/2024 3:19 AM EDT [facility] MCV 96 79 - 98 fL LAB HEMATOLOGY METHOD 12/13/2024 3:19 AM EDT [facility] MCH 32.8(H) 26.0 - 32.0 pg LAB HEMATOLOGY METHOD 12/13/2024 3:19 AM EDT [facility] MCHC 34.3 30.7 - 35.5 g/dL LAB HEMATOLOGY METHOD 12/13/2024 3:19 AM EDT [facility] RDW 12.6 11.5 - 14.5 % LAB HEMATOLOGY METHOD 12/13/2024 3:19 AM EDT [facility] MPV 9.4 8.8 - 12.5 fL LAB HEMATOLOGY METHOD 12/13/2024 3:19 AM EDT [facility] nRBC 0.0 <=0.0 per 100 WBCs LAB HEMATOLOGY METHOD 12/13/2024 3:19 AM EDT [facility] Blood Venous blood specimen / Unknown Venipuncture / Unknown 12/13/2024 3:02 AM EDT 12/13/2024 3:10 AM EDT us Ruben Goldberg APRN LAB BLOOD ORDERABLES Final Result [facility] [address] [place] [address] * XR Chest 1 View (12/13/2024 2:25 AM EDT) Anatomical Region Laterality Modality Chest Digital Radiogra phy Impressions 12/13/2024 11:09 AM EDT Interval worsening of right lung base opacity, likely atelectasis and/or airspace disease. Distal kinking of the right basal chest tube. CRITICAL RESULT: No. COMMUNICATION: Per this written report. By electronically signing this report, I, the attending physician, attest that I have personally reviewed the images/data for the above examination(s) and agree with the final edited report. Drafted by Prakash Smith MD on 12/13/2024 9:07 AM Final report signed by Isai Mendoza MD on 12/13/2024 11:09 AM Narrative 12/13/2024 11:09 AM EDT CLINICAL INDICATION: eval lungs TECHNIQUE: XR CHEST 1 VIEW COMPARISON: Chest radiograph 12/11/2024 FINDINGS: Cardiomediastinal silhouette stable. Right chest tube in place with a kink noted distally. Worsening right lung base opacity, likely representing atelectasis and/or airspace disease. Previously described right-sided rib fractures. Similar appearance of small right apical pneumothorax. Skin folds noted overlying the upper lungs. Procedure Note Isai Mendoza MD - 12/13/2024 CLINICAL INDICATION: eval lungs TECHNIQUE: XR CHEST 1 VIEW COMPARISON: Chest radiograph 12/11/2024 FINDINGS: Cardiomediastinal silhouette stable. Right chest tube in place with a kinknoted distally. Worsening right lung base opacity, likely representingatelectasis and/or airspace disease. Previously described right-sided ribfractures. Similar appearance of small right apical pneumothorax. Skinfolds noted overlying the upper lungs. IMPRESSION: Interval worsening of right lung base opacity, likely atelectasis and/orairspace disease. Distal kinking of the right basal chest tube. CRITICAL RESULT: No. COMMUNICATION: Per this written report. By electronically signing this report, I, the attending physician, attestthat I have personally reviewed the images/data for the aboveexamination(s) and agree with the final edited report. Drafted by Prakash Smith MD on 12/13/2024 9:07 AM Final report signed by Isai Mendoza MD on 12/13/2024 11:09 AM us Ruben Goldberg GUNNERY/ORDNANCE OFFICER IMG XR PROCEDURES Final Re sult * (ABNORMAL) POCT glucose meter (12/12/2024 8:32 PM EDT) [facility] POCT Glucose 143(H) 74 - 99 mg/dL 12/12/2024 8:34 PM EDT [facility] Comment:Accuracy of a glucos e result obtained from a capillary whole blood specimen relies upon adequate, non-compromised capillary blood flow. If the capillary glucose result is not consistent with the patient's clinical signs and symptoms, glucose testing should be repeated with either an arterial or venous sample on the glucometer or sent to the main labortory for testing. Comment 12/12/2024 8:34 PM EDT [facility] Public Health Policy Analyst ID Cecilia Zazueta 12/12/2024 8:34 PM EDT [facility] Device ID [id number] 12/12/2024 8:34 PM EDT [facility] Specimen Type POC Capillary 12/12/2024 8:34 PM EDT [facility] Blood Capillary blood specimen / Unknown 12/12/2024 8:32 PM EDT 12/12/2024 8:34 PM EDT Karina Rodriguez MD LAB POINT OF CARE TEST DOCKED DEVICE UNSOLICITED RESULTS Final Result Performing Organization Address City/State/[facility] Co de Phone Number [facility] [address] [place] [address] * (ABNORMAL) POCT glucose meter (12/12/2024 5:15 PM EDT) [facility] POCT Glucose 128(H) 74 - 99 mg/dL 12/12/2024 5:17 PM EDT [facility] Comment:Accuracy of a glucos e result obtained from a capillary whole blood specimen relies upon adequate, non-compromised capillary blood flow. If the capillary glucose result is not consistent with the patient's clinical signs and symptoms, glucose testing should be repeated with either an arterial or venous sample on the glucometer or sent to the main labortory for testing. Comment 12/12/2024 5:17 PM EDT [facility] Public Health Policy Analyst ID Alejandra Odonnell 12/12/2024 5:17 PM EDT [facility] Device ID [id number] 12/12/2024 5:17 PM EDT [facility] Specimen Type POC Capillary 12/12/2024 5:17 PM EDT [facility] Blood Capillary blood specimen / Unknown 12/12/2024 5:15 PM EDT 12/12/2024 5:17 PM EDT Karina Rodriguez MD LAB POINT OF CARE TEST DOCKED DEVICE UNSOLICITED RESULTS Final Result Performing Organization Address City/[facility] Co de Phone Number [facility] [address] [place] [address] * POCT glucose meter (12/12/2024 11:32 AM EDT) POCT Glucose 91 74 - 99 mg/dL 12/12/2024 11:50 AM EDT [facility] Comment:Accuracy of a glucos e result obtained from a capillary whole blood specimen relies upon adequate, non-compromised capillary blood flow. If the capillary glucose result is not consistent with the patient's clinical signs and symptoms, glucose testing should be repeated with either an arterial or venous sample on the glucometer or sent to the main labortory for testing. Comment 12/12/2024 11:50 AM EDT [facility] Public Health Policy Analyst ID Kenyetta Johnson 11:50 AM EDT [facility] Device ID [id number] 12/12/2024 11:50 AM EDT [facility] Specimen Type POC Capillary 12/12/2024 11:50 AM EDT [facility] Blood Capillary blood specimen / Unknown 12/12/2024 11:32 AM EDT 12/12/2024 11:50 AM EDT Karina Rodriguez MD LAB POINT OF CARE TEST DOCKED DEVICE UNSOLICITED RESULTS Final Result Performing Organization Address City/[facility] Co de Phone Number [facility] [address] [place] [address] * (ABNORMAL) POCT glucose meter (12/12/2024 8:13 AM EDT) POCT Glucose 102(H) 74 - 99 mg/dL 12/12/2024 8:15 AM EDT [facility] Comment:Accuracy of a glucos e result obtained from a capillary whole blood specimen relies upon adequate, non-compromised capillary blood flow. If the capillary glucose result is not consistent with the patient's clinical signs and symptoms, glucose testing should be repeated with either an arterial or venous sample on the glucometer or sent to the main labortory for testing. Comment 12/12/2024 8:15 AM EDT [facility] Public Health Policy Analyst ID Kenyetta Johnson 8:15 AM EDT [facility] Device ID [id number] 12/12/2024 8:15 AM EDT [facility] Specimen Type POC Capillary 12/12/2024 8:15 AM EDT [facility] Blood Capillary blood specimen / Unknown 12/12/2024 8:13 AM EDT 12/12/2024 8:15 AM EDT Karina Rodriguez MD LAB POINT OF CARE TEST DOCKED DEVICE UNSOLICITED RESULTS Final Result Performing Organization Address City/State/[facility] de Phone Number [facility] [address] [place] [address] * XR Chest 1 View (12/11/2024 10:27 PM EDT) Anatomical Region Laterality Modality Chest Digital Radiogra phy Impressions 12/11/2024 11:07 PM EDT Decreased right pneumothorax, now small following chest tube placement. CRITICAL RESULT: No. COMMUNICATION: Per this written report. Drafted by Rosa Soria MD on 12/11/2024 11:05 PM Final report signed by Rosa Soria MD on 12/11/2024 11:07 PM Narrative 12/11/2024 11:07 PM EDT CLINICAL INDICATION: Post right chest tube placement TECHNIQUE: XR CHEST 1 VIEW COMPARISON: 12/11/2024 FINDINGS: Interval placement of inferiorly directed right chest tube. Right lower lung atelectasis remains unchanged. Small right pneumothorax, improved from comparison. Stable cardiac silhouette. Right rib fractures. Procedure Note Rosa Soria MD - 12/11/2024 CLINICAL INDICATION: Post right chest tube placement TECHNIQUE: XR CHEST 1 VIEW COMPARISON: 12/11/2024 FINDINGS: Interval placement of inferiorly directed right chest tube. Right lowerlung atelectasis remains unchanged. Small right pneumothorax, improvedfrom comparison. Stable cardiac silhouette. Right rib fractures. IMPRESSION: Decreased right pneumothorax, now small following chest tube placement. CRITICAL RESULT: No. COMMUNICATION: Per this written report. Drafted by Rosa Soria MD on 12/11/2024 11:05 PM Final report signed by Rosa Soria MD on 12/11/2024 11:07 PM us Bernardino JETER IMG XR PROCEDURES Final Result * LA PERQ DRAINAGE PLEURA INSERT CATH W/O IMAGING, HC PERQ DRAINAGE PLEURA INSERT CATH W/O IMAGING (12/11/2024 10:10 PM EDT) Narrative Bernardino Shipman PA - 12/11/2024 10:10 PM EDT Bernardino Shipman PA 12/11/2024 10:12 PM Chest Tube Insertion Performed by: Bernardino Shipman PA Authorized by: Bernardino Shipman PA Consent: Consent obtained: Verbal and written Consent given by: Patient Risks discussed: Bleeding, damage to surrounding structures, infection, incomplete drainage, nerve damage and pain Alternatives discussed: No treatment [place] protocol: Immediately prior to procedure, a time out was called: yes Patient identity confirmed: Hospital-assigned identification number and arm band Pre-procedure details: Skin preparation: Chlorhexidine with alcohol Antibiotic: cefazolin Sedation: Sedation type: None Anesthesia: Anesthesia method: Local infiltration Local anesthetic: Lidocaine 1% w/o epi Procedure details: Approach: Percutaneous Placement location: R anterior Tube size (Fr): 28 Dilation Performed: yes Dissection instrument: Finger and Karla clamp Ultrasound guidance: no Tension pneumothorax: no Tube connected to: Suction Drainage characteristics: Air and minimal blood. Suture material: 0 silk Dressinx4 sterile gauze and petrolatum-impregnated gauze Post-procedure details: Post-insertion x-ray findings comment: CXR pending Procedure completion: Tolerated well, no immediate complications us Bernardino JETER IN CLINIC/BEDSIDE ORDERABLES F inal Result * POCT glucose meter (12/11/2024 5:13 PM EDT) POCT Glucose 92 74 - 99 mg/dL 12/11/2024 5:15 PM EDT [facility] Comment:Accuracy of a glucos e result obtained from a capillary whole blood specimen relies upon adequate, non-compromised capillary blood flow. If the capillary glucose result is not consistent with the patient's clinical signs and symptoms, glucose testing should be repeated with either an arterial or venous sample on the glucometer or sent to the main labortory for testing. Comment 12/11/2024 5:15 PM EDT [facility] Public Health Policy Analyst ID Kenyetta Johnson 5:15 PM EDT [facility] Device ID [id number] 12/11/2024 5:15 PM EDT [facility] Specimen Type POC Capillary 12/11/2024 5:15 PM EDT [facility] Blood Capillary blood specimen / Unknown 12/11/2024 5:13 PM EDT 12/11/2024 5:15 PM EDT Karina Rodriguez MD LAB POINT OF CARE TEST DOCKED DEVICE UNSOLICITED RESULTS Final Result [facility] [address] [place] [address] * CT Chest wo IV Contrast (12/11/2024 3:19 PM EDT) Anatomical Region Laterality Modality Chest Computed Tomogra phy Impressions 12/11/2024 4:06 PM EDT Right hydropneumothorax with moderate air component and small layering pleural effusion. Debris in the trachea with occlusion of the right middle and lower lobar bronchi and collapse of the right middle and lower lobes may represent aspiration. Right rib fractures and T9 transverse process fractures as above. CRITICAL RESULT: No. COMMUNICATION: Per this written report. Drafted by Rosa Soria MD on 12/11/2024 3:58 PM Final report signed by Rosa Soria MD on 12/11/2024 4:06 PM Narrative 12/11/2024 4:06 PM EDT CLINICAL INDICATION: Pneumothorax TECHNIQUE: Multiple axial CT images were obtained from thoracic inlet through upper abdomen without the administration of IV contrast. Reformatted images of the abdomen and pelvis in the coronal and sagittal planes were generated from the axial data set to facilitate diagnostic accuracy. Total DLP (Dose-Length Product): 278.23 mGy.cm. Please note: The reported value represents the total of one or more individual components during the CT acquisition on this date and at this time, and as such, the same value may appear in more than one CT report depending on the interpreting/reporting physicians. COMPARISON: Outside CT December 09, 2024. FINDINGS: Chest: Lymph Nodes and Mediastinum: No lymphadenopathy by CT size criteria. No mediastinal mass lesions. Atrophic or absent right thyroid lobe. Left thyroid lobe is unremarkable. Cardiovascular: Cardiac dilatation. Mild coronary artery calcification. No pericardial effusion. Lungs and Pleura: Debris within the trachea. Occlusion of the right lower and middle lobar bronchi with complete collapse of the right lower and middle lobes. Moderate right pneumothorax with predominant basilar components and small bowel layering pleural effusion. Musculoskeletal and Body Wall: Right lateral fourth through eighth rib fractures, nondisplaced. Right posterior sixth through 11th rib fractures with fracture of the right T9 transverse process. Upper Abdomen: No acute findings in the imaged upper abdomen. Procedure Note Rosa Soria MD - 12/11/2024 CLINICAL INDICATION: Pneumothorax TECHNIQUE: Multiple axial CT images were obtained from thoracic inlet through upperabdomen without the administration of IV contrast. Reformatted images ofthe abdomen and pelvis in the coronal and sagittal planes were generatedfrom the axial data set to facilitate diagnostic accuracy. Total DLP (Dose-Length Product): 278.23 mGy.cm. Please note: The reportedvalue represents the total of one or more individual components during theCT acquisition on this date and at this time, and as such, the same valuemay appear in more than one CT report depending on theinterpreting/reporting physicians. COMPARISON: Outside CT December 09, 2024. FINDINGS: Chest: Lymph Nodes and Mediastinum: No lymphadenopathy by CT size criteria. Nomediastinal mass lesions. Atrophic or absent right thyroid lobe. Leftthyroid lobe is unremarkable. Cardiovascular: Cardiac dilatation. Mild coronary artery calcification. Nopericardial effusion. Lungs and Pleura: Debris within the trachea. Occlusion of the right lowerand middle lobar bronchi with complete collapse of the right lower andmiddle lobes. Moderate right pneumothorax with predominant basilarcomponents and small bowel layering pleural effusion. Musculoskeletal and Body Wall: Right lateral fourth through eighth ribfractures, nondisplaced. Right posterior sixth through 11th rib fractureswith fracture of the right T9 transverse process. Upper Abdomen: No acute findings in the imaged upper abdomen. IMPRESSION: Right hydropneumothorax with moderate air component and small layeringpleural effusion. Debris in the trachea with occlusion of the right middle and lower lobarbronchi and collapse of the right middle and lower lobes may representaspiration. Right rib fractures and T9 transverse process fractures as above. CRITICAL RESULT: No. COMMUNICATION: Per this written report. Drafted by Rosa Soria MD on 12/11/2024 3:58 PM Final report signed by Rosa Soria MD on 12/11/2024 4:06 PM us Ruben Goldberg GUNNERY/ORDNANCE OFFICER IMG CT PROCEDURES Final Re sult * (ABNORMAL) POCT glucose meter (12/11/2024 11:35 AM EDT) POCT Glucose 173(H) 74 - 99 mg/dL 12/11/2024 12:01 PM EDT [facility] Comment:Accuracy of a glucos e result obtained from a capillary whole blood specimen relies upon adequate, non-compromised capillary blood flow. If the capillary glucose result is not consistent with the patient's clinical signs and symptoms, glucose testing should be repeated with either an arterial or venous sample on the glucometer or sent to the main labortory for testing. Comment 12/11/2024 12:01 PM EDT [facility] Public Health Policy Analyst ID Kenyetta Johnson 12:01 PM EDT [facility] Device ID [id number] 12/11/2024 12:01 PM EDT [facility] Specimen Type POC Capillary 12/11/2024 12:01 PM EDT [facility] Blood Capillary blood specimen / Unknown 12/11/2024 11:35 AM EDT 12/11/2024 12:01 PM EDT Karina Rodriguez MD LAB POINT OF CARE TEST DOCKED DEVICE UNSOLICITED RESULTS Final Result [facility] [address] [place] [address] * POCT glucose meter (12/11/2024 7:44 AM EDT) [facility] POCT Glucose 93 74 - 99 mg/dL 12/11/2024 7:51 AM EDT [facility] Comment:Accuracy of a glucos e result obtained from a capillary whole blood specimen relies upon adequate, non-compromised capillary blood flow. If the capillary glucose result is not consistent with the patient's clinical signs and symptoms, glucose testing should be repeated with either an arterial or venous sample on the glucometer or sent to the main labortory for testing. Comment 12/11/2024 7:51 AM EDT [facility] Public Health Policy Analyst ID Kenyetta Johnson 7:51 AM EDT [facility] Device ID [id number] 12/11/2024 7:51 AM EDT [facility] Specimen Type POC Capillary 12/11/2024 7:51 AM EDT [facility] Blood Capillary blood specimen / Unknown 12/11/2024 7:44 AM EDT 12/11/2024 7:51 AM EDT Karina Rodriguez MD LAB POINT OF CARE TEST DOCKED DEVICE UNSOLICITED RESULTS Final Result Performing Organization Address City/[facility]/ZIP Co de Phone Number [facility] [address] [place] [address] * Magnesium, Plasma (12/11/2024 1:59 AM EDT) [facility] Magnesium, Plasma 2.2 1.9 - 2.4 mg/dL 12/11/2024 4:20 AM EDT [facility] Blood Venous blood specimen / Unknown Venipuncture / Unknown 12/11/2024 1:59 AM EDT 12/11/2024 2:06 AM EDT us Ruben Goldberg APRN LAB BLOOD ORDERABLES Final Result [facility] [address] [place] [address] * Phosphorus, Plasma (12/11/2024 1:59 AM EDT) [facility] Phosphorus, Plasma 2.9 2.5 - 4.5 mg/dL 12/11/2024 4:20 AM EDT [facility] Blood Venous blood specimen / Unknown Venipuncture / Unknown 12/11/2024 1:59 AM EDT 12/11/2024 2:06 AM EDT us Ruben Rosa Goldberg GUNNERY/ORDNANCE OFFICER LAB BLOOD ORDERABLES Final Result [facility] [address] [place] [address] * (ABNORMAL) CBC W/O Differential (12/11/2024 1:59 AM EDT) WBC Count 9.57 3.70 - 10.30 10*3/uL LAB HEMATOLOGY METHOD 12/11/2024 2:14 AM EDT [facility] RBC Count 3.59(L) 4.60 - 6.10 10*6/uL LAB HEMATOLOGY METHOD 12/11/2024 2:14 AM EDT [facility] HGB 11.9(L) 13.7 - 17.5 g/dL LAB HEMATOLOGY METHOD 12/11/2024 2:14 AM EDT [facility] HCT 34.5(L) 40.0 - 51.0 % LAB HEMATOLOGY METHOD 12/11/2024 2:14 AM EDT [facility] Platelet Count 195 155 - 369 10*3/uL LAB HEMATOLOGY METHOD 12/11/2024 2:14 AM EDT [facility] MCV 96 79 - 98 fL LAB HEMATOLOGY METHOD 12/11/2024 2:14 AM EDT [facility] MCH 33.1(H) 26.0 - 32.0 pg LAB HEMATOLOGY METHOD 12/11/2024 2:14 AM EDT [facility] MCHC 34.5 30.7 - 35.5 g/dL LAB HEMATOLOGY METHOD 12/11/2024 2:14 AM EDT [facility] RDW 12.9 11.5 - 14.5 % LAB HEMATOLOGY METHOD 12/11/2024 2:14 AM EDT [facility] MPV 9.3 8.8 - 12.5 fL LAB HEMATOLOGY METHOD 12/11/2024 2:14 AM EDT [facility] nRBC 0.0 <=0.0 per 100 WBCs LAB HEMATOLOGY METHOD 12/11/2024 2:14 AM EDT [facility] Blood Venous blood specimen / Unknown Venipuncture / Unknown 12/11/2024 1:59 AM EDT 12/11/2024 2:06 AM EDT us Ruben Goldberg APRN LAB BLOOD ORDERABLES Final Result [facility] [address] [place] [address] * (ABNORMAL) Basic Metabolic Panel, Plasma (12/11/2024 1:59 AM EDT) Glucose, Plasma 90 74 - 99 mg/dL 12/11/2024 4:20 AM EDT [facility] BUN, Plasma 19 8 - 23 mg/dL 12/11/2024 4:20 AM EDT [facility] Creatinine, Plasma 0.80 0.70 - 1.20 mg/dL 12/11/2024 4:20 AM EDT [facility] BUN/Creatinine Ratio 24 12/11/2024 4:20 AM EDT [facility] Sodium, Plasma 142 136 - 145 mmol/L 12/11/2024 4:20 AM EDT [facility] Potassium, Plasma 3.7 3.6 - 4.9 mmol/L 12/11/2024 4:20 AM EDT [facility] Chloride, Plasma 106 97 - 107 mmol/L 12/11/2024 4:20 AM EDT [facility] CO2, Plasma 25 22 - 29 mmol/L 12/11/2024 4:20 AM EDT [facility] Anion Gap 11 6 - 16 mmol/L 12/11/2024 4:20 AM EDT [facility] Total Calcium, Plasma 8.6(L) 8.9 - 10.2 mg/dL 12/11/2024 4:20 AM EDT [facility] eGFRcr 101.3 mL/min/1.7 3m*2 12/11/2024 4:20 AM EDT [facility] Comment:Reported eGFRcr in m L/min/1.73m2 is based the CKD-EPI 2020 equation that does not use a race coefficient. Blood Venous blood specimen / Unknown Venipuncture / Unknown 12/11/2024 1:59 AM EDT 12/11/2024 2:06 AM EDT Ruben Goldberg APRN LAB BLOOD ORDERABLES Final Result [facility] [address] [place] [address] * XR Chest 1 View (12/11/2024 12:45 AM EDT) Anatomical Region Laterality Modality Chest Digital Radiogra phy Impressions 12/11/2024 1:19 PM EDT Stable to slightly improved small right pneumothorax. CRITICAL RESULT: No. COMMUNICATION: Per this written report. Drafted by Miko Smith MD on 12/11/2024 1:18 PM Final report signed by Miko Smith MD on 12/11/2024 1:19 PM Narrative 12/11/2024 1:19 PM EDT CLINICAL INDICATION: Pneumothorax FU TECHNIQUE: Single AP view of chest. COMPARISON: One day prior FINDINGS: Stable to slightly improved small right pneumothorax. No sizable pleural effusion. The cardiac and mediastinal contours unchanged. Bibasal atelectatic changes. No lung consolidation. Right rib fractures. Procedure Note Miko Smith MD - 12/11/2024 CLINICAL INDICATION: Pneumothorax FU TECHNIQUE: Single AP view of chest. COMPARISON: One day prior FINDINGS: Stable to slightly improved small right pneumothorax. No sizable pleuraleffusion. The cardiac and mediastinal contours unchanged. Bibasalatelectatic changes. No lung consolidation. Right rib fractures. IMPRESSION: Stable to slightly improved small right pneumothorax. CRITICAL RESULT: No. COMMUNICATION: Per this written report. Drafted by Miko Smith MD on 12/11/2024 1:18 PM Final report signed by Miko Smith MD on 12/11/2024 1:19 PM Ruben Goldberg APRN IMG XR PROCEDURES Final Re sult * (ABNORMAL) POCT glucose meter (12/10/2024 8:01 PM EDT) [facility] POCT Glucose 137(H) 74 - 99 mg/dL 12/10/2024 8:03 PM EDT [facility] Comment:Accuracy of a glucos e result obtained from a capillary whole blood specimen relies upon adequate, non-compromised capillary blood flow. If the capillary glucose result is not consistent with the patient's clinical signs and symptoms, glucose testing should be repeated with either an arterial or venous sample on the glucometer or sent to the main labortory for testing. Comment 12/10/2024 8:03 PM EDT [facility] Public Health Policy Analyst ID Yoanna Greenfield 12/10/2024 8:03 PM EDT [facility] Device ID [id number] 12/10/2024 8:03 PM EDT [facility] Specimen Type POC Capillary 12/10/2024 8:03 PM EDT [facility] Blood Capillary blood specimen / Unknown 12/10/2024 8:01 PM EDT 12/10/2024 8:03 PM EDT Lara Stewart MD LAB POINT OF CARE TE ST DOCKED DEVICE UNSOLICITED RESULTS Final Result Performing Organization Address City/State/[facility] Co de Phone Number [facility] [address] [place] [address] * (ABNORMAL) POCT glucose meter (12/10/2024 5:01 PM EDT) [facility] POCT Glucose 115(H) 74 - 99 mg/dL 12/10/2024 5:03 PM EDT [facility] Comment:Accuracy of a glucos e result obtained from a capillary whole blood specimen relies upon adequate, non-compromised capillary blood flow. If the capillary glucose result is not consistent with the patient's clinical signs and symptoms, glucose testing should be repeated with either an arterial or venous sample on the glucometer or sent to the main labortory for testing. Comment 12/10/2024 5:03 PM EDT [facility] Public Health Policy Analyst ID Viral Sampson 12/10/2024 5:03 PM EDT [facility] Device ID [id number] 12/10/2024 5:03 PM EDT [facility] Specimen Type POC Capillary 12/10/2024 5:03 PM EDT [facility] Blood Capillary blood specimen / Unknown 12/10/2024 5:01 PM EDT 12/10/2024 5:03 PM EDT Lara Stewart MD LAB POINT OF CARE TE ST DOCKED DEVICE UNSOLICITED RESULTS Final Result [facility] [address] [place] [address] * (ABNORMAL) POCT glucose meter (12/10/2024 12:19 PM EDT) POCT Glucose 149(H) 74 - 99 mg/dL 12/10/2024 12:20 PM EDT [facility] Comment:Accuracy of a glucos e result obtained from a capillary whole blood specimen relies upon adequate, non-compromised capillary blood flow. If the capillary glucose result is not consistent with the patient's clinical signs and symptoms, glucose testing should be repeated with either an arterial or venous sample on the glucometer or sent to the main labortory for testing. Comment 12/10/2024 12:20 PM EDT [facility] Public Health Policy Analyst ID Viral Sampson 12/10/2024 12:20 PM EDT [facility] Device ID [id number] 12/10/2024 12:20 PM EDT [facility] Specimen Type POC Capillary 12/10/2024 12:20 PM EDT [facility] Blood Capillary blood specimen / Unknown 12/10/2024 12:19 PM EDT 12/10/2024 12:20 PM EDT us Lara Stewart MD LAB POINT OF CARE TE ST DOCKED DEVICE UNSOLICITED RESULTS Final Result [facility] [address] [place] [address] * (ABNORMAL) POCT glucose meter (12/10/2024 8:32 AM EDT) POCT Glucose 141(H) 74 - 99 mg/dL 12/10/2024 8:33 AM EDT [facility] Comment:Accuracy of a glucos e result obtained from a capillary whole blood specimen relies upon adequate, non-compromised capillary blood flow. If the capillary glucose result is not consistent with the patient's clinical signs and symptoms, glucose testing should be repeated with either an arterial or venous sample on the glucometer or sent to the main labortory for testing. Comment 12/10/2024 8:33 AM EDT [facility] Public Health Policy Analyst ID Viral Sampson 12/10/2024 8:33 AM EDT [facility] Device ID [id number] 12/10/2024 8:33 AM EDT [facility] Specimen Type POC Capillary 12/10/2024 8:33 AM EDT [facility] Blood Capillary blood specimen / Unknown 12/10/2024 8:32 AM EDT 12/10/2024 8:33 AM EDT Lara Stewart MD LAB POINT OF CARE TE ST DOCKED DEVICE UNSOLICITED RESULTS Final Result Performing Organization Address City/State/[facility] Co de Phone Number [facility] [address] [place] [address] * XR Chest 1 View (12/10/2024 5:34 AM EDT) Anatomical Region Laterality Modality Chest Digital Radiogra phy Impressions 12/10/2024 9:22 AM EDT Slight interval increase in the size of the small right apical pneumothorax, with mild right basilar atelectasis. CRITICAL RESULT: No. COMMUNICATION: Per this written report. By electronically signing this report, I, the attending physician, attest that I have personally reviewed the images/data for the above examination(s) and agree with the final edited report. Drafted by Familia Fernandes MD on 12/10/2024 8:49 AM Final report signed by Chadwick Zhang MD on 12/10/2024 9:22 AM Narrative 12/10/2024 9:22 AM EDT CLINICAL INDICATION: ptx TECHNIQUE: XR CHEST 1 VIEW COMPARISON: Chest x-ray same day, 10 hours prior FINDINGS: Stable cardiomediastinal silhouette. Redemonstration of a small right apical pneumothorax which appears slightly increased from most recent comparison. Mild right basilar atelectasis. Multiple known right-sided rib fractures are difficult to appreciate. No left-sided pneumothorax. No focal consolidation or pleural effusion. Procedure Note Chadwick Zhang MD - 12/10/2024 CLINICAL INDICATION: ptx TECHNIQUE: XR CHEST 1 VIEW COMPARISON: Chest x-ray same day, 10 hours prior FINDINGS: Stable cardiomediastinal silhouette. Redemonstration of a small rightapical pneumothorax which appears slightly increased from most recentcomparison. Mild right basilar atelectasis. Multiple known right-sided ribfractures are difficult to appreciate. No left-sided pneumothorax. Nofocal consolidation or pleural effusion. IMPRESSION: Slight interval increase in the size of the small right apicalpneumothorax, with mild right basilar atelectasis. CRITICAL RESULT: No. COMMUNICATION: Per this written report. By electronically signing this report, I, the attending physician, attestthat I have personally reviewed the images/data for the aboveexamination(s) and agree with the final edited report. Drafted by Familia Fernandes MD on 12/10/2024 8:49 AM Final report signed by Chadwick Zhang MD on 12/10/2024 9:22 AM Lara Stewart MD IMG XR PROCEDURES Final Result * (ABNORMAL) Protime-INR (12/10/2024 4:12 AM EDT) Prothrombin Time 14.6(H) 12.0 - 14.3 sec 12/10/2024 4:30 AM EDT [facility] INR 1.1 0.9 - 1.1 12/10/2024 4:30 AM EDT [facility] Blood Venous blood specimen / Unknown Venipuncture / Unknown 12/10/2024 4:12 AM EDT 12/10/2024 4:17 AM EDT Narrative [facility] - 12/10/2024 4:30 AM EDT OPTIMAL INR RANGES FOR PATIENT ON ORAL ANTICOAGULANT THERAPY Prevention of venous thromboembolism INR 2.0 to 3.0 In patients with heart disease: Atrial fibrillation INR 2.0 to 3.0 Valvular heart disease INR 2.0 to 3.0 Tissue heart valves INR 2.0 to 3.0 Mechanical prosthetic valves INR 2.5 to 3.5 Prevention of recurrent CA INR 2.5 to 3.5 us Lara Stewart MD LAB BLOOD ORDERABLES Final Resul t Performing Organization Address [facility] Co de Phone Number [facility] [address] [place] [address] * (ABNORMAL) Magnesium (12/10/2024 4:12 AM EDT) Magnesium, Plasma 1.8(L) 1.9 - 2.4 mg/dL 12/10/2024 5:06 AM EDT [facility] Blood Venous blood specimen / Unknown Venipuncture / Unknown 12/10/2024 4:12 AM EDT 12/10/2024 4:37 AM EDT us Lara Stewart MD LAB BLOOD ORDERABLES Final Resul t Performing Organization Address [facility] de Phone Number [facility] [address] [place] [address] * Phosphorus (12/10/2024 4:12 AM EDT) Phosphorus, Plasma 3.4 2.5 - 4.5 mg/dL 12/10/2024 5:06 AM EDT [facility] Blood Venous blood specimen / Unknown Venipuncture / Unknown 12/10/2024 4:12 AM EDT 12/10/2024 4:37 AM EDT us Lara Stewart MD LAB BLOOD ORDERABLES Final Resul t Performing Organization Address City/[facility] Co de Phone Number [facility] [address] [place] [address] * (ABNORMAL) Basic Metabolic Panel (12/10/2024 4:12 AM EDT) Glucose, Plasma 110(H) 74 - 99 mg/dL 12/10/2024 5:06 AM EDT [facility] BUN, Plasma 15 8 - 23 mg/dL 12/10/2024 5:06 AM EDT [facility] Creatinine, Plasma 0.74 0.70 - 1.20 mg/dL 12/10/2024 5:06 AM EDT [facility] BUN/Creatinine Ratio 20 12/10/2024 5:06 AM EDT [facility] Sodium, Plasma 138 136 - 145 mmol/L 12/10/2024 5:06 AM EDT [facility] Potassium, Plasma 3.4(L) 3.6 - 4.9 mmol/L 12/10/2024 5:06 AM EDT [facility] Chloride, Plasma 101 97 - 107 mmol/L 12/10/2024 5:06 AM EDT [facility] CO2, Plasma 25 22 - 29 mmol/L 12/10/2024 5:06 AM EDT [facility] Anion Gap 12 6 - 16 mmol/L 12/10/2024 5:06 AM EDT [facility] Total Calcium, Plasma 8.6(L) 8.9 - 10.2 mg/dL 12/10/2024 5:06 AM EDT [facility] eGFRcr 103.7 mL/min/1.7 3m*2 12/10/2024 5:06 AM EDT [facility] Comment:Reported eGFRcr in m L/min/1.73m2 is based the CKD-EPI 2020 equation that does not use a race coefficient. Blood Venous blood specimen / Unknown Venipuncture / Unknown 12/10/2024 4:12 AM EDT 12/10/2024 4:37 AM EDT us Lara Stewart MD LAB BLOOD ORDERABLES Final Resul t [facility] [address] [place] [address] * (ABNORMAL) CBC (12/10/2024 4:12 AM EDT) WBC Count 11.06(H) 3.70 - 10.30 10*3/uL LAB HEMATOLOGY METHOD 12/10/2024 4:19 AM EDT [facility] RBC Count 3.92(L) 4.60 - 6.10 10*6/uL LAB HEMATOLOGY METHOD 12/10/2024 4:19 AM EDT [facility] HGB 12.9(L) 13.7 - 17.5 g/dL LAB HEMATOLOGY METHOD 12/10/2024 4:19 AM EDT [facility] HCT 36.2(L) 40.0 - 51.0 % LAB HEMATOLOGY METHOD 12/10/2024 4:19 AM EDT [facility] Platelet Count 233 155 - 369 10*3/uL LAB HEMATOLOGY METHOD 12/10/2024 4:19 AM EDT [facility] MCV 92 79 - 98 fL LAB HEMATOLOGY METHOD 12/10/2024 4:19 AM EDT [facility] MCH 32.9(H) 26.0 - 32.0 pg LAB HEMATOLOGY METHOD 12/10/2024 4:19 AM EDT [facility] MCHC 35.6(H) 30.7 - 35.5 g/dL LAB HEMATOLOGY METHOD 12/10/2024 4:19 AM EDT [facility] RDW 12.9 11.5 - 14.5 % LAB HEMATOLOGY METHOD 12/10/2024 4:19 AM EDT [facility] MPV 8.8 8.8 - 12.5 fL LAB HEMATOLOGY METHOD 12/10/2024 4:19 AM EDT [facility] nRBC 0.0 <=0.0 per 100 WBCs LAB HEMATOLOGY METHOD 12/10/2024 4:19 AM EDT [facility] Blood Venous blood specimen / Unknown Venipuncture / Unknown 12/10/2024 4:12 AM EDT 12/10/2024 4:17 AM EDT us Lara Stewart MD LAB BLOOD ORDERABLES Final Resul t [facility] [address] [place] [address] * POCT glucose meter (12/09/2024 10:37 PM EDT) [facility] POCT Glucose 84 74 - 99 mg/dL 12/09/2024 10:39 PM EDT [facility] Comment:Accuracy of a glucos e result obtained from a capillary whole blood specimen relies upon adequate, non-compromised capillary blood flow. If the capillary glucose result is not consistent with the patient's clinical signs and symptoms, glucose testing should be repeated with either an arterial or venous sample on the glucometer or sent to the main labortory for testing. Comment 12/09/2024 10:39 PM EDT [facility] Public Health Policy Analyst ID Alfredo Jaeger 12/10/19 10:39 PM EDT [facility] Device ID [id number] 12/09/2024 10:39 PM EDT [facility] Specimen Type POC Capillary 12/09/2024 10:39 PM EDT [facility] Blood Capillary blood specimen / Unknown 12/09/2024 10:37 PM EDT 12/09/2024 10:39 PM EDT Rea Ludwig MD LAB POINT OF CARE TE ST DOCKED DEVICE UNSOLICITED RESULTS Final Result Performing Organization Address City/[facility] Co de Phone Number [facility] [address] [place] [address] * Troponin T, High Sensitivity, 2 Hour, Plasma (12/09/2024 8:25 PM EDT) Troponin T, High Sensitivity, 2 Hour 13 <19 ng/L 12/09/2024 8:48 PM EDT [facility] Blood Venous blood specimen / Unknown Venipuncture / Unknown 12/09/2024 8:25 PM EDT 12/09/2024 8:27 PM EDT Rea Ludwig MD LAB BLOOD ORDERABLES Final Res ult Performing Organization Address City/[facility]/ZIP Co de Phone Number [facility] [address] [place] [address] * XR Chest 1 View (12/09/2024 8:02 PM EDT) Anatomical Region Laterality Modality Chest Digital Radiogra phy Impressions 12/09/2024 8:22 PM EDT Redemonstration of left apical pneumothorax which given the comparison with the prior x-rays may be minimally increased in size since the prior examination. Patient's known left-sided rib fractures are not well seen on this examination and can be better delineated on the prior CT chest. CRITICAL RESULT: No. COMMUNICATION: Per this written report. Drafted by Linn Guerra MD on 12/09/2024 8:18 PM Final report signed by Linn Guerra MD on 12/09/2024 8:22 PM Narrative 12/09/2024 8:22 PM EDT CLINICAL INDICATION: pneumo on osh imaging TECHNIQUE: XR CHEST 1 VIEW COMPARISON: Chest x-ray performed at the outside hospital [address] chest performed at the outside hospital 4 hours prior. FINDINGS: Redemonstration of left apical pneumothorax which given the comparison with the prior x-rays may be minimally increased in size since the prior examination. The left lung is clear. No large pleural effusion. Cardiomediastinal silhouette is within normal limits. Patient's known right-sided rib fractures are not well seen on this examination Procedure Note Linn Guerra MD - 12/09/2024 CLINICAL INDICATION: pneumo on osh imaging TECHNIQUE: XR CHEST 1 VIEW COMPARISON: Chest x-ray performed at the outside hospital [address] chestperformed at the outside hospital 4 hours prior. FINDINGS: Redemonstration of left apical pneumothorax which given the comparisonwith the prior x-rays may be minimally increased in size since the priorexamination. The left lung is clear. No large pleural effusion.Cardiomediastinal silhouette is within normal limits. Patient's knownright-sided rib fractures are not well seen on this examination IMPRESSION: Redemonstration of left apical pneumothorax which given the comparisonwith the prior x-rays may be minimally increased in size since the priorexamination. Patient's known left-sided rib fractures are not well seen on thisexamination and can be better delineated on the prior CT chest. CRITICAL RESULT: No. COMMUNICATION: Per this written report. Drafted by Linn Guerra MD on 12/09/2024 8:18 PM Final report signed by Linn Guerra MD on 12/09/2024 8:22 PM Rea Ludwig MD IMG XR PROCEDURES Final Result * ED HIV 1/2 Antibody/Antigen Screen w/Reflex to HIV 1/2 Differentiation (12/09/2024 6:12 PM EDT) Pathologist [facility] HIV 1 & 2 Antibody/Antigen Screen Non Reactive Non Reactive 12/09/2024 7:08 PM EDT [facility] Comment:Screening for HIV 1 & 2 antibodies, and P24 antigen is NONREACTIVE. No confirmatory testing is required. Blood Venous blood specimen / Unknown Venipuncture / Unknown 12/09/2024 6:12 PM EDT 12/09/2024 6:25 PM EDT Rea Ludwig MD LAB BLOOD ORDERABLES Final Res ult Performing Organization Address City/[facility] Co de Phone Number [facility] [address] [place] [address] * Hepatitis C Antibody - ED (12/09/2024 6:12 PM EDT) Hepatitis C Antibody Negative Negative 12/09/2024 7:[address] [facility] Blood Venous blood specimen / Unknown Venipuncture / Unknown 12/09/2024 6:12 PM EDT 12/09/2024 6:25 PM EDT Rea Ludwig MD LAB BLOOD ORDERABLES Final Res ult Performing Organization Address [facility] Co de Phone Number [facility] [address] [place] [address] * Troponin now and 120 min (12/09/2024 6:12 PM EDT) Troponin T, High Sensitivity, 0 Hour 14 <19 ng/L 12/09/2024 6:[address] [facility] Blood Venous blood specimen / Unknown Venipuncture / Unknown 12/09/2024 6:12 PM EDT 12/09/2024 6:15 PM EDT Rea Ludwig MD LAB BLOOD ORDERABLES Final Res ult Performing Organization Address City/[facility] Co de Phone Number [facility] [address] [place] [address] * Anti Xa Level Unfractionated Heparin (12/09/2024 6:12 PM EDT) Anti Xa Level Unfractionated Heparin <0.11 <1.00 IU/mL 12/09/2024 6:[address] [facility] Blood Venous blood specimen / Unknown Venipuncture / Unknown 12/09/2024 6:12 PM EDT 12/09/2024 6:15 PM EDT Narrative [facility] - 12/09/2024 6:50 PM EDT Therapeutic Range: [facility] Full Dose and ACS/CA protocols*: 0.30 - 0.70 IU/mL [facility] Low Dose protocol*: 0.25 - 0.50 IU/mL [facility] prophylaxis: Not established us Rea Ludwig MD LAB BLOOD ORDERABLES Final Res ult Performing Organization Address [facility]/ZIP Co de Phone Number [facility] [address] [place] [address] * (ABNORMAL) PT-INR (12/09/2024 6:12 PM EDT) Prothrombin Time 14.4(H) 12.0 - 14.3 sec 12/09/2024 6:49 PM EDT [facility] INR 1.1 0.9 - 1.1 12/09/2024 6:[address] [facility] Blood Venous blood specimen / Unknown Venipuncture / Unknown 12/09/2024 6:12 PM EDT 12/09/2024 6:15 PM EDT Narrative [facility] - 12/09/2024 6:49 PM EDT OPTIMAL INR RANGES FOR PATIENT ON ORAL ANTICOAGULANT THERAPY Prevention of venous thromboembolism INR 2.0 to 3.0 In patients with heart disease: Atrial fibrillation INR 2.0 to 3.0 Valvular heart disease INR 2.0 to 3.0 Tissue heart valves INR 2.0 to 3.0 Mechanical prosthetic valves INR 2.5 to 3.5 Prevention of recurrent CA INR 2.5 to 3.5 us Rea Ludwig MD LAB BLOOD [place] [address] * (ABNORMAL) CBC w/diff (12/09/2024 6:12 PM EDT) WBC Count 20.12(H) 3.70 - 10.30 10*3/uL LAB HEMATOLOGY METHOD 12/09/2024 6:17 PM EDT [facility] RBC Count 4.15(L) 4.60 - 6.10 10*6/uL LAB HEMATOLOGY METHOD 12/09/2024 6:17 PM EDT [facility] HGB 13.7 13.7 - 17.5 g/dL LAB HEMATOLOGY METHOD 12/09/2024 6:17 PM EDT [facility] HCT 38.3(L) 40.0 - 51.0 % LAB HEMATOLOGY METHOD 12/09/2024 6:17 PM EDT [facility] Platelet Count 235 155 - 369 10*3/uL LAB HEMATOLOGY METHOD 12/09/2024 6:17 PM EDT [facility] MCV 92 79 - 98 fL LAB HEMATOLOGY METHOD 12/09/2024 6:17 PM EDT [facility] MCH 33.0(H) 26.0 - 32.0 pg LAB HEMATOLOGY METHOD 12/09/2024 6:17 PM EDT [facility] MCHC 35.8(H) 30.7 - 35.5 g/dL LAB HEMATOLOGY METHOD 12/09/2024 6:17 PM EDT [facility] RDW 12.8 11.5 - 14.5 % LAB HEMATOLOGY METHOD 12/09/2024 6:17 PM EDT [facility] MPV 9.1 8.8 - 12.5 fL LAB HEMATOLOGY METHOD 12/09/2024 6:17 PM EDT [facility] nRBC 0.0 <=0.0 per 100 WBCs LAB HEMATOLOGY METHOD 12/09/2024 6:17 PM EDT [facility] Differential Type Automated LAB HEMATOLOGY METHOD 12/09/2024 6:17 PM EDT [facility] Neutrophils % 87 % LAB HEMATOLOGY METHOD 12/09/2024 6:17 PM EDT [facility] Lymphocytes % 6 % LAB HEMATOLOGY METHOD 12/09/2024 6:17 PM EDT [facility] Monocytes % 6 % LAB HEMATOLOGY METHOD 12/09/2024 6:17 PM EDT [facility] Eosinophils % 0 % LAB HEMATOLOGY METHOD 12/09/2024 6:17 PM EDT [facility] Basophils % 0 % LAB HEMATOLOGY METHOD 12/09/2024 6:17 PM EDT [facility] Immature Granulocytes % 1 % LAB HEMATOLOGY METHOD 12/09/2024 6:17 PM EDT [facility] Neutrophils Absolute 17.62(H) 1.60 - 6.10 10*3/uL LAB HEMATOLOGY METHOD 12/09/2024 6:17 PM EDT [facility] Lymphocytes Absolute 1.15(L) 1.20 - 3.90 10*3/uL LAB HEMATOLOGY METHOD 12/09/2024 6:17 PM EDT [facility] Monocytes Absolute 1.20(H) 0.30 - 0.90 10*3/uL LAB HEMATOLOGY METHOD 12/09/2024 6:17 PM EDT [facility] Eosinophils Absolute 0.01 0.00 - 0.50 10*3/uL LAB HEMATOLOGY METHOD 12/09/2024 6:17 PM EDT [facility] Basophils Absolute 0.04 0.00 - 0.10 10*3/uL LAB HEMATOLOGY METHOD 12/09/2024 6:17 PM EDT [facility] Immature Granulocytes Absolute 0.10(H) 0.00 - 0.06 10*3/uL LAB HEMATOLOGY METHOD 12/09/2024 6:17 PM EDT [facility] Blood Venous blood specimen / Unknown Venipuncture / Unknown 12/09/2024 6:12 PM EDT 12/09/2024 6:15 PM EDT Narrative [facility] - 12/09/2024 6:17 PM EDT Therapeutic decision making should be based on absolute values, rather than percentages. us Rea Ludwig MD LAB BLOOD ORDERABLES Final Res ult [facility] [address] [place] [address] * CMP (12/09/2024 6:12 PM EDT) Glucose, Plasma 80 74 - 99 mg/dL 12/09/2024 6:41 PM EDT [facility] BUN, Plasma 16 8 - 23 mg/dL 12/09/2024 6:41 PM EDT [facility] Creatinine, Plasma 0.81 0.70 - 1.20 mg/dL 12/09/2024 6:41 PM EDT [facility] BUN/Creatinine Ratio 20 12/09/2024 6:41 PM EDT [facility] Sodium, Plasma 139 136 - 145 mmol/L 12/09/2024 6:41 PM EDT [facility] Potassium, Plasma 3.7 3.6 - 4.9 mmol/L 12/09/2024 6:41 PM EDT [facility] Chloride, Plasma 102 97 - 107 mmol/L 12/09/2024 6:41 PM EDT [facility] CO2, Plasma 23 22 - 29 mmol/L 12/09/2024 6:41 PM EDT [facility] Anion Gap 14 6 - 16 mmol/L 12/09/2024 6:41 PM EDT [facility] Total Calcium, Plasma 9.1 8.9 - 10.2 mg/dL 12/09/2024 6:41 PM EDT [facility] Total Protein 6.4 6.3 - 7.9 g/dL 12/09/2024 6:41 PM EDT [facility] Albumin, Plasma 4.4 3.5 - 5.2 g/dL 12/09/2024 6:41 PM EDT [facility] AST, Plasma 36 10 - 50 U/L 12/09/2024 6:41 PM EDT [facility] ALT, Plasma 30 10 - 50 U/L 12/09/2024 6:41 PM EDT [facility] Alkaline Phosphatase, Plasma 61 40 - 115 U/L 12/09/2024 6:41 PM EDT [facility] Total Bilirubin, Plasma 0.6 0.2 - 1.1 mg/dL 12/09/2024 6:41 PM EDT [facility] eGFRcr 100.9 mL/min/1.7 3m*2 12/09/2024 6:41 PM EDT [facility] Comment:Reported eGFRcr in m L/min/1.73m2 is based the CKD-EPI 2020 equation that does not use a race coefficient. Blood Venous blood specimen / Unknown Venipuncture / Unknown 12/09/2024 6:12 PM EDT 12/09/2024 6:15 PM EDT us Rea Ludwig MD LAB BLOOD ORDERABLES Final Res ult [facility] [address] [place] [address] documented in this encounter Visit Diagnoses Diagnosis Fall from ladder, initial encounter- Primary Fall, initial encounter Traumatic pneumothorax, initial encounter Closed fracture of multiple ribs of right side, initial encounter Traumatic pneumothorax Traumatic pneumothorax without mention of open wound into thorax Closed fracture of rib Closed fracture of rib(s), unspecified Leucocytosis Leukocytosis, unspecified Other specified hypothyroidism Hypertension Unspecified essential hypertension Closed fracture of spinous process of thoracic vertebra (CMS/HCC) Traumatic pneumothorax, initial encounter Closed fracture of multiple ribs of right side, initial encounter documented in this encounter Admitting Diagnoses Diagnosis Fall from ladder, initial encounter Fall Unspecified fall documented in this encounter Administered Medications Inactive Administered Medications - up to 3 most recent administrations Medication Order MAR Action Action Date Dose Rate Site acetaminophen (Tylenol) tablet 1,000 mg 1,000 mg, Oral, Every 6 hours scheduled, First dose (after last modification) on Fri12/10/24 at 1200, Until Discontinued, Routine Given 12/15/2024 11:31 AM EDT 1,000 mg Given 12/15/2024 6:12 AM EDT 1,000 mg Given 12/15/2024 1:04 AM EDT 1,000 mg acetaminophen (Tylenol) tablet 650 mg 650 mg, Oral, Every 6 hours scheduled, First dose on Fri12/10/24 at 0600, Until Discontinued, Routine Given 12/10/2024 5:32 AM EDT 650 mg ceFAZolin (Ancef) injection 2 g 2 g, Intravenous, Once, 1 dose, On 12/11/24 at 2315, Routine Given 12/11/2024 10:47 PM EDT 2 g dextrose 10 % (D10W) bolus 125 mL 125 mL, Intravenous, Every 15 min PRN, Starting on Fri12/10/24 at 0348, Until Fri12/15/24 at 1706, Administer over 15 Minutes, Routine, low blood sugar BG 51-89 mg/dL dextrose 10 % (D10W) bolus 250 mL 250 mL, Intravenous, Every 15 min PRN, Starting on Fri12/10/24 at 0348, Until Fri12/15/24 at 1706, Administer over 15 Minutes, Routine, PRN low blood sugar BG =/<50 mg/dL enoxaparin (Lovenox) syringe 30 mg 30 mg, Subcutaneous, 2 times daily, First dose on Fri12/10/24 at 0900, Until Discontinued, Routine Given 12/15/2024 8:37 AM EDT 30 mg Left Lower Abdomen Given 12/14/2024 8:27 PM EDT 30 mg Le ft Lower Abdomen Given 12/14/2024 9:04 AM EDT 30 mg Ri ght Lower Abdomen gabapentin (Neurontin) capsule 200 mg 200 mg, Oral, 3 times daily, First dose on Fri12/10/24 at 0900, Until Discontinued, Routine Given 12/15/2024 8:37 AM EDT 200 mg Given 12/14/2024 8:28 PM EDT 200 mg Given 12/14/2024 5:20 PM EDT 200 mg glucagon (human recombinant) injection 1 mg 1 mg, Intramuscular, Every 15 min PRN, Starting on Fri12/10/24 at 0348, Until Fri12/15/24 at 1706, Routine, low blood sugar per Hypoglycemia Prevention and Treatment protocol glucose (Glutose) 40 % oral gel 15-30 grams of glucose 15-30 grams of glucose, Sublingual, Every 15 min PRN, Starting on Fri12/10/24 at 0348, Until Fri12/15/24 at 1706, Routine, low blood sugar, per Hypoglycemia Prevention and Treatment protocol HYDROmorphone (Dilaudid) injection 1 mg 1 mg, Intravenous, Once, 1 dose, On Fri12/11/24 at 2215, Routine Given 12/11/2024 9:20 PM EDT 1 mg ibuprofen tablet 600 mg 600 mg, Oral, Every 6 hours scheduled, First dose on Fri12/10/24 at 1200, Until Discontinued, Routine Given 12/15/2024 11:31 AM EDT 600 mg Given 12/15/2024 6:11 AM EDT 600 mg Given 12/15/2024 1:04 AM EDT 600 mg insulin lispro (Admelog) 100 units/mL injection - Correction - Standard Dose 0-5 Units, Subcutaneous, 3 times daily with meals, First dose on Fri12/10/24 at 0830, Until Discontinued, Routine Given 12/13/2024 12:13 PM EDT 1 Units Left Upper Arm (Back ) Given 12/11/2024 12:16 PM EDT 1 Units L eft Upper Arm (Back) levothyroxine (Synthroid, Levoxyl) tablet 75 mcg 75 mcg, Oral, Every morning, First dose on Fri12/10/24 at 0600, Until Discontinued, Routine Given 12/15/2024 6:11 AM EDT 75 mcg Given 12/14/2024 5:39 AM EDT 75 mcg Given 12/13/2024 5:04 AM EDT 75 mcg lidocaine (Lidoderm) 5 % patch 1 patch 1 patch, Apply externally, Every 24 hours, First dose on Fri12/10/24 at 0540, Until Discontinued, Administer over 12 Hours, Routine Medication Applied 12/10/2024 7:04 AM EDT 1 patch Chest lidocaine (Lidoderm) 5 % patch 2 patch 2 patch, Apply externally, Every 24 hours, First dose (after last modification) on Fri12/10/24 at 0900, Until Discontinued, Administer over 12 Hours, Routine Medication Applied 12/13/2024 8:55 AM EDT 2 patches Chest Medication Applied 12/12/2024 8:52 AM EDT 2 patches Chest Medication Applied 12/11/2024 8:15 AM EDT 2 patches Chest lidocaine (Xylocaine) 1 % injection - Pyxis Override Pull 1 dose, Starting on 12/11/24 at 2117, Until 12/11/24 at 2121 lidocaine (Xylocaine) 1 % injection 10 mL 10 mL, Infiltration, Once, 1 dose, On 12/11/24 at 2215, Routine Given 12/11/2024 9:21 PM EDT 10 mL magnesium sulfate IVPB 2 g 2 g, Intravenous, Once, 1 dose, On Fri12/10/24 at 0900, Routine New Bag 12/10/2024 10:27 AM EDT 2 g 2 5 mL/hr meclizine (Antivert) tablet 25 mg 25 mg, Oral, 3 times daily PRN, Starting on 12/11/24 at 1458, Until 12/15/24 at 1706, Routine, dizziness Given 12/11/2024 5:07 PM EDT 25 mg methocarbamol (Robaxin) tablet 500 mg 500 mg, Oral, Every 8 hours, First dose on Fri12/10/24 at 0350, Until Discontinued, Routine Given 12/15/2024 11:31 AM EDT 500 mg Given 12/15/2024 3:45 AM EDT 500 mg Given 12/14/2024 8:27 PM EDT 500 mg morphine PF 4 mg 4 mg, Intravenous, Once, 1 dose, On Vivian 12/09/24 at 2255, STAT Given 12/09/2024 11:40 PM EDT 4 mg ondansetron (Zofran) injection 4 mg 4 mg, Intravenous, Once, 1 dose, On Vivian 12/09/24 at 2255, STAT Given 12/09/2024 11:45 PM EDT 4 mg ondansetron (Zofran) injection 4 mg 4 mg, Intravenous, Every 6 hours PRN, Starting on Fri12/10/24 at 0345, Until Fri12/15/24 at 1706, Routine, vomiting, nausea ondansetron ODT (Zofran-ODT) disintegrating tablet 4 mg 4 mg, Oral, Every 6 hours PRN, Starting on Fri12/10/24 at 0345, Until Fri12/15/24 at 1706, Routine, nausea, vomiting Given 12/14/2024 8:28 PM EDT 4 mg oxyCODONE (Roxicodone) immediate release tablet 5 mg 5 mg, Oral, Every 4 hours PRN, Starting on Fri12/10/24 at 0345, Until Fri12/12/24 at 1310, Routine, severe pain Given 12/12/2024 8:52 AM EDT 5 mg Given 12/12/2024 2:52 AM EDT 5 mg Given 12/11/2024 10:47 PM EDT 5 mg oxyCODONE (Roxicodone) immediate release tablet 5 mg 5 mg, Oral, Every 6 hours PRN, Starting on Fri12/12/24 at 1309, Until Fri12/15/24 at 1706, Routine, severe pain Given 12/14/2024 8:28 PM EDT 5 mg Given 12/14/2024 12:11 AM EDT 5 mg Given 12/13/2024 3:13 PM EDT 5 mg polyethylene glycol (Miralax) packet 17 g 17 g, Oral, Daily, First dose on Fri12/10/24 at 0900, Until Discontinued, Routine Given 12/15/2024 8:37 AM EDT 17 g Given 12/14/2024 9:04 AM EDT 17 g Given 12/13/2024 8:55 AM EDT 17 g potassium chloride CR (Klor-Con) ER tablet 20 mEq 20 mEq, Oral, Once, 1 dose, On Fri12/10/24 at 1100, Routine Given 12/10/2024 10:33 AM EDT 20 mEq potassium chloride CR (Klor-Con) ER tablet 40 mEq 40 mEq, Oral, Once, 1 dose, On Fri12/10/24 at 0900, Routine Given 12/10/2024 10:29 AM EDT 40 mEq senna-docusate (Rose-Colace) 8.6-50 MG per tablet 1 tablet 1 tablet, Oral, 2 times daily, First dose on Fri12/10/24 at 0900, Until Discontinued, Routine Given 12/15/2024 8:37 AM EDT 1 tablet Given 12/14/2024 8:28 PM EDT 1 tablet Given 12/14/2024 9:04 AM EDT 1 tablet sodium chloride 0.9 % flush 10 mL 10 mL, Intravenous, Every 12 hours, First dose on Fri12/10/24 at 0350, Until Discontinued, Routine Given 12/15/2024 3:41 AM EDT 10 mL Given 12/14/2024 5:21 PM EDT 10 mL Given 12/13/2024 3:13 PM EDT 10 mL sodium chloride 0.9 % flush 10 mL 10 mL, Intravenous, As needed, Starting on Fri12/10/24 at 0344, Until Fri12/15/24 at 1706, Routine, line care documented in this encounter Active and Recently Administered Medications Times are shown in EDT. Scheduled Medication Order 12/13/2024 12/14/2024 12/15/2024 acetaminophen (Tylenol) tablet 1,000 mg 1,000 mg, Oral, Every 6 hours scheduled, First dose (after last modification) on Fri12/10/24 at 1200, Until Discontinued, Routine 0504 (Not Given - Provider: Estella Tomas RN - Reason: Order parameters not met - Comment: greater than 4g in 24hr)1112 (Given - Provider: Siomara Licona RN)181 (Given - Provider: Siomara Licona RN) 10 (Given - Provider: Dorota Faust RN)0538 (Given - Provider: Dorota Faust RN)1143 (Given - Provider: Adonay Padgett RN)1720 (Not Given - Provider: Adonay Padgett RN - Reason: Order parameters not met) 0104 (Given - Provider: Chandni Mi RN)0612 (Given - Provider: Chandni Mi RN)1131 (Given - Provider: Adonay Padgett RN) enoxaparin (Lovenox) syringe 30 mg 30 mg, Subcutaneous, 2 times daily, First dose on Fri12/10/24 at 0900, Until Discontinued, Routine 0855 (Given - Provider: Siomara Licona RN)2006 (Given - Provider: Dorota Faust RN) 09 (Given - Provider: Ani Ferrera RN)2026 (Given - Provider: Chandni Mi RN) 0837 (Given - Provider: Adonay Padgett RN) gabapentin (Neurontin) capsule 200 mg 200 mg, Oral, 3 times daily, First dose on Fri12/10/24 at 0900, Until Discontinued, Routine 0855 (Given - Provider: Siomara Licona RN)1513 (Given - Provider: Siomara Licona RN)2006 (Given - Provider: Dorota Faust RN) 0904 (Given - Provider: Ani Ferrera RN)172 (Given - Provider: Adonay Padgett RN - Comment: per pt)2027 (Given - Provider: Chandni Mi RN) 0837 (Given - Provider: Adonay Padgett RN)1600 (Canceled Entry - Provider: Automatic Discharge Provider - Comment: Automatically canceled at discontinue of medication order) ibuprofen tablet 600 mg 600 mg, Oral, Every 6 hours scheduled, First dose on Fri12/10/24 at 1200, Until Discontinued, Routine 0504 (Given - Provider: Estella Tomas RN)1112 (Given - Provider: Siomara Licona RN)181 (Given - Provider: Siomara Licona RN) 001 (Given - Provider: Dorota Faust RN)0538 (Given - Provider: Dorota Faust RN)1144 (Given - Provider: Adonay Padgett RN)1720 (Given - Provider: Adonay Padgett RN) 0104 (Given - Provider: Chandni Mi RN)0611 (Given - Provider: Chandni Mi RN)1131 (Given - Provider: Adonay Padgett RN) insulin lispro (Admelog) 100 units/mL injection - Correction - Standard Dose (CANCELED) 0-5 Units, Subcutaneous, 3 times daily with meals, First dose on Fri12/10/24 at 0830, Until Discontinued, Routine 0852 (Not Given - Provider: Siomara Licona RN - Reason: Order parameters not met)1213 (Given - Provider: iSomara Licona RN)1754 (Not Given - Provider: Siomara Licona RN - Reason: Order parameters not met) levothyroxine (Synthroid, Levoxyl) tablet 75 mcg 75 mcg, Oral, Every morning, First dose on Fri12/10/24 at 0600, Until Discontinued, Routine 0504 (Given - Provider: Estella Tomas RN) 0539 (Given - Provider: Dorota Faust RN) 0611 (Given - Provider: Chandni Mi RN) lidocaine (Lidoderm) 5 % patch 2 patch 2 patch, Apply externally, Every 24 hours, First dose (after last modification) on Fri12/10/24 at 0900, Until Discontinued, Administer over 12 Hours, Routine 0855 (Medication Applied - Provider: Siomara Licona RN)2008 (Medication Removed - Provider: Dorota Faust RN) 0904 (Not Given - Provider: Ani Ferrera RN - Reason: Patient/family refused) 0838 (Not Given - Provider: Adonay Padgett RN - Reason: Patient/family refused) methocarbamol (Robaxin) tablet 500 mg 500 mg, Oral, Every 8 hours, First dose on Fri12/10/24 at 0350, Until Discontinued, Routine 0252 (Given - Provider: Estella Tomas RN)1112 (Given - Provider: Siomara Licona RN)2006 (Given - Provider: Dorota Faust RN) 0440 (Given - Provider: Dorota Faust RN)1144 (Given - Provider: Adonay Padgett RN)2026 (Given - Provider: Chandni Mi RN) 0345 (Given - Provider: Chandni Mi RN)1131 (Given - Provider: Adonay Padgett RN) polyethylene glycol (Miralax) packet 17 g 17 g, Oral, Daily, First dose on Fri12/10/24 at 0900, Until Discontinued, Routine 0855 (Given - Provider: Siomara Licona RN) 0904 (Given - Provider: Ani Ferrera RN) 0837 (Given - Provider: Adonay Padgett RN) senna-docusate (Rose-Colace) 8.6-50 MG per tablet 1 tablet 1 tablet, Oral, 2 times daily, First dose on Fri12/10/24 at 0900, Until Discontinued, Routine 0855 (Given - Provider: Siomara Licona RN)2006 (Given - Provider: Dorota Faust RN) 0904 (Given - Provider: Ani Ferrera RN)2027 (Given - Provider: Chandni Mi RN) 0837 (Given - Provider: Adonay Padgett RN) sodium chloride 0.9 % flush 10 mL(Linked Group 1) 10 mL, Intravenous, Every 12 hours, First dose on Fri12/10/24 at 0350, Until Discontinued, Routine 0350 (Canceled Entry - Provider: Estella Tomas RN)1513 (Given - Provider: Siomara Licona RN) 0350 (Canceled Entry - Provider: Dorota Faust, HALIEGH)1721 (Given - Provider: Adonay Padgett RN) 0341 (Given - Provider: Chandni Mi RN)1550 (Canceled Entry - Provider: Automatic Discharge Provider - Comment: Automatically canceled at discontinue of medication order) PRN Medication Order 12/13/2024 12/14/2024 12/15/2024 dextrose 10 % (D10W) bolus 125 mL(Linked Group 2) 125 mL, Intravenous, Every 15 min PRN, Starting on Fri12/10/24 at 0348, Until Fri12/15/24 at 1706, Administer over 15 Minutes, Routine, low blood sugar BG 51-89 mg/dL dextrose 10 % (D10W) bolus 250 mL(Linked Group 2) 250 mL, Intravenous, Every 15 min PRN, Starting on Fri12/10/24 at 0348, Until Fri12/15/24 at 1706, Administer over 15 Minutes, Routine, PRN low blood sugar BG =/<50 mg/dL glucagon (human recombinant) injection 1 mg(Linked Group 2) 1 mg, Intramuscular, Every 15 min PRN, Starting on Fri12/10/24 at 0348, Until Fri12/15/24 at 1706, Routine, low blood sugar per Hypoglycemia Prevention and Treatment protocol glucose (Glutose) 40 % oral gel 15-30 grams of glucose(Linked Group 2) 15-30 grams of glucose, Sublingual, Every 15 min PRN, Starting on Fri12/10/24 at 0348, Until Fri12/15/24 at 1706, Routine, low blood sugar, per Hypoglycemia Prevention and Treatment protocol meclizine (Antivert) tablet 25 mg 25 mg, Oral, 3 times daily PRN, Starting on 12/11/24 at 1458, Until Fri12/15/24 at 1706, Routine, dizziness ondansetron (Zofran) injection 4 mg(Linked Group 3) 4 mg, Intravenous, Every 6 hours PRN, Starting on Fri12/10/24 at 0345, Until Fri12/15/24 at 1706, Routine, vomiting, nausea 2027 (See Alternative - Provider: Chandni Mi RN) ondansetron ODT (Zofran-ODT) disintegrating tablet 4 mg(Linked Group 3) 4 mg, Oral, Every 6 hours PRN, Starting on Fri12/10/24 at 0345, Until Fri12/15/24 at 1706, Routine, nausea, vomiting 2027 (Given - Provider: Chandni Mi RN) oxyCODONE (Roxicodone) immediate release tablet 5 mg 5 mg, Oral, Every 6 hours PRN, Starting on Fri12/12/24 at 1309, Until Fri12/15/24 at 1706, Routine, severe pain 0252 (Given - Provider: Estella Tomas RN)0855 (Given - Provider: Siomara Licona RN)1513 (Given - Provider: Siomara Licona RN) 001 (Given - Provider: Dorota Faust RN)2027 (Given - Provider: Chandni Mi RN) sodium chloride 0.9 % flush 10 mL(Linked Group 1) 10 mL, Intravenous, As needed, Starting on Fri12/10/24 at 0344, Until Fri12/15/24 at 1706, Routine, line care Linked Groups Order Group 1: Insert peripheral IV (COMPLETED) Once, On Fri12/10/24 at 0345, For 1 occurrence And Saline lock IV (COMPLETED) Once, On Fri12/10/24 at 0345, For 1 occurrence And sodium chloride 0.9 % flush 10 mLJump to med 10 mL, Intravenous, Every 12 hours, First dose on Fri12/10/24 at 0350, Until Discontinued, Routine And sodium chloride 0.9 % flush 10 mLJump to med 10 mL, Intravenous, As needed, Starting on Fri12/10/24 at 0344, Until Fri12/15/24 at 1706, Routine, line care Group 2: glucose (Glutose) 40 % oral gel 15-30 grams of glucoseJump to med 15-30 grams of glucose, Sublingual, Every 15 min PRN, Starting on Fri12/10/24 at 0348, Until Fri12/15/24 at 1706, Routine, low blood sugar, per Hypoglycemia Prevention and Treatment protocol Or dextrose 10 % (D10W) bolus 125 mLJump to med 125 mL, Intravenous, Every 15 min PRN, Starting on Fri12/10/24 at 0348, Until Fri12/15/24 at 1706, Administer over 15 Minutes, Routine, low blood sugar BG 51-89 mg/dL Or dextrose 10 % (D10W) bolus 250 mLJump to med 250 mL, Intravenous, Every 15 min PRN, Starting on Fri12/10/24 at 0348, Until Fri12/15/24 at 1706, Administer over 15 Minutes, Routine, PRN low blood sugar BG =/<50 mg/dL Or glucagon (human recombinant) injection 1 mgJump to med 1 mg, Intramuscular, Every 15 min PRN, Starting on Fri12/10/24 at 0348, Until Fri12/15/24 at 1706, Routine, low blood sugar per Hypoglycemia Prevention and Treatment protocol Group 3: ondansetron ODT (Zofran-ODT) disintegrating tablet 4 mgJump to med 4 mg, Oral, Every 6 hours PRN, Starting on Fri12/10/24 at 0345, Until Fri12/15/24 at 1706, Routine, nausea, vomiting Or ondansetron (Zofran) injection 4 mgJump to med 4 mg, Intravenous, Every 6 hours PRN, Starting on Fri12/10/24 at 0345, Until 12/15/24 at 1706, Routine, vomiting, nausea Or ondansetron (Zofran) 4 MG/5ML solution 4 mg (CANCELED) 4 mg, Oral, Every 6 hours PRN, Starting on Fri12/10/24 at 0345, Until 12/11/24 at 1337, Routine, nausea, vomiting documented in this encounter Additional Health Concerns Assessment Noted Time A Body Mass Index follow-up plan has been documented for the patient 12/15/2024 2:19 PM EDT documented as of this encounter 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
--- OUTSIDE RECORDS SUMMARY | 2024-12-24 08:35 | XMS_ITS | Encounter Summary ---
Author Organization Healthcare Address [address] [place] [address] Care Team Providers Care Rehabilitation Services Aide Name Role Phone Starr Fulton Primary Care Provider Encounter Details Date Type Department Care Team (Latest Contact Info) Description 12/24/2024 8:35 AM EDT - 12/24/2024 11:59 PM EDT [facility] [address], [address] [place] [address] Traumatic pneumothorax, initial encounter; Closed fracture of multiple ribs of right side, initial encounter Discharge Disposition: Home or Self Care Social History Tobacco Use Types Packs/Day Years Used Date Smoking Tobacco: Former Cigarettes Passive Smoke Exposure: Never Smokeless Tobacco: Never Alcohol Use Standard Drinks/Week Comments Never 0 [...] any time in the past 12 m [facility], were you homeless or living in a detention (including now)? No 12/14/2024 [facility] Utilities Answer Date Recorded In the past 12 months has th e electric, gas, oil, or water company threatened to shut off services in your home? No 12/14/2024 Sex and Gender Information Value Date Recorded Sex Assigned at Not on file Legal Sex Male 2:49 PM EDT Gender Identity Not on file Sexual Orientation Not on file documented as of this encounter Functional Status * AUDIT-C Score Answer Date of Assessment Author 0 12/24/2024 9:00 AM EDT Kim Montelongo * Question Answer Date of Assessment Author Q1: How often do you have a drink containing alcohol? Never 12/24/2024 9:00 AM KISHAT Chloe Brewster Q2: How many drinks containing alcohol do you have on a typical day when you are drinking? Patient does not drink 12/24/2024 9:00 AM EDT [place], Kim R Q3: How often do you have six or more drinks on one occasion? Never 12/24/2024 9:00 AM EDT Chloe Brewster documented as of this encounter Medications at Time of Discharge chlorthalidone (Hygroton) 25 MG tablet Take 1 tablet by mouth daily. levothyroxine (Synthroid, Levoxyl) 75 MCG tablet Take [...] under the skin 1 time per week. lidocaine (Lidoderm) 5 % patch Apply 2 patches topically 1 (one) time each day at the same time over 12 hours. Remove & discard patch within 12 hours or as directed by . 60 patch 12/16/2024 meclizine (Antivert) 25 MG tablet Take 1 tablet by mouth 3 times a day as needed for dizziness for up to 14 days. 42 tablet 12/15/2024 documented as of this encounter Plan of Treatment Not on file documented as of this encounter Procedures Procedure Name Priority Date/Time Associated Diagnosis Comments XR CHEST 1 VIEW Routine 12/24/2024 8:42 AM EDT Traumatic pneumothorax, initial encounter Closed fracture of multiple ribs of right side, initial encounter documented in this encounter Results * XR [...] electronically signing this report, I, the attending physicianmellissa I have personally reviewed the images/data for the aboveexamination(s) and agree with the final edited report. Drafted by Michael Warner MD on 12/24/2024 8:47 AM Final report signed by Denys Graham MD on 12/24/2024 8:53 AM Bridgette JETER IMG XR PROCEDURES Final Result documented in this encounter Visit Diagnoses Diagnosis Traumatic pneumothorax, initial encounter Closed fracture of multiple ribs of right side, initial encounter documented in this encounter Additional Health Concerns Assessment Noted Time A Body Mass Index follow-up plan has been documented for the patient 12/24/2024 9:42 AM EDT documented as of this encounter Care Teams Rehabilitation Services Aide Relationship Specialty Start Date End Date Starr Fulton PA [facility] [address] [place] [address] PCP - General 12/09/24 documented as of this encounter
--- OUTSIDE RECORDS SUMMARY | 2024-12-24 09:30 | XMS_ITS | Encounter Summary ---
Author Organization [facility] Address [address] [place] [address] Care Team Providers Care Experimental Preflight Mechanic Name Role Phone Starr Fulton Primary Care Provider [phone] Reason for Visit * Reason Comments Follow-up * Consultation (Routine) - Closed Specialty Diagnoses / Procedures Referred By Contac t Referred To Contact Trauma Surgery / General Surgery Diagnoses Traumatic pneumothorax, initial encounter Closed fracture of multiple ribs of right side, initial encounter Bridgette Jamison PA [address] [address] Phone: tel: fax: [facility] General Surgery [address], [address] [place] [address] Phone: tel: fax: Referral ID Status Reason Start Date Expiration Date V isits Requested Visits Authorized [id number] Closed Specialty Services Required 12/15/2024 06/16/2026 1 1 Encounter Details Date Type Department Care Team (Latest Contact Info) Description 12/24/2024 9:30 AM EDT Office Visit [facility] General Surgery [address], [address] [place] [address] Lisette Mo PA [address] [facility] [place] [address] Fall from ladder, subsequent encounter [...] any time in the past 12 m [facility], were you homeless or living in a long-term (including now)? No 12/14/2024 [facility] Utilities Answer Date Recorded In the past 12 months has [employer] electric, gas, oil, or water company threatened [...] documented as of this encounter Care Teams Experimental Preflight Mechanic Relationship Specialty Start Date End Date Starr Fulton PA [address] [place] [address] PCP - General 12/09/24 documented as of this encounter
--- OUTSIDE RECORDS SUMMARY | 2024-12-31 12:00 | XMS_ITS ---
[facility] Address [address] [place] [id number] Care Team Providers Care Mental Measurements Teacher Name Role Phone Geoffrey Cantu Primary Care Provider [phone] KennyStarr villanueva Unavailable [phone] Allergies No Known Allergies REASON FOR VISIT [facility] f/u Medications Medication SIG (Take, Route, Frequency, Duration) Notes Start Date End Date Status Mounjaro 2.5 MG/0.5ML 2.5 mg Subcutaneou s once a week Active Meloxicam 15 MG 1 tablet Orally Once a day; Duration: 90 days Active Levothyroxine Sodium 75 MCG 1 tablet in the morning on an empty stomach Orally Once a day; Duration: 90 days Active FreeStyle Monica 3 Sensor - as directed 12/22/2024 Active Lisinopril 5 MG 1 tablet Orally Once a day; Duration: 90 days Active Dexcom G7 Sensor - as directed E11.65 05/03/2024 Active Dexcom G7 Cell Biology Scientist - USE DIRECTED Active Chlorthalidone 25 MG 1 tablet in the mor pippa with food Orally once daily; Duration: 90 days Active Vitamin D3 50 MCG (1999) 1 tab(s) ora lly once a day 12/03/2018 Active Cephalexin 500 MG 1 tablet Orally Two times a day; Duration: 10 day(s) 01/22/2024 Active Meclizine HCl 25 MG 1 tab Orally 3 times a day, prn Active Problems Problem Type SNOMED Code ICD Code Onset Dates Problem Status W/U Status Risk Notes Problem Postconcussion syndrome (13535843) Post concussive syndrome (F07.81) Active confirmed Vital Signs Weight 153.8 lbs 12/31/2024 Blood pressure systolic 130 mm Hg 01/01/20 25 Blood pressure diastolic 80 mm Hg 025 Heart Rate 66 /min 12/31/2024 Height 73 in 12/31/2024 BMI 20.29 kg/m2 12/31/2024 Encounters Encounter Location Date Provider Diagnosis [facility] [address] [place] [id number] 12/31/2024 Starr Fulton Pneumothorax, right J93.9 ; Closed fracture of multiple ribs of right side with routine healing, subsequent encounter S22.41XD ; Post concussive syndrome F07.81 and Dizziness R42 Assessments Encounter Date Diagnosis (ICD Code) Assessment Notes Treatment Notes Treatment Clinical Notes Section Notes 12/31/2024 Pneumothorax, right (ICD-10 - J93.9) 12/31/2024 Closed fracture of multiple ribs of right side with routine healing, subsequent encounter (ICD-10 - S22.41XD) Will repeat images of the spine and ribs in 3 weeks. His last imaging was 1 week ago. He was released by [facility]. 12/31/2024 Post concussive syndrome (ICD-10 - F07.81) Continue mental and physical rest until dizziness and headaches resolve. 12/31/2024 Dizziness (ICD-10 - R42) Plan Of Treatment Treatment Notes Assessment Notes Closed fracture of multiple ribs of right side with routine healing, subsequent encounter Will repeat images of the spine and ribs in 3 weeks. His last imaging was 1 week ago. He was released by . Post concussive syndrome Continue mental and physical rest until dizziness and headaches resolve. Next Appt Details Follow Up: 3 Weeks, Reason: Progress Notes * VIOLET WHEELERNE TOMDOB:1965 (59 yo M)Acc No.[id number]:12/31/2024 Progress Notes Patient: ELVIA REYNOLDS Provider: STEFFANY Little :1965 A ge:59 Y S ex:Male Date:12/31/2024 Address:[address] [place] [address] [id number] Pcp:Geoffrey Cantu Subjective: * Chief Complaints: * 1 . f/u. * HPI: H PI: 59 year old male presents with c/o Here for follow up on: P t is here today to f/u from . Pt states he was at on 12/09. See pts docs. Pt states he was there because he fell off a ladder. Isidro de la o broke 6 ribs, one vertebrae, and ended up with a right pneumothorax and a chest tube. Pt states he is better and has no new concerns. He did hit his head as well and still has some dizziness.. * ROS: D ERMATOLOGY: no R justen. [...] * Hospitalization/Major Diagno stic Procedure: H ypertension, Dizziness-[facility] 08/27/08-08/31/08, Shoulder- [facility] ER 10/2014, RT Shoulder Pain/Low Potassium Level- [facility] 09/19/2016, Norovirus- [facility] 05/2018. * Family History: F ather: [...] ,Years: , Determination:. * Medications: T aking Meclizine HCl 25 MG Tablet 1 tab Orally 3 times a day, prn , Taking Vitamin D3 50 MCG (1999 UT) Tablet 1 tab(s) orally once a day , Taking Cephalexin 500 MG Tablet 1 tablet Orally Two times a day , Taking Dexcom G7 Sensor - Miscellaneous as directed , Notes to Pharmacist: E11.65, Taking Dexcom G7 Cell Biology Scientist - Device USE DIRECTED , Taking Chlorthalidone 25 MG Tablet 1 tablet in the morning with food Orally once daily , Taking Lisinopril 5 MG Tablet 1 tablet Orally Once a day , Taking Mounjaro 2.5 MG/0.5ML Solution Auto-injector 2.5 mg Subcutaneous once a week , Taking Meloxicam 15 MG Tablet 1 tablet Orally Once a day , Taking Levothyroxine Sodium 75 MCG Tablet 1 tablet in the morning on an empty stomach Orally Once a day , Taking FreeStyle Monica 3 Sensor - Miscellaneous as directed , Medication List reviewed and reconciled with the patient * Allergies: N .K.D.A. Objective: * Vitals: W t: 153.8, Temp: 97.5, BP: 130/80, HR: 66, O2 Sat: 99% on RA, Nurse: mely, Ht: 73, BMI:20.29. * Examination: G eneral Examination: General Appearance: N AD. H EENT: s clera and conjunctiva clear, PERRLA, TM's normal, translucent, EOM's with normal ROM. O ral cavity: n o lesions, mucosa moist and WNL, no erythema. N lawrence: s upple, no lymphadenopathy. C hest: normal shape and expansion, ttp along the right chest wall. H eart: R SR. L ungs:?clear to auscultation. A bdomen: b owel sounds present, soft and nontender, no organomegaly or masses, no guarding or rigidity. N eurologic Exam: I ntact, gait normal. S kin:?normal, no rash. P eripheral pulses: n ormal (2+) bilaterally. B ack: t tp along the lower thoracic vertebrae. E xtremities: n o leg edema. Assessment: * Assessment: 1. P neumothorax, right - J93.9 (Primary) 2 . C losed fracture of multiple ribs of right side with routine healing, subsequent encounter - S22.41XD 3 . P ost concussive syndrome - F07.81 4 . D izziness - R42 Plan: * Treatment: 2. P ost concussive syndrome Notes: Continue mental and physical rest until dizziness and headaches resolve. * Procedure Codes: 3 075F SYST BP GE 130 - 139MM HG, 3079F DIAST BP 80-89 MM HG * Follow Up: 3 Weeks * Images: Billing Information: * Visit Code: 59563 Office Visit, Est Pt., Level 4. * Procedure Codes: 3075F SYST BP GE 130 - 139MM HG. 3079F DIAST BP 80-89 MM HG. * Electronic signature of STEFFANY Conklin on 01/21/2025 at 10:37 AM EDT Sign off status: Pending * Provider: STEFFANY Little Date: Generated for Jci ng/Fawillyg/eTransmitting on: 1 10:37 AM EDT History and Physical Notes * HPI (History of Present Illness) Category Sub-Category Detail Notes Category Not es HPI Here for follow up on: Pt is her e today to f/u from . Pt states he was at on 12/09. See pts docs. Pt states he was there because he fell off a ladder. He broke 6 ribs, one vertebrae, and ended up with a right pneumothorax and a chest tube. Pt states he is better and has no new concerns. He did hit his head as well and still has some dizziness. Examination Category Sub-Category Detail Notes Category Not es General Examination HEENT: sclera and c onjunctiva clear, PERRLA, TM's normal, translucent, EOM's with normal ROM Heart: RSR Lungs: clear to auscultatio n Abdomen: bowel sounds present , soft and nontender, no organomegaly or masses, no guarding or rigidity Extremities: no leg edema General Appearance: NAD Skin: normal, no rash Neurologic Exam: Intact, gait normal Neck: supple, no lymphaden opathy Oral cavity: no lesions, mucosa m oist and WNL, no erythema Peripheral pulses: normal (2+) bilatera lly Back: ttp along the lower thoracic vertebrae Chest: normal shape and exp ansion, ttp along the right chest wall
--- NOTE | 2025-01-21 10:37 | XR_ITS ---
FINAL REPORT TECHNIQUE: Chest PA & Lateral CLINICAL HISTORY: CLOSED FRACTURE OF MULTIPLE RIBS OT RT SIDE W/ ROUTINE HEALING DENIES SOA COMPARISON: 12/09/2024 FINDINGS: 2 views of the chest were performed. The heart size is normal. The mediastinum is within normal limits. There is no acute cardiopulmonary process. There are no pleural effusions. There is no pneumothorax. Healing right 5th, 6th, 7th, and 8th rib fractures. IMPRESSION: No acute cardiopulmonary process. Healing rib fractures. Reviewed, Interpreted and Dictated by Tony Byrd MD Transcribed by Kianna Khan Authenticated and . [facility]
--- OUTSIDE RECORDS SUMMARY | 2025-01-21 10:37 | XMS_ITS | Encounter Summary ---
Author Organization Healthcare Address [address] [place] [address] Care Team Providers Care Project Structural Engineer Name Role Phone Starr Fulton Primary Care Provider [phone] Encounter Details Date Type Department Care Team (Late st Contact Info) Description 12/09/2024 Orders Only External Location [address] [place] [address] Richard Yang PA [address] [place] [address] Social History Tobacco Use Types [...] any time in the past 12 m [facility], were you homeless or living in a halfway (including now)? No 12/14/2024 [facility] Utilities Answer Date Recorded In [...] documented as of this encounter Care Teams Project Structural Engineer Relationship Specialty Start Date End Date Starr Fulton PA [address] [place] [address] [address] [place] [address] PCP - General 12/09/24 documented as of this encounter
--- OUTSIDE RECORDS SUMMARY | 2025-01-21 10:37 | XMS_ITS | Encounter Summary ---
Author Organization [facility] Address [address] [place] [address] Care Team Providers Care Admin Assistant Name Role Phone Starr Fulton Primary Care Provider [phone] Encounter Details Date Type Department Care Team [...] documented as of this encounter Care Teams Admin Assistant Relationship Specialty Start Date End Date Starr Fulton PA [address] [place] [address] [place] [address] PCP - General 12/09/24 documented as of this encounter
--- OUTSIDE RECORDS SUMMARY | 2025-01-21 10:37 | XMS_ITS | Encounter Summary ---
Author Organization [facility] Address [address] [place] [address] Care Team Providers Care Customer Order Clerk Name Role Phone Starr Fulton Primary Care Provider [phone] Encounter Details Date Type Department Care Team [...] any time in the past 12 m [facility], were you homeless or living in a halfway (including now)? No 12/14/2024 [facility] Utilities Answer Date Recorded In the past [...] documented as of this encounter Care Teams Customer Order Clerk Relationship Specialty Start Date End Date Starr Fulton PA [address] [place] [address] PCP - General 12/09/24 documented as of this encounter
--- OUTSIDE RECORDS SUMMARY | 2025-01-21 10:37 | XMS_ITS | Patient Health Record ---
[facility] Address [address] [place] [id number] Care Team Providers Care Law Reporter Name Role Phone Geoffrey Cantu Primary Care Provider KennyStarr villanueva Unavailable [phone] Allergies No Known Allergies Results Component Value Reference Range Notes CT Scan : Neck, soft tissue, without contrast Reviewed date:09/20/2024 11:32:54 PM Interpretation: Performing Lab: Notes/Report: H-VITAMIN D Reviewed date:01/12/2025 09:45:54 AM Interpretation:48.6 Performing Lab: Notes/Report: TVITD 48.6 30-100 ng/mL Deficient <20 ng/mL Insufficient 20-30 ng/mL Sufficient 30-100 ng/mL Potential Toxicity >100 ng/mL H-CBC Reviewed date:01/12/2025 09:45:54 AM Interpretation:RBC 4.31, HGB 13.6, HCT 41.1, MCV 95.4, MCH 31.6 Performing Lab: Notes/Report: WBC 7.7 4.8-10.8 K/mm3 RBC 4.31 4.60-6.20 M/mm3 HGB 13.6 14.1-18.0 g/dL HCT 41.1 42.0-52.0 % MCV 95.4 80-94 fl MCH 31.6 27.0-31.2 pg MCHC 33.1 31.8-35.4 g/dL RDW-SD 45.9 RDW 13.1 11.5-17.5 % PLT 280 142-424 K/mm3 MPV 8.9 7.4-10.4 fl NE% 65.6 37.0-80.0 % LY% 18.6 10-50 % MO% 9.3 1.7-9.3 % EO% 5.2 0.1-12.0 % BA% 1.0 0.1-2.0 % NRBC% 0 IG% 0.3 NE# 5.0 1.8-7.8 K/mm3 LY# 1.4 0.7-4.5 K/mm3 MO# 0.7 0.1-1.0 K/mm3 EO# 0.4 0.0-0.4 Kmm3 BA# 0.1 0-0.2 K/mm3 NRBC# 0 IG# 0.02 H-Vitamin D 1,25 Reviewed date:08/26/2024 11:26:49 AM [...] order Performing Lab: Notes/Report: see duplicate order H-TSH Reviewed date:08/26/2024 11:25:44 AM Interpretation:see duplicate order Performing Lab: Notes/Report: see duplicate order H-TSH Reviewed date:08/05/2024 09:43:55 AM Interpretation:0.96 Performing Lab: Notes/Report: TSH 0.96 0.465-4.68 uIU/mL H-CBC Reviewed date:08/05/2024 09:43:55 AM Interpretation: Normal [...] Kmm3 BA# 0.1 0-0.2 K/mm3 NRBC# 0 H-VITAMIN D Reviewed date:08/05/2024 09:43:55 AM Interpretation: Normal Performing Lab: Notes/Report: TVITD 50.5 30-100 ng/mL Deficient <20 ng/mL Insufficient 20-30 ng/mL Sufficient 30-100 ng/mL Potential Toxicity >100 ng/mL H-Lipid Panel Reviewed date:08/05/2024 09:43:55 AM Interpretation:DLDL 68.85 Performing Lab: Notes/Report: Patient Fasting? Y TRIG 57 30-150 mg/dl CHOL 140 140-200 mg/dl DLDL 68.85 100-129 mg/dL VLDL 11 0-40 mg/dL HDL 47 40-60 mg/dl CHLHDL 3.0 1-3.5 H-CMP Reviewed date:08/05/2024 09:43:55 AM Interpretation:Glu 108, [...] Level > 8% Poorly Controlled Diabetic Level H-Lipid Panel Reviewed date:01/12/2025 09:45:54 AM Interpretation:CHOL 138, DLDL 67.21 Performing Lab: Notes/Report: Patient Fasting? Y TRIG 64 30-150 mg/dl CHOL 138 140-200 mg/dl DLDL 67.21 100-129 mg/dL VLDL 13 0-40 mg/dL HDL 53 40-60 mg/dl CHLHDL 2.6 1-3.5 H-CMP Reviewed date:01/12/2025 09:45:54 AM Interpretation:GLU 114, A/G 2.0 Performing Lab: Notes/Report: NA 139 136-145 mmol/L K 4.2 3.5-5.1 mmoL/L CL 100 98-107 mmol/L CO2 29 22.0-30.0 mmol/L GAP 14.2 5-15 mEq/L BUN 20 9-20 mg/dl CREATT 0.90 0.66-1.25 mg/dl GFRAA 104 >60 ML/MIN EGFR 86 >60 ml/min GLU 114 74-100 mg/dl CA 9.2 8.4-10.2 mg/dl BILIT 0.8 0.2-1.3 mg/dl AST 26 17-59 U/L ALT 21 12-78 U/L TP 6.3 6.3-8.2 g/dl ALB 4.2 3.5-5.0 g/dl GLOB 2.1 1.3-3.2 g/dL AGRATIO 2.0 1.1-1.8 ALP 101 38-126 U/L H-Glycohemoglobin A1C Reviewed date:01/12/2025 09:45:54 AM Interpretation:Normal Performing Lab: Notes/Report: HGBA1C 5.3 4.0-6.0 % < 6% Non-Diabetic Level < 7% Controlled Diabetic Level > 8% Poorly Controlled Diabetic Level Medications Medication SIG (Take, Route, Frequency, Duration) Notes Start Date End Date Status Chlorthalidone 25 MG 1 tablet in the mor pippa with food Orally once daily; Duration: 90 days Active Mounjaro 2.5 MG/0.5ML 2.5 mg Subcutaneou s once a week Active Lisinopril 5 MG 1 tablet Orally Once a day; Duration: 90 days Active Meclizine HCl 25 MG 1 tab Orally 3 times a day, prn Active FreeStyle Monica 3 Sensor - as directed 12/22/2024 Active Levothyroxine Sodium 75 MCG 1 tablet in the morning on an empty stomach Orally Once a day; Duration: 90 days Active Meloxicam 15 MG 1 tablet Orally Once a day; Duration: 90 days Active Dexcom G7 Rivet Tapping Machine Operator - USE DIRECTED Active Dexcom G7 Sensor - as directed E11.65 05/03/2024 Active Cephalexin 500 MG 1 tablet Orally Two times a day; Duration: 10 day(s) 01/22/2024 Active Vitamin D3 50 MCG (1999) 1 tab(s) ora lly once a day 12/03/2018 Active Immunizations Vaccine Route Administration Date Status Comme nts COVID 19 Moderna Unknown 03/31/2020 Administered COVID 19 Moderna Unknown 05/02/2020 Administered Tetanus Tdap-Adacel (over 7yrs) IM Intramuscular 05/24/2020 Administered Problems Problem Type SNOMED Code ICD Code Onset Dates Problem Status W/U Status Risk Notes Problem Essential hypertension (69531851) Essential (primary) hypertension (I10) Active confirmed Problem Vitamin D deficiency (64855974) Vitamin D deficiency (E55.9) Active confirmed Problem Essential hypertension (29437367) Essential hypertension (I10) Active confirmed Problem Vitamin B12 deficiency (non anemic) (75213985) Vitamin B 12 deficiency (E53.8) Active confirmed Problem Sciatica (47259020) Lumbago with sciatica, right side (M54.41) Active confirmed Problem Chronic pain (82832575) Other chronic pain (G89.29) Active confirmed Problem Disorder of prostate (04860695) Benign prostatic disease (N42.9) Active confirmed Problem Acquired hypothyroidism (930329245) Acquired hypothyroidism (E03.9) Active confirmed Problem Anemia (156708928) Anemia, unspecified type (D64.9) Active confirmed Problem Hyperlipidaemia (18815609) Hyperlipidemia, unspecified hyperlipidemia type (E78.5) Active confirmed Problem Hyperglycemia due to type 2 diabetes mellitus (588579288567577) Type 2 diabetes mellitus with hyperglycemia, without long-term current use of insulin (E11.65) Active confirmed Problem Tobacco use (611640414) Tobacco use disorder (F17.200) Active confirmed Problem Postconcussion syndrome (61147714) Post concussive syndrome (F07.81) Active confirmed Vital Signs Heart Rate 60 /min 01/21/2025 Blood pressure diastolic 82 mm Hg 01/21/2025 Height 73 in 01/21/2025 Blood pressure systolic 120 mm Hg 01/21/2025 Weight 162 lbs 01/21/2025 BMI 21.37 kg/m2 01/21/2025 Encounters Encounter Location Date Provider Diagnosis [facility] 120[address] [facility] [address], [place] [id number] 01/22/2024 Starr Crowdy Infection of toenail L03.039 [facility] 1209 [facility] [address], [place] [id number] 03/03/2024 Starr Crowdy Essential hypertensi on I10 and Symptomatic hypotension I95.9 [facility] 1209 [facility] [address] [place], [place] [id number] 08/18/2024 Starr Crowdy Essential hypertensi on I10 ; Type 2 diabetes mellitus with hyperglycemia, without long-term current use of insulin E11.65 ; Vitamin D deficiency E55.9 ; Vitamin B 12 deficiency E53.8 ; Hyperlipidemia, unspecified hyperlipidemia type E78.5 ; Acquired hypothyroidism E03.9 ; Polyarthralgia M25.50 ; Cervical lymphadenopathy R59.0 and Body mass index (BMI) of 19.0 to 19.9 in adult Z68.1 [facility] 121 [facility] [address] [place], [place] [id number] 12/31/2024 Starr Crowdy Pneumothorax, right J93.9 ; Closed fracture of multiple ribs of right side with routine healing, subsequent encounter S22.41XD ; Post concussive syndrome F07.81 and Dizziness R42 [facility] [address] [place] [facility] [address] [place], [place] [id number] 01/21/2025 Starr Crowdy Pneumothorax, right J93.9 ; Closed fracture of multiple ribs of right side with routine healing, subsequent encounter S22.41XD ; Anemia, unspecified type D64.9 ; Post concussive syndrome F07.81 and Dizziness R42 [facility] [address] [place] [facility] [address] [place], [place] [id number] 01/17/2025 Geoffrey Cantu [facility] [address] [place] [facility] [address] [place], [place] [id number] 01/27/2024 Geoffrey Cantu Type 2 diabetes ericka itus with hyperglycemia, without long-term current use of insulin E11.65 [facility] [place] [facility] [address] [place], [place] [id number] 01/28/2024 Geoffrey Cantu [facility] [address] [place] [facility] [address] [place], [place] [id number] 03/12/2024 Geoffrey Cantu [facility] [address] [place] [facility] [address] [place], [place] [id number] 04/23/2024 Geoffrey Cantu Type 2 diabetes ericka itus with hyperglycemia, without long-term current use of insulin E11.65 [facility] [address] [place] [facility] [address] [place], [place] [id number] 06/30/2024 Starr Crowdy Essential hypertensi on I10 ; Type 2 diabetes mellitus with hyperglycemia, without long-term current use of insulin E11.65 ; Hyperlipidemia, unspecified hyperlipidemia type E78.5 ; Vitamin B 12 deficiency E53.8 ; Vitamin D deficiency E55.9 and Acquired hypothyroidism E03.9 [facility] [address] [place] [facility] [address] [place], [place] [id number] 07/02/2024 Geoffrey Cantu [facility] [address] [place] [facility] [address] [place], [place] [id number] 08/05/2024 Starr Fulton [facility] [address] [place], [place] [id number] 08/11/2024 Geoffrey Cantu [facility] [address] [place], [place] [id number] 09/20/2024 Starr Fulton [facility] [address] [place], [place] [id number] 12/09/2024 Starr [place]on Essential hypertensi on I10 ; Type 2 diabetes mellitus with hyperglycemia, without long-term current use of insulin E11.65 ; Hyperlipidemia, unspecified hyperlipidemia type E78.5 and Vitamin D deficiency E55.9 [facility] [address] [place], [place] [id number] 12/20/2024 Starr [facility] [address] [facility] [address] [place], [place] [id number] 12/22/2024 Geoffrey Cantu [facility] [address] [facility] [address] [place], [place] [id number] 01/12/2025 Starr [place]ulton Assessments Encounter Date Diagnosis (ICD Code) Assessment [...] 12/09/2024 Essential hypertension (ICD-10 - I10) 12/31/2024 Pneumothorax, right (ICD-10 - J93.9) 12/31/2024 Closed fracture of multiple ribs of right side with routine healing, subsequent encounter (ICD-10 - S22.41XD) Will repeat images of the spine and ribs in 3 weeks. His last imaging was 1 week ago. He was released by . 01/21/2025 Pneumothorax, right (ICD-10 - J93.9) 01/21/2025 Closed fracture of multiple ribs of right side with routine healing, subsequent encounter (ICD-10 - S22.41XD) Will repeat images of the spine and ribs in 3 weeks. His last imaging was 1 week ago. He was released by . 01/21/2025 Anemia, unspecified type (ICD-10 - D64.9) 12/31/2024 Post concussive syndrome (ICD-10 - F07.81) [...] - E78.5) 12/31/2024 Dizziness (ICD-10 - R42) 12/09/2024 Vitamin D deficiency (ICD-10 - E55.9) 08/18/2024 Vitamin B 12 deficiency (ICD-10 - E53.8) 06/30/2024 Vitamin B 12 deficiency (ICD-10 - E53.8) 01/21/2025 Post concussive syndrome (ICD-10 - F07.81) Continue mental and physical rest until dizziness and headaches resolve. 01/21/2025 Dizziness (ICD-10 - R42) 06/30/2024 Vitamin D deficiency (ICD-10 - E55.9) [...] Treatment Pending Test Test Name Order Date CXR 01/21/2025 CBC Venipuncture (in house) 01/21/2025 H-TSH 05/09/2023 H-CBC 12/09/2024 H-VITAMIN D 12/09/2024 H-VITAMIN D 05/09/2023 H-VITB12 05/09/2023 H-Lipid Panel 05/09/2023 H-Lipid Panel 12/09/2024 H-CMP 12/09/2024 H-CMP 05/09/2023 H-Glycohemoglobin A1C 05/09/2023 H-Glycohemoglobin A1C 12/09/2024 H-T4 free 05/09/2023 H-PSA 05/09/2023 P-Vitamin B12 01/21/2025 P-Folate 01/21/2025 P-Ferritin 01/21/2025 P-Iron 01/21/2025 Insurance Providers Payer Name Payer Address Payer Phone Subscriber Number Group Number Insured Name Patient Relationship to Insured Coverage Start Date Coverage End Date [facility] [employer] [address] [place] [address] [id number] ELVIA WHEELER Self - patient is the insured [facility] [address] [address] [place] [address] [id number] ELVIA WHEELER Self - patient is the insured Medical (General) History Medical History History ICD Code Hypothyroidism Hypertension Staph aureus external otitis, Rx Septra Normal CT abdomen including adrenals and kidneys, 08/24/2008 Surgical History Surgery Date(Month/Year) Partial Thyroidectomy 1989 LT Ear Hospitalization History Reason Date(Month/Year) Norovirus- [facility] 05/2018 RT Shoulder Pain/Low Potassium Level- [facility] 09/19/2016 Shoulder- [facility] ER 10/2014 Hypertension, Dizziness-[facility] 08/27/08-12/30
--- OUTSIDE RECORDS SUMMARY | 2025-01-21 10:38 | XMS_ITS | Encounter Summary ---
Author Organization Healthcare Address [address] [place] [address] Care Team Providers Care Skimmer Reverberatory Name Role Phone Starr Fulton Primary Care Provider [phone] Encounter Details Date Type Department Care Team (Late st Contact Info) Description 12/09/2024 Orders Only External Location [address] [place] [address] Richard Yang PA [address] [address] Social History Tobacco Use Types [...] time in the past 12 m [facility], were you homeless or living in a [facility] (including now)? No 12/14/2024 [facility] Utilities Answer Date Recorded In [...] documented as of this encounter Care Teams Skimmer Reverberatory Relationship Specialty Start Date End Date Starr Fulton PA [address] [place] [address] [address] [place] [address] PCP - General 12/09/24 documented as of this encounter
--- OUTSIDE RECORDS SUMMARY | 2025-01-21 10:38 | XMS_ITS | Encounter Summary ---
Author Organization Healthcare Address [address] [place] [address] Care Team Providers Care Industrial Pipefitter Journeyman Name Role Phone Starr Fulton Primary Care Provider [phone] Encounter Details Date Type Department Care Team [...] documented as of this encounter Care Teams Industrial Pipefitter Journeyman Relationship Specialty Start Date End Date Starr Fulton PA [address] [place] [address] [place] [address] PCP - General 12/09/24 documented as of this encounter
--- OUTSIDE RECORDS SUMMARY | 2025-01-21 10:38 | XMS_ITS | Encounter Summary ---
Author Organization Healthcare Address [address] [place] [address] Care Team Providers Care Commissary Manager Name Role Phone Starr Fulton Primary Care Provider [phone] Encounter Details Date Type Department Care Team (Late st Contact Info) Description 12/09/2024 Orders Only External Location [address] [place] [address] Richard Yang PA [address] [place] [address] Social History Tobacco Use Types [...] time in the past 12 m [facility], were you homeless or living in a [place] health care facility (including now)? No 12/14/2024 [facility] Utilities Answer Date Recorded In the past [...] documented as of this encounter Care Teams Commissary Manager Relationship Specialty Start Date End Date Starr Fulton PA [address] [place] [address] [address] [place] [address] PCP - General 12/09/24 documented as of this encounter
--- OUTSIDE RECORDS SUMMARY | 2025-01-21 10:38 | XMS_ITS | Encounter Summary ---
Author Organization Healthcare Address [address] [place] [address] Care Team Providers Care Pricing Consultant Name Role Phone Starr Fulton Primary Care Provider [phone] Encounter Details Date Type Department Care Team (Late st Contact Info) Description 12/09/2024 Orders Only External Location [address] [place] [address] Richard Yang PA [address] [place] [address] Social History Tobacco Use Types [...] time in the past 12 m [facility], were you homeless or living in a care home (including now)? No 12/14/2024 [facility] Utilities Answer Date Recorded In the [...] documented as of this encounter Care Teams Pricing Consultant Relationship Specialty Start Date End Date Starr Fulton PA [address] [place] [address] [address] [place] [address] PCP - General 12/09/24 documented as of this encounter
--- OUTSIDE RECORDS SUMMARY | 2025-01-21 10:38 | XMS_ITS | Encounter Summary ---
Author Organization [facility] Address [address] [place] [address] Care Team Providers Care Supervisor Liquid Yeast Name Role Phone Starr Fulton Primary Care Provider [phone] Encounter Details Date Type Department Care Team [...] time in the past [address] [facility], were you homeless or living in a care home (including now)? No 12/14/2024 [facility] Utilities Answer Date Recorded In [...] documented as of this encounter Care Teams Supervisor Liquid Yeast Relationship Specialty Start Date End Date Starr Fulton PA [address] [place] [address] PCP - General 12/09/24 documented as of this encounter
--- OUTSIDE RECORDS SUMMARY | 2025-01-21 10:38 | XMS_ITS | Encounter Summary ---
Author Organization Healthcare Address [address] [place] [address] Care Team Providers Care Teaching Dietitian Name Role Phone Starr Fulton Primary Care Provider [phone] Encounter Details Date Type Department Care Team [...] documented as of this encounter Care Teams Teaching Dietitian Relationship Specialty Start Date End Date Starr Fulton PA [facility] [address] [place] [address] PCP - General 12/09/24 documented as of this encounter
--- OUTSIDE RECORDS SUMMARY | 2025-01-21 10:38 | XMS_ITS | Encounter Summary ---
Author Organization Healthcare Address [address] [place] [address] Care Team Providers Care Storm Sash Maker Name Role Phone Starr Fulton Primary Care Provider [phone] Encounter Details Date Type Department Care Team (Late st Contact Info) Description 12/21/2024 [facility] [address] [place] [address] Stephy Souza Social History Tobacco [...] any time in the past 12 m [facility], were you homeless or living in a long term (including now)? No 12/14/2024 [facility] Utilities Answer Date Recorded In [...] documented as of this encounter Care Teams Storm Sash Maker Relationship Specialty Start Date End Date Starr Fulton PA [address] [place] [address] PCP - General 12/09/24 documented as of this encounter
--- OUTSIDE RECORDS SUMMARY | 2025-01-21 10:38 | XMS_ITS | Encounter Summary ---
Author Organization Healthcare Address [address] [place] [address] Care Team Providers Care Flower Grower Name Role Phone Starr Fulton Primary Care Provider [phone] Encounter Details Date Type Department Care Team (Late st Contact Info) Description 12/09/2024 Orders Only External Location [address] [place] [address] Richard Yang PA [address] [place] [address] Social History Tobacco Use Types [...] any time in the past 12 m [facility], were you homeless or living in a skilled nursing (including now)? No 12/14/2024 [facility] Utilities Answer Date Recorded In [...] documented as of this encounter Care Teams Flower Grower Relationship Specialty Start Date End Date Starr Fulton PA [address] [place] [address] [address] [place] [address] PCP - General 12/09/24 documented as of this encounter
--- OUTSIDE RECORDS SUMMARY | 2025-01-21 10:39 | XMS_ITS | Clinical Summary ---
Author Organization [facility] Address [address] [place] [address] Care Team Providers Care Geophysical Laboratory Chief Name Role Phone Starr Fulton Primary Care Provider [phone] Allergies No known active allergies Medications chlorthalidone [...] the skin 1 time per week. Active methocarbamol (Robaxin) 500 MG tablet Take 1 tablet by mouth every 8 hours. 42 tablet 5 Active Additional Information Patient not taking.Reported on 12/24/2024 gabapentin (Neurontin) 100 MG capsule Take 2 capsules by mouth 3 times a day for 3 days, THEN 1 capsule 3 times a day for 3 days, THEN 1 capsule 2 times a day for 3 days. 33 capsule Active acetaminophen (Tylenol) 500 MG tablet Take 2 tablets by mouth every 6 hours for 7 days. 56 tablet 5 12/25/19 25 ibuprofen 600 MG tablet Take 1 tablet by mouth every 6 hours for 7 days. 28 tablet 5 12/23/19 25 Additional Information Patient not taking.Reported on 12/24/2024 lidocaine (Lidoderm) 5 % patch Apply 2 patches topically 1 (one) time each day at the same time over 12 hours. Remove & discard patch within 12 hours or as directed by MD. 60 patch 01/16/20 Additional Information Patient not taking.Reported on 12/24/2024 meclizine (Antivert) 25 MG tablet Take 1 tablet by mouth 3 times a day as needed for dizziness for up to 14 days. 42 tablet 5 12/30/19 oxyCODONE (Roxicodone) 5 MG immediate release tablet Take 1 tablet by mouth every 6 hours as needed for severe pain for up to 3 days. 12 tablet 5 12/25/19 Active Problems Problem Noted Date Diagnosed Date Fall from ladder, initial encounter 12/10/2024 Assessment & Plan (12/14/2024 2:43 PM EDT): [facility] Tertiary 12/11 Assessment & Plan (12/13/2024 2:33 PM EDT): [facility] Tertiary 12/11 Assessment & Plan (12/12/2024 4:31 PM EDT): [facility] Tertiary 12/11 Assessment & Plan (12/11/2024 12:21 PM EDT): [facility] Tertiary 12/11 Assessment & Plan (12/10/2024 10:58 [...] Description 12/24/2024 9:30 AM EDT Office Visit [facility] General Surgery [address], [address] [place] [address] Lisette Mo PA Fall from ladder, subsequent encounter (Primary Dx); Traumatic pneumothorax, subsequent encounter; Closed fracture of multiple ribs with routine healing, unspecified laterality, subsequent encounter; Closed fracture of spinous process of thoracic vertebra with routine healing, subsequent encounter; Concussion with unknown loss of consciousness status, subsequent encounter 12/24/2024 8:35 AM EDT - 12/24/2024 11:59 PM EDT Hospital Encounter [facility] Radiology [address], [address] [place] [address] Traumatic pneumothorax, initial encounter; Closed fracture of multiple ribs of right side, initial encounter Discharge Disposition: Home or Self Care 12/24/2024 Travel 12/21/2024 Telephone [facility] General Surgery [address], [address] [place] [address] Stephy Souza 12/21/2024 Telephone [facility] General Surgery [address], [address] [place] [address] Kam Santiago MD 12/15/2024 Travel 12/14/2024 Travel 12/13/2024 Travel 12/11/2024 Travel 12/10/2024 Travel 12/09/2024 4:40 PM EDT - 12/15/2024 3:06 PM EDT Hospital Encounter [facility] [address] [facility] [address] [place] [phone] Jeovany Ludwig MD Chapman, Jesse Del Valle, DO Stewart, MD Michael Delvalle, MD Stephanie White, MD Mars Cool Anthony R, MD Fall, initial encounter (Primary Dx); Traumatic pneumothorax, initial encounter; Closed fracture of multiple ribs of right side, initial encounter Discharge Disposition: Home or Self Care 12/09/2024 Travel 12/09/2024 Orders Only External Location [address] [place] [phone] Richard Yang PA 12/09/2024 Orders Only External Location [address] [place] [address] Richard Yang PA 12/09/2024 Orders Only External Location [address] [place] [id number] Richard Yang PA 12/09/2024 Orders Only External Location [address] [place] [address] Richard Yang PA 12/09/2024 Orders Only External Location [address] [place] [address] Richard Yang PA 12/09/2024 Orders Only External Location [address] [place] [address] Richard Yang PA 12/09/2024 Orders Only External Location [address] [place] [address] Richard Yang PA 12/09/2024 Orders Only External Location [address] [place] [phone] Richard Yang PA 12/09/2024 Orders Only External Location [address] [place] [address] Richard Yang PA 12/09/2024 Orders Only External Location [address] [place] [address] Richard Yang PA from Last 3 Months [...] any time in the past 12 m [facility], were you homeless or living in a intermediate (including now)? No 12/14/2024 [facility] Utilities Answer Date Recorded In the past 12 months has th e [employer] gas, oil, or water company threatened to [...] 2009 UKY-Zoster Vaccines (1 of 2) 2014 MLD-CACTU-85 Vaccine (3 - Moderna risk series) 05/30/2020 [...] 10:10 PM EDT Traumatic pneumothorax, initial encounter CT PERQ DRAINAGE PLEURA INSERT CATH W/O IMAGING [...] PM EDT CT NEURO OUTSIDE IMAGES 12/10/19 2:[address] NEURO OUTSIDE IMAGES 12/10/19 2:[address] NEURO OUTSIDE IMAGES 12/10/19 2:[address] NEURO OUTSIDE IMAGES 12/10/19 2:22 PM EDT from Last 3 Months [...] signing this report, I, the attending physician, mellissa I have personally reviewed the images/data for [...] 12/14/2024 5:28 PM EDT [facility] Middleware Developer ID Ivy Beard [id number] 5:28 PM EDT [facility] Device ID [id number] 12/14/2024 5:28 PM EDT [facility] Specimen Type POC Capillary 12/14/2024 5:28 PM EDT HEALTHCARE LAB Blood Capillary blood specimen / Unknown 12/14/2024 5:26 PM EDT 12/14/2024 5:28 PM EDT us Mynor Crews MD LAB POINT OF CARE TEST DOCKED DEVICE UNSOLICITED RESULTS Final Result Performing Organization Address City/[facility]/ZIP Co de Phone Number [facility] [address] [place] [address] * Light Green Top (12/13/2024 3:02 AM EDT) [facility] [address] [facility] Extra Hold for add-ons 12/13/2024 8:02 AM EDT [facility] Comment:Auto resulted. Blood Venous blood specimen / Unknown 12/13/2024 3:02 AM EDT 12/13/2024 5:02 AM EDT us Karina Rodriguez MD LAB BLOOD ORDERABLES Final Result Performing Organization Address City/[facility] Co de Phone Number [facility] [address] [place] [address] * (ABNORMAL) CBC W/O Differential (12/13/2024 3:02 AM EDT) Only the most recent of3 resultswithin the time period is included. [facility] [address] WBC Count 12.54(H) 3.70 - 10.30 10*3/uL LAB HEMATOLOGY METHOD 12/13/2024 3:19 AM EDT [facility] RBC Count 3.87(L) 4.60 - 6.10 10*6/uL LAB HEMATOLOGY METHOD 12/13/2024 3:19 AM EDT [facility] HGB 12.7(L) 13.7 - 17.5 g/dL LAB HEMATOLOGY METHOD 12/13/2024 3:19 AM EDT [facility] HCT 37.0(L) 40.0 - 51.0 % LAB HEMATOLOGY METHOD 12/13/2024 3:19 AM EDT [facility] Platelet Count 221 155 - 369 10*3/uL LAB HEMATOLOGY METHOD 12/13/2024 3:19 AM EDT [facility] MCV 96 79 - 98 fL LAB HEMATOLOGY METHOD 12/13/2024 3:19 AM EDT [facility] MCH 32.8(H) 26.0 - 32.0 pg LAB HEMATOLOGY METHOD 12/13/2024 3:19 AM EDT [facility] MCHC 34.3 30.7 - 35.5 g/dL LAB HEMATOLOGY METHOD 12/13/2024 3:19 AM EDT [facility] RDW 12.6 11.5 - 14.5 % LAB HEMATOLOGY METHOD 12/13/2024 3:19 AM EDT [facility] MPV 9.4 8.8 - 12.5 fL LAB HEMATOLOGY METHOD 12/13/2024 3:19 AM EDT [facility] nRBC 0.0 <=0.0 per 100 WBCs LAB HEMATOLOGY METHOD 12/13/2024 3:19 AM EDT [facility] Blood Venous blood specimen / Unknown Venipuncture / Unknown 12/13/2024 3:02 AM EDT 12/13/2024 3:10 AM EDT us Ruben Goldberg APRN LAB BLOOD ORDERABLES Final Result [facility] [address] [place] [address] * Hemoglobin A1c (12/13/2024 3:02 AM EDT) Hemoglobin A1c 5.5 <5.7 % 12/13/2024 9:35 PM EDT [facility] Blood Venous blood specimen / Unknown Venipuncture / Unknown 12/13/2024 3:02 AM EDT 12/13/2024 3:10 AM EDT Narrative [facility] - 12/13/2024 9:35 PM EDT HA1C Interpretive Data: Diagnosis of Diabetes: Diabetic > or = 6.5% Pre-diabetic 5.7 to 6.4% Non-diabetic < or = 5.6% Glycemic Targets for Type I and Type II Diabetics: Non- Adults <7.0% Adults <6.0% Children and Adolescents <7.5% Source: [place] [employer]. Standards of medical care in diabetes,2017. Diabetes Care.2017:40 (suppl 1):S1-S135. us Maddison JETER LAB BLOOD ORDERABLES Final Re sult [facility] [address] [place] [address] * CT PERQ DRAINAGE PLEURA INSERT CATH W/O IMAGING, [...] damage and pain Alternatives discussed: No treatment [place] protocol: Immediately prior to procedure, a time [...] completion: Tolerated well, no immediate complications [place]ino JETER IN CLINIC/BEDSIDE ORDERABLES F inal [...] Rosa Soria MD on 12/11/2024 4:06 PM Ruben Goldberg APRN IMG CT PROCEDURES Final Re sult * Phosphorus, Plasma (12/11/2024 1:59 AM EDT) Only the most recent of2 resultswithin the time period is included. Pathologist [facility] Phosphorus, Plasma 2.9 2.5 - 4.5 mg/dL 12/11/2024 4:20 AM EDT [facility] Blood Venous blood specimen / Unknown Venipuncture / Unknown 12/11/2024 1:59 AM EDT 12/11/2024 2:06 AM EDT Ruben Goldberg APRN LAB BLOOD ORDERABLES Final Result [facility] [address] [place] [address] * Magnesium, Plasma (12/11/2024 1:59 AM EDT) Only the most recent of2 resultswithin the time period is included. Pathologist [facility] Magnesium, Plasma 2.2 1.9 - 2.4 mg/dL 12/11/2024 4:20 AM EDT [facility] Blood Venous blood specimen / Unknown Venipuncture / Unknown 12/11/2024 1:59 AM EDT 12/11/2024 2:06 AM EDT us Ruben Acevedofab STAIN DIPPER LAB BLOOD ORDERABLES Final Result [facility] [address] [place] [address] * (ABNORMAL) Basic Metabolic Panel, Plasma (12/11/2024 1:59 AM EDT) Only the most recent of2 resultswithin the time period is included. Glucose, Plasma 90 74 - 99 mg/dL 12/11/2024 4:20 AM EDT [facility] BUN, Plasma 19 8 - 23 mg/dL 12/11/2024 4:20 AM EDT [facility] Creatinine, Plasma 0.80 0.70 - 1.20 mg/dL 12/11/2024 4:20 AM EDT [facility] BUN/Creatinine Ratio 24 12/11/2024 4:20 AM EDT [facility] Sodium, Plasma 142 136 - 145 mmol/L 12/11/2024 4:20 AM EDT [facility] Potassium, Plasma 3.7 3.6 - 4.9 mmol/L 12/11/2024 4:20 AM EDT [facility] Chloride, Plasma 106 97 - 107 mmol/L 12/11/2024 4:20 AM EDT [facility] CO2, Plasma 25 22 - 29 mmol/L 12/11/2024 4:20 AM EDT [facility] Anion Gap 11 6 - 16 mmol/L 12/11/2024 4:20 AM EDT [facility] Total Calcium, Plasma 8.6(L) 8.9 - 10.2 mg/dL 12/11/2024 4:20 AM EDT [facility] eGFRcr 101.3 mL/min/1.7 3m*2 12/11/2024 4:20 AM EDT [facility] Comment:Reported eGFRcr in m L/min/1.73m2 is based the CKD-EPI 2020 equation that does not use a race coefficient. Blood Venous blood specimen / Unknown Venipuncture / Unknown 12/11/2024 1:59 AM EDT 12/11/2024 2:06 AM EDT Ruben Goldberg APRN LAB BLOOD ORDERABLES Final Result Performing Organization Address City/[facility]/ZIP Co de Phone Number [facility] [address] [place] [address] * (ABNORMAL) Protime-INR (12/10/2024 4:12 AM EDT) Only the most recent of2 resultswithin the time period is included. Prothrombin Time 14.6(H) 12.0 - 14.3 sec 12/10/2024 4:30 AM EDT [facility] INR 1.1 0.9 - 1.1 12/10/2024 4:30 AM EDT [facility] Blood Venous blood specimen / Unknown Venipuncture / Unknown 12/10/2024 4:12 AM EDT 12/10/2024 4:17 AM EDT Narrative [facility] - 12/10/2024 4:30 AM EDT OPTIMAL INR RANGES FOR PATIENT ON ORAL ANTICOAGULANT THERAPY Prevention of venous thromboembolism INR 2.0 to 3.0 In patients with heart disease: Atrial fibrillation INR 2.0 to 3.0 Valvular heart disease INR 2.0 to 3.0 Tissue heart valves INR 2.0 to 3.0 Mechanical prosthetic valves INR 2.5 to 3.5 Prevention of recurrent PA INR 2.5 to 3.5 us Lara Stewart MD LAB BLOOD ORDERABLES Final Resul t Performing Organization Address City/[facility]/ZIP Co de Phone Number [facility] [address] [place] [address] * Troponin T, High Sensitivity, 2 Hour, Plasma (12/09/2024 8:25 PM EDT) Troponin T, High Sensitivity, 2 Hour 13 <19 ng/L 12/09/2024 8:48 PM EDT [facility] Blood Venous blood specimen / Unknown Venipuncture / Unknown 12/09/2024 8:25 PM EDT 12/09/2024 8:27 PM EDT Jeovany Ludwig MD LAB BLOOD ORDERABLES Final Res ult Performing Organization Address City/[facility]/ZIP Co de Phone Number [facility] [address] [place] [address] * ED HIV 1/2 Antibody/Antigen Screen w/Reflex to HIV 1/2 Differentiation (12/09/2024 6:12 PM EDT) HIV 1 & 2 Antibody/Antigen Screen Non Reactive Non Reactive 12/09/2024 7:08 PM EDT [facility] Comment:Screening for HIV 1 & 2 antibodies, and P24 antigen is NONREACTIVE. No confirmatory testing is required. Blood Venous blood specimen / Unknown Venipuncture / Unknown 12/09/2024 6:12 PM EDT 12/09/2024 6:25 PM EDT Jeovany Ludwig MD LAB BLOOD ORDERABLES Final Res ult Performing Organization Address [facility]/ZIP Co de Phone Number [facility] [address] [place] [address] * Troponin now and 120 min (12/09/2024 6:12 PM EDT) Troponin T, High Sensitivity, 0 Hour 14 <19 ng/L 12/09/2024 6:41 PM EDT [facility] Blood Venous blood specimen / Unknown Venipuncture / Unknown 12/09/2024 6:12 PM EDT 12/09/2024 6:15 PM EDT Jeovany Ludwig MD LAB BLOOD ORDERABLES Final Res ult Performing Organization Address City/[facility]/ZIP Co de Phone Number [facility] [address] [place] [address] * Hepatitis C Antibody - ED (12/09/2024 6:12 PM EDT) Hepatitis C Antibody Negative Negative 12/09/2024 7:05 PM EDT [facility] Blood Venous blood specimen / Unknown Venipuncture / Unknown 12/09/2024 6:12 PM EDT 12/09/2024 6:25 PM EDT Jeovany Ludwig MD LAB BLOOD ORDERABLES Final Res ult Performing Organization Address [facility]/ZIP Co de Phone Number [facility] [address] [place] [address] * Anti Xa Level Unfractionated Heparin (12/09/2024 6:12 PM EDT) Anti Xa Level Unfractionated Heparin <0.11 <1.00 IU/mL 12/09/2024 6:50 PM EDT [facility] Blood Venous blood specimen / Unknown Venipuncture / Unknown 12/09/2024 6:12 PM EDT 12/09/2024 6:15 PM EDT Narrative [facility] - 12/09/2024 6:50 PM EDT Therapeutic Range: UFH Full Dose and ACS/PA protocols*: 0.30 - 0.70 IU/mL UFH Low Dose protocol*: 0.25 - 0.50 IU/mL UFH prophylaxis: Not established Jeovany Ludwig MD LAB BLOOD ORDERABLES Final Res ult Performing Organization Address [facility] Co de Phone Number [facility] [address] [place] [address] * (ABNORMAL) CBC w/diff (12/09/2024 6:12 PM EDT) WBC Count 20.12(H) 3.70 - 10.30 10*3/uL LAB HEMATOLOGY METHOD 12/09/2024 6:17 PM EDT [facility] RBC Count 4.15(L) 4.60 - 6.10 10*6/uL LAB HEMATOLOGY METHOD 12/09/2024 6:17 PM EDT [facility] HGB 13.7 13.7 - 17.5 g/dL LAB HEMATOLOGY METHOD 12/09/2024 6:17 PM EDT [facility] HCT 38.3(L) 40.0 - 51.0 % LAB HEMATOLOGY METHOD 12/09/2024 6:17 PM EDT [facility] Platelet Count 235 155 - 369 10*3/uL LAB HEMATOLOGY METHOD 12/09/2024 6:17 PM EDT [facility] MCV 92 79 - 98 fL LAB HEMATOLOGY METHOD 12/09/2024 6:17 PM EDT [facility] MCH 33.0(H) 26.0 - 32.0 pg LAB HEMATOLOGY METHOD 12/09/2024 6:17 PM EDT [facility] MCHC 35.8(H) 30.7 - 35.5 g/dL LAB HEMATOLOGY METHOD 12/09/2024 6:17 PM EDT [facility] RDW 12.8 11.5 - 14.5 % LAB HEMATOLOGY METHOD 12/09/2024 6:17 PM EDT [facility] MPV 9.1 8.8 - 12.5 fL LAB HEMATOLOGY METHOD 12/09/2024 6:17 PM EDT [facility] nRBC 0.0 <=0.0 per 100 WBCs LAB HEMATOLOGY METHOD 12/09/2024 6:17 PM EDT [facility] Differential Type Automated LAB HEMATOLOGY METHOD 12/09/2024 6:17 PM EDT [facility] Neutrophils % 87 % LAB HEMATOLOGY METHOD 12/09/2024 6:17 PM EDT [facility] Lymphocytes % 6 % LAB HEMATOLOGY METHOD 12/09/2024 6:17 PM EDT [facility] Monocytes % 6 % LAB HEMATOLOGY METHOD 12/09/2024 6:17 PM EDT [facility] Eosinophils % 0 % LAB HEMATOLOGY METHOD 12/09/2024 6:17 PM EDT [facility] Basophils % 0 % LAB HEMATOLOGY METHOD 12/09/2024 6:17 PM EDT [facility] Immature Granulocytes % 1 % LAB HEMATOLOGY METHOD 12/09/2024 6:17 PM EDT [facility] Neutrophils Absolute 17.62(H) 1.60 - 6.10 10*3/uL LAB HEMATOLOGY METHOD 12/09/2024 6:17 PM EDT [facility] Lymphocytes Absolute 1.15(L) 1.20 - 3.90 10*3/uL LAB HEMATOLOGY METHOD 12/09/2024 6:17 PM EDT [facility] Monocytes Absolute 1.20(H) 0.30 - 0.90 10*3/uL LAB HEMATOLOGY METHOD 12/09/2024 6:17 PM EDT [facility] Eosinophils Absolute 0.01 0.00 - 0.50 10*3/uL LAB HEMATOLOGY METHOD 12/09/2024 6:17 PM EDT [facility] Basophils Absolute 0.04 0.00 - 0.10 10*3/uL LAB HEMATOLOGY METHOD 12/09/2024 6:17 PM EDT [facility] Immature Granulocytes Absolute 0.10(H) 0.00 - 0.06 10*3/uL LAB HEMATOLOGY METHOD 12/09/2024 6:17 PM EDT [facility] Blood Venous blood specimen / Unknown Venipuncture / Unknown 12/09/2024 6:12 PM EDT 12/09/2024 6:15 PM EDT Narrative [facility] - 12/09/2024 6:17 PM EDT Therapeutic decision making should be based on absolute values, rather than percentages. us Jeovany Ludwig MD LAB BLOOD ORDERABLES Final Res ult [facility] [address] [place] [address] * CMP (12/09/2024 6:12 PM EDT) Glucose, Plasma 80 74 - 99 mg/dL 12/09/2024 6:41 PM EDT [facility] BUN, Plasma 16 8 - 23 mg/dL 12/09/2024 6:41 PM EDT [facility] Creatinine, Plasma 0.81 0.70 - 1.20 mg/dL 12/09/2024 6:41 PM EDT [facility] BUN/Creatinine Ratio 20 12/09/2024 6:41 PM EDT [facility] Sodium, Plasma 139 136 - 145 mmol/L 12/09/2024 6:41 PM EDT [facility] Potassium, Plasma 3.7 3.6 - 4.9 mmol/L 12/09/2024 6:41 PM EDT [facility] Chloride, Plasma 102 97 - 107 mmol/L 12/09/2024 6:41 PM EDT [facility] CO2, Plasma 23 22 - 29 mmol/L 12/09/2024 6:41 PM EDT [facility] Anion Gap 14 6 - 16 mmol/L 12/09/2024 6:41 PM EDT [facility] Total Calcium, Plasma 9.1 8.9 - 10.2 mg/dL 12/09/2024 6:41 PM EDT [facility] Total Protein 6.4 6.3 - 7.9 g/dL 12/09/2024 6:41 PM EDT [facility] Albumin, Plasma 4.4 3.5 - 5.2 g/dL 12/09/2024 6:41 PM EDT [facility] AST, Plasma 36 10 - 50 U/L 12/09/2024 6:41 PM EDT [facility] ALT, Plasma 30 10 - 50 U/L 12/09/2024 6:41 PM EDT [facility] Alkaline Phosphatase, Plasma 61 40 - 115 U/L 12/09/2024 6:41 PM EDT [facility] Total Bilirubin, Plasma 0.6 0.2 - 1.1 mg/dL 12/09/2024 6:41 PM EDT [facility] eGFRcr 100.9 mL/min/1.7 3m*2 12/09/2024 6:41 PM EDT [facility] Comment:Reported eGFRcr in m L/min/1.73m2 is based the CKD-EPI 2020 equation that does not use a race coefficient. Blood Venous blood specimen / Unknown Venipuncture / Unknown 12/09/2024 6:12 PM EDT 12/09/2024 6:15 PM EDT us Jeovany Ludwig MD LAB BLOOD ORDERABLES Final Res ult [facility] [address] [place] [address] * XR OUTSIDE IMAGES (12/09/2024 2:38 PM [...] - Final from Last 3 Months Insurance [facility] Advance Directives * Full Code (Latest Code Status on File) Date Activated Date Inactivated Comments 12/10/2024 3:46 AM 12/15/2024 5:11 PM Question Answer Comments I have reviewed the capacity from the link above and, if needed, have updated to appropriate status: Yes Care Teams Geophysical Laboratory Chief Relationship Specialty Start Date End Date Starr Fulton PA Replaced by [facility] [place] [address] PCP - General 12/09/24
--- OUTSIDE RECORDS SUMMARY | 2025-01-21 10:39 | XMS_ITS | Encounter Summary ---
Author Organization Healthcare Address [address] [place] [address] Care Team Providers Care Weights And Measures Inspector Name Role Phone Starr Fulton Primary Care Provider [phone] Encounter Details Date Type Department Care Team (Late st Contact Info) Description 12/21/2024 Telephone [facility] [address] [place] [address] Kam Santiago MD [address] [place] [address] Social History Tobacco Use Types [...] any time in the past 12 m [facility], were you homeless or living in a long-term (including now)? No 12/14/2024 [facility] [...] documented as of this encounter Care Teams Weights And Measures Inspector Relationship Specialty Start Date End Date Starr Fulton PA [facility] [address] [place] [address] PCP - General 12/09/24 documented as of this encounter
--- OUTSIDE RECORDS SUMMARY | 2025-01-21 10:39 | XMS_ITS | Encounter Summary ---
Author Organization Healthcare Address [address] [place] [address] Care Team Providers Care Textile Engineer Name Role Phone Starr Fulton Primary Care Provider [phone] Encounter Details Date Type Department Care Team (Late st Contact Info) Description 12/09/2024 Orders Only External Location [address] [place] [address] Richard Yang PA [address] [place] [address] Social History Tobacco Use Types [...] in the past [address] [facility], were you homeless or living in a long term (including now)? No 12/14/2024 [facility] Utilities Answer Date Recorded In the [...] Radiographic Edith ging 12/09/2024 2:38 PM EDT Richadr JETER IMCharmaine XR PROCEDURES Edited Resul t - Final documented in this encounter Visit Diagnoses Not on filedocumented in this encounter Additional Health Concerns Assessment Noted Time A Body Mass Index follow-up plan has been documented for the patient 12/15/2024 2:19 PM EDT documented as of this encounter Care Teams Textile Engineer Relationship Specialty Start Date End Date Starr Fulton PA [address] [place] [address] [address] [place] [address] PCP - General 12/09/24 documented as of this encounter
--- OUTSIDE RECORDS SUMMARY | 2025-01-21 10:39 | XMS_ITS | Encounter Summary ---
Author Organization Healthcare Address [address] [place] [address] Care Team Providers Care Pm Technician Name Role Phone Starr Fulton Primary Care Provider [phone] Encounter Details Date Type Department Care Team (Late st Contact Info) Description 12/09/2024 Orders Only External Location [address] [place] [address] Richard Yang PA [address] [place] [address] Social History Tobacco Use Types [...] any time in the past 12 m [facility], were you homeless or living in a custodial (including now)? No 12/14/2024 [facility] Utilities Answer Date Recorded In [...] documented as of this encounter Care Teams Pm Technician Relationship Specialty Start Date End Date Starr Fulton PA [address] [place] [address] [address] [place] [address] PCP - General 12/09/24 documented as of this encounter
--- OUTSIDE RECORDS SUMMARY | 2025-01-21 10:39 | XMS_ITS | Encounter Summary ---
Author Organization Healthcare Address [address] [place] [address] Care Team Providers Care Apartment Property Manager Name Role Phone Starr Fulton Primary Care Provider [phone] Encounter Details Date Type Department Care Team (Late st Contact Info) Description 12/09/2024 Orders Only External Location [address] [place] [address] Richard Yang PA [address] [place] [address] Social History Tobacco Use Types [...] any time in the past 12 m [facility], were you homeless or living in a detention (including now)? No 12/14/2024 [facility] [...] Edith ging 12/09/2024 2:38 PM EDT Richard JTEER IMCharmaine XR PROCEDURES Edited Resul t - Final documented in this encounter Visit Diagnoses Not on filedocumented in this encounter Additional Health Concerns Assessment Noted Time A Body Mass Index follow-up plan has been documented for the patient 12/15/2024 2:19 PM EDT documented as of this encounter Care Teams Apartment Property Manager Relationship Specialty Start Date End Date Starr Fulton PA [address] [place] [address] [address] [place] [address] PCP - General 12/09/24 documented as of this encounter
--- OUTSIDE RECORDS SUMMARY | 2025-01-21 10:39 | XMS_ITS | Encounter Summary ---
Author Organization [facility] Address [address] [place] [address] Care Team Providers Care Digital Solution Architect Name Role Phone Starr Fulton Primary Care Provider [phone] Encounter Details Date Type Department Care Team [...] any time in the past 12 m [facility], were you homeless or living in a [facility] (including now)? No 12/14/2024 [facility] Utilities Answer Date Recorded In the past [...] documented as of this encounter Care Teams Digital Solution Architect Relationship Specialty Start Date End Date Starr Fulton PA [address] [place] [address] PCP - General 12/09/24 documented as of this encounter
--- OUTSIDE RECORDS SUMMARY | 2025-01-21 10:39 | XMS_ITS | Encounter Summary ---
Author Organization Healthcare Address [address] [place] [address] Care Team Providers Care Cart Attendant Name Role Phone Starr Fulton Primary Care Provider [phone] Encounter Details Date Type Department Care Team (Late st Contact Info) Description 12/09/2024 Orders Only External Location [address] [place] [address] Richard Yang PA [address] [place] [address] Social History Tobacco Use Types [...] in a [facility] (including now)? No 12/14/[address] [facility] Utilities Answer Date Recorded In the [...] documented as of this encounter Care Teams Cart Attendant Relationship Specialty Start Date End Date Starr Fulton PA [facility] [address] [place] [address] PCP - General 12/09/24 documented as of this encounter
--- OUTSIDE RECORDS SUMMARY | 2025-01-21 10:39 | XMS_ITS | Encounter Summary ---
Author Organization Healthcare Address [address] [place] [address] Care Team Providers Care Make Up Artist Name Role Phone Starr Fulton Primary Care Provider [phone] Encounter Details Date Type Department Care Team (Late st Contact Info) Description 12/09/2024 Orders Only External Location [address] [place] [address] Richard Yang PA [address] [place] [address] Social History Tobacco Use Types [...] were you homeless or living in a [facility] (including now)? No 12/14/2024 [facility] Utilities Answer Date Recorded In the [...] documented as of this encounter Care Teams Make Up Artist Relationship Specialty Start Date End Date Starr Fulton PA [address] [place] [address] [address] [place] [address] PCP - General 12/09/24 documented as of this encounter
--- OUTSIDE RECORDS SUMMARY | 2025-01-21 10:40 | XMS_ITS | Encounter Summary ---
Author Organization [facility] Address [address] [place] [address] Care Team Providers Care Seed Yeast Operator Name Role Phone Starr Fulton Primary Care Provider [phone] Encounter Details Date Type Department Care Team [...] any time in the past 12 m [facility], were you homeless or living in a [place] [facility] (including now)? No 12/14/2024 [facility] Utilities Answer Date Recorded In the past [...] documented as of this encounter Care Teams Seed Yeast Operator Relationship Specialty Start Date End Date Starr Fulton PA [address] [place] [address] [address] [place] [address] PCP - General 12/09/24 documented as of this encounter
== END 2025-01-21 23:59 | disposition home or self-care (01) ==
LOC: RAD 10:35
PROVIDERS: PCP Physician Assistant; Visit Provider Physician Assistant
DX: S22.41XD Multiple fractures of ribs, right side, subsequent encounter for fracture with routine healing (principal)
CPT/HCPCS: 71046